=== PATIENT | male | born 1925 | race Caucasian/White ===

== ENCOUNTER 2016-11-14 05:57 | Inpatient (IN) | payer MEDICARE, OTHER ==
[~2016-11-14] VITALS: Ht 172.7 cm; Wt 74.4 kg
[2016-11-14] VITALS (7 sets, daily range): BP systolic 129–149; BP diastolic 65–76; PULSE 74–90; RESP 16–18; TEMP 98–98.4; O2SAT 92–99
[~2016-11-14 05:57] MED LIST: ACET-703 PO; ALLO300T2 PO; AMLO5TAB2 PO; ASPI-110 PO; CHOL1CAP34 PO; CIPR500T2 PO; HYDR-3583 PO; IBUP800T23 PO; IPRA17I INH; LISI-515 PO; LOTE0.5S EACH EYE; MOBI15TA PO; OMEP40CA2 PO
--- NOTE | 2016-11-14 06:47 | RADRPT ---
EXAM DATE/TIME: 11/14/2016 06:23 [facility] COMPARISON: CHEST PA & LAT, October 20, 2016, 12:37. INDICATIONS : Shortness of breath. MEDICAL HISTORY : Hypertension. SURGICAL HISTORY : PHYSICIAN/OPHTHALMOLOGIST shunt ENCOUNTER: Initial ACUITY: 1 day PAIN SCORE: 10 LOCATION: Bilateral chest FINDINGS: A single view of the chest demonstrates the lungs to be symmetrically aerated without evidence of mas s, infiltrate or effusion. Mild coarse opacity remains at the lung bases consistent with scarring. Th e cardiomediastinal contours are unremarkable. Osseous structures are intact. Shunt catheter tubing is projected over the right chest. There are mild atherosclerotic calcifications in the aorta. CONCLUSION: No acute disease. There is no evidence of acute pneumonia or pulmonary edema. Misale Camara MD on November 14, 2016 at 6:45 Board Certified Radiologist. This report was verified electronically.
--- NOTE | 2016-11-14 06:48 | RADRPT ---
EXAM DATE/TIME: 11/14/2016 06:24 [facility] COMPARISON: No previous studies available for comparison. INDICATIONS : Pelvic pain after fall. MEDICAL HISTORY : Hypertension. SURGICAL HISTORY : PUMP ERECTOR shunt ENCOUNTER: Initial ACUITY: 1 day PAIN SCORE: 10 LOCATION: Bilateral pelvis FINDINGS: A single frontal view of the pelvis demonstrates no evidence of fracture. The bony pelvic ring is in tact. Bony mineralization is normal. Mild degenerative changes are noted in both hips with sclerosis and slight spurring. The pubic rami are intact. Shunt catheter tubing is present in the pelvis. The soft tissues are intact. CONCLUSION: Negative trauma study with no acute fracture or malalignment. Misael Camara MD on November 14, 2016 at 6:46 Board Certified Radiologist. This report was verified electronically.
[2016-11-14 06:56] LABS: APTT (PATIENT) 29.5 SEC (24.3-30.1); PROTHROMBIN TIME - PATIENT 11.6 SEC (9.8-11.6)
[2016-11-14 07:00] LABS: AUTOMATED NEUTROPHIL # 16.5 TH/MM3 (1.8-7.7); BASOPHIL % 0.1 % (0.0-2.0); EOSINOPHIL % 0.1 % (0.0-4.0); HEMO FLAGS DIFF FINAL; LYMPH % 2.7 % (9.0-44.0); LYMPHOCYTE # 0.5 TH/MM3 (1.0-4.8); MEAN CELL VOLUME 94.8 FL (80.0-100.0); MEAN CORPUSCULAR HGB CONC 33.8 % (32.0-36.0); MONO % 9.7 % (0.0-8.0); NEUT % 87.4 % (16.0-70.0); PLATELET COUNT 191 TH/MM3 (150-450); RED BLOOD COUNT 4.64 MIL/MM3 (4.50-5.90); RED CELL DISTRIBUTION WIDTH 14.3 % (11.6-17.2); WHITE BLOOD COUNT 18.9 TH/MM3 (4.0-11.0)
--- NOTE | 2016-11-14 07:04 | PD ---
HPI Chief Complaint: Fall Time Seen by Provider: 06:10 Travel History International Travel<30 days: No Contact w/Intl Traveler<30days: No Traveled to known affect area: No History of Present Illness HPI The patient is 89 year old male who presents to the [facility] emergency department with a history of reportedly falling at some point in the evening today. The patient's accompanies him to this emergency department visit. She reports that he has a history of being unsteady on his feet and having intermittent confusion, slurred speech. He has recently been seen by his neurosurgeon, approximately 4 days ago related to these symptoms and concern about his TREATMENT SUPERVISOR shunt being tender. The patient's shunt was reportedly recently revised. 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 The patient is followed by Dr. Turpin. His reports that he has not been sleeping well for weeks. She reports that he has been on ciprofloxacin for the last 4 days and the pain around the shunt site has improved. She reports that she heard him yelling out this morning. As she was not sleeping well she went to another room to sleep. She therefore does not know exactly when he fell. She found him on the floor awake and alert. In spite of being alert, the patient did not seem to recognize her. However, on arrival to this facility the patient is awake and alert and recognizing his . The patient reports that he lost his balance. The patient was brought in by ambulance services in full C-spine immobilization on the backboard. The patient reports having right clavicle pain. The patient denies any recent fevers, cough, congestion, neck pain, chest pain, shortness of breath, abdominal pain, vomiting, diarrhea, urinary symptoms, one-sided weakness, numbness or tingling to his extremities, or facial droop. [facility] [place] Past Medical History Narrative Medical The patient's past medical history is significant for hearing loss, COPD, hyperlipidemia, hypertension, acid reflux, and gout. Cancer: No Cardiovascular Problems: No COPD: Yes Diabetes: No Endocrine: No Gastrointestinal Disorders: Yes (GERD) Genitourinary: No Hepatitis: No Hiatal Hernia: No Hypertension: Yes (TAKES MEDS) Immune Disorder: No Medical other: Yes (GOUT) Musculoskeletal: Yes (ARTHRITIS RIGHT KNEE AND NECK, LEFT SHOULDER PAIN) Neurologic: Yes (HYDROCEPHALUS) Psychiatric: No Reproductive: No Respiratory: Yes (EMPHYSEMA) Thyroid Disease: No Past Surgical History Narrative Surgical The patient's past surgical history is significant for a TREATMENT SUPERVISOR shunt placement, left rotator cuff repair. Abdominal Surgery: No AICD: No Body Medical Devices: RIGHT CORNIAL TRANSPLANT, RIGHT TREATMENT SUPERVISOR SHUNT Cardiac Surgery: No Ear Surgery: No Endocrine Surgery: No Eye Surgery: Yes (RIGHT CORNIAL TRANSPLANT) Genitourinary Surgery: No Gynecologic Surgery: No Joint Replacement: No Neurologic Surgery: Yes (TREATMENT SUPERVISOR SHUNT) Oral Surgery: Yes (TONSILLECTOMY A CHILD) Pacemaker: No Thoracic Surgery: No Other Surgery: Yes Social History Alcohol Use: No Tobacco Use: No Substance Use: No Allergies-Medications (Allergen,Severity, Reaction): Coded Allergies: No Known Allergies (Unverified , 11/10/16) Reported Meds & Prescriptions Reported Meds & Active Scripts Active Ibuprofen 800 Mg Tab 600 Mg PO Q8H PRN Hydrocodone-Acetaminophen 10-325 mg Tab 1 Tab PO Q8HR PRN Ciprofloxacin (Ciprofloxacin HCl) 500 Mg Tab 500 Mg PO Q12HR Reported Tylenol Extra Strength (Acetaminophen) 500 Mg Tab 500 Mg PO HS PRN Mobic (Meloxicam) 15 Mg Tab 15 Mg PO DAILY Vitamin D3 (Cholecalciferol) 50,000 Unit Cap Unknown Dose PO Q7D Atrovent HFA 12.9 GM Inh (Ipratropium Friendship) 17 Mcg/Act Aer 2 Puff INH DIRECTED PRN Lotemax Opth Drops (Loteprednol Etabonate) 0.5 % Soln 1 Drop EACH EYE QID Omeprazole 40 Mg Cap 40 Mg PO DAILY Lisinopril 20 Mg Tab 20 Mg PO DAILY Aspirin 81 (Aspirin) 81 Mg Tabdr 81 Mg PO DAILY Amlodipine (Amlodipine Besylate) 5 Mg Tab 5 Mg PO DAILY Allopurinol 300 Mg Tab 300 Mg PO DAILY Review of Systems Except as stated in HPI: all other systems reviewed are Neg General / Constitutional: No: Fever Eyes: No: Visual changes HENT: No: Headaches Cardiovascular: No: Chest Pain or Discomfort Respiratory: No: Shortness of Breath Gastrointestinal: No: Abdominal Pain Genitourinary: No: Dysuria Musculoskeletal: Positive: Pain (right clavicle) Skin: No Rash Neurologic: Positive: Coordination Problem, Change in Mentation, No: Weakness , Focal Abnormalities, Headache, Slurred Speech, Sensory Disturbance Psychiatric: No: Depression Endocrine: No: Polydipsia Hematologic/Lymphatic: No: Easy Bruising Physical Exam Narrative General: The patient is a well-developed well-nourished male in no acute distress. The patient's altered The patient is brought in on a back board in full c-spine immobilization by emergency services. Head and Neck exam: Head is normocephalic atraumatic. The patient has a TREATMENT SUPERVISOR shunt noted, no overlying erythema, edema, or crepitus. No drainage noted. No facial bone tenderness or increased facial bone mobility noted on palpation. Eyes: EOMI, pupils are equal round and reactive to light. Nose: Midline septum with pink mucous membranes Mouth: Dentition unremarkable. Moist mucus membranes. Posterior oropharynx is not erythematous. No tonsillar hypertrophy. Uvula midline. Airway patent. Neck: The patient is immobilized in a cervical collar. No tracheal deviation. The trachea appears midline. Cardiovascular: Regular rate and rhythm without murmurs, gallops, or rubs. No pulse deficit to the extremities. Lungs: Clear to auscultation bilaterally. No wheezes, rhonchi, or rales. The patient on examination of the right clavicle, has reported discomfort on palpation of the medial aspect at the border to the sternum. No erythema or ecchymosis noted. No crepitus, step off, or flail segment noted. No other chest wall tenderness on palpation. Abdomen: Soft, with reported discomfort on palpation in bilateral lower quadrants of the abdomen in the suprapubic area, worse in the left lower quadrant compared to the right. The patient reports that he's had a history of constipation recently. No tenderness on palpation of the upper quadrant of the abdomen. Negative Mcclain's sign. Normal bowel sounds are audible. No visible trauma. No evidence of ecchymosis or erythema. Extremities: No clubbing, cyanosis, or edema. 2+ pulses in all 4 extremities. No extremity tenderness or deformity noted on palpation or passive/ active range of motion. Back: The patient was log rolled off the backboard. No spinous process tenderness to palpation. No costovertebral angle tenderness to palpation. No erythema or ecchymosis. Neurologic Exam: Cranial nerves 2-12 were intact on exam. Strength is 5/5 in all 4 extremities. No sensory deficits noted. Skin Exam: No rash noted. Intact skin that is warm and dry. Data Data Last Documented VS Vital Signs Date Time Temp Pulse Resp B/P Pulse Ox O2 Delivery O2 Flow Rate FiO2 11/14/16 06:11 98.4 90 18 144/76 99 Room Air Orders Chest, Single Ap (11/14/16 06:22) Pelvis, Ap Only (Routine) (11/14/16 06:22) Ct Brain W/O Iv Contrast(Rout) (11/14/16 06:22) Ct Cerv Spine W/O Contrast (11/14/16 06:22) Ct Abd/Pel W Iv Contrast(Rout) (11/14/16 06:22) Electrocardiogram (11/14/16 06:22) Complete Blood Count With Diff (11/14/16 06:22) Comprehensive Metabolic Panel (11/14/16 06:22) Prothrombin Time / Inr (Pt) (11/14/16 06:22) Act Partial Throm Time (Ptt) (11/14/16 06:22) C-Reactive Protein (Crp) (11/14/16 06:22) Lipase (11/14/16 06:22) Urinalysis - C+S If Indicated (11/14/16 06:22) Cath For Specimen (11/14/16 06:22) Iv Access Insert/Monitor (11/14/16 06:22) Ecg Monitoring (11/14/16 06:22) Oximetry (11/14/16 06:22) Clavicle (11/14/16 ) Labs Laboratory Tests Test 11/14/16 06:30 White Blood Count 18.9 TH/MM3 Red Blood Count 4.64 MIL/MM3 Hemoglobin 14.9 GM/DL Hematocrit 44.0 % Mean Corpuscular Volume 94.8 FL Mean Corpuscular Hemoglobin 32.0 PG Mean Corpuscular Hemoglobin 33.8 % Concent Red Cell Distribution Width 14.3 % Platelet Count 191 TH/MM3 Mean Platelet Volume 8.0 FL Neutrophils (%) (Auto) 87.4 % Lymphocytes (%) (Auto) 2.7 % Monocytes (%) (Auto) 9.7 % Eosinophils (%) (Auto) 0.1 % Basophils (%) (Auto) 0.1 % Neutrophils # (Auto) 16.5 TH/MM3 Lymphocytes # (Auto) 0.5 TH/MM3 Monocytes # (Auto) 1.8 TH/MM3 Eosinophils # (Auto) 0.0 TH/MM3 Basophils # (Auto) 0.0 TH/MM3 CBC Comment DIFF FINAL Differential Comment Prothrombin Time 11.6 SEC Prothromb Time International 1.0 RATIO Ratio Activated Partial 29.5 SEC Thromboplast Time Sodium Level 134 MEQ/L Potassium Level 4.7 MEQ/L Chloride Level 103 MEQ/L Carbon Dioxide Level 23.7 MEQ/L Anion Gap 7 MEQ/L Blood Urea Nitrogen 20 MG/DL Creatinine 1.02 MG/DL Estimat Glomerular Filtration 69 ML/MIN Rate Random Glucose 139 MG/DL Calcium Level 8.6 MG/DL Total Bilirubin 1.3 MG/DL Aspartate Amino Transf 40 U/L (AST/SGOT) Alanine Aminotransferase 42 U/L (ALT/SGPT) Alkaline Phosphatase 121 U/L C-Reactive Protein 18.00 MG/DL Total Protein 7.1 GM/DL Albumin 2.9 GM/DL Lipase 64 U/L MDM Medical Decision Making Medical Screen Exam Complete: Yes Emergency Medical Condition: Yes Medical Record Reviewed: Yes Differential Diagnosis Intracranial abnormality, versus cervical spine trauma, versus intrathoracic trauma, versus intra-abdominal trauma, versus diverticulitis, versus right clavicle fracture, versus contusion, versus urinary tract infection, versus TREATMENT SUPERVISOR shunt malfunction. Narrative Course During the course of the patients emergency department visit, the patients history, examination, and differential diagnosis were reviewed with the patient. The patient had IV access obtained and blood work sent for analysis. The patient was placed on a monitor tech with oximetry and blood pressure monitoring. An EKG was done on arrival that shows a sinus rhythm heart rate of 87, no acute ST segment changes are noted. No ST segment elevation. A CT scan of the head, neck, abdomen and pelvis was ordered. Chest x-ray was ordered. Pelvic x-ray was ordered. Right clavicle x-ray was ordered. The patients laboratory studies were reviewed and remarkable for a PT and INR that were unremarkable, PTT unremarkable. Chest x-ray, pelvic x-ray showed no acute abnormality. The patient's case was checked out to the oncoming emergency physician to disposition based on the conclusion of his workup. Anticipate that the patient will be admitted to the hospital for continued evaluation and treatment for altered mentation that waxes and wanes in severity. Diagnosis Primary Impression: Fall Qualified Code: W19.XXXA - Fall, initial encounter Additional Impression: Altered mental status Qualified Code: R40.4 - Transient alteration of awareness Admitting Information Admitting Physician Requests: Admit Liat Marrero MD Nov 14, 2016 07:04
[2016-11-14 07:10] LABS: ALKALINE PHOSPHATASE 121 U/L (45-117); ALT (GPT) 42 U/L (12-78); ANION GAP 7 MEQ/L (5-15); AST (GOT) 40 U/L (15-37); BICARBONATE 23.7 MEQ/L (21.0-32.0); BLOOD UREA NITROGEN 20 MG/DL (7-18); CHLORIDE 103 MEQ/L (98-107); GLOMERULAR FILTRATION RATE 69 ML/MIN (>89); POTASSIUM 4.7 MEQ/L (3.5-5.1); SODIUM (NA) 134 MEQ/L (136-145); TOTAL BILIRUBIN ADULT 1.3 MG/DL (0.2-1.0)
[2016-11-14] MEDS ORDERED: IOHEXOL 350 MG/ML 10 ML VIAL (for RAD DIAG) IV ONE (07:53)
--- NOTE | 2016-11-14 08:00 | RADRPT ---
EXAM DATE/TIME: 11/14/2016 07:32 [facility] COMPARISON: No previous studies available for comparison. INDICATIONS : Patient fell, shunt replaced 3 weeks ago RADIATION DOSE: 60.46 CTDIvol (mGy) MEDICAL HISTORY : Hypertension. Chronic obstructive pulmonary disease. Hydrocephalus SURGICAL HISTORY : CYLINDER DIE MACHINE HELPER shunt ENCOUNTER: Initial ACUITY: 1 day PAIN SCALE: 3/10 LOCATION: cranial TECHNIQUE: Multiple contiguous axial images were obtained of the head. Using automated exposure control and adj ustment of the mA and/or kV according to patient size, radiation dose was kept as low as reasonably a chievable to obtain optimal diagnostic quality images. FINDINGS: No intracranial hemorrhage or hematoma. No mass, mass effect or midline shift. Chronic white matter l ow attenuation again noted. No evidence of an acute ischemic infarction. Patient is shunted. No ventr iculomegaly. CONCLUSION: No acute intracranial abnormality. New Manrique MD on November 14, 2016 at 7:57 Board Certified Radiologist. This report was verified electronically.
--- NOTE | 2016-11-14 08:08 | RADRPT ---
EXAM DATE/TIME: 11/14/2016 07:41 [facility] COMPARISON: No previous studies available for comparison. INDICATIONS : Patient fell IV CONTRAST: 76 cc Omnipaque 350 (iohexol) IV ORAL CONTRAST: No oral contrast ingested. RADIATION DOSE: 9.72 CTDIvol (mGy) MEDICAL HISTORY : Hypertension. Chronic obstructive pulmonary disease. SURGICAL HISTORY : Sustainability Engineer shunt ENCOUNTER: Initial ACUITY: 1 day PAIN SCALE: 0/10 LOCATION: abdomen TECHNIQUE: Volumetric scanning of the abdomen and pelvis was performed. Using automated exposure control and ad justment of the mA and/or kV according to patient size, radiation dose was kept as low as reasonably achievable to obtain optimal diagnostic quality images. FINDINGS: LOWER LUNGS: Fibrotic changes and mild consolidation seen of the visualized lung bases. LIVER: Homogeneous density without lesion. There is no dilation of the biliary tree. No calcified gallston es. SPLEEN: Normal size without lesion. PANCREAS: Within normal limits. KIDNEYS: Normal in size and shape. There is no mass, stone or hydronephrosis. ADRENAL GLANDS: Within normal limits. VASCULAR: There is no aortic aneurysm. BOWEL/MESENTERY: The stomach, small bowel, and colon demonstrate no acute abnormality. There is no free intraperitone al air or fluid. Distal portions of a ventriculoperitoneal shunt catheter are seen coiled in the pelv ic cavity. Small moderate hiatal hernia noted. ABDOMINAL WALL: Within normal limits. RETROPERITONEUM: There is no lymphadenopathy. BLADDER: No wall thickening or mass. REPRODUCTIVE: Within normal limits. INGUINAL: There is no lymphadenopathy or hernia. MUSCULOSKELETAL: No acute bony abnormality demonstrated. There are pagetoid changes of the right hemipelvis. CONCLUSION: 1. No visceral origin injury or other acute abnormality of the abdomen or pelvis. 2. Fibrotic changes and patchy consolidation of the visualized lung bases. 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 4. Small to moderate hiatal hernia. New Manrique MD on November 14, 2016 at 8:04 Board Certified Radiologist. This report was verified electronically.
--- NOTE | 2016-11-14 08:10 | RADRPT ---
EXAM DATE/TIME: 11/14/2016 07:50 [facility] COMPARISON: No previous studies available for comparison. INDICATIONS : Right clavicle infection. Minor pain. MEDICAL HISTORY : Hypertension. Chronic obstructive pulmonary disease. Hydrocephalus SURGICAL HISTORY : CUE SELECTOR shunt ENCOUNTER: Initial ACUITY: 1 day PAIN SCORE: 1/10 LOCATION: Right clavicle FINDINGS: Two view examination of the right clavicle demonstrates no evidence of fracture. The sternoclavicula r joints and acromioclavicular joints are maintained. Bony mineralization is normal. CONCLUSION: Intact right clavicle. New Manrique MD on November 14, 2016 at 8:08 Board Certified Radiologist. This report was verified electronically.
[2016-11-14 08:39] LABS: BLOOD, URINE SMALL (NEG); GLUCOSE,URINE NEG (NEG); KETONE, URINE 10 mg/dL (NEG); MUCUS URINE MOD /lpf (OCC); NITRITE,URINE NEG (NEG); PH, URINE 6.5 (5.0-8.5); URINE COLOR YELLOW (YELLW/STRAW)
[2016-11-14 08:42] LABS: COMMENT (UR) CULT NOT INDICATED; CULTURE IF INDICATED CULT NOT INDICATED
--- NOTE | 2016-11-14 09:57 | RADRPT ---
EXAM DATE/TIME: 11/14/2016 07:32 [facility] COMPARISON: No previous studies available for comparison. INDICATIONS : Patient fell RADIATION DOSE: 19.18 CTDIvol (mGy) MEDICAL HISTORY : Hypertension. Chronic obstructive pulmonary disease. SURGICAL HISTORY : shunt ENCOUNTER: Initial ACUITY: 1 day PAIN SCALE: 5/10 LOCATION: neck TECHNIQUE: Volumetric scanning of the cervical spine was performed. Multiplanar reconstructions in the sagittal, coronal and oblique axial planes were performed. Using automated exposure control and adjustment o f the mA and/or kV according to patient size, radiation dose was kept as low as reasonably achievable to obtain optimal diagnostic quality images. FINDINGS: VERTEBRAE: Normal vertebral body height. ALIGNMENT: No evidence of subluxation. Calcified plaque involving the carotid arteries bilaterally. C2-C3: The bony spinal canal is normal in size. No evidence of disc bulge or herniation. The neural forami na are bilaterally patent. C3-C4: A broad-based disc bulge eccentric to the left. Mild narrowing of the left lateral recess. Central ca nal and neural foramina are patent. C4-C5: The bony spinal canal is normal in size. No evidence of disc bulge or herniation. The neural forami na are bilaterally patent. C5-C6: Mild central bulge. Lateral recesses, central canal, and neural foramina are patent. C6-C7: The bony spinal canal is normal in size. No evidence of disc bulge or herniation. The neural forami na are bilaterally patent. C7-T1: The bony spinal canal is normal in size. No evidence of disc bulge or herniation. The neural forami na are bilaterally patent. CONCLUSION: 1. No acute abnormality. 2. Diffuse mild degenerative changes without central canal stenosis or neural foraminal narrowing. 3. Calcified plaque involving the carotid arteries. Edwardo Workman Jr., MD on November 14, 2016 at 9:45 Board Certified Radiologist. This report was verified electronically.
[2016-11-14] MEDS ORDERED: PIPERACIL-TAZO 4.5 GM PREMIX 100 ML IV STA (10:03)
[2016-11-14] MEDS ORDERED: VANCOMYCIN INJ 1,000 MG in SODIUM CHLOR 0.9% 250 ML INJ 250 ML IV STA (10:03)
--- NOTE | 2016-11-14 10:43 | PD ---
Physical Exam Date Seen by Provider: Nov 14, 2016 Time Seen by Provider: 07:00 Narrative Case is signed out to me at [address] Marrero, complicated patient with history of CSF shunt, more disoriented a recently, has been on Cipro for [address] Turpin. Please see Dr. Marrero's note for further information. Laboratory Tests Test 11/14/16 11/14/16 06:30 08:26 White Blood Count 18.9 TH/MM3 (4.0-11.0) Neutrophils (%) (Auto) 87.4 % (16.0-70.0) Lymphocytes (%) (Auto) 2.7 % (9.0-44.0) Monocytes (%) (Auto) 9.7 % (0.0-8.0) Neutrophils # (Auto) 16.5 TH/MM3 (1.8-7.7) Lymphocytes # (Auto) 0.5 TH/MM3 (1.0-4.8) Monocytes # (Auto) 1.8 TH/MM3 (0-0.9) Sodium Level 134 MEQ/L (136-145) Blood Urea Nitrogen 20 MG/DL (7-18) Estimat Glomerular Filtration 69 ML/MIN (>89) Rate Random Glucose 139 MG/DL (74-106) Total Bilirubin 1.3 MG/DL (0.2-1.0) Aspartate Amino Transf 40 U/L (15-37) (AST/SGOT) Alkaline Phosphatase 121 U/L (45-117) C-Reactive Protein 18.00 MG/DL (0.00-0.30) Albumin 2.9 GM/DL (3.4-5.0) Lipase 64 U/L (73-393) Urine Specific [place] GREATER THAN 1.050 (1.002-1.035) Urine Protein 30 mg/dL (NEG-TRACE) Urine Ketones 10 mg/dL (NEG) Urine Occult Blood SMALL (NEG) Urine RBC 7 /hpf (0-3) Urine Mucus MOD /lpf (OCC) Last 24 hours Impressions Pelvis X-Ray 11/14/16621 Signed Impressions: Service Date/Time: Monday, November 14, 2016 06:24 - CONCLUSION: Negative trauma study with no acute fracture or malalignment. Misael Camara MD Head CT 12/27/16 0622 Signed Impressions: Service Date/Time: Monday, November 14, 2016 07:32 - CONCLUSION: No acute intracranial abnormality. New Manrique MD Chest X-Ray 11/14/16621 Signed Impressions: Service Date/Time: Monday, November 14, 2016 06:23 - CONCLUSION: No acute disease. There is no evidence of acute pneumonia or pulmonary edema. Misael Camara MD Cervical Spine CT 11/14/16621 Signed Impressions: Service Date/Time: Monday, November 14, 2016 07:32 - CONCLUSION: 1. No acute abnormality. 2. Diffuse mild degenerative changes without central canal stenosis or neural foraminal narrowing. 3. Calcified plaque involving the carotid arteries. Edwardo Workman Jr., MD Abdomen/Pelvis CT 11/14/16621 Signed Impressions: Service Date/Time: Monday, November 14, 2016 07:41 - CONCLUSION: 1. No visceral origin injury or other acute abnormality of the abdomen or pelvis. 2. Fibrotic changes and patchy consolidation of the visualized lung bases. 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 4. Small to moderate hiatal hernia. New Manrique MD Clavicle X-Ray 11/14/16 0000 Signed Impressions: Service Date/Time: Monday, November 14, 2016 07:50 - CONCLUSION: Intact right clavicle. New Manrique MD CAT scans and x-rays did not reveal any signs of obvious acute issues. However , lab work is concerning for possible underlying sepsis. IV antibiotics were initiated after blood cultures are drawn. At this point, my plan would be to admit the patient for further treatment. The case was discussed with Dr. Lane for admission. Data Data Last Documented VS Vital Signs Date Time Temp Pulse Resp B/P Pulse Ox O2 Delivery O2 Flow Rate FiO2 11/14/16 07:22 88 18 129/65 96 Nasal Cannula 2 11/14/16 06:11 98.4 Orders Chest, Single Ap (11/14/16 06:22) Pelvis, Ap Only (Routine) (11/14/16 06:22) Ct Brain W/O Iv Contrast(Rout) (11/14/16 06:22) Ct Cerv Spine W/O Contrast (11/14/16 06:22) Ct Abd/Pel W Iv Contrast(Rout) (11/14/16 06:22) Electrocardiogram (11/14/16 06:22) Complete Blood Count With Diff (11/14/16 06:22) Comprehensive Metabolic Panel (11/14/16 06:22) Prothrombin Time / Inr (Pt) (11/14/16 06:22) Act Partial Throm Time (Ptt) (11/14/16 06:22) C-Reactive Protein (Crp) (11/14/16 06:22) Lipase (11/14/16 06:22) Urinalysis - C+S If Indicated (11/14/16 06:22) Cath For Specimen (11/14/16 06:22) Iv Access Insert/Monitor (11/14/16 06:22) Ecg Monitoring (11/14/16 06:22) Oximetry (11/14/16 06:22) Clavicle (11/14/16 ) Iohexol 350 Inj (Omnipaque 350 Inj) (11/14/16 07:53) Lactic Acid Sepsis Protocol (11/14/16 10:03) Blood Culture (11/14/16 10:03) Vancomycin Inj (Vancomycin Inj) (11/14/16 10:03) Piperacil-Tazo 4.5 Gm Premix (Zosyn 4.5 (11/14/16 10:03) Admit Order (Ed Use Only) (11/14/16 10:39) Labs Laboratory Tests Test 11/14/16 11/14/16 06:30 08:26 White Blood Count 18.9 TH/MM3 Red Blood Count 4.64 MIL/MM3 Hemoglobin 14.9 GM/DL Hematocrit 44.0 % Mean Corpuscular Volume 94.8 FL Mean Corpuscular Hemoglobin 32.0 PG Mean Corpuscular Hemoglobin 33.8 % Concent Red Cell Distribution Width 14.3 % Platelet Count 191 TH/MM3 Mean Platelet Volume 8.0 FL Neutrophils (%) (Auto) 87.4 % Lymphocytes (%) (Auto) 2.7 % Monocytes (%) (Auto) 9.7 % Eosinophils (%) (Auto) 0.1 % Basophils (%) (Auto) 0.1 % Neutrophils # (Auto) 16.5 TH/MM3 Lymphocytes # (Auto) 0.5 TH/MM3 Monocytes # (Auto) 1.8 TH/MM3 Eosinophils # (Auto) 0.0 TH/MM3 Basophils # (Auto) 0.0 TH/MM3 CBC Comment DIFF FINAL Differential Comment Prothrombin Time 11.6 SEC Prothromb Time International 1.0 RATIO Ratio Activated Partial 29.5 SEC Thromboplast Time Sodium Level 134 MEQ/L Potassium Level 4.7 MEQ/L Chloride Level 103 MEQ/L Carbon Dioxide Level 23.7 MEQ/L Anion Gap 7 MEQ/L Blood Urea Nitrogen 20 MG/DL Creatinine 1.02 MG/DL Estimat Glomerular Filtration 69 ML/MIN Rate Random Glucose 139 MG/DL Calcium Level 8.6 MG/DL Total Bilirubin 1.3 MG/DL Aspartate Amino Transf 40 U/L (AST/SGOT) Alanine Aminotransferase 42 U/L (ALT/SGPT) Alkaline Phosphatase 121 U/L C-Reactive Protein 18.00 MG/DL Total Protein 7.1 GM/DL Albumin 2.9 GM/DL Lipase 64 U/L Urine Color YELLOW Urine Turbidity CLEAR Urine pH 6.5 Urine Specific [place] GREATER THAN 1.050 Urine Protein 30 mg/dL Urine Glucose (UA) NEG mg/dL Urine Ketones 10 mg/dL Urine Occult Blood SMALL Urine Nitrite NEG Urine Bilirubin NEG Urine Urobilinogen LESS THAN 2.0 MG/DL Urine Leukocyte Esterase NEG Urine RBC 7 /hpf Urine WBC 5 /hpf Urine Mucus MOD /lpf Microscopic Urinalysis Comment CULT NOT INDICATED MDM Medical Record Reviewed: Yes Supervised Visit with CARLIE: No Sepsis Criteria SIRS Criteria (2 or more): Heart rate over 90, WBC > 10542, < 4000 or > 10% bands Diagnosis Primary Impression: Fall Qualified Code: W19.XXXA - Fall, initial encounter Additional Impressions: Altered mental status Qualified Code: R40.4 - Transient alteration of awareness SEPSIS, UNSPECIFIED ORGANISM Admitting Information Admitting Physician Requests: it Lenora Castellon MD Nov 14, 2016 10:43
[2016-11-14] MEDS ORDERED: VANCOMYCIN INJ 1,200 MG in SODIUM CHLOR 0.9% 250 ML INJ 250 ML IV SCH (12:00)
[2016-11-14] MEDS ORDERED: ACETAMINOPHEN 500 MG CPLT PO PRN (12:00)
[2016-11-14] MEDS: SODIUM CHLOR 0.9% 1000 ML INJ 1,000 ML IV SCH ×2 (12:25→23:11)
[2016-11-14] MEDS ORDERED: Vancomycin Consult Pharmacy XX SCH (12:30)
[2016-11-14] MEDS: LOTEPREDNOL OPTH EACH EYE SCH ×2 (13:00→21:00)
--- NOTE | 2016-11-14 15:08 | PD.RAD ---
Post Procedure Progress Note Pre Procedure Diagnosis: (1) Altered mental status Post Procedure Diagnosis: (1) Altered mental status Procedure Date: Nov 14, 2016 Supervising Radiologist: Edwardo Workman JR Proceduralist/Assist: Shu Cage, RT(R), Janet Desai RT(R) Anesthesia: Local Plan of Activity Patient to Unit: Nursing Unit Patient Condition: Good See PACS Report for procedural detail/treatment Spinal Procedure Lumbar Puncture L3-L4 Fluid Removal (CCs): 11 Fluid Description: Clear Puncture Time: 14:33 Jr. Ji,Edwardo Holland MD Nov 14, 2016 15:08
--- NOTE | 2016-11-14 15:29 | RADRPT ---
EXAM DATE/TIME: 11/14/2016 13:55 [place] COMPARISON: No previous studies available for comparison. INDICATIONS : Patient with altered mental status in need of lumbar puncture to rule out meningitis. MEDICAL HISTORY : COPD, HLD, HTN, GERD, Gout, Hydrocephalus, Emphysema SURGICAL HISTORY : MEDICAL DATA ENTRY CLERK shunt placement, Left rotator cuff repair ENCOUNTER: Initial ACUITY: 4 -6 days PAIN SCORE: 0/10 LUMBAR PUNCTURE TIME: 1433 hours FLUORO TIME: 0.8 minutes ACCESS LEVEL: L3-4 FLUID: 11 cc of clear CSF was collected and sent to the laboratory for analysis. PROCEDURE : 1. Fluoroscopic guided lumbar puncture. The risks, benefits and alternatives to the procedure were explained and verbal and written consent w as obtained. The site was prepped in sterile fashion. Full sterile technique was used, including ca p, mask, sterile gloves and gown and a large sterile sheet. Hand hygiene and 2% chlorhexidine and/or betadine/alcohol prep was utilized per protocol for cutaneous antisepsis. The skin and subcutaneous tissues were infiltrated with local anesthetic solution. With fluoroscopic guidance the lumbar thecal sac was punctured at the level above. The fluid describ ed above was removed without difficulty. The patient tolerated the procedure well and there were no complications. CONCLUSION: Uncomplicated fluoroscopically guided lumbar puncture. Edwardo Workman Jr., MD on November 14, 2016 at 15:27 Board Certified Radiologist. This report was verified electronically.
[2016-11-14 15:50] LABS: GROSS BLOOD TUBE #1 1+ (0); GROSS BLOOD TUBE #2 0 (0); GROSS BLOOD TUBE #3 0 (0); GROSS BLOOD TUBE #4 0 (0); SUPERNATE COLOR TUBE #1 CLEAR (CLEAR); SUPERNATE COLOR TUBE #2 CLEAR (CLEAR); SUPERNATE COLOR TUBE #3 CLEAR (CLEAR); SUPERNATE COLOR TUBE #4 CLEAR (CLEAR); VOLUME TUBE # 4 4.5 ML; WBC TUBE #4 27 /MM3 (0-10)
[2016-11-14 16:28] LABS: CSF LYMPHOCYTES 48 %; CSF MONOCYTES 31 %; CSF NEUTROPHILS 3 %
--- NOTE | 2016-11-14 16:48 | PD.ID.CON ---
History of Present Illness Service Infectious Disease Consult Requested By Dr. Vergara Reason for Consult Evaluation and management of sepsis, possible PRINTING BINDERY ASSISTANT shunt infection Primary Care Physician Vini Recio M.D. 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 He reports that on 10/25/2016 he had replacement of the shunt valve at [facility] by for PRINTING BINDERY ASSISTANT shunt malfunction. Patient 's who is present in the room and reports that since the valve was replaced patient has been unable to walk properly and has an unsteady gait with history of fall. He also has been dizzy she thinks he is not thinking right and often stares in space. She also thinks that he is more somnolent and not oriented at times hallucinates and sees bugs. Patient's also reports that due to these symptoms she was seen at Dr. Turpin's clinic 4 days prior to admission and due to concern for PRINTING BINDERY ASSISTANT shunt infection due to localized PRINTING BINDERY ASSISTANT shunt site tenderness he was started on ciprofloxacin which she has been compliant with. With this background patient presents to [facility] emergency department with a history of reportedly falling at some point prior to admission. There is no history of fever but of note patient is on antibiotics. Patient's reports that the pain and tenderness around the PRINTING BINDERY ASSISTANT shunt site on the right side as well as the neck pain has reduced some since starting ciprofloxacin. His reports that he hasn't been sleeping well for weeks and because of this reason she went to another room to sleep. She is not sure about what time he fell but when he'll doubt she found him on the floor awake and alert. She also reports that he was not able to recognize her and so she decided to bring him to the emergency department. The patient was brought in by ambulance services in full C-spine immobilization on the backboard. Blood cultures were done on admission. Patient underwent imaging as well as a lumbar puncture. Lumbar puncture notes reviewed clear fluid, fluid studies reviewed total protein elevated at 100, WBC at 27 but of note patient has been on antibiotics. Pertinent positives and negatives: No history of fevers, night sweats No history of any cardiopulmonary symptoms No history of any bowel bladder dysfunction, seizures, focalize neurological deficit symptoms ID has been consulted for evaluation of possible sepsis, possible PRINTING BINDERY ASSISTANT shunt site infection meningitis,ventriculitis. Review of Systems ROS Limitations: Altered Mental Status Past Family Social History Allergies: Coded Allergies: No Known Allergies (Unverified , 11/10/16) Past Medical History Hearing loss COPD, emphysema Hyperlipidemia Hypertension GERD Gout Arthritis Hydrocephalus History of falls Past Surgical History PRINTING BINDERY ASSISTANT shunt placement in [facility] in 2010 PRINTING BINDERY ASSISTANT shunt valve replacement at [facility] on October 25, 2016 Lumbar disc surgery unsure if he has any hardware Corneal transplant left eye Reported Medications Reported Meds & Active Scripts Active Ciprofloxacin (Ciprofloxacin HCl) 500 Mg Tab 500 Mg PO Q12HR Ibuprofen 800 Mg Tab 600 Mg PO Q8H PRN Hydrocodone-Acetaminophen 10-325 mg Tab 1 Tab PO Q8HR PRN Reported Tylenol Extra Strength (Acetaminophen) 500 Mg Tab 500 Mg PO HS PRN Mobic (Meloxicam) 15 Mg Tab 15 Mg PO DAILY Vitamin D3 (Cholecalciferol) 50,000 Unit Cap Unknown Dose PO Q7D Atrovent HFA 12.9 GM Inh (Ipratropium [place]) 17 Mcg/Act Aer 2 Puff INH DIRECTED PRN Lotemax Opth Drops (Loteprednol Etabonate) 0.5 % Soln 1 Drop EACH EYE QID Omeprazole 40 Mg Cap 40 Mg PO DAILY Lisinopril 20 Mg Tab 20 Mg PO DAILY Aspirin 81 (Aspirin) 81 Mg Tabdr 81 Mg PO DAILY Amlodipine (Amlodipine Besylate) 5 Mg Tab 5 Mg PO DAILY Allopurinol 300 Mg Tab 300 Mg PO DAILY Active Ordered Medications Current Medications Medications (Trade) Dose Ordered Sig/Kiel Route Start Time Stop Time Status Last Admin (Tylenol) 500 mg HS PRN PO 11/14/16 12:00 (Zyloprim) 300 mg DAILY PO 11/15/16 09:00 (Norvasc) 5 mg DAILY PO 11/15/16 09:00 (Prinivil) 20 mg DAILY PO 11/15/16 09:00 Patient Own Medication PT OWN MED: (Loteprednol Opth . QID EACH EYE 11/14/16 13:00 Sodium Chloride 1,000 ml @ 100 mls/hr Q10H IV 11/14/16 12:15 11/14/16 12:25 Pharmacy Profile Note ml @ 0 mls/hr UNSCH XX 11/14/16 12:30 (Vancomycin Inj/ NS 250 ml Inj) 262.5 ml @ 250 mls/hr Q24H IV 11/15/16 06:00 Miscellaneous Information SPECIFIC LAB TO BE DRAWN:VANCOMYCIN TROUGH DATE TO... ONCE ONCE XX 11/17/16 05:45 11/17/16 05:46 (Fortaz Inj/NS Inj) 100 ml @ 200 mls/hr Q8H IV 11/14/16 20:00 (Flagyl) 500 mg Q8HR PO 11/14/16 22:00 Family History non contributory to current ID problem. Social History lives at home with ex . Physical Exam Vital Signs Vital Signs Date Time Temp Pulse Resp B/P Pulse Ox O2 Delivery O2 Flow Rate FiO2 11/14/16 14:58 74 18 144/65 97 Nasal Cannula 3 11/14/16 13:30 76 16 133/66 96 Nasal Cannula 3 11/14/16 10:53 75 18 136/65 92 Nasal Cannula 2 11/14/16 07:22 88 18 129/65 96 Nasal Cannula 2 11/14/16 06:11 98.4 90 18 144/76 99 Room Air Physical Exam GENERAL: This is a well-nourished, well-developed patient, in no apparent distress. SKIN: Bruising noted on right wrist area. HEAD: surgical site PRINTING BINDERY ASSISTANT shunt site with no erythema, or discharge noted. EYES: Pupils equal round and reactive. Extraocular motions intact. No scleral icterus. No injection or drainage. ENT: Nose without bleeding, purulent drainage or septal hematoma. Throat without erythema, tonsillar hypertrophy or exudate. Uvula midline. Airway patent. NECK: Trachea midline. CARDIOVASCULAR: HS audible. RESPIRATORY: Clear to auscultation. Breath sounds equal bilaterally. No wheezes , rales, or rhonchi. GASTROINTESTINAL: Abdomen soft, non-tender, nondistended. MUSCULOSKELETAL: Extremities without clubbing, cyanosis, or edema. No joint tenderness, effusion, or edema noted. No calf tenderness. Negative Homans sign bilaterally. NEUROLOGICAL: Awake and alert. PRINTING BINDERY ASSISTANT shunt site with no obvious signs of infection , ? neck stiffness. Psych: cooperative IV line sites with no e/o infection. Laboratory Laboratory Tests Test 11/14/16 11/14/16 11/14/16 11/14/16 06:30 08:26 10:50 14:33 White Blood Count 18.9 Red Blood Count 4.64 Hemoglobin 14.9 Hematocrit 44.0 Mean Corpuscular Volume 94.8 Mean Corpuscular Hemoglobin 32.0 Mean Corpuscular Hemoglobin 33.8 Concent Red Cell Distribution Width 14.3 Platelet Count 191 Mean Platelet Volume 8.0 Neutrophils (%) (Auto) 87.4 Lymphocytes (%) (Auto) 2.7 Monocytes (%) (Auto) 9.7 Eosinophils (%) (Auto) 0.1 Basophils (%) (Auto) 0.1 Neutrophils # (Auto) 16.5 Lymphocytes # (Auto) 0.5 Monocytes # (Auto) 1.8 Eosinophils # (Auto) 0.0 Basophils # (Auto) 0.0 CBC Comment DIFF FINAL Differential Comment Prothrombin Time 11.6 Prothromb Time International 1.0 Ratio Activated Partial 29.5 Thromboplast Time Sodium Level 134 Potassium Level 4.7 Chloride Level 103 Carbon Dioxide Level 23.7 Anion Gap 7 Blood Urea Nitrogen 20 Creatinine 1.02 Estimat Glomerular Filtration 69 Rate Random Glucose 139 Calcium Level 8.6 Total Bilirubin 1.3 Aspartate Amino Transf 40 (AST/SGOT) Alanine Aminotransferase 42 (ALT/SGPT) Alkaline Phosphatase 121 C-Reactive Protein 18.00 Total Protein 7.1 Albumin 2.9 Lipase 64 Urine Color YELLOW Urine Turbidity CLEAR Urine pH 6.5 Urine Specific [place] GREATER THAN 1.050 Urine Protein 30 Urine Glucose (UA) NEG Urine Ketones 10 Urine Occult Blood SMALL Urine Nitrite NEG Urine Bilirubin NEG Urine Urobilinogen LESS THAN 2.0 Urine Leukocyte Esterase NEG Urine RBC 7 Urine WBC 5 Urine Mucus MOD Microscopic Urinalysis Comment CULT NOT INDICATED Lactic Acid Level 0.9 CSF Volume (Tube 1) 2.0 CSF Supernatant Color (tube 1) CLEAR CSF Gross Blood (Tube 1) 1+ CSF Volume (Tube 2) 2.0 CSF Supernatant Color (tube 2) CLEAR CSF Gross Blood (Tube 2) 0 CSF Volume (Tube 3) 2.0 CSF Supernatant Color (tube 3) CLEAR CSF Gross Blood (Tube 3) 0 CSF Volume (Tube 4) 4.5 CSF Supernatant Color (tube 4) CLEAR CSF Gross Blood (Tube 4) 0 CSF WBC (Tube 4) 27 CSF RBC (Tube 4) 190 CSF Neutrophils 3 CSF Lymphocytes 48 CSF Monocytes 31 CSF Histiocytes 18 CSF Other Cells Date/Time Procedure Status Source Growth 11/14/16 14:33 Gram Stain - Final Resulted Cerebral Spinal Fluid Lumbar Puncture 11/14/16 14:33 CSF Culture Resulted Cerebral Spinal Fluid Lumbar Puncture Pending 11/14/16 10:50 Aerobic Blood Culture Received Blood Peripheral Pending 11/14/16 10:50 Anaerobic Blood Culture Received Blood Peripheral Pending Result Diagram: 11/14/1662911/14/16629 Imaging Last Impressions Pelvis X-Ray 11/14/16621 Signed Impressions: Service Date/Time: Monday, November 14, 2016 06:24 - CONCLUSION: Negative trauma study with no acute fracture or malalignment. Misael Camara MD Head CT 11/14/16621 Signed Impressions: Service Date/Time: Monday, November 14, 2016 07:32 - CONCLUSION: No acute intracranial abnormality. New Manrique MD Chest X-Ray 11/14/16621 Signed Impressions: Service Date/Time: Monday, November 14, 2016 06:23 - CONCLUSION: No acute disease. There is no evidence of acute pneumonia or pulmonary edema. Misael Camara MD Cervical Spine CT 11/14/16621 Signed Impressions: Service Date/Time: Monday, November 14, 2016 07:32 - CONCLUSION: 1. No acute abnormality. 2. Diffuse mild degenerative changes without central canal stenosis or neural foraminal narrowing. 3. Calcified plaque involving the carotid arteries. Edwardo Workman Jr., MD Abdomen/Pelvis CT 11/14/16621 Signed Impressions: Service Date/Time: Monday, November 14, 2016 07:41 - CONCLUSION: 1. No visceral origin injury or other acute abnormality of the abdomen or pelvis. 2. Fibrotic changes and patchy consolidation of the visualized lung bases. 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 4. Small to moderate hiatal hernia. New Manrique MD Lumbar Puncture Fluoroscopy 11/14/16 0000 Signed Impressions: Service Date/Time: Monday, November 14, 2016 13:55 - CONCLUSION: Uncomplicated fluoroscopically guided lumbar puncture. Edwardo Workman Jr., MD Clavicle X-Ray 11/14/16 0000 Signed Impressions: Service Date/Time: Monday, November 14, 2016 07:50 - CONCLUSION: Intact right clavicle. New Manrique MD Assessment and Plan Assessment and Plan Sepsis present on admission (Elevated WBC, Meningitis likely related to PRINTING BINDERY ASSISTANT shunt , was on antibiotics prior to admission) Meningitis, ventriculitis (related to PRINTING BINDERY ASSISTANT shunt valve replacement possible). Acute metabolic encephalopathy: infection, NPH Elevated CRP. Recs DC Zosyn IV Start Ceftazidime (better MARINE REPORTER penetration and can transition to IV pump on DC) Start oral flagyl Continue Vanco IV (target trough 15-20 for meningitis) CSF for additional tests: AFB and Fungal stain and Culture as this could be device related. Follow cultures Follow clinically. D/w patient and . Will d.w or PA in . Terrie Bell MD Nov 14, 2016 16:48
[2016-11-14] MEDS ORDERED: PIPERACIL-TAZO 3.375 GM PREMIX 50 ML IV SCH (17:00)
[2016-11-14] MEDS ORDERED: RESP: ALBUTEROL 2.5 MG/IPRATROPIUM 0.5 MG NEB (PRN) NEB (20:30)
[2016-11-14] MEDS: cefTAZidime INJ 2,000 MG in SODIUM CHLORIDE 0.9% INJ 100 ML IV SCH (23:11)
[2016-11-14] MEDS: metroNIDAZOLE 500 MG TAB PO SCH (23:11)
[2016-11-15] VITALS (9 sets, daily range): BP systolic 131–162; BP diastolic 63–83; PULSE 70–98; RESP 18; TEMP 97.5–98.7; O2SAT 91–95
[2016-11-15] MEDS: ACETAMINOPHEN/HYDROcodone 325 MG/5 MG TAB PO PRN ×3 (03:42→20:39)
[2016-11-15] MEDS: cefTAZidime INJ 2,000 MG in SODIUM CHLORIDE 0.9% INJ 100 ML IV SCH ×3 (03:43→20:39)
[2016-11-15] MEDS: VANCOMYCIN INJ 1,250 MG in SODIUM CHLOR 0.9% 250 ML INJ 250 ML IV SCH (05:55)
[2016-11-15] MEDS: metroNIDAZOLE 500 MG TAB PO SCH ×3 (05:55→20:38)
--- NOTE | 2016-11-15 07:49 | EKG ---
Date Performed: 11/14/2016 Time Performed: 06:40:25 PTAGE: 89 years EKG: Sinus rhythm NORMAL ECG PREVIOUS TRACING : 10/20/2016 11.24 DOCTOR: Jose Ordonez Interpretating Date/Time 11/15/2016 07:44:46
--- NOTE | 2016-11-15 08:53 | MH ---
cc: RAUL RUIZ MD DATE OF ADMISSION 11/14/[address] Vini Recio. CHIEF COMPLAINT The patient came to the ER after having a fall at home. HISTORY OF PRESENT ILLNESS This is a very pleasant 89-year-old male with prior history of normal pressure hydrocephalus which was originally treated with JUNIOR MEDIA BUYER shunt some time to [facility]. Subsequently, he had a shunt revision in 2011 in [place] after which he needed some adjustment a few times. The patient moved to [place] sometime n April of this year along with his . He was having some difficulty with his shunt and was developing some gait problem and memory problem. He was seen by Dr. Singh of neurology who has referred him to Dr. Alberto Turpin, neurosurgeon. The patient had formal shuntogram and shunt series x-rays and found to have shunt malfunction. In early October, the patient underwent a revision of JUNIOR MEDIA BUYER shunt by Dr. Turpin. He had a follow-up visit at which time his mode were removed. The incision was healing well. He was noted to have mild swelling behind the right ear. There was concern of a possible infection. CT head was ordered. The patient was given ciprofloxacin. The patient was taking ciprofloxacin at home. However, he reports he has been getting increasingly confused and somewhat forgetful, losing his memory. He has some difficulty with his gait. Last night, he went to the bathroom. He was standing up urinating when he passed out. She does not remember what happened to him. When woke up he found himself on the floor. His heard the noise and went to the bathroom found him on the floor. The patient has some soreness in his back. He denies preceding chest pain, palpitations or dizziness. There was no history of seizures. Upon arrival to emergency room, the patient was noted to be afebrile. He was hemodynamically stable. CT head did not reveal any acute finding. labs showed evidence of leukocytosis with left shift. His UA was essentially unremarkable except for microscopic hematuria. Recommendation was given by the ER physician for the patient to be admitted to hospital. Blood culture was taken. The patient was started on broad-spectrum antibiotic and was admitted to the hospital under my service. PAST MEDICAL HISTORY 1. Hypertension 2. Hyperlipidemia. 3. Degenerative joint disease 4. Gastroesophageal reflux disease 5. History of gout 6. Mild COPD 7. Normal pressure hydrocephalus. PAST SURGICAL HISTORY 1. Significant for JUNIOR MEDIA BUYER shunt placement in 2007 and revision in 2011. 2. Recent revision of JUNIOR MEDIA BUYER shunt in October of 2016. 3. Right corneal transplant 4. Bilateral shoulder rotator cuff repair 5. Tonsillectomy. SOCIAL HISTORY The patient used to smoke in past. He has about 20 years of two pack per day smoking. Stopped smoking over 40 years ago. He drinks alcohol very rarely and occasionally. Denies any drug abuse. He is and lives with his . 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 MEDICATIONS home 1. Ibuprofen, 2. Lortab, 3. Ciprofloxacin prescribed recently 4. Mobic daily, 5. Vitamin D daily, 6. Atrovent MDI 2 puffs q.i.d. 7. Eye drops 8. Omeprazole 40 mg daily, 9. Lexapro 20 mg daily, 10. Aspirin 81 mg daily 11. Amlodipine 5 mg daily 12. Allopurinol 300 mg daily. ALLERGIES NO KNOWN DRUG ALLERGIES. FAMILY HISTORY Both of his parents are . Dad in late 80s. He had heart trouble. Mom of old age in her 80s. REVIEW OF SYSTEMS The patient reports soreness in his mid-back after the fall, poor memory, weakness. He denies headache, denies double vision. Denies loss of vision. Denies changes in hearing. He has some hearing loss but no recent change. Denies any buzzing in the ear. Denies sore throat, dysphagia, odynophagia, denies chest pain, dyspnea at rest, orthopnea, paroxysmal nocturnal dyspnea. Denies nausea or vomiting. Denies abdominal pain. He suffers from constipation. He denies melena or bright red blood per rectum. Denies dysuria, hematuria. He gets a few times a night to urinate. Otherwise review of systems is negative for 12 systems except what is mentioned above. PHYSICAL EXAMINATION GENERAL: Thinly built elderly male lying in bed not in any acute distress. Awake and alert. He is oriented to self and place, slight forgetful. Follows simple commands. VITAL SIGNS: Upon arrival blood pressure was 144/76, pulse 90, respiration 18, temperature 98.40, O2 saturation 99%. HEAD: Head examination normocephalic, atraumatic. The patient has a JUNIOR MEDIA BUYER shunt placed on the right side of the scalp with bulging. Site appears clean. No significant redness or drainage noted. Incision is healing. EYES: Extraocular movements intact, pupils are round and reactive. ENT: No throat congestion. No oral ulcers, no thrush. Ears clear. NECK: Supple, no JVD. No lymph node, no bruits. CARDIOVASCULAR: S1, S2 audible. Regular rhythm. No murmur or gallop. RESPIRATORY: Lungs are clear to auscultation. No crackles or rhonchi appreciated. ABDOMEN: Abdomen soft, protuberant, bulky, nontender. Positive bowel sounds. BACK: Some tenderness in the mid back area without point tenderness. No crepitation, no redness. EXTREMITIES: The patient has a discolored skin of his arevalo with some thinning of skin and loss of hair. No edema. Feet are warm to touch. Herson's sign is negative. NEUROLOGIC: Awake and responsive. He is oriented to self and place, slightly forgetful. Follows simple command. No left/right confusion. No slurring of speech. Slightly hard of hearing. Cranial nerve II-XII grossly intact except for some diminished hearing. Tongue is midline. No facial asymmetry. V1 to V3 intact. Sternocleidomastoid muscle intact. Motor examination - power is -5/5 both upper and lower extremities. DTR's +1 bilaterally. Plantar's downgoing. No cerebellar sign. The patient does not exhibit any acute meningeal sign, I.e., negative Kernig's sign. Gait not tested. LABORATORY DATA Sodium 134, potassium 4.7. chloride 83, bicarb 23.7, BUN of 20, creatinine 1.02, glucose 139, calcium 8.6. ALP 121, AST 40, ALT 42, total protein 7.1, albumin 2.9. His C-reactive protein 18. White count 18.9, hemoglobin 14.9, hematocrit of 34.0, platelet count 191 with MCV 94.8. PT 11.6 INR 1.0, PTT 25.5. Urine showed yellow clear urine, pH 6.5, specific gravity greater than 1.050, ketone 10+ occult blood small, RBCs seven. IMAGING STUDIES CT head was performed. The study showed chronic white matter low-attenuation, no intracranial hemorrhage or hematoma. No masses. No mass effect or midline shift. Shunt is in place. Chest x-ray did not reveal any acute finding. No evidence of infiltrate or effusion. The patient has some chronic scarring in his lungs. CT of the cervical spine shows diffuse mild degenerative changes without central canal stenosis or neural foraminal narrowing. Calcified plaques were seen involving the carotid arteries. No acute abnormality was seen. CT scan of the abdomen and pelvis was performed and this study was done due to fall. There is no evidence of disk injury or trauma; fibrotic changes were seen with patchy consolidation of visualized lung bases, Paget's disease of right hemipelvis. Small to moderate hiatal hernia. ASSESSMENT Progressive weakness, confusion, status post fall in this elderly man with history of JUNIOR MEDIA BUYER shunt status post recent revision. He has also leukocytosis with left shift. There was concern about possible meningitis or meningoencephalitis, possible shunt related infection. 1. History of normal pressure hydrocephalus status post JUNIOR MEDIA BUYER shunt status post recent revision. 2. Hypertension, 3. Hyperlipidemia, 4. History of COPD with scarring. 5. Clinically he does not appear to have signs of pneumonia. 6. Microscopic hematuria. 7. Osteoarthritis. PLAN The patient is admitted to hospital. We consulted interventional radiology to perform spinal tap. The spinal tape was done by IR. spinal fluid showed 27 WBCs and 190 RBCs. CSF glucose of 74 and CSF total protein is 100. The differential on the WBCs was 3% neutrophils, 48% lymphocytes, 31% monocytes, 18% histiocytes. The patient was started on empiric IV antibiotic. Infectious Disease service was consulted. Dr. Bell has evaluated the patient and she is adjusting the antibiotic. The patient is currently getting IV Ceftazidime along with IV vancomycin and IV Flagyl. Will have pharmacy consult to adjust his vancomycin and to dose vancomycin according to correct clearance. We will also consult neurosurgeon, Dr. Turpin, to evaluate the patient. Control blood pressure. We will give him IV fluid. Give him analgesic for pain control. Monitor CBC and electrolytes. Resume home medications. Put him on Pepcid for GI protection. We will use SCDs for DVT prophylaxis. The patient meets inpatient criteria due to his infection and concerns about meningitis. He needs IV antibiotic. Without appropriate treatment, he may develop sepsis, organ failure. even or for severe neurologic consequences. Expected length of stay is 4-5 days, possible discharge home when stable. MD AMBER Coffey/ /8:11 PM /8:47 AM MTDPascale
[2016-11-15] MEDS: amLODIPine BESYLATE 5 MG TAB PO SCH (08:59)
[2016-11-15] MEDS: LOTEPREDNOL OPTH EACH EYE SCH ×3 (09:00→20:39)
[2016-11-15] MEDS: ALLOPURINOL 300 MG TAB PO SCH (09:00)
[2016-11-15] MEDS: LISINOPRIL 20 MG TAB PO SCH (09:01)
[2016-11-15 10:33] LABS: HEMATOCRIT 39.8 % (39.0-51.0); MEAN CELL VOLUME 95.3 FL (80.0-100.0); MEAN CORPUSCULAR HEMOGLOBIN 32.1 PG (27.0-34.0); MEAN CORPUSCULAR HGB CONC 33.7 % (32.0-36.0); PLATELET COUNT 220 TH/MM3 (150-450); RED BLOOD COUNT 4.18 MIL/MM3 (4.50-5.90); RED CELL DISTRIBUTION WIDTH 14.1 % (11.6-17.2); REVIEW FLAG FINAL; WHITE BLOOD COUNT 16.6 TH/MM3 (4.0-11.0)
[2016-11-15 10:57] LABS: BICARBONATE 24.4 MEQ/L (21.0-32.0); POTASSIUM 3.6 MEQ/L (3.5-5.1)
[2016-11-15] MEDS ORDERED: VANCOMYCIN INJ 1,200 MG in SODIUM CHLOR 0.9% 250 ML INJ 250 ML IV SCH (12:00)
[2016-11-15 12:15] LABS: SUPERNATE COLOR TUBE #1 CLEAR (CLEAR); WBC TUBE #1 23 /MM3 (0-10)
[2016-11-15 12:19] LABS: CSF EOSINOPHILS 1 %; CSF LYMPHOCYTES 44 %; CSF MONOCYTES 22 %; CSF NEUTROPHILS 9 %
--- NOTE | 2016-11-15 13:43 | HHI.PR ---
Subjective History of Present Illness I am ok feels better no n/v No headache no abd pain no fever or chills appetite is ok back is sore is at bedside, per her, pt is getting progressively forgetful w gait difficulty in last few months he has difficulty remembering new info, tends to get more confused at night Vitals/Results Intake & Output 11/14/16 11/14/16 11/15/16 15:00 23:00 07:00 Intake Total 480 ml 1879 ml Output Total 350 ml 650 ml Balance 130 ml 1229 ml Intake Oral 480 ml 720 ml IV Total 1159 ml Output Urine Total 350 ml 650 ml # Voids 3 # Bowel Movements 1 0 Vital Signs Vital Signs Date Time Temp Pulse Resp B/P Pulse Ox O2 Delivery O2 Flow Rate FiO2 11/15/16 12:00 97.5 76 18 144/65 92 11/15/16 09:00 Room Air 11/15/16 08:38 75 11/15/16 08:00 97.9 70 18 162/72 93 11/15/16 04:00 98.5 90 18 147/69 95 11/15/16 00:40 98.7 76 18 143/65 95 11/14/16 20:39 98.0 82 16 148/68 95 11/14/16 20:00 Room Air 11/14/16 16:00 98.0 81 16 149/68 97 11/14/16 14:58 74 18 144/65 97 Nasal Cannula 3 CBC/BMP: 11/15/16 0923 11/15/16 0923 Lab Results Laboratory Tests Test 11/14/16 11/15/16 11/15/16 14:33 09:23 09:30 CSF Glucose 74 MG/DL 64 MG/DL CSF Total Protein 100.1 MG/DL 50.0 MG/DL CSF Volume (Tube 1) 2.0 ML 2.0 ML CSF Supernatant Color (tube 1) CLEAR CLEAR CSF Gross Blood (Tube 1) 1+ CSF Volume (Tube 2) 2.0 ML CSF Supernatant Color (tube 2) CLEAR CSF Gross Blood (Tube 2) 0 CSF Volume (Tube 3) 2.0 ML CSF Supernatant Color (tube 3) CLEAR CSF Gross Blood (Tube 3) 0 CSF Volume (Tube 4) 4.5 ML CSF Supernatant Color (tube 4) CLEAR CSF Gross Blood (Tube 4) 0 CSF WBC (Tube 4) 27 /MM3 CSF RBC (Tube 4) 190 /MM3 CSF Neutrophils 3 % 9 % CSF Lymphocytes 48 % 44 % CSF Monocytes 31 % 22 % CSF Histiocytes 18 % 4 % CSF Other Cells % 20 % White Blood Count 16.6 TH/MM3 Red Blood Count 4.18 MIL/MM3 Hemoglobin 13.4 GM/DL Hematocrit 39.8 % Mean Corpuscular Volume 95.3 FL Mean Corpuscular Hemoglobin 32.1 PG Mean Corpuscular Hemoglobin 33.7 % Concent Red Cell Distribution Width 14.1 % Platelet Count 220 TH/MM3 Mean Platelet Volume 8.1 FL Sodium Level 138 MEQ/L Potassium Level 3.6 MEQ/L Chloride Level 104 MEQ/L Carbon Dioxide Level 24.4 MEQ/L Anion Gap 10 MEQ/L Blood Urea Nitrogen 20 MG/DL Creatinine 0.94 MG/DL Estimat Glomerular Filtration 76 ML/MIN Rate Random Glucose 90 MG/DL Calcium Level 7.9 MG/DL CSF WBC (Tube 1) 23 /MM3 CSF RBC (Tube 1) 298 /MM3 CSF Eosinophils 1 % Microbiology Microbiology 11/14/16 Gram Stain - Final, Resulted 11/14/16 CSF Culture - Preliminary, Resulted NO GROWTH IN 24 HOURS. 11/15/16 Gram Stain - Final, Resulted 11/15/16 CSF Culture, Resulted Pending Physical Exam General General Appearance: No Acute Distress, Comfortable Eyes Eye Exam: Pupils Equal, Sclera White, Extraocular Movement Intact Ears & Nose Ears & Nose Exam: Nasal Mucosa Cobb Throat Throat Exam: Oral Mucosa Cobb & Moist Neck Neck Exam: Neck Supple, Trachea Midline Pulmonary Resp Exam: Clear Bilaterally, Breath Sounds Equal, No Distress Cardiology CV Exam: Regular, Normal Sinus Rhythm Gastrointestinal/Abdomen GI Exam: Soft, Non-Tender, Bowel Sounds Present Integumentary Skin Exam: Warm, Dry Extremeties Extremities Exam: No Edema, Pedal Pulses Palpable Neurologic Neuro Exam: Alert, Awake, Oriented Assessment/Plan Assessment/Plan Assessment . progressive confusion w leukocytosis ?? meningitis fungal vs viral . History of normal pressure hydrocephalus s/p STAMP COLLECTOR shunt s/p recent revision. . s/p fall . Hypertension, . Hyperlipidemia, . History of COPD with scarring. . Microscopic hematuria. . Osteoarthritis. PLAN Spinal fluid Gram stain negative, cultures pending Empiric broad-spectrum IV antibiotics, IV ceftazidime and vancomycin Pharmacy to dose Vanco Infectious disease input appreciated, CSF for fungal culture and AFB cultures are ordered Analgesics when necessary Dr. Turpin have evaluated the patient, and his assistant at surgery is taken fluid from shunt for evaluation. Blood pressure control\ Pepcid for GI protection subcutaneous heparin for DVT prophylaxis PT evaluation Discussed with patient's at bedside and answered all of her questions, she verbalizes understanding, Jose Lane MD Nov 15, 2016 13:43
--- NOTE | 2016-11-15 13:58 | HHI.NSPN ---
(Dania Carcamo) Note Status Status: Progress Note (Dania Carcamo) Interval History Interval History Mr. Motley is a 89 year old male who underwent a CROOK OPERATOR shunt valve replacement on 10/25/16. He was seen by me on 11/10/16. His surgical incision is healing well without evidence of infection. Mr. Motley had complained in the office of pain, swelling, and tenderness to touch behind his right ear that had gotten worse and Mastoiditis was suspected. A CT Brain was obtained that day without signs of intracranial mass lesions or mastoiditis. He was recommend however to start antibiotics for prophylaxis. Yesterday, he presented to [place] ED following a fall and confusion. He was also hallucinating and had some chills but no fevers. His reported that his post-auricular pain has improved over the weekend. Another CT Brain was taken which was stable. An LP was obtained as well. (Dania Carcamo) Labs, Micro, & Vital Signs Results Date Time Temp Pulse Resp B/P Pulse Ox O2 Delivery O2 Flow Rate FiO2 11/15/16 12:00 97.5 76 18 144/65 92 11/15/16 09:00 Room Air 11/15/16 08:38 75 11/15/16 08:00 97.9 70 18 162/72 93 11/15/16 04:00 98.5 90 18 147/69 95 11/15/16 00:40 98.7 76 18 143/65 95 11/14/16 20:39 98.0 82 16 148/68 95 11/14/16 20:00 Room Air 11/14/16 16:00 98.0 81 16 149/68 97 11/14/16 14:58 74 18 144/65 97 Nasal Cannula 3 11/15/16 07:00 Intake Total 2359 ml Output Total 1000 ml Balance 1359 ml Constitutional Vital Signs Date Time Temp Pulse Resp B/P Pulse Ox O2 Delivery O2 Flow Rate FiO2 11/15/16 12:00 97.5 76 18 144/65 92 11/15/16 09:00 Room Air 11/15/16 08:38 75 11/15/16 08:00 97.9 70 18 162/72 93 11/15/16 04:00 98.5 90 18 147/69 95 11/15/16 00:40 98.7 76 18 143/65 95 11/14/16 20:39 98.0 82 16 148/68 95 11/14/16 20:00 Room Air 11/14/16 16:00 98.0 81 16 149/68 97 11/14/16 14:58 74 18 144/65 97 Nasal Cannula 3 11/15/16 07:00 Intake Total 2359 ml Output Total 1000 ml Balance 1359 ml (Dania Carcamo) Review of Systems/Exam Exam Mr. Motley is awake. Converses well. Follows commands without difficulties. Right scalp incision is healing well without evidence of infection. Shunt bulb palpated with good bubble rebound. Right postauricular swelling and tenderness has improved. Cranial nerve examination demonstrates the pupils to be equal, round, and reactive to light. Extra-ocular movements are intact. Facial motor and sensory function are normal and symmetrical. Neck is soft and supple. Muscle strength is 5/5 in all muscle groups of both upper extremities including deltoid, biceps, triceps, brachioradialis, and pit crew support worker. In the lower extremities, strength is 5/5 in both iliopsoas, quadriceps, hamstrings, plantar flexion, dorsiflexion. Sensory examination is intact to light touch in both the upper and lower extremities, symmetrically. Cerebellar examination is intact to [id number] test (Dania Carcamo) Medications Current Medications Current Medications Medications (Trade) Dose Ordered Sig/Kiel Route PRN Reason Start Time Stop Time Status Last Admin Dose Admin Acetaminophen (Tylenol) 500 mg HS PRN PO PAIN 1-4 11/14/16 12:00 Allopurinol (Zyloprim) 300 mg DAILY PO 11/15/16 09:00 11/15/16 09:00 Amlodipine Besylate (Norvasc) 5 mg DAILY PO 11/15/16 09:00 11/15/16 08:59 Lisinopril (Prinivil) 20 mg DAILY PO 11/15/16 09:00 11/15/16 09:01 Patient Own Medication PT OWN MED: (Loteprednol Opth .. QID EACH EYE 12/27/16 13:00 11/15/16 09:00 Sodium Chloride 1,000 ml @ 100 mls/hr Q10H IV 11/14/16 12:15 11/14/16 23:11 Pharmacy Profile Note ml @ 0 mls/hr UNSCH XX 11/14/16 12:30 Vancomycin HCl/ Sodium Chloride (Vancomycin Inj/ NS 250 ml Inj) 262.5 ml @ 250 mls/hr Q24H IV 11/15/16 06:00 11/15/16 05:55 Miscellaneous Information SPECIFIC LAB TO BE DRAWN:VANCOMYCIN TROUGH DATE TO... ONCE ONCE XX 11/17/16 05:45 11/17/16 05:46 Ceftazidime/ Sodium Chloride (Fortaz Inj/NS Inj) 100 ml @ 200 mls/hr Q8H IV 11/14/16 20:00 11/15/16 12:44 Metronidazole (Flagyl) 500 mg Q8HR PO 11/14/16 22:00 11/15/16 12:44 Acetaminophen/ Hydrocodone Bitart ([place] 5-325 Mg) 1 tab Q4H PRN PO PAIN 5 TO 10 11/14/16 20:30 11/15/16 03:42 (Dania Carcamo) Medical Decision Making MDM Remarks 89 y/o AMS, confusion, s/p fall recent replacement of CROOK OPERATOR shunt valve on 10/25/16 (Dania Carcamo) Plan Plan Remarks r/o shunt infection using sterile technique a 25 gauge butterfly needle CSF was inserted to the shunt reservoir, about 5 cc of clear CSF was withdrawn and sent to lab for testing, pt tolerated procedure well f/u CSF cultures cont medical management Dr. Turpin dw pt and at bedside (Dania Carcamo) Attending Statement The exam, history, and the medical decision-making described in the above note were completed with the assistance of the mid-level provider. I reviewed and agree with the findings presented. I attest that I had a [id number] encounter with the patient on the same day, and personally performed and documented my assessment and findings in the medical record. (Alberto Turpin MD) Dania Carcamo Nov 15, 2016 13:58 Alberto Turpin MD Nov 15, 2016 22:12
[2016-11-15] MEDS: SODIUM CHLOR 0.9% 1000 ML INJ 1,000 ML IV SCH ×2 (18:15→20:40)
--- NOTE | 2016-11-15 18:15 | HHI.IDPN ---
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 He reports that on 10/25/2016 he had replacement of the shunt valve at [facility] by for RENAL DIALYSIS TECHNICIAN shunt malfunction. Patient 's who is present in the room and reports that since the valve was replaced patient has been unable to walk properly and has an unsteady gait with history of fall. He also has been dizzy she thinks he is not thinking right and often stares in space. She also thinks that he is more somnolent and not oriented at times hallucinates and sees bugs. Patient's also reports that due to these symptoms she was seen at Dr. Turpin's clinic 4 days prior to admission and due to concern for RENAL DIALYSIS TECHNICIAN shunt infection due to localized RENAL DIALYSIS TECHNICIAN shunt site tenderness he was started on ciprofloxacin which she has been compliant with meds. Overnight events reviewed. Patient reports reduced headaches and more mental clarity today. thinks mentally clearing up as well. No rash No diarrhea. No fevers. Antibiotics Ceftaz IV Vanco IV Flagyl oral. Lines Line sites with no e.o infection. Past Medical History reviewed. Allergies: Coded Allergies: No Known Allergies (Unverified , 11/10/16) Objective . Vital Signs Date Time Temp Pulse Resp B/P Pulse Ox O2 Delivery O2 Flow Rate FiO2 11/15/16 16:00 97.5 74 18 149/66 95 11/15/16 12:00 97.5 76 18 144/65 92 11/15/16 09:00 Room Air 11/15/16 08:38 75 11/15/16 08:00 97.9 70 18 162/72 93 11/15/16 04:00 98.5 90 18 147/69 95 11/15/16 00:40 98.7 76 18 143/65 95 11/14/16 20:39 98.0 82 16 148/68 95 11/14/16 20:00 Room Air 11/14/16 11/14/16 11/15/16 14:59 22:59 06:59 Intake Total 480 ml 1879 ml Output Total 350 ml 650 ml Balance 130 ml 1229 ml Intake Oral 480 ml 720 ml IV Total 1159 ml Output Urine Total 350 ml 650 ml # Voids 3 # Bowel Movements 1 0 . Laboratory Tests Test 11/14/16 11/15/16 06:30 09:23 White Blood Count 18.9 TH/MM3 16.6 TH/MM3 Red Blood Count 4.64 MIL/MM3 4.18 MIL/MM3 Hemoglobin 14.9 GM/DL 13.4 GM/DL Hematocrit 44.0 % 39.8 % Mean Corpuscular Volume 94.8 FL 95.3 FL Mean Corpuscular Hemoglobin 32.0 PG 32.1 PG Mean Corpuscular Hemoglobin 33.8 % 33.7 % Concent Red Cell Distribution Width 14.3 % 14.1 % Platelet Count 191 TH/MM3 220 TH/MM3 Mean Platelet Volume 8.0 FL 8.1 FL Neutrophils (%) (Auto) 87.4 % Lymphocytes (%) (Auto) 2.7 % Monocytes (%) (Auto) 9.7 % Eosinophils (%) (Auto) 0.1 % Basophils (%) (Auto) 0.1 % Neutrophils # (Auto) 16.5 TH/MM3 Lymphocytes # (Auto) 0.5 TH/MM3 Monocytes # (Auto) 1.8 TH/MM3 Eosinophils # (Auto) 0.0 TH/MM3 Basophils # (Auto) 0.0 TH/MM3 CBC Comment DIFF FINAL Differential Comment Laboratory Tests Test 11/14/16 11/14/16 11/15/16 06:30 10:50 09:23 Sodium Level 134 MEQ/L 138 MEQ/L Potassium Level 4.7 MEQ/L 3.6 MEQ/L Chloride Level 103 MEQ/L 104 MEQ/L Carbon Dioxide Level 23.7 MEQ/L 24.4 MEQ/L Anion Gap 7 MEQ/L 10 MEQ/L Blood Urea Nitrogen 20 MG/DL 20 MG/DL Creatinine 1.02 MG/DL 0.94 MG/DL Estimat Glomerular Filtration 69 ML/MIN 76 ML/MIN Rate Random Glucose 139 MG/DL 90 MG/DL Calcium Level 8.6 MG/DL 7.9 MG/DL Total Bilirubin 1.3 MG/DL Aspartate Amino Transf 40 U/L (AST/SGOT) Alanine Aminotransferase 42 U/L (ALT/SGPT) Alkaline Phosphatase 121 U/L C-Reactive Protein 18.00 MG/DL Total Protein 7.1 GM/DL Albumin 2.9 GM/DL Lipase 64 U/L Lactic Acid Level 0.9 mmol/L Microbiology Date/Time Procedure Status Source Growth 11/14/16 10:40 Aerobic Blood Culture - Preliminary Resulted Blood Peripheral NO GROWTH IN 1 DAY 11/14/16 10:40 Anaerobic Blood Culture - Preliminary Resulted Blood Peripheral NO GROWTH IN 1 DAY 11/14/16 10:50 Aerobic Blood Culture - Preliminary Resulted Blood Peripheral NO GROWTH IN 1 DAY 11/14/16 10:50 Anaerobic Blood Culture - Preliminary Resulted Blood Peripheral NO GROWTH IN 1 DAY 11/14/16 14:33 Gram Stain - Final Resulted Cerebral Spinal Fluid Lumbar Puncture 11/14/16 14:33 CSF Culture - Preliminary Resulted Cerebral Spinal Fluid Lumbar Puncture NO GROWTH IN 24 HOURS. 11/14/16 14:33 Acid Fast Stain Received Cerebral Spinal Fluid Lumbar Puncture Pending 11/14/16 14:33 Mycobacterial Culture Received Cerebral Spinal Fluid Lumbar Puncture Pending 11/14/16 14:33 Fungal Smear - Final Resulted Cerebral Spinal Fluid Lumbar Puncture NO FUNGAL ELEMENTS SEEN. 11/14/16 14:33 Fungal Culture Resulted Cerebral Spinal Fluid Lumbar Puncture Pending 11/15/16 09:30 Gram Stain - Final Resulted Cerebral Spinal Fluid Shunt Fluid 11/15/16 09:30 CSF Culture Resulted Cerebral Spinal Fluid Shunt Fluid Pending Imaging Last Impressions Pelvis X-Ray 11/14/16621 Signed Impressions: Service Date/Time: Monday, November 14, 2016 06:24 - CONCLUSION: Negative trauma study with no acute fracture or malalignment. Misael Camara MD Head CT 11/14/16621 Signed Impressions: Service Date/Time: Monday, November 14, 2016 07:32 - CONCLUSION: No acute intracranial abnormality. New Manrique MD Chest X-Ray 11/14/16621 Signed Impressions: Service Date/Time: Monday, November 14, 2016 06:23 - CONCLUSION: No acute disease. There is no evidence of acute pneumonia or pulmonary edema. Misael Camara MD Cervical Spine CT 11/14/16621 Signed Impressions: Service Date/Time: Monday, November 14, 2016 07:32 - CONCLUSION: 1. No acute abnormality. 2. Diffuse mild degenerative changes without central canal stenosis or neural foraminal narrowing. 3. Calcified plaque involving the carotid arteries. Edwardo Workman Jr., MD Abdomen/Pelvis CT 11/14/16621 Signed Impressions: Service Date/Time: Monday, November 14, 2016 07:41 - CONCLUSION: 1. No visceral origin injury or other acute abnormality of the abdomen or pelvis. 2. Fibrotic changes and patchy consolidation of the visualized lung bases. 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 4. Small to moderate hiatal hernia. New Manrique MD Lumbar Puncture Fluoroscopy 11/14/16 0000 Signed Impressions: Service Date/Time: Monday, November 14, 2016 13:55 - CONCLUSION: Uncomplicated fluoroscopically guided lumbar puncture. Edwardo Workman Jr., MD Clavicle X-Ray 11/14/16 0000 Signed Impressions: Service Date/Time: Monday, November 14, 2016 07:50 - CONCLUSION: Intact right clavicle. New Manrique MD Physical Exam GENERAL: This is a well-nourished, well-developed patient, in no apparent distress. SKIN: Bruising noted on right wrist area. HEAD: surgical site RENAL DIALYSIS TECHNICIAN shunt site with no erythema, or discharge noted. EYES: Pupils equal round and reactive. Extraocular motions intact. No scleral icterus. No injection or drainage. ENT: Nose without bleeding, purulent drainage or septal hematoma. Throat without erythema, tonsillar hypertrophy or exudate. Uvula midline. Airway patent. NECK: Trachea midline. CARDIOVASCULAR: HS audible. RESPIRATORY: Clear to auscultation. Breath sounds equal bilaterally. No wheezes , rales, or rhonchi. GASTROINTESTINAL: Abdomen soft, non-tender, nondistended. MUSCULOSKELETAL: Extremities without clubbing, cyanosis, or edema. No joint tenderness, effusion, or edema noted. No calf tenderness. Negative Homans sign bilaterally. NEUROLOGICAL: Awake and alert. RENAL DIALYSIS TECHNICIAN shunt site with no obvious signs of infection. Oriented x 3 today and more appropriate responses. Psych: cooperative IV line sites with no e/o infection. Assessment & Plan Remarks Sepsis present on admission (Elevated WBC, Meningitis likely related to RENAL DIALYSIS TECHNICIAN shunt , was on antibiotics prior to admission) Meningitis, ventriculitis (related to RENAL DIALYSIS TECHNICIAN shunt valve replacement possible). Acute metabolic encephalopathy: infection, NPH Elevated CRP. Recs Continue Ceftazidime Continue oral flagyl Continue Vanco IV (target trough 15-20 for meningitis) Follow cultures Follow clinically. D/w patient and Reviewed neurosx note: medical mmTerrie Sheffield MD Nov 15, 2016 18:15
[2016-11-15] MEDS: FAMOTIDINE 20 MG TAB PO SCH (20:38)
[2016-11-15] MEDS: HEPARIN SODIUM - SQ 10,000 UNITS/ML VIAL SQ SCH (20:39)
[2016-11-16] VITALS (9 sets, daily range): BP systolic 125–162; BP diastolic 67–80; PULSE 68–90; RESP 16–20; TEMP 97.9–99.2; O2SAT 90–96
[2016-11-16] MEDS: ACETAMINOPHEN/HYDROcodone 325 MG/5 MG TAB PO PRN ×4 (01:25→23:44)
[2016-11-16] MEDS: cefTAZidime INJ 2,000 MG in SODIUM CHLORIDE 0.9% INJ 100 ML IV SCH ×3 (03:58→20:00)
[2016-11-16] MEDS: VANCOMYCIN INJ 1,250 MG in SODIUM CHLOR 0.9% 250 ML INJ 250 ML IV SCH (05:36)
[2016-11-16] MEDS: metroNIDAZOLE 500 MG TAB PO SCH ×2 (05:36→13:31)
[2016-11-16] MEDS: LOTEPREDNOL OPTH EACH EYE SCH ×4 (07:55→21:12)
[2016-11-16] MEDS: HEPARIN SODIUM - SQ 10,000 UNITS/ML VIAL SQ SCH ×2 (07:56→21:12)
[2016-11-16] MEDS: FAMOTIDINE 20 MG TAB PO SCH ×2 (07:56→21:12)
[2016-11-16] MEDS: amLODIPine BESYLATE 5 MG TAB PO SCH (07:56)
[2016-11-16] MEDS: ALLOPURINOL 300 MG TAB PO SCH (07:56)
[2016-11-16] MEDS: LISINOPRIL 20 MG TAB PO SCH (07:56)
[2016-11-16 09:12] LABS: HEMATOCRIT 40.2 % (39.0-51.0); MEAN CELL VOLUME 94.9 FL (80.0-100.0); MEAN CORPUSCULAR HEMOGLOBIN 32.4 PG (27.0-34.0); MEAN CORPUSCULAR HGB CONC 34.1 % (32.0-36.0); PLATELET COUNT 243 TH/MM3 (150-450); RED BLOOD COUNT 4.23 MIL/MM3 (4.50-5.90); RED CELL DISTRIBUTION WIDTH 14.1 % (11.6-17.2); REVIEW FLAG FINAL
[2016-11-16] MEDS: SODIUM CHLOR 0.9% 1000 ML INJ 1,000 ML IV SCH (13:34)
--- NOTE | 2016-11-16 15:06 | HHI.IDPN ---
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 He reports that on 10/25/2016 he had replacement of the shunt valve at [facility] by for AVIATION SAFETY OFFICER shunt malfunction. Patient 's who is present in the room and reports that since the valve was replaced patient has been unable to walk properly and has an unsteady gait with history of fall. He also has been dizzy she thinks he is not thinking right and often stares in space. She also thinks that he is more somnolent and not oriented at times hallucinates and sees bugs. Patient's also reports that due to these symptoms she was seen at Dr. Turpin's clinic 4 days prior to admission and due to concern for AVIATION SAFETY OFFICER shunt infection due to localized AVIATION SAFETY OFFICER shunt site tenderness he was started on ciprofloxacin which she has been compliant with meds. Overnight events reviewed. Patient reports reduced headaches and more mental clarity today. thinks mentally clearing up as well. No rash No diarrhea. No fevers. Antibiotics Ceftaz IV Vanco IV Flagyl oral. Lines Line sites with no e.o infection. Past Medical History reviewed. Allergies: Coded Allergies: No Known Allergies (Unverified , 11/10/16) Objective . Vital Signs Date Time Temp Pulse Resp B/P Pulse Ox O2 Delivery O2 Flow Rate FiO2 11/16/16 12:08 98.5 69 18 152/71 91 11/16/16 10:00 Room Air 11/16/16 08:08 98.0 68 18 143/69 90 11/16/16 08:05 72 11/16/16 04:37 98.5 77 16 142/67 92 11/15/16 23:55 98.5 81 18 131/63 91 11/15/16 20:43 98.5 94 18 154/83 92 11/15/16 20:00 98 11/15/16 20:00 Room Air 11/15/16 17:42 20 11/15/16 16:00 97.5 74 18 149/66 95 11/15/16 11/15/16 11/16/16 14:59 22:59 06:59 Intake Total 960 ml 2037 ml 944 ml Output Total 275 ml Balance 960 ml 2037 ml 669 ml Intake Oral 960 ml 120 ml 120 ml IV Total 1917 ml 824 ml Output Urine Total 275 ml # Voids 4 100 # Bowel Movements 0 0 0 . Laboratory Tests Test 11/15/16 11/16/16 09:23 08:21 White Blood Count 16.6 TH/MM3 17.0 TH/MM3 Red Blood Count 4.18 MIL/MM3 4.23 MIL/MM3 Hemoglobin 13.4 GM/DL 13.7 GM/DL Hematocrit 39.8 % 40.2 % Mean Corpuscular Volume 95.3 FL 94.9 FL Mean Corpuscular Hemoglobin 32.1 PG 32.4 PG Mean Corpuscular Hemoglobin 33.7 % 34.1 % Concent Red Cell Distribution Width 14.1 % 14.1 % Platelet Count 220 TH/MM3 243 TH/MM3 Mean Platelet Volume 8.1 FL 8.2 FL Laboratory Tests Test 11/15/16 09:23 Sodium Level 138 MEQ/L Potassium Level 3.6 MEQ/L Chloride Level 104 MEQ/L Carbon Dioxide Level 24.4 MEQ/L Anion Gap 10 MEQ/L Blood Urea Nitrogen 20 MG/DL Creatinine 0.94 MG/DL Estimat Glomerular Filtration 76 ML/MIN Rate Random Glucose 90 MG/DL Calcium Level 7.9 MG/DL Microbiology Date/Time Procedure Status Source Growth 11/14/16 10:40 Aerobic Blood Culture - Preliminary Resulted Blood Peripheral NO GROWTH IN 2 DAYS 11/14/16 10:40 Anaerobic Blood Culture - Preliminary Resulted Blood Peripheral NO GROWTH IN 2 DAYS 11/14/16 10:50 Aerobic Blood Culture - Preliminary Resulted Blood Peripheral NO GROWTH IN 2 DAYS 11/14/16 10:50 Anaerobic Blood Culture - Preliminary Resulted Blood Peripheral NO GROWTH IN 2 DAYS 11/14/16 14:33 Gram Stain - Final Resulted Cerebral Spinal Fluid Lumbar Puncture 11/14/16 14:33 CSF Culture - Preliminary Resulted Cerebral Spinal Fluid Lumbar Puncture NO GROWTH IN 48 HOURS. 11/14/16 14:33 Acid Fast Stain - Final Resulted Cerebral Spinal Fluid Lumbar Puncture NO ACID FAST BACILLI SEEN 11/14/16 14:33 Mycobacterial Culture Resulted Cerebral Spinal Fluid Lumbar Puncture Pending 11/14/16 14:33 Fungal Smear - Final Resulted Cerebral Spinal Fluid Lumbar Puncture NO FUNGAL ELEMENTS SEEN. 11/14/16 14:33 Fungal Culture Resulted Cerebral Spinal Fluid Lumbar Puncture Pending 11/15/16 09:30 Gram Stain - Final Resulted Cerebral Spinal Fluid Shunt Fluid 11/15/16 09:30 CSF Culture - Preliminary Resulted S. Aureus [facility] Last Impressions Pelvis X-Ray 11/14/16621 Signed Impressions: Service Date/Time: Monday, November 14, 2016 06:24 - CONCLUSION: Negative trauma study with no acute fracture or malalignment. Misael Camara MD Head CT 11/14/16621 Signed Impressions: Service Date/Time: Monday, November 14, 2016 07:32 - CONCLUSION: No acute intracranial abnormality. New Manrique MD Chest X-Ray 11/14/16621 Signed Impressions: Service Date/Time: Monday, November 14, 2016 06:23 - CONCLUSION: No acute disease. There is no evidence of acute pneumonia or pulmonary edema. Misael Camara MD Cervical Spine CT 11/14/16621 Signed Impressions: Service Date/Time: Monday, November 14, 2016 07:32 - CONCLUSION: 1. No acute abnormality. 2. Diffuse mild degenerative changes without central canal stenosis or neural foraminal narrowing. 3. Calcified plaque involving the carotid arteries. Edwardo Workman Jr., MD Abdomen/Pelvis CT 11/14/16621 Signed Impressions: Service Date/Time: Monday, November 14, 2016 07:41 - CONCLUSION: 1. No visceral origin injury or other acute abnormality of the abdomen or pelvis. 2. Fibrotic changes and patchy consolidation of the visualized lung bases. 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 4. Small to moderate hiatal hernia. New Manrique MD Lumbar Puncture Fluoroscopy 11/14/16 0000 Signed Impressions: Service Date/Time: Monday, November 14, 2016 13:55 - CONCLUSION: Uncomplicated fluoroscopically guided lumbar puncture. Edwardo Workman Jr., MD Clavicle X-Ray 11/14/16 0000 Signed Impressions: Service Date/Time: Monday, November 14, 2016 07:50 - CONCLUSION: Intact right clavicle. New Manrique MD Physical Exam GENERAL: This is a well-nourished, well-developed patient, in no apparent distress. SKIN: Bruising noted on right wrist area. HEAD: surgical site AVIATION SAFETY OFFICER shunt site with no erythema, or discharge noted. EYES: Pupils equal round and reactive. Extraocular motions intact. No scleral icterus. No injection or drainage. ENT: Nose without bleeding, purulent drainage or septal hematoma. Throat without erythema, tonsillar hypertrophy or exudate. Uvula midline. Airway patent. NECK: Trachea midline. CARDIOVASCULAR: HS audible. RESPIRATORY: Clear to auscultation. Breath sounds equal bilaterally. No wheezes , rales, or rhonchi. GASTROINTESTINAL: Abdomen soft, non-tender, nondistended. MUSCULOSKELETAL: Extremities without clubbing, cyanosis, or edema. No joint tenderness, effusion, or edema noted. No calf tenderness. Negative Homans sign bilaterally. NEUROLOGICAL: Awake and alert. AVIATION SAFETY OFFICER shunt site with no obvious signs of infection. Oriented x 3 today and more appropriate responses. Psych: cooperative IV line sites with no e/o infection. Assessment & Plan Remarks Sepsis present on admission (Elevated WBC, Meningitis likely related to AVIATION SAFETY OFFICER shunt , was on antibiotics prior to admission) Meningitis, ventriculitis (related to AVIATION SAFETY OFFICER shunt valve replacement possible). MRSA ventriculitis/meningitis. Acute metabolic encephalopathy: infection, NPH Elevated CRP. Recs Continue Ceftazidime (once cultures finalized needs to be deescalated if no gram negative identified) DC oral flagyl Continue Vanco IV (target trough 15-20 for meningitis) Follow cultures Follow clinically. D/w patient and Reviewed neurosx note: medical mment d/w PA for neurosurgery: they plan on repeating CSF thru Ventric reservoir. In my opinion this is ventriculitis/meningitis as total protein in CSF is 100. I will be OOT from 11/17/16 to 12/06/2016. Other ID MDs covering for me. Terrie Bell MD Nov 16, 2016 15:06
--- NOTE | 2016-11-16 15:50 | HHI.PR ---
Subjective History of Present Illness I am ok feels better less tired , less confused slept ok last night no n/v No headache no abd pain no fever or chills appetite is ok back is ok offers no other c/o Vitals/Results Intake & Output 11/15/16 11/15/16 11/16/16 15:00 23:00 07:00 Intake Total 960 ml 2037 ml 944 ml Output Total 275 ml Balance 960 ml 2037 ml 669 ml Intake Oral 960 ml 120 ml 120 ml IV Total 1917 ml 824 ml Output Urine Total 275 ml # Voids 4 100 # Bowel Movements 0 0 0 Vital Signs Vital Signs Date Time Temp Pulse Resp B/P Pulse Ox O2 Delivery O2 Flow Rate FiO2 11/16/16 12:08 98.5 69 18 152/71 91 11/16/16 10:00 Room Air 11/16/16 08:08 98.0 68 18 143/69 90 11/16/16 08:05 72 11/16/16 04:37 98.5 77 16 142/67 92 11/15/16 23:55 98.5 81 18 131/63 91 11/15/16 20:43 98.5 94 18 154/83 92 11/15/16 20:00 98 11/15/16 20:00 Room Air 11/15/16 17:42 20 11/15/16 16:00 97.5 74 18 149/66 95 CBC/BMP: 11/16/16 0821 11/15/16 0923 Lab Results Laboratory Tests Test 11/16/16 08:21 White Blood Count 17.0 TH/MM3 Red Blood Count 4.23 MIL/MM3 Hemoglobin 13.7 GM/DL Hematocrit 40.2 % Mean Corpuscular Volume 94.9 FL Mean Corpuscular Hemoglobin 32.4 PG Mean Corpuscular Hemoglobin 34.1 % Concent Red Cell Distribution Width 14.1 % Platelet Count 243 TH/MM3 Mean Platelet Volume 8.2 FL Physical Exam General General Appearance: No Acute Distress, Comfortable Eyes Eye Exam: Pupils Equal, Sclera White, Extraocular Movement Intact Ears & Nose Ears & Nose Exam: Nasal Mucosa [place] Throat Throat Exam: Oral Mucosa [place] & Moist Neck Neck Exam: Neck Supple, Trachea Midline Pulmonary Resp Exam: Clear Bilaterally, Breath Sounds Equal, No Distress Cardiology CV Exam: Regular, Normal Sinus Rhythm Gastrointestinal/Abdomen GI Exam: Soft, Non-Tender, Bowel Sounds Present Integumentary Skin Exam: Warm, Dry Extremeties Extremities Exam: No Edema, Pedal Pulses Palpable Neurologic Neuro Exam: Alert, Awake, Oriented Assessment/Plan Assessment/Plan Assessment . progressive confusion w leukocytosis ?? meningitis fungal vs viral . History of normal pressure hydrocephalus s/p CIRCULAR KNIFE MACHINE CUTTER shunt s/p recent revision. . s/p fall . Hypertension, . Hyperlipidemia, . History of COPD with scarring. . Microscopic hematuria. . Osteoarthritis. PLAN Spinal fluid Gram stain negative, CSF cultures neg shunt fluid c/s +ve MRSA IV antibiotics, IV ceftazidime and vancomycin Pharmacy to dose Vanco CSF for fungal culture and AFB cultures are [p-] d/w Dr Bell , she rec IV abx for 2 wks m wants to wait for final culture before finalizing abx Analgesics when necessary Blood pressure control\ Pepcid for GI protection subcutaneous heparin for DVT prophylaxis PT evaluation d/w PT I also called & spoke w PT's over the phone d/w findings in detail , answered all of her questions she is interested in SNF placement consult SW for d/c planning will f/u Discussed with patient's at bedside and answered all of her questions, she verbalizes understanding, Jose Lane MD Nov 16, 2016 15:50
[2016-11-17] VITALS (7 sets, daily range): BP systolic 147–165; BP diastolic 65–86; PULSE 75–101; RESP 18–20; TEMP 97.5–99; O2SAT 92–95
[2016-11-17] MEDS: ACETAMINOPHEN/HYDROcodone 325 MG/5 MG TAB PO PRN ×2 (03:53→16:26)
[2016-11-17] MEDS: cefTAZidime INJ 2,000 MG in SODIUM CHLORIDE 0.9% INJ 100 ML IV SCH (03:54)
[2016-11-17] MEDS ORDERED: PHARMACY ORDERED LAB XX ONE (05:45)
[2016-11-17] MEDS: VANCOMYCIN INJ 1,250 MG in SODIUM CHLOR 0.9% 250 ML INJ 250 ML IV SCH (06:32)
[2016-11-17 06:39] LABS: HEMATOCRIT 40.5 % (39.0-51.0); MEAN CELL VOLUME 93.9 FL (80.0-100.0); MEAN CORPUSCULAR HEMOGLOBIN 32.5 PG (27.0-34.0); MEAN CORPUSCULAR HGB CONC 34.6 % (32.0-36.0); PLATELET COUNT 294 TH/MM3 (150-450); RED BLOOD COUNT 4.32 MIL/MM3 (4.50-5.90); RED CELL DISTRIBUTION WIDTH 14.2 % (11.6-17.2); REVIEW FLAG FINAL; WHITE BLOOD COUNT 14.4 TH/MM3 (4.0-11.0)
[2016-11-17 07:01] LABS: VANCOMYCIN TROUGH 9.6 MCG/ML (5.0-10.0)
[2016-11-17] MEDS: ALLOPURINOL 300 MG TAB PO SCH (07:38)
[2016-11-17] MEDS: HEPARIN SODIUM - SQ 10,000 UNITS/ML VIAL SQ SCH ×2 (07:38→22:14)
[2016-11-17] MEDS: amLODIPine BESYLATE 5 MG TAB PO SCH (07:38)
[2016-11-17] MEDS: LISINOPRIL 20 MG TAB PO SCH (07:38)
[2016-11-17] MEDS: FAMOTIDINE 20 MG TAB PO SCH (07:38)
[2016-11-17] MEDS: LOTEPREDNOL OPTH EACH EYE SCH ×4 (07:39→22:19)
--- NOTE | 2016-11-17 11:32 | HHI.NSPN ---
(Dania Carcamo) Note Status Status: Progress Note (Dania Carcamo) Interval History Interval History Mr. Motley is a 89 year old male who underwent a MANAGER REIMBURSEMENT shunt valve replacement on 10/25/16. He was seen by me on 11/10/16. His surgical incision is healing well without evidence of infection. Mr. Motley had complained in the office of pain, swelling, and tenderness to touch behind his right ear that had gotten worse and Mastoiditis was suspected. A CT Brain was obtained that day without signs of intracranial mass lesions or mastoiditis. He was recommend however to start antibiotics for prophylaxis. Yesterday, he presented to [facility] ED following a fall and confusion. He was also hallucinating and had some chills but no fevers. His reported that his post-auricular pain has improved over the weekend. Another CT Brain was taken which was stable. An LP was obtained as well. 11/17: shunt tap on 11/15 showing MRSA, his LP showed no growth. (Dania Carcamo) Labs, Micro, & Vital Signs Results Date Time Temp Pulse Resp B/P Pulse Ox O2 Delivery O2 Flow Rate FiO2 11/17/16 08:05 83 11/17/16 08:00 98.2 81 18 151/72 94 11/17/16 07:33 94 Nasal Cannula 1.00 11/17/16 04:28 99.0 75 20 147/69 95 11/16/16 23:25 99.2 86 18 147/69 92 11/16/16 23:25 Nasal Cannula 1.00 11/16/16 21:17 82 162/72 11/16/16 20:30 97.9 90 20 160/71 92 11/16/16 20:01 83 11/16/16 20:00 Room Air 11/16/16 16:08 98.3 69 20 125/80 96 11/16/16 12:08 98.5 69 18 152/71 91 11/17/16 07:00 Intake Total 1810 ml Output Total 1200 ml Balance 610 ml Constitutional Vital Signs Date Time Temp Pulse Resp B/P Pulse Ox O2 Delivery O2 Flow Rate FiO2 11/17/16 08:05 83 11/17/16 08:00 98.2 81 18 151/72 94 11/17/16 07:33 94 Nasal Cannula 1.00 11/17/16 04:28 99.0 75 20 147/69 95 11/16/16 23:25 99.2 86 18 147/69 92 11/16/16 23:25 Nasal Cannula 1.00 11/16/16 21:17 82 162/72 11/16/16 20:30 97.9 90 20 160/71 92 11/16/16 20:01 83 11/16/16 20:00 Room Air 11/16/16 16:08 98.3 69 20 125/80 96 11/16/16 12:08 98.5 69 18 152/71 91 11/17/16 07:00 Intake Total 1810 ml Output Total 1200 ml Balance 610 ml (Dania Carcamo) Review of Systems/Exam Exam Mr. Motley is awake and oriented to name and place. Converses well. Follows commands without difficulties. Right scalp incision is healing well without evidence of infection. Shunt bulb palpated with good bubble rebound. Right postauricular swelling and tenderness has improved. Cranial nerve examination demonstrates the pupils to be equal, round, and reactive to light. Extra-ocular movements are intact. Facial motor and sensory function are normal and symmetrical. Neck is soft and supple. Muscle strength is 5/5 in all muscle groups of both upper extremities including deltoid, biceps, triceps, brachioradialis, and hvac design engineer. In the lower extremities, strength is 5/5 in both iliopsoas, quadriceps, hamstrings, plantar flexion, dorsiflexion. Sensory examination is intact to light touch in both the upper and lower extremities, symmetrically. Cerebellar examination is intact to [id number] test (Dania Carcamo) Medications Current Medications Current Medications Medications (Trade) Dose Ordered Sig/Kiel Route PRN Reason Start Time Stop Time Status Last Admin Dose Admin Acetaminophen (Tylenol) 500 mg HS PRN PO PAIN 1-4 11/14/16 12:00 Allopurinol (Zyloprim) 300 mg DAILY PO 11/15/16 09:00 11/17/16 07:38 Amlodipine Besylate (Norvasc) 5 mg DAILY PO 11/15/16 09:00 11/17/16 07:38 Lisinopril (Prinivil) 20 mg DAILY PO 11/15/16 09:00 11/17/16 07:38 Patient Own Medication PT OWN MED: (Loteprednol Opth .. QID EACH EYE 11/14/16 13:00 11/17/16 07:39 Sodium Chloride 1,000 ml @ 100 mls/hr Q10H IV 11/14/16 12:15 11/16/16 13:34 Pharmacy Profile Note (Vancomycin Consult Pharmacy) ml @ 0 mls/hr UNSCH XX 11/14/16 12:30 Acetaminophen/ Hydrocodone Bitart (Bradley 5-325 Mg) 1 tab Q4H PRN PO PAIN 5 TO 10 11/14/16 20:30 11/17/16 03:53 Famotidine (Pepcid) 20 mg BID PO 11/15/16 21:00 11/17/16 07:38 Heparin Sodium (Porcine) (Heparin Inj) 5,000 units Q12HR SQ 11/15/16 21:00 11/17/16 07:38 Ondansetron HCl 4 mg 4 mg Q6HR PRN IV PUSH NAUSEA 11/16/16 21:00 Vancomycin HCl/ Sodium Chloride (Vancomycin Inj/ NS 250 ml Inj) 262.5 ml @ 250 mls/hr Q18H IV 11/18/16 00:00 Miscellaneous Information SPECIFIC LAB TO BE DRAWN:VANCOMYCIN TROUGH DATE TO... ONCE ONCE XX 11/20/16 05:45 11/20/16 05:46 Ceftazidime/ Sodium Chloride (Fortaz Inj/NS Inj) 100 ml @ 200 mls/hr Q8H IV 11/17/16 12:00 (Dania Carcamo) Medical Decision Making MDM Remarks 89 y/o AMS, confusion, s/p fall recent replacement of MANAGER REIMBURSEMENT shunt valve on 10/25/16 lumbar puncture no growth, shunt culture 11/15 shows MRSA, ?contamination (Dania Carcamo) Plan Plan Remarks repeat CSF cultures via shunt tap using sterile technique a 25 gauge butterfly needle was inserted to the shunt reservoir, about 5 cc of clear CSF was withdrawn and sent to lab for testing, pt tolerated procedure well cont antibiotic therapy, ID following (Dania Carcamo) Attending Statement The exam, history, and the medical decision-making described in the above note were completed with the assistance of the mid-level provider. I reviewed and agree with the findings presented. I attest that I had a [id number] encounter with the patient on the same day, and personally performed and documented my assessment and findings in the medical record. (Alberto Turpin MD) Dania Carcamo Nov 17, 2016 11:32 Alberto Turpin MD Nov 18, 2016 22:12
[2016-11-17] MEDS: SODIUM CHLOR 0.9% 1000 ML INJ 1,000 ML IV SCH (11:52)
[2016-11-17] MEDS ORDERED: cefTAZidime INJ 2,000 MG in SODIUM CHLORIDE 0.9% INJ 100 ML IV SCH (12:00)
[2016-11-17 12:36] LABS: GROSS BLOOD TUBE #1 0 (0); SUPERNATE COLOR TUBE #1 CLEAR (CLEAR); VOLUME TUBE # 1 4.9 ML; WBC TUBE #1 624 /MM3 (0-10)
[2016-11-17 12:37] LABS: CSF LYMPHOCYTES 2 %; CSF MONOCYTES 2 %; CSF NEUTROPHILS 96 %
--- NOTE | 2016-11-17 14:06 | HHI.IDPN ---
Subjective Subjective Remarks ID COVERAGE Chart reviewed. 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 He reports that on 10/25/2016 he had replacement of the shunt valve at [facility] by for DIRECTOR OF CASEWORK shunt malfunction. Patient 's who is present in the room and reports that since the valve was replaced patient has been unable to walk properly and has an unsteady gait with history of fall. He also has been dizzy she thinks he is not thinking right and often stares in space. She also thinks that he is more somnolent and not oriented at times hallucinates and sees bugs. Patient's also reports that due to these symptoms she was seen at Dr. Turpin's clinic 4 days prior to admission and due to concern for DIRECTOR OF CASEWORK shunt infection due to localized DIRECTOR OF CASEWORK shunt site tenderness he was started on ciprofloxacin which she has been compliant with meds. D/W RN Notes reviewed Temps occ 99 Occasional confusion Repeat tap done of DIRECTOR OF CASEWORK shunt - G/S (+) GPC DIRECTOR OF CASEWORK shunt fluid with MRSA LP C/S negative Antibiotics Ceftaz IV Vanco IV Lines Line sites with no e.o infection. Past Medical History reviewed. 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 Vital Signs Date Time Temp Pulse Resp B/P Pulse Ox O2 Delivery O2 Flow Rate FiO2 11/17/16 12:31 98.0 86 20 154/86 93 11/17/16 08:05 83 11/17/16 08:00 98.2 81 18 151/72 94 11/17/16 07:33 94 Nasal Cannula 1.00 11/17/16 04:28 99.0 75 20 147/69 95 11/16/16 23:25 99.2 86 18 147/69 92 11/16/16 23:25 Nasal Cannula 1.00 11/16/16 21:17 82 162/72 11/16/16 20:30 97.9 90 20 160/71 92 11/16/16 20:01 83 11/16/16 20:00 Room Air 11/16/16 16:08 98.3 69 20 125/80 96 11/16/16 11/16/16 11/17/16 15:00 23:00 07:00 Intake Total 1230 ml 480 ml 100 ml Output Total 300 ml 150 ml 750 ml Balance 930 ml 330 ml -650 ml Intake Oral 600 ml 480 ml 100 ml IV Total 630 ml Output Urine Total 300 ml 150 ml 750 ml # Bowel Movements 0 0 0 . Laboratory Tests Test 11/16/16 11/17/16 08:21 05:58 White Blood Count 17.0 TH/MM3 14.4 TH/MM3 Red Blood Count 4.23 MIL/MM3 4.32 MIL/MM3 Hemoglobin 13.7 GM/DL 14.0 GM/DL Hematocrit 40.2 % 40.5 % Mean Corpuscular Volume 94.9 FL 93.9 FL Mean Corpuscular Hemoglobin 32.4 PG 32.5 PG Mean Corpuscular Hemoglobin 34.1 % 34.6 % Concent Red Cell Distribution Width 14.1 % 14.2 % Platelet Count 243 TH/MM3 294 TH/MM3 Mean Platelet Volume 8.2 FL 7.4 FL Laboratory Tests Test 11/17/16 05:58 Creatinine 0.96 MG/DL Estimat Glomerular Filtration 74 ML/MIN Rate Microbiology Date/Time Procedure Status Source Growth 11/14/16 14:33 Gram Stain - Final Complete Cerebral Spinal Fluid Lumbar Puncture 11/14/16 14:33 CSF Culture - Final Complete Cerebral Spinal Fluid Lumbar Puncture NO GROWTH IN 72 HOURS 11/14/16 14:33 Acid Fast Stain - Final Resulted Cerebral Spinal Fluid Lumbar Puncture NO ACID FAST BACILLI SEEN 11/14/16 14:33 Mycobacterial Culture Resulted Cerebral Spinal Fluid Lumbar Puncture Pending 11/14/16 14:33 Fungal Smear - Final Resulted Cerebral Spinal Fluid Lumbar Puncture NO FUNGAL ELEMENTS SEEN. 11/14/16 14:33 Fungal Culture Resulted Cerebral Spinal Fluid Lumbar Puncture Pending 11/15/16 09:30 Gram Stain - Final Complete Cerebral Spinal Fluid Shunt Fluid 11/15/16 09:30 CSF Culture - Final Complete S. Aureus Mrsa 11/17/16 11:25 Gram Stain - Final Resulted Cerebral Spinal Fluid Shunt Fluid 11/17/16 11:25 CSF Culture Resulted Cerebral Spinal Fluid Shunt Fluid Pending 11/17/16 11:25 Fungal Smear Received Cerebral Spinal Fluid Shunt Fluid Pending 11/17/16 11:25 Fungal Culture Received Cerebral Spinal Fluid Shunt Fluid Pending Imaging Last Impressions Pelvis X-Ray 11/14/16 06 Signed Impressions: Service Date/Time: Monday, November 14, 2016 06:24 - CONCLUSION: Negative trauma study with no acute fracture or malalignment. Misael Camara MD Head CT 11/14/16621 Signed Impressions: Service Date/Time: Monday, November 14, 2016 07:32 - CONCLUSION: No acute intracranial abnormality. New Manrique MD Chest X-Ray 11/14/16621 Signed Impressions: Service Date/Time: Monday, November 14, 2016 06:23 - CONCLUSION: No acute disease. There is no evidence of acute pneumonia or pulmonary edema. Misael Camara MD Cervical Spine CT 11/14/16621 Signed Impressions: Service Date/Time: Monday, November 14, 2016 07:32 - CONCLUSION: 1. No acute abnormality. 2. Diffuse mild degenerative changes without central canal stenosis or neural foraminal narrowing. 3. Calcified plaque involving the carotid arteries. Edwardo Workman Jr., MD Abdomen/Pelvis CT 11/14/16621 Signed Impressions: Service Date/Time: Monday, November 14, 2016 07:41 - CONCLUSION: 1. No visceral origin injury or other acute abnormality of the abdomen or pelvis. 2. Fibrotic changes and patchy consolidation of the visualized lung bases. 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 4. Small to moderate hiatal hernia. New Manrique MD Lumbar Puncture Fluoroscopy 11/14/16 0000 Signed Impressions: Service Date/Time: Monday, November 14, 2016 13:55 - CONCLUSION: Uncomplicated fluoroscopically guided lumbar puncture. Edwardo Workman Jr., MD Clavicle X-Ray 11/14/16 0000 Signed Impressions: Service Date/Time: Monday, November 14, 2016 07:50 - CONCLUSION: Intact right clavicle. New Manrique MD Physical Exam GENERAL: Awake and alert, up in chair SKIN: No generalized rash HEAD: surgical site DIRECTOR OF CASEWORK shunt site with no erythema, or discharge noted. EYES: No scleral icterus. No injection or drainage. ENT: Nose without bleeding, purulent drainage or septal hematoma. Throat without erythema, tonsillar hypertrophy or exudate. Uvula midline. Airway patent. NECK: Trachea midline. Supple CARDIOVASCULAR: HS audible. RESPIRATORY: Clear to auscultation. Breath sounds equal bilaterally. No wheezes , rales, or rhonchi. GASTROINTESTINAL: Abdomen soft, non-tender, nondistended. MUSCULOSKELETAL: Extremities without clubbing, cyanosis, or edema. No joint tenderness, effusion, or edema noted. No calf tenderness. Negative Homans sign bilaterally. NEUROLOGICAL: Awake and alert. DIRECTOR OF CASEWORK shunt site with no obvious signs of infection. Psych: cooperative IV line sites with no e/o infection. Assessment & Plan Remarks Sepsis present on admission (Elevated WBC, Meningitis likely related to DIRECTOR OF CASEWORK shunt , was on antibiotics prior to admission) Meningitis, ventriculitis (related to DIRECTOR OF CASEWORK shunt valve replacement possible). MRSA ventriculitis/meningitis. Acute metabolic encephalopathy: infection, NPH Elevated CRP. Recs Stop Ceftazidime Continue Vanco IV (target trough 15-20 for meningitis) Add Rifampin Repeat tap (+) G/S - will need eval for removal shunt Follow C/S Monitor progress D/W Puja Pitts MD Nov 17, 2016 14:06
[2016-11-17] MEDS: ONDANSETRON HCL 4 MG/2 ML VIAL IV PUSH PRN (14:52)
[2016-11-17] MEDS: RIFAMPIN 150 MG CAP PO SCH ×2 (14:58→22:45)
--- NOTE | 2016-11-17 15:11 | HHI.PR ---
Subjective History of Present Illness I don't feel too good Complaints of nausea, vomited 2 times Also complains of headaches no abd pain no fever or chills appetite is ok back is ok offers no other c/o Vitals/Results Intake & Output 11/16/16 11/16/16 11/17/16 14:59 22:59 06:59 Intake Total 1230 ml 480 ml 100 ml Output Total 300 ml 150 ml 750 ml Balance 930 ml 330 ml -650 ml Intake Oral 600 ml 480 ml 100 ml IV Total 630 ml Output Urine Total 300 ml 150 ml 750 ml # Bowel Movements 0 0 0 Vital Signs Vital Signs Date Time Temp Pulse Resp B/P Pulse Ox O2 Delivery O2 Flow Rate FiO2 11/17/16 12:31 98.0 86 20 154/86 93 11/17/16 08:05 83 11/17/16 08:00 98.2 81 18 151/72 94 11/17/16 07:33 94 Nasal Cannula 1.00 11/17/16 04:28 99.0 75 20 147/69 95 11/16/16 23:25 99.2 86 18 147/69 92 11/16/16 23:25 Nasal Cannula 1.00 11/16/16 21:17 82 162/72 11/16/16 20:30 97.9 90 20 160/71 92 11/16/16 20:01 83 11/16/16 20:00 Room Air 11/16/16 16:08 98.3 69 20 125/80 96 CBC/BMP: 11/17/16 0558 11/17/16 0558 Lab Results Laboratory Tests Test 11/17/16 11/17/16 05:58 11:25 White Blood Count 14.4 TH/MM3 Red Blood Count 4.32 MIL/MM3 Hemoglobin 14.0 GM/DL Hematocrit 40.5 % Mean Corpuscular Volume 93.9 FL Mean Corpuscular Hemoglobin 32.5 PG Mean Corpuscular Hemoglobin 34.6 % Concent Red Cell Distribution Width 14.2 % Platelet Count 294 TH/MM3 Mean Platelet Volume 7.4 FL Creatinine 0.96 MG/DL Estimat Glomerular Filtration 74 ML/MIN Rate Vancomycin Level Trough 9.6 MCG/ML CSF Volume (Tube 1) 4.9 ML CSF Supernatant Color (tube 1) CLEAR CSF Gross Blood (Tube 1) 0 CSF WBC (Tube 1) 624 /MM3 CSF RBC (Tube 1) 31 /MM3 CSF Neutrophils 96 % CSF Lymphocytes 2 % CSF Monocytes 2 % CSF Glucose 72 MG/DL CSF Total Protein 57.5 MG/DL Microbiology Microbiology 11/17/16 Gram Stain - Final, Resulted 11/17/16 CSF Culture, Resulted Pending 11/17/16 Fungal Smear, Received Pending 11/17/16 Fungal Culture, Received Pending Physical Exam General General Appearance: Comfortable, Anxious Eyes Eye Exam: Pupils Equal, Sclera White, Extraocular Movement Intact Ears & Nose Ears & Nose Exam: Nasal Mucosa [place] Throat Throat Exam: Oral Mucosa [place] & Moist Neck Neck Exam: Neck Supple, Trachea Midline Pulmonary Resp Exam: Clear Bilaterally, Breath Sounds Equal, No Distress Cardiology CV Exam: Regular, Normal Sinus Rhythm Gastrointestinal/Abdomen GI Exam: Soft, Non-Tender, Bowel Sounds Present Integumentary Skin Exam: Warm, Dry Extremeties Extremities Exam: No Edema, Pedal Pulses Palpable Neurologic Neuro Exam: Alert, Awake, Oriented Assessment/Plan Assessment/Plan Assessment . progressive confusion w leukocytosis ?? meningitis fungal vs viral . History of normal pressure hydrocephalus s/p SUPERVISOR CONTACT AND SERVICE CLERKS shunt s/p recent revision. . s/p fall . Hypertension, . Hyperlipidemia, . History of COPD with scarring. . Microscopic hematuria. . Osteoarthritis. PLAN Spinal fluid Gram stain negative, CSF cultures neg shunt fluid c/s +ve MRSA IV antibiotics, IV vancomycin Pharmacy to dose Vanco Rifampin added by ID Dr. Sloan"s input appreciated CSF for fungal culture and AFB cultures are [p-] Start IV fluids D5 half NS with potassium DC Pepcid Start IV Protonix Repeat H&H , if evidence of GI bleeding will obtain GI consultation start Reglan IV morphine when necessary for pain Blood pressure control\\ subcutaneous heparin for DVT prophylaxis PT evaluation d/w PT Discussed with BRIDGETT Hernandes labs will follow Jose Lane MD Nov 17, 2016 15:11 Discussed with patient's at bedside and answered all of her questions, she verbalizes understanding, Jose Lane MD Nov 17, 2016 15:11
[2016-11-17 15:20] LABS: INDIRECT BILIRUBIN 0.3 MG/DL (0.0-0.8); TOTAL BILIRUBIN ADULT 0.5 MG/DL (0.2-1.0)
[2016-11-17] MEDS ORDERED: MORPHINE SULFATE 4 MG/ML INJ IV PUSH PRN (16:45)
[2016-11-17] MEDS: D5-1/2 NS + KCL 10 MEQ INJ 1,000 ML IV SCH (17:25)
[2016-11-17] MEDS: PANTOPRAZOLE SODIUM 40 MG VIAL IV PUSH SCH (17:27)
[2016-11-17] MEDS: METOCLOPRAMIDE HCL 10 MG/2 ML VIAL IV PUSH SCH (22:15)
[2016-11-17 23:02] LABS: HEMATOCRIT 37.4 % (39.0-51.0); REVIEW FLAG FINAL
[2016-11-18] VITALS (10 sets, daily range): BP systolic 135–163; BP diastolic 66–89; PULSE 74–97; RESP 18–26; TEMP 97.4–100.6; O2SAT 90–97
[2016-11-18] MEDS: VANCOMYCIN INJ 1,250 MG in SODIUM CHLOR 0.9% 250 ML INJ 250 ML IV SCH ×2 (01:00→18:26)
[2016-11-18] MEDS: D5-1/2 NS + KCL 10 MEQ INJ 1,000 ML IV SCH (02:57)
[2016-11-18] MEDS: METOCLOPRAMIDE HCL 10 MG/2 ML VIAL IV PUSH SCH ×3 (05:47→21:01)
[2016-11-18 06:37] LABS: HEMATOCRIT 38.2 % (39.0-51.0); MEAN CELL VOLUME 94.5 FL (80.0-100.0); MEAN CORPUSCULAR HEMOGLOBIN 32.2 PG (27.0-34.0); MEAN CORPUSCULAR HGB CONC 34.1 % (32.0-36.0); PLATELET COUNT 302 TH/MM3 (150-450); RED BLOOD COUNT 4.04 MIL/MM3 (4.50-5.90); RED CELL DISTRIBUTION WIDTH 13.9 % (11.6-17.2); REVIEW FLAG FINAL; WHITE BLOOD COUNT 16.8 TH/MM3 (4.0-11.0)
[2016-11-18 07:15] LABS: BICARBONATE 28.2 MEQ/L (21.0-32.0)
[2016-11-18] MEDS: ALLOPURINOL 300 MG TAB PO SCH (09:28)
[2016-11-18] MEDS: LISINOPRIL 20 MG TAB PO SCH (09:29)
[2016-11-18] MEDS: amLODIPine BESYLATE 5 MG TAB PO SCH (09:29)
[2016-11-18] MEDS: HEPARIN SODIUM - SQ 10,000 UNITS/ML VIAL SQ SCH ×2 (09:30→20:59)
[2016-11-18] MEDS: RIFAMPIN 150 MG CAP PO SCH ×2 (09:30→21:00)
[2016-11-18] MEDS: ACETAMINOPHEN/HYDROcodone 325 MG/5 MG TAB PO PRN ×2 (09:30→14:00)
[2016-11-18] MEDS: LOTEPREDNOL OPTH EACH EYE SCH ×4 (09:34→21:01)
[2016-11-18] MEDS: ONDANSETRON HCL 4 MG/2 ML VIAL IV PUSH PRN (10:45)
--- NOTE | 2016-11-18 11:29 | HHI.PR ---
Subjective History of Present Illness not feeling well inc weakness / running low grade temp remained nauseous , vomited few times also c/o R sided abd pain Poor appetite No CP no cough or sputum no diarrhea offers no other c/o & daughter are at bedside w multiple questions Vitals/Results Intake & Output 11/17/16 11/17/16 11/18/16 14:59 22:59 06:59 Intake Total 2073 ml 1512 ml 360 ml Output Total 525 ml 175 ml 500 ml Balance 1548 ml 1337 ml -140 ml Intake Oral 240 ml 240 ml 360 ml IV Total 1833 ml 1272 ml Output Urine Total 525 ml 175 ml 500 ml # Bowel Movements 0 Vital Signs Vital Signs Date Time Temp Pulse Resp B/P Pulse Ox O2 Delivery O2 Flow Rate FiO2 11/18/16 09:30 79 11/18/16 08:00 98.5 88 20 163/73 90 11/18/16 07:15 Nasal Cannula 1.00 11/18/16 04:55 87 11/18/16 04:00 99.0 97 20 136/89 92 11/18/16 04:00 99.0 77 20 136/81 92 11/18/16 00:00 99.6 80 20 153/68 92 11/17/16 22:45 Nasal Cannula 1.00 11/17/16 20:00 98.0 87 20 156/65 92 11/17/16 18:00 101 149/70 11/17/16 16:09 97.5 94 20 165/76 93 11/17/16 12:31 98.0 86 20 154/86 93 CBC/BMP: 11/18/16 0600 11/18/16 0605 Lab Results Laboratory Tests Test 11/17/16 11/18/16 11/18/16 22:16 06:00 06:05 Hemoglobin 12.8 GM/DL 13.0 GM/DL Hematocrit 37.4 % 38.2 % White Blood Count 16.8 TH/MM3 Red Blood Count 4.04 MIL/MM3 Mean Corpuscular Volume 94.5 FL Mean Corpuscular Hemoglobin 32.2 PG Mean Corpuscular Hemoglobin 34.1 % Concent Red Cell Distribution Width 13.9 % Platelet Count 302 TH/MM3 Mean Platelet Volume 7.7 FL Sodium Level 135 MEQ/L Potassium Level 4.0 MEQ/L Chloride Level 100 MEQ/L Carbon Dioxide Level 28.2 MEQ/L Anion Gap 7 MEQ/L Blood Urea Nitrogen 13 MG/DL Creatinine 0.91 MG/DL Estimat Glomerular Filtration 78 ML/MIN Rate Random Glucose 109 MG/DL Calcium Level 7.5 MG/DL Physical Exam General General Appearance: Comfortable, Anxious, Painful Eyes Eye Exam: Pupils Equal, Sclera White, Extraocular Movement Intact Ears & Nose Ears & Nose Exam: Nasal Mucosa [place] Throat Throat Exam: Oral Mucosa [place] & Moist Neck Neck Exam: Neck Supple, Trachea Midline Pulmonary Resp Exam: No Distress, Crackles, Decreased Bases Cardiology CV Exam: Regular, Normal Sinus Rhythm Gastrointestinal/Abdomen GI Exam: Soft, Bowel Sounds Present, Distended GI Remarks Right sided abd tenderness +ve hypoactive BS Integumentary Skin Exam: Warm, Dry Extremeties Extremities Exam: No Edema, Pedal Pulses Palpable Neurologic Neuro Exam: Alert, Awake, Oriented, Moving All Extremities Psychiatric Psych Exam: Appropriate Responses Assessment/Plan Assessment/Plan Assessment . progressive confusion w leukocytosis ,Meningitis , MRSA . History of normal pressure hydrocephalus s/p COMPUTER CONSOLE OPERATOR shunt s/p recent revision.SHUNT related infection . abd pain / distention , Peritonitis d/t infected COMPUTER CONSOLE OPERATOR shunt . Fever d/t to above . s/p fall . Hypertension, . Hyperlipidemia, . History of COPD with scarring. . Microscopic hematuria. . Osteoarthritis. PLAN shunt fluid c/s +ve MRSA repeat shunt fluid +ve MRSA , elevated WBC IV antibiotics, IV vancomycin/ rifampin NSx is recommending removal of shunt AXR abd to r/o ileus will obtain Gen surgery consult for peritonitis , may need surgical intervention obtain CXR blood c/s x2 Ua, c/s ID f/u IVF changed to NS insert bruno catheter IV Protonix Repeat H&H , cont IV Reglan/zofran prn IV morphine when necessary for pain Blood pressure control subcutaneous heparin for DVT prophylaxis PT evaluation d/w PT's & daughter at bedside in detail . explained them pt's condition answered all of their questions , they verbalized understanding Discussed with BRIDGETT Liu. labs will follow Jose Lane MD Nov 18, 2016 11:29
[2016-11-18] MEDS ORDERED: ePHEDrine/NS 50 MG/5 ML SYR IV ONE (12:00)
[2016-11-18] MEDS ORDERED: ACETAMINOPHEN 650 MG SUPP RECTAL ONE (12:00)
[2016-11-18] MEDS ORDERED: PHENYLEPH/NS 1000 MCG/10 ML SYR IV ONE (12:00)
[2016-11-18] MEDS: SODIUM CHLOR 0.9% 1000 ML INJ 1,000 ML IV SCH (12:00)
[2016-11-18] MEDS ORDERED: PROPOFOL 200 MG/20 ML AMP IV ONE (12:00)
[2016-11-18] MEDS ORDERED: ONDANSETRON HCL 4 MG/2 ML VIAL IV PUSH ONE (12:00)
[2016-11-18] MEDS ORDERED: METOPROLOL TARTRATE 25 MG TAB PO PRN (13:00)
[2016-11-18] MEDS ORDERED: INSULIN HUMAN REGULAR 1,000 UNITS/10 ML VIAL SQ PRN (13:00)
[2016-11-18] MEDS ORDERED: SODIUM CHLORID 0.9% 500 ML IV SCH (13:00)
[2016-11-18] MEDS ORDERED: LACTATED RINGER'S 1000 ML IV SCH (13:00)
[2016-11-18 13:06] LABS: BACTERIA, URINE FEW /hpf; BLOOD, URINE SMALL (NEG); GLUCOSE,URINE NEG (NEG); GRANULAR CAST, URINE 2 /lpf; HYALINE CAST, URINE 2 /lpf (RARE); KETONE, URINE NEG (NEG); MUCUS URINE FEW /lpf (OCC); NITRITE,URINE NEG (NEG); PH, URINE 5.5 (5.0-8.5); SQUAMOUS EPITHELIAL CELL URINE 1 /hpf (0-5); URINE COLOR DARK-YELLOW (YELLW/STRAW)
[2016-11-18 13:07] LABS: COMMENT (UR) CATH-CULTURE IND; CULTURE IF INDICATED CATH CULTURE IND
--- NOTE | 2016-11-18 13:31 | RADRPT ---
EXAM DATE/TIME: 11/18/2016 12:09 [facility] COMPARISON: CHEST SINGLE AP, November 14, 2016, 6:23. INDICATIONS : Fever. MEDICAL HISTORY : Hypertension. SURGICAL HISTORY : DOCTOR OF CHIROPRACTIC Shunt. ENCOUNTER: Initial ACUITY: 3 days PAIN SCORE: 0/10 LOCATION: Bilateral chest FINDINGS: There is consolidation within both lower lobes and mild elevation of the right hemidiaphragm. Degener ative changes of the spine are seen and cardiomegaly. Aortic calcification is noted. Shunt catheter t ubing overlies right chest. CONCLUSION: Lower lobe consolidation noted bilaterally. Caleb Murry MD on November 18, 2016 at 13:29 Board Certified Radiologist. This report was verified electronically.
--- NOTE | 2016-11-18 13:37 | RADRPT ---
EXAM DATE/TIME: 11/18/2016 12:13 [facility] COMPARISON: CT ABDOMEN & PELVIS W CONTRAST, November 14, 2016, 7:41. INDICATIONS : Vomiting and distention. MEDICAL HISTORY : Hypertension. SURGICAL HISTORY : SENIOR ASSISTANT MANAGER shunt. ENCOUNTER: Initial ACUITY: 3 days PAIN SCORE: 7/10 LOCATION: Bilateral abdomen. FINDINGS: There is diffuse dilatation of small bowel loops overlying the mid abdomen and upper abdomen. Shunt c atheter tubing overlies the right abdomen. A paucity of distal bowel gas. CONCLUSION: Abnormally dilated loops of small intestine are noted and a developing small bowel obstruction is not excluded. Caleb Murry MD on November 18, 2016 at 13:34 Board Certified Radiologist. This report was verified electronically.
[2016-11-18] MEDS ORDERED: THROMBIN (TOPICAL) 5,000 UNIT VIAL ONE (14:25)
[2016-11-18] MEDS ORDERED: GELFOAM SIZE 100 ONE (14:25)
[2016-11-18] MEDS ORDERED: LIDOCAINE 1%/EPINEPHrine 1:100,000 SOLN 20 ML VIAL ONE (14:26)
[2016-11-18 14:32] LABS: HEMATOCRIT 39.1 % (39.0-51.0); REVIEW FLAG FINAL
[2016-11-18] MEDS ORDERED: DO NOT ADM ANY ANTICOAGULANT DRUGS XX PRN (17:30)
[2016-11-18] MEDS: PANTOPRAZOLE SODIUM 40 MG VIAL IV PUSH SCH (18:26)
--- NOTE | 2016-11-18 19:04 | MP ---
cc: VAZQUEZ ARIAS MD DATE OF SURGERY: 11/18/2016. PREOPERATIVE DIAGNOSIS: Right frontal ventriculoperoneal shunt infection. POSTOPERATIVE DIAGNOSIS: Same. OPERATION: Removal of JAR CAPPER shunt, placement of external ventricular drain. SURGEON: Vazquez Arias MD. INDICATIONS FOR THE PROCEDURE: The patient is an 89-year-old gentleman with a history of ventriculoperitoneal shunt since 2007, revised on October [address] Turpin presented with fatigue, bloating and nausea for the past several days. He was found to have an increased white cell count and a shunt tap grew methicillin-resistant staph aureus. He was taken to the operating room for externalization of the shunt. DESCRIPTION OF THE PROCEDURE IN DETAIL: The patient was brought to the operating room and placed supine on the operating room table. Anesthesia was induced and the patient was intubated orally. His right frontal region as well as the abdomen were prepped with chlorhexidine and then ChloraPrep and allowed to dry. The skin was infiltrated at the valve area with 1% lidocaine with epinephrine. The previous incision was reopened. Pus was found behind the shunt valve. Culture was sent. The shunt was then removed and a new external ventricular drain was placed. CSF was sent for culture with the old catheter in place prior to placing the new clean catheter. The CSF was clear. The return was best at 7 cm. The patient's drain was tunneled under the skin and secured with a 3-0 nylon pursestring suture. The wound was closed with interrupted 3-0 Vicryl sutures and 3-0 nylon interrupted sutures. The wound was dressed sterilely with Telfa and Tegaderm. The patient was then awakened and returned back to the recovery room in stable condition. The estimated blood loss is less than 5 mL. Vazquez Arias MD YYG/JCC /4:12 PM /6:58 PM [facility]
--- NOTE | 2016-11-18 21:30 | MB ---
cc: PRATIK SAENZ M.D. DATE OF CONSULTATION 11/18/2016 REASON FOR CONSULTATION Peritonitis. HISTORY OF PRESENT ILLNESS The patient is an 89-year-old male who presented to the [place] emergency department with a report of falling on the evening of 11/14. The patient was quite unsteady on his feet and was having intermittent confusion and slurred speech. The patient was seen four days prior to the admission with concern about his SAND MILL OPERATOR FACING SAND shunt being infected. This was revised by his neurosurgeon. Apparently, the patient had this placed originally for normal pressure hydrocephalus in 2007. REVIEW OF SYSTEMS The patient denies any problems with fevers, cough, congestion, neck pain, chest pain, shortness of breath, abdominal pain, vomiting, diarrhea, urinary symptoms, one-sided weakness, numbness or tingling or facial droop. PAST MEDICAL HISTORY 1. Hearing loss, 2. COPD, 3. Hyperlipidemia, 4. Hypertension, 5. Acid reflux. 6. Gout. PAST SURGICAL HISTORY 1. Left rotator cuff repair 2. Right corneal transplant 3. SAND MILL OPERATOR FACING SAND shunt placed on the right side. 4. Tonsillectomy as a child. SOCIAL HISTORY The patient does not smoke, drink or use other substances. ALLERGIES He has no known allergies. MEDICATIONS 1. Vancomycin q.18 h 2. Pantoprazole 40 mg IV q.24 h. 3. Reglan 5 mg IV q.8 h. 4. Morphine 2 mg as needed. 5. Zofran 4 mg IV q.6 h as needed. 6. Heparin 5000 units subcu q.12 h. 7. Allopurinol 300 mg p.o. q. day. 8. Norvasc 5 mg p.o. daily 9. Lisinopril 20 mg p.o. daily. 10. Ipratropium nebulizer as needed for shortness of breath 11. [place] 5/325 1 tablet p.o. q.4 h p.r.n. pain The patient had undergone CT scan of the abdomen and pelvis on 11/14 which demonstrated no acute findings. The SAND MILL OPERATOR FACING SAND shunt was seen in the abdomen. There are patchy consolidation in the visualized lung bases. The patient had increasing confusion today and was complaining of headaches. WBCs were 16.8 and there was concern that the patient had peritonitis associated with his SAND MILL OPERATOR FACING SAND shunt infection. However, he was nontender. The patient had undergone CT scan of the abdomen prior to this visit with some diffuse dilation of small bowel loops overlying the mid and upper abdomen. There was a paucity of bowel gas seen. PHYSICAL EXAMINATION The patient was seen in the recovery room after his SAND MILL OPERATOR FACING SAND shunt was removed which was recommended by the neurosurgeon. VITAL SIGNS: BP 130/62, pulse 80, respirations 15, 95% saturation on 3 liters nasal cannula. HEENT: Sclerae anicteric. Pupils reactive. CHEST: Clear to auscultation with decreased breath sounds at both bases. CARDIAC: Regular rate and rhythm. ABDOMEN: Soft, distended and mildly tender on the right side. There is no left-sided abdominal tenderness. Bowel sounds are decreased but present. There are no hernias noted. NEUROLOGIC: The patient is hard of hearing but he does follow commands and is able to answer questions easily. He is able to move all four extremities and sensory motor exam is grossly intact. The patient does respond, although he is minimally confused. KUB shows dilated loops small bowel and question infiltrates at lung bases. ASSESSMENT Small bowel ileus with a shunt infection; possible pneumonia. SAND MILL OPERATOR FACING SAND shunt has been removed. PLAN: We will continue to follow the patient with you. Continue antibiotics. If he seems to be deteriorating, can have the patient undergo laparoscopy and have peritoneum irrigated; it is unlikely to be required, however. He more likely has an ileus secondary to his infection and SAND MILL OPERATOR FACING SAND shunt infection, as well as possible secondary pneumonia. We will follow him with you. MD FOREIGN Choudhury/ /8:14 PM /9:16 PM MTDPascale
[2016-11-18 22:20] LABS: MRSA PCR POSITIVE (NEGATIVE); STAPH AUREUS PCR POSITIVE (NEGATIVE)
[2016-11-19] VITALS (13 sets, daily range): BP systolic 152–174; BP diastolic 69–90; PULSE 69–89; RESP 19–24; TEMP 98.1–98.7; O2SAT 92–98
[2016-11-19 02:05] LABS: HEMATOCRIT 36.4 % (39.0-51.0); MEAN CELL VOLUME 93.9 FL (80.0-100.0); MEAN CORPUSCULAR HGB CONC 34.1 % (32.0-36.0); PLATELET COUNT 305 TH/MM3 (150-450); RED BLOOD COUNT 3.88 MIL/MM3 (4.50-5.90); RED CELL DISTRIBUTION WIDTH 13.8 % (11.6-17.2); REVIEW FLAG FINAL
[2016-11-19 02:36] LABS: BICARBONATE 24.1 MEQ/L (21.0-32.0); INDIRECT BILIRUBIN 0.7 MG/DL (0.0-0.8); POTASSIUM 3.3 MEQ/L (3.5-5.1); TOTAL BILIRUBIN ADULT 1.3 MG/DL (0.2-1.0)
[2016-11-19] MEDS: ONDANSETRON HCL 4 MG/2 ML VIAL IV PUSH PRN ×3 (02:37→21:40)
[2016-11-19 02:38] LABS: CALCIUM-PROTEIN CORRECTED 7.9 MG/DL (8.5-10.1)
[2016-11-19] MEDS: SODIUM CHLOR 0.9% 1000 ML INJ 1,000 ML IV SCH ×2 (03:00→08:00)
[2016-11-19] MEDS ORDERED: DIATRIZOATE MEGLUM/DIATRIZOATE SOD 9 ML CUP PO ONE (03:00)
--- NOTE | 2016-11-19 06:24 | RADRPT ---
EXAM DATE/TIME: 11/19/2016 05:27 [facility] COMPARISON: CT ABDOMEN & PELVIS W CONTRAST, November 14, 2016, 7:41. INDICATIONS : Recent removal of CASHIER PARKING LOT shunt with sepsis. Evaluate for free air/pathology. ORAL CONTRAST: Prescribed oral contrast ingested. RADIATION DOSE: 13.82 CTDIvol (mGy) MEDICAL HISTORY : Hypertension. Chronic obstructive pulmonary disease. Gastroesophageal reflux disease. SURGICAL HISTORY : None. ENCOUNTER: Subsequent ACUITY: 1 day PAIN SCALE: 3/10 LOCATION: abdomen TECHNIQUE: Volumetric scanning of the abdomen and pelvis was performed. Using automated exposure control and ad justment of the mA and/or kV according to patient size, radiation dose was kept as low as reasonably achievable to obtain optimal diagnostic quality images. FINDINGS: LOWER LUNGS: Dense consolidation in the bilateral lower lobes right greater left. Small bilateral pleural effusion s clearly increased since the 11/14 exam LIVER: Homogeneous density without lesion. There is no dilation of the biliary tree. Cholecystectomy clips. SPLEEN: Normal size without lesion. PANCREAS: Within normal limits. KIDNEYS: Normal in size and shape. There is no mass, stone, or hydronephrosis. ADRENAL GLANDS: Within normal limits. VASCULAR: There is no aortic aneurysm. BOWEL/MESENTERY: Numerous distended loops of small bowel throughout the abdomen. Contrast and air throughout the colon . No evidence of wall thickening or obstruction. Scattered free fluid including the paracolic gutters without drainable collection. ABDOMINAL WALL: Within normal limits. RETROPERITONEUM: There is no lymphadenopathy. BLADDER: No wall thickening or mass. REPRODUCTIVE: Within normal limits. INGUINAL: There is no lymphadenopathy or hernia. MUSCULOSKELETAL: Paget's disease right hemipelvis. CONCLUSION: Numerous distended loops of small bowel without evidence of obstructing lesion or significant wall thickening. Solid organs are unremarkable. Cholecystectomy clips. Persistent lower l obe infiltrates right greater left worse than on the 11/14/16 exam . Joseluis Vila MD on November 19, 2016 at 6:19 Board Certified Radiologist. This report was verified electronically.
[2016-11-19] MEDS: METOCLOPRAMIDE HCL 10 MG/2 ML VIAL IV PUSH SCH ×3 (06:53→21:13)
[2016-11-19] MEDS: RIFAMPIN 150 MG CAP PO SCH ×2 (08:18→21:13)
[2016-11-19] MEDS: amLODIPine BESYLATE 5 MG TAB PO SCH (08:18)
[2016-11-19] MEDS: LOTEPREDNOL OPTH EACH EYE SCH ×2 (08:18→08:22)
[2016-11-19] MEDS: LISINOPRIL 20 MG TAB PO SCH (08:19)
[2016-11-19] MEDS: HEPARIN SODIUM - SQ 10,000 UNITS/ML VIAL SQ SCH ×2 (08:19→21:13)
[2016-11-19] MEDS: ALLOPURINOL 300 MG TAB PO SCH (08:19)
--- NOTE | 2016-11-19 09:37 | HHI.NSPN ---
Subjective History Day 1 after externalization of VPS, CSF is clear and confusion has improved. Vitals . Vital Signs Date Time Temp Pulse Resp B/P Pulse Ox O2 Delivery O2 Flow Rate FiO2 11/19/16 06:00 88 11/19/16 04:00 98.7 72 20 157/78 95 11/19/16 04:00 72 11/19/16 02:00 74 11/19/16 00:00 98.7 74 19 152/72 92 11/19/16 00:00 74 11/18/16 22:00 78 11/18/16 20:26 94 Nasal Cannula 3.00 11/18/16 20:00 98.6 76 19 135/66 94 11/18/16 20:00 76 11/18/16 19:30 Nasal Cannula 3.00 11/18/16 19:00 Nasal Cannula 3.00 11/18/16 18:00 97.4 82 26 136/66 97 11/18/16 17:15 98.3 80 16 140/67 96 Nasal Cannula 3 11/18/16 17:00 84 15 137/68 96 Nasal Cannula 3 11/18/16 16:45 80 15 130/62 95 Nasal Cannula 3 11/18/16 16:30 82 16 141/63 95 Nasal Cannula 3 11/18/16 16:15 83 15 138/66 95 Nasal Cannula 3 11/18/16 16:08 98.3 89 15 133/65 95 Simple Mask 6 11/18/16 12:00 100.6 74 18 155/67 91 11/18/16 11/18/16 11/19/16 15:00 23:00 07:00 Intake Total 1747 ml 1273 ml Output Total 1290 ml 985 ml Balance 457 ml 288 ml Physical Exam Eyes Eyes: Pupils Equal Neuro Mental Status: Awake, Alert, Oriented x 3 Pupils: Reactive Bilaterally [place] Coma Scale Best Eye Openin - Spontaneous Best Verbal: 5 - Oriented Best Motor: 6 - Obeys Total Glascow Coma Scale (GCS): 15 Sensation: Intact Cardiac Cardiac: Regular Rate & Rhythm Gastrointestinal Gastrointestinal: Soft Musculoskeletal Musculoskeletal: Moves all extrem with 5/5 strength Extremities Upper Extremities Deltoid Bicep Tricep HI W. Ext Right Left Lower Extremeties Ilio Quad Plantar Dorsi EHL Right Left Extremities Edema: SCDs Objective Infectious Disease Cultures Microbiology Date/Time Procedure Status Source Growth 11/18/16 12:15 Urine Culture Received Urine Clean Catch Pending 11/18/16 14:10 Aerobic Blood Culture Received Blood Peripheral Pending 11/18/16 14:10 Anaerobic Blood Culture Received Blood Peripheral Pending 11/18/16 14:17 Aerobic Blood Culture Received Blood Peripheral Pending 11/18/16 14:17 Anaerobic Blood Culture Received Blood Peripheral Pending 11/18/16 15:20 Gram Stain - Final Resulted Wound Head 11/18/16 15:20 Wound Culture Resulted Wound Head Pending 11/18/16 15:23 Gram Stain - Final Resulted Cerebral Spinal Fluid Shunt Fluid 11/18/16 15:23 CSF Culture Resulted Cerebral Spinal Fluid Shunt Fluid Pending 11/18/16 15:23 Cancelled Cerebral Spinal Fluid Shunt Fluid Labs Laboratory Tests 11/18/16 14:10 11/19/16 01:39 Laboratory Tests Test 11/19/16 01:39 Sodium Level 140 MEQ/L Potassium Level 3.3 MEQ/L Chloride Level 107 MEQ/L Carbon Dioxide Level 24.1 MEQ/L Anion Gap 9 MEQ/L Blood Urea Nitrogen 14 MG/DL Creatinine 0.75 MG/DL Estimat Glomerular Filtration 98 ML/MIN Rate Random Glucose 86 MG/DL Calcium Level 7.0 MG/DL Protein Corrected Calcium 7.9 MG/DL Total Bilirubin 1.3 MG/DL Direct Bilirubin 0.6 MG/DL Indirect Bilirubin 0.7 MG/DL Aspartate Amino Transf 29 U/L (AST/SGOT) Alanine Aminotransferase 26 U/L (ALT/SGPT) Alkaline Phosphatase 84 U/L Total Protein 5.3 GM/DL Albumin 2.1 GM/DL Imaging Remarks Last Impressions Abdomen/Pelvis CT 11/19/16 0600 Signed Impressions: Service Date/Time: Saturday, November 19, 2016 05:27 - CONCLUSION: Numerous distended loops of small bowel without evidence of obstructing lesion or significant wall thickening. Solid organs are unremarkable. Cholecystectomy clips. Persistent lower lobe infiltrates right greater left worse than on the 11/14/16 exam . Joseluis Vila MD Chest X-Ray 11/18/16 0000 Signed Impressions: Service Date/Time: Friday, November 18, 2016 12:09 - CONCLUSION: Lower lobe consolidation noted bilaterally. Caleb Murry MD Abdomen X-Ray 11/18/16 0000 Signed Impressions: Service Date/Time: Friday, November 18, 2016 12:13 - CONCLUSION: Abnormally dilated loops of small intestine are noted and a developing small bowel obstruction is not excluded. Caleb Murry MD Pelvis X-Ray 11/14/16621 Signed Impressions: Service Date/Time: Monday, November 14, 2016 06:24 - CONCLUSION: Negative trauma study with no acute fracture or malalignment. Misael Camara MD Head CT 11/14/16621 Signed Impressions: Service Date/Time: Monday, November 14, 2016 07:32 - CONCLUSION: No acute intracranial abnormality. New Manrique MD Cervical Spine CT 11/14/16621 Signed Impressions: Service Date/Time: Monday, November 14, 2016 07:32 - CONCLUSION: 1. No acute abnormality. 2. Diffuse mild degenerative changes without central canal stenosis or neural foraminal narrowing. 3. Calcified plaque involving the carotid arteries. Edwardo Workman Jr., MD Lumbar Puncture Fluoroscopy 11/14/16 0000 Signed Impressions: Service Date/Time: Monday, November 14, 2016 13:55 - CONCLUSION: Uncomplicated fluoroscopically guided lumbar puncture. Edwardo Workman Jr., MD Clavicle X-Ray 11/14/16 0000 Signed Impressions: Service Date/Time: Monday, November 14, 2016 07:50 - CONCLUSION: Intact right clavicle. New Manrique MD Assessment & Plan Diagnosis: (1) Infection of ventriculoperitoneal shunt Plan: CSF from the shunt tap grew MRSA. Appropriate antibiotics from the ID service. ICPs are in the low 0-5 range and his mentation as well as nausea have improved Critical Care Time (minutes): 10 [place] Nov 19, 2016 09:37
[2016-11-19] MEDS: VANCOMYCIN INJ 1,250 MG in SODIUM CHLOR 0.9% 250 ML INJ 250 ML IV SCH (11:02)
--- NOTE | 2016-11-19 12:29 | HHI.PR ---
Subjective Subjective Notes no abdominal pain today Objective Vitals/I&O Vital Signs Date Time Temp Pulse Resp B/P Pulse Ox O2 Delivery O2 Flow Rate FiO2 11/19/16 10:00 89 11/19/16 08:00 98.1 24 163/90 96 11/19/16 07:00 Nasal Cannula 4.00 Labs Laboratory Tests Test 11/18/16 11/18/16 11/19/16 14:10 18:30 01:39 Hemoglobin 13.2 12.4 Hematocrit 39.1 36.4 Nasal Screen MRSA (PCR) POSITIVE Staphylococcus aureus POSITIVE (PCR)(LAB) White Blood Count 14.0 Red Blood Count 3.88 Mean Corpuscular Volume 93.9 Mean Corpuscular Hemoglobin 32.0 Mean Corpuscular Hemoglobin 34.1 Concent Red Cell Distribution Width 13.8 Platelet Count 305 Mean Platelet Volume 7.5 Sodium Level 140 Potassium Level 3.3 Chloride Level 107 Carbon Dioxide Level 24.1 Anion Gap 9 Blood Urea Nitrogen 14 Creatinine 0.75 Estimat Glomerular Filtration 98 Rate Random Glucose 86 Calcium Level 7.0 Protein Corrected Calcium 7.9 Total Bilirubin 1.3 Direct Bilirubin 0.6 Indirect Bilirubin 0.7 Aspartate Amino Transf 29 (AST/SGOT) Alanine Aminotransferase 26 (ALT/SGPT) Alkaline Phosphatase 84 Total Protein 5.3 Albumin 2.1 Date/Time Procedure Status Source Growth 11/18/16 15:23 Gram Stain - Final Resulted Cerebral Spinal Fluid Shunt Fluid 11/18/16 15:23 CSF Culture - Preliminary Resulted Cerebral Spinal Fluid Shunt Fluid NO GROWTH IN 24 HOURS. 11/18/16 15:23 Cancelled Cerebral Spinal Fluid Shunt Fluid 11/18/16 14:17 Aerobic Blood Culture - Preliminary Resulted Blood Peripheral NO GROWTH IN 1 DAY 11/18/16 14:17 Anaerobic Blood Culture - Preliminary Resulted Blood Peripheral NO GROWTH IN 1 DAY 11/18/16 12:15 Urine Culture - Preliminary Resulted Urine Clean Catch NO GROWTH IN 24 HOURS. 11/17/16 11:25 Fungal Smear - Final Resulted Cerebral Spinal Fluid Shunt Fluid NO FUNGAL ELEMENTS SEEN. 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 - abdominal exam benign, no acute surgical process on CT scan today, will sign off Stanley Conway MD Nov 19, 2016 12:29
--- NOTE | 2016-11-19 13:39 | EKG ---
Date Performed: 11/18/2016 Time Performed: 12:21:20 PTAGE: 89 years EKG: Sinus rhythm Since previous tracing, no significant change noted Normal ECG PREVIOUS TRACING : 11/14/2016 06.40.25 DOCTOR: Sendy Hardy Interpretating Date/Time 11/19/2016 13:35:56
[2016-11-19] MEDS: PANTOPRAZOLE SODIUM 40 MG VIAL IV PUSH SCH (16:25)
--- NOTE | 2016-11-19 19:09 | HHI.IDPN ---
Subjective Subjective Remarks ID COVERAGE Chart reviewed. is an 89 y/o CM with PMHx of NPH s/p BUILDING ENERGY CONSULTANT shunt placement in 2010 at [facility]. He reports that on 10/25/2016 he had replacement of the shunt valve at [facility] by for BUILDING ENERGY CONSULTANT shunt malfunction. Shunt fluid clx was positive for MRSA and shunt was removed and external drain was placed yday No fever Antibiotics rifampin Vanco IV Lines Line sites with no e.o infection. Past Medical History reviewed. 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 Vital Signs Date Time Temp Pulse Resp B/P Pulse Ox O2 Delivery O2 Flow Rate FiO2 11/19/16 18:00 89 11/19/16 16:00 78 11/19/16 16:00 98.2 78 20 174/79 95 11/19/16 14:00 80 11/19/16 12:00 98.3 79 20 156/69 94 11/19/16 12:00 79 11/19/16 10:00 89 11/19/16 08:00 74 11/19/16 08:00 98.1 74 24 163/90 96 11/19/16 07:00 Nasal Cannula 4.00 11/19/16 06:00 88 11/19/16 04:00 98.7 72 20 157/78 95 11/19/16 04:00 72 11/19/16 02:00 74 11/19/16 00:00 98.7 74 19 152/72 92 11/19/16 00:00 74 11/18/16 22:00 78 11/18/16 20:26 94 Nasal Cannula 3.00 11/18/16 20:00 98.6 76 19 135/66 94 11/18/16 20:00 76 11/18/16 19:30 Nasal Cannula 3.00 11/18/16 11/18/16 11/19/16 15:00 23:00 07:00 Intake Total 1747 ml 1273 ml Output Total 1290 ml 985 ml Balance 457 ml 288 ml Intake Oral 90 ml 480 ml IV Total 757 ml 793 ml Other 900 ml Output Urine Total 1275 ml 975 ml Drainage Total 5 ml 10 ml Estimated Blood Loss 10 ml # Bowel Movements 1 . Laboratory Tests Test 11/17/16 11/18/16 11/18/16 11/19/16 22:16 06:00 14:10 01:39 Hemoglobin 12.8 GM/DL 13.0 GM/DL 13.2 GM/DL 12.4 GM/DL Hematocrit 37.4 % 38.2 % 39.1 % 36.4 % White Blood Count 16.8 TH/MM3 14.0 TH/MM3 Red Blood Count 4.04 MIL/MM3 3.88 MIL/MM3 Mean Corpuscular Volume 94.5 FL 93.9 FL Mean Corpuscular Hemoglobin 32.2 PG 32.0 PG Mean Corpuscular Hemoglobin 34.1 % 34.1 % Concent Red Cell Distribution Width 13.9 % 13.8 % Platelet Count 302 TH/MM3 305 TH/MM3 Mean Platelet Volume 7.7 FL 7.5 FL Laboratory Tests Test 11/18/16 11/19/16 06:05 01:39 Sodium Level 135 MEQ/L 140 MEQ/L Potassium Level 4.0 MEQ/L 3.3 MEQ/L Chloride Level 100 MEQ/L 107 MEQ/L Carbon Dioxide Level 28.2 MEQ/L 24.1 MEQ/L Anion Gap 7 MEQ/L 9 MEQ/L Blood Urea Nitrogen 13 MG/DL 14 MG/DL Creatinine 0.91 MG/DL 0.75 MG/DL Estimat Glomerular Filtration 78 ML/MIN 98 ML/MIN Rate Random Glucose 109 MG/DL 86 MG/DL Calcium Level 7.5 MG/DL 7.0 MG/DL Protein Corrected Calcium 7.9 MG/DL Total Bilirubin 1.3 MG/DL Direct Bilirubin 0.6 MG/DL Indirect Bilirubin 0.7 MG/DL Aspartate Amino Transf 29 U/L (AST/SGOT) Alanine Aminotransferase 26 U/L (ALT/SGPT) Alkaline Phosphatase 84 U/L Total Protein 5.3 GM/DL Albumin 2.1 GM/DL Microbiology Date/Time Procedure Status Source Growth 11/17/16 11:25 Gram Stain - Final Resulted Cerebral Spinal Fluid Shunt Fluid 11/17/16 11:25 CSF Culture - Preliminary Resulted S. Aureus Mrsa 11/17/16 11:25 Fungal Smear - Final Resulted Cerebral Spinal Fluid Shunt Fluid NO FUNGAL ELEMENTS SEEN. 11/17/16 11:25 Fungal Culture Resulted Cerebral Spinal Fluid Shunt Fluid Pending 11/18/16 12:15 Urine Culture - Preliminary Resulted Urine Clean Catch NO GROWTH IN 24 HOURS. 11/18/16 14:10 Aerobic Blood Culture - Preliminary Resulted Blood Peripheral NO GROWTH IN 1 DAY 11/18/16 14:10 Anaerobic Blood Culture - Preliminary Resulted Blood Peripheral NO GROWTH IN 1 DAY 11/18/16 14:17 Aerobic Blood Culture - Preliminary Resulted Blood Peripheral NO GROWTH IN 1 DAY 11/18/16 14:17 Anaerobic Blood Culture - Preliminary Resulted Blood Peripheral NO GROWTH IN 1 DAY 11/18/16 15:20 Gram Stain - Final Resulted Wound Head 11/18/16 15:20 Wound Culture - Preliminary Resulted Gram Positive Cocci 11/18/16 15:23 Gram Stain - Final Resulted Cerebral Spinal Fluid Shunt Fluid 11/18/16 15:23 CSF Culture - Preliminary Resulted Cerebral Spinal Fluid Shunt Fluid NO GROWTH IN 24 HOURS. 11/18/16 15:23 Cancelled Cerebral Spinal Fluid Shunt Fluid Imaging Last Impressions Abdomen/Pelvis CT 11/19/16 0600 Signed Impressions: Service Date/Time: Saturday, November 19, 2016 05:27 - CONCLUSION: Numerous distended loops of small bowel without evidence of obstructing lesion or significant wall thickening. Solid organs are unremarkable. Cholecystectomy clips. Persistent lower lobe infiltrates right greater left worse than on the 11/14/16 exam . Joseluis Vila MD Chest X-Ray 11/18/16 0000 Signed Impressions: Service Date/Time: Friday, November 18, 2016 12:09 - CONCLUSION: Lower lobe consolidation noted bilaterally. Caleb Murry MD Abdomen X-Ray 11/18/16 0000 Signed Impressions: Service Date/Time: Friday, November 18, 2016 12:13 - CONCLUSION: Abnormally dilated loops of small intestine are noted and a developing small bowel obstruction is not excluded. Caleb Murry MD Pelvis X-Ray 11/14/16 0622 Signed Impressions: Service Date/Time: Monday, November 14, 2016 06:24 - CONCLUSION: Negative trauma study with no acute fracture or malalignment. Misael Camara MD Head CT 11/14/16 0622 Signed Impressions: Service Date/Time: Monday, November 14, 2016 07:32 - CONCLUSION: No acute intracranial abnormality. New Manrique MD Cervical Spine CT 11/14/16 0622 Signed Impressions: Service Date/Time: Monday, November 14, 2016 07:32 - CONCLUSION: 1. No acute abnormality. 2. Diffuse mild degenerative changes without central canal stenosis or neural foraminal narrowing. 3. Calcified plaque involving the carotid arteries. Edwardo Workman Jr., MD Lumbar Puncture Fluoroscopy 11/14/16 0000 Signed Impressions: Service Date/Time: Monday, November 14, 2016 13:55 - CONCLUSION: Uncomplicated fluoroscopically guided lumbar puncture. Edwardo Workman Jr., MD Clavicle X-Ray 11/14/16 0000 Signed Impressions: Service Date/Time: Monday, November 14, 2016 07:50 - CONCLUSION: Intact right clavicle. New Manrique MD Physical Exam GENERAL: Awake and alert, up in chair SKIN: No generalized rash HEAD: Ventric in place with clear CSF EYES: No scleral icterus. No injection or drainage. ENT: oral mucosae moist CARDIOVASCULAR: HS audible. No murmurs RESPIRATORY: Clear to auscultation. Breath sounds equal bilaterally. No wheezes , rales, or rhonchi. GASTROINTESTINAL: Abdomen soft, non-tender, nondistended. MUSCULOSKELETAL: Extremities without clubbing, cyanosis, or edema. No joint tenderness, effusion, or edema noted. No calf tenderness. Negative Homans sign bilaterally. NEUROLOGICAL: Awake and alert. Psych: cooperative IV line sites with no e/o infection. Assessment & Plan Remarks Sepsis present on admission BUILDING ENERGY CONSULTANT shunt related ventriculitis, MRSA - BUILDING ENERGY CONSULTANT shunt is removed Acute metabolic encephalopathy: infection, NPH Elevated CRP. Recs Continue Vanco IV (target trough 15-20 for meningitis) cont Rifampin monitor clinically D/W Shu Hinojosa MD Nov 19, 2016 19:09
--- NOTE | 2016-11-19 19:24 | HHI.PR ---
Subjective History of Present Illness FEELS MUCH BETTER NO MORE NAUSEA OR VOMITING abd pain IS BETTER appetite is improving moved bowel no more fever or chills No CP no cough or sputum no diarrhea offers no other c/o Vitals/Results Intake & Output 11/18/16 11/18/16 11/19/16 15:00 23:00 07:00 Intake Total 1747 ml 1273 ml Output Total 1290 ml 985 ml Balance 457 ml 288 ml Intake Oral 90 ml 480 ml IV Total 757 ml 793 ml Other 900 ml Output Urine Total 1275 ml 975 ml Drainage Total 5 ml 10 ml Estimated Blood Loss 10 ml # Bowel Movements 1 Vital Signs Vital Signs Date Time Temp Pulse Resp B/P Pulse Ox O2 Delivery O2 Flow Rate FiO2 11/19/16 18:00 89 11/19/16 16:00 78 11/19/16 16:00 98.2 78 20 174/79 95 11/19/16 14:00 80 11/19/16 12:00 98.3 79 20 156/69 94 11/19/16 12:00 79 11/19/16 10:00 89 11/19/16 08:00 74 11/19/16 08:00 98.1 74 24 163/90 96 11/19/16 07:00 Nasal Cannula 4.00 11/19/16 06:00 88 11/19/16 04:00 98.7 72 20 157/78 95 11/19/16 04:00 72 11/19/16 02:00 74 11/19/16 00:00 98.7 74 19 152/72 92 11/19/16 00:00 74 11/18/16 22:00 78 11/18/16 20:26 94 Nasal Cannula 3.00 11/18/16 20:00 98.6 76 19 135/66 94 11/18/16 20:00 76 11/18/16 19:30 Nasal Cannula 3.00 CBC/BMP: 11/19/16 0139 11/19/16 0139 Lab Results Laboratory Tests Test 11/19/16 01:39 White Blood Count 14.0 TH/MM3 Red Blood Count 3.88 MIL/MM3 Hemoglobin 12.4 GM/DL Hematocrit 36.4 % Mean Corpuscular Volume 93.9 FL Mean Corpuscular Hemoglobin 32.0 PG Mean Corpuscular Hemoglobin 34.1 % Concent Red Cell Distribution Width 13.8 % Platelet Count 305 TH/MM3 Mean Platelet Volume 7.5 FL Sodium Level 140 MEQ/L Potassium Level 3.3 MEQ/L Chloride Level 107 MEQ/L Carbon Dioxide Level 24.1 MEQ/L Anion Gap 9 MEQ/L Blood Urea Nitrogen 14 MG/DL Creatinine 0.75 MG/DL Estimat Glomerular Filtration 98 ML/MIN Rate Random Glucose 86 MG/DL Calcium Level 7.0 MG/DL Protein Corrected Calcium 7.9 MG/DL Total Bilirubin 1.3 MG/DL Direct Bilirubin 0.6 MG/DL Indirect Bilirubin 0.7 MG/DL Aspartate Amino Transf 29 U/L (AST/SGOT) Alanine Aminotransferase 26 U/L (ALT/SGPT) Alkaline Phosphatase 84 U/L Total Protein 5.3 GM/DL Albumin 2.1 GM/DL Physical Exam General General Appearance: No Acute Distress, Comfortable Eyes Eye Exam: Pupils Equal, Sclera White, Extraocular Movement Intact Ears & Nose Ears & Nose Exam: Nasal Mucosa Krupp Throat Throat Exam: Oral Mucosa Krupp & Moist Neck Neck Exam: Neck Supple, Trachea Midline Pulmonary Resp Exam: No Distress, Crackles, Decreased Bases Cardiology CV Exam: Regular, Normal Sinus Rhythm Gastrointestinal/Abdomen GI Exam: Soft, Bowel Sounds Present, Distended GI Remarks Right sided mild abd tenderness +ve BS Integumentary Skin Exam: Warm, Dry Extremeties Extremities Exam: No Edema, Pedal Pulses Palpable Neurologic Neuro Exam: Alert, Awake, Oriented, Speech Clear, Moving All Extremities Neuro Remarks R sided external drain in place Psychiatric Psych Exam: Appropriate Responses Assessment/Plan Assessment/Plan Assessment . progressive confusion w leukocytosis ,Meningitis , MRSA . 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 abd pain / distention , Peritonitis d/t infected RETAIL WIRELESS SALES REPRESENTATIVE shunt . Fever d/t to above . s/p fall . Hypertension, . Hyperlipidemia, . History of COPD with scarring. . Microscopic hematuria. . Osteoarthritis. PLAN shunt fluid c/s +ve MRSA repeat shunt fluid +ve MRSA , elevated WBC IV antibiotics, IV vancomycin/ rifampin s/p removal of RETAIL WIRELESS SALES REPRESENTATIVE shunt & placement of external drain AXR abd c/s Ileus Gen surgery input appreciated CT abd noted clinically much better CXR b/l l;ower lobe atelectasis vs infiltrate incentive spirometry blood c/s neg so far ID f/u IVF cont bruno catheter IV Protonix Repeat H&H , cont IV Reglan/zofran prn IV morphine when necessary for pain Blood pressure control subcutaneous heparin for DVT prophylaxis PT evaluation d/w pt Discussed with BRIDGETT Hernandes labs will follow Jose Lane MD Nov 19, 2016 19:24
[2016-11-19] MEDS: LOTEPREDNOL OPTH RIGHT EYE SCH (21:00)
[2016-11-19] MEDS: ACETAMINOPHEN/HYDROcodone 325 MG/5 MG TAB PO PRN (21:57)
[2016-11-20] VITALS (14 sets, daily range): BP systolic 125–178; BP diastolic 58–99; PULSE 65–99; RESP 16–33; TEMP 98–98.6; O2SAT 91–100
[2016-11-20 04:27] LABS: HEMATOCRIT 37.1 % (39.0-51.0); MEAN CELL VOLUME 93.1 FL (80.0-100.0); MEAN CORPUSCULAR HEMOGLOBIN 32.3 PG (27.0-34.0); MEAN CORPUSCULAR HGB CONC 34.7 % (32.0-36.0); PLATELET COUNT 345 TH/MM3 (150-450); RED BLOOD COUNT 3.99 MIL/MM3 (4.50-5.90); RED CELL DISTRIBUTION WIDTH 13.9 % (11.6-17.2); REVIEW FLAG FINAL
[2016-11-20 04:53] LABS: BICARBONATE 28.7 MEQ/L (21.0-32.0)
[2016-11-20 05:04] LABS: CALCIUM-PROTEIN CORRECTED 7.8 MG/DL (8.5-10.1)
[2016-11-20] MEDS ORDERED: PHARMACY ORDERED LAB XX ONE (05:45)
[2016-11-20] MEDS: METOCLOPRAMIDE HCL 10 MG/2 ML VIAL IV PUSH SCH ×3 (05:46→20:35)
[2016-11-20] MEDS: VANCOMYCIN INJ 1,250 MG in SODIUM CHLOR 0.9% 250 ML INJ 250 ML IV SCH ×2 (05:47→18:22)
--- NOTE | 2016-11-20 08:13 | HHI.NSPN ---
History Chief Complaint: no complaints Interval History 89-year-old male status post CODE CLERK shunt placement approximately 2010 in [place] for treatment of NPH. Recent shunt revision for malfunction 10/24/16 with subsequent development of headache and mental status changes with positive cultures for MRSA via shunt tap on 11/15/16. Now with ventriculostomy in place since 11/18/16. Exam Results Vital Signs Date Time Temp Pulse Resp B/P Pulse Ox O2 Delivery O2 Flow Rate FiO2 11/20/16 07:51 100 Nasal Cannula 2.00 11/20/16 06:00 78 11/20/16 04:00 98.4 21 171/72 Intake and Output 11/19/16 11/19/16 11/19/16 07:59 15:59 23:59 Intake Total 1273 ml 867 ml 250 ml Output Total 985 ml 1008 ml 1040 ml Balance 288 ml -141 ml -790 ml Physical Examination Mr. Motley is awake and oriented to name and place. Converses well. Follows commands without difficulties. Right scalp incision is healing well without evidence of infection. Ventriculostomy in place. Right postauricular swelling and tenderness has improved. Cranial nerve examination demonstrates the pupils to be equal, round, and reactive to light. Extra-ocular movements are intact. Facial motor and sensory function are normal and symmetrical. Neck is soft and supple. Muscle strength is 5/5 in all muscle groups of both upper extremities including deltoid, biceps, triceps, brachioradialis, and glove operator. In the lower extremities, strength is 5/5 in both iliopsoas, quadriceps, hamstrings, plantar flexion, dorsiflexion. Sensory examination is intact to light touch in both the upper and lower extremities, symmetrically. Cerebellar examination is intact to [id number] test Lab, Micro, Other Results Laboratory Tests Test 11/20/16 11/20/16 03:38 05:40 White Blood Count 14.0 TH/MM3 Red Blood Count 3.99 MIL/MM3 Hemoglobin 12.9 GM/DL Hematocrit 37.1 % Mean Corpuscular Volume 93.1 FL Mean Corpuscular Hemoglobin 32.3 PG Mean Corpuscular Hemoglobin 34.7 % Concent Red Cell Distribution Width 13.9 % Platelet Count 345 TH/MM3 Mean Platelet Volume 7.4 FL Sodium Level 136 MEQ/L Potassium Level 3.0 MEQ/L Chloride Level 99 MEQ/L Carbon Dioxide Level 28.7 MEQ/L Anion Gap 8 MEQ/L Blood Urea Nitrogen 13 MG/DL Creatinine 0.70 MG/DL Estimat Glomerular Filtration 106 ML/MIN Rate Random Glucose 78 MG/DL Calcium Level 6.9 MG/DL Protein Corrected Calcium 7.8 MG/DL Total Protein 5.4 GM/DL Vancomycin Level Trough 12.9 MCG/ML Medical Decision Making Impression and Plan Impression: 1. Stable neurologic function status post shunt removal and ventriculostomy placement for shunt infection. Plan: Findings discussed with the patient. He has had minimal output over the past few days, mostly between 5-15 cc per day except for 11/19/2016 when he had 40 cc out. He has no complaint of headache or other new symptoms. Ventriculostomy drain closed today. Will monitor neurologic function and follow -up CT. May be able to discontinue ventriculostomy with possible delayed placement of drain following treatment of CSF infection. Praneeth Nunez MD Nov 20, 2016 08:13
[2016-11-20] MEDS: amLODIPine BESYLATE 5 MG TAB PO SCH (08:37)
[2016-11-20] MEDS: HEPARIN SODIUM - SQ 10,000 UNITS/ML VIAL SQ SCH ×2 (08:37→20:35)
[2016-11-20] MEDS: ALLOPURINOL 300 MG TAB PO SCH (08:37)
[2016-11-20] MEDS: LISINOPRIL 20 MG TAB PO SCH (08:37)
[2016-11-20] MEDS: RIFAMPIN 150 MG CAP PO SCH ×2 (08:37→20:35)
--- NOTE | 2016-11-20 11:22 | HHI.PR ---
Subjective Subjective Notes Much more alert; states abdominal pain much less. Had large loose bowel movement, like diarrhea. Objective Vitals/I&O Vital Signs Date Time Temp Pulse Resp B/P Pulse Ox O2 Delivery O2 Flow Rate FiO2 11/20/16 10:00 84 11/20/16 08:00 98.0 25 163/72 100 11/20/16 07:51 Nasal Cannula 2.00 Labs Laboratory Tests Test 11/20/16 11/20/16 03:38 05:40 White Blood Count 14.0 Red Blood Count 3.99 Hemoglobin 12.9 Hematocrit 37.1 Mean Corpuscular Volume 93.1 Mean Corpuscular Hemoglobin 32.3 Mean Corpuscular Hemoglobin 34.7 Concent Red Cell Distribution Width 13.9 Platelet Count 345 Mean Platelet Volume 7.4 Sodium Level 136 Potassium Level 3.0 Chloride Level 99 Carbon Dioxide Level 28.7 Anion Gap 8 Blood Urea Nitrogen 13 Creatinine 0.70 Estimat Glomerular Filtration 106 Rate Random Glucose 78 Calcium Level 6.9 Protein Corrected Calcium 7.8 Total Protein 5.4 Vancomycin Level Trough 12.9 Date/Time Procedure Status Source Growth 11/18/16 15:23 Gram Stain - Final Complete Cerebral Spinal Fluid Shunt Fluid 11/18/16 15:23 CSF Culture - Final Complete S. Aureus Mrsa 11/18/16 15:23 Cancelled Cerebral Spinal Fluid Shunt Fluid 11/18/16 14:17 Aerobic Blood Culture - Preliminary Resulted Blood Peripheral NO GROWTH IN 2 DAYS 11/18/16 14:17 Anaerobic Blood Culture - Preliminary Resulted Blood Peripheral NO GROWTH IN 2 DAYS 11/18/16 12:15 Urine Culture - Preliminary Resulted Urine Clean Catch NO GROWTH IN 24 HOURS. 11/17/16 11:25 Fungal Smear - Final Resulted Cerebral Spinal Fluid Shunt Fluid NO FUNGAL ELEMENTS SEEN. 11/17/16 11:25 Fungal Culture Resulted Cerebral Spinal Fluid Shunt Fluid Pending Lungs: Clear, Other (Decreased BS at bases) Abdomen: Non-tender, Other (Distended, but less so than 48 hrs ago.) Extremities: No edema A/P Assessment and Plan S/P OUTSOLES CHANNEL OPENER shunt removal with sepsis; improved. Right sided abdominal pain nearly resolved; no peritoneal signs. Plan: Continue observation; OK for diet per neurosurgery. Will likely sign off tomorrow if he continues to improve. Misael Figueroa MD Nov 20, 2016 11:22
[2016-11-20] MEDS ORDERED: POTASSIUM CHLORIDE 20 MEQ CONTROLLED RELEASE TAB PO ONE ×2 (12:00→14:00)
--- NOTE | 2016-11-20 12:12 | HHI.IDPN ---
Subjective Subjective Remarks Notes reviewed Had removal of GAS TESTER shunt and has ventriculostomy in place No fever Up in chair Awake and alert Intraop CSF with MRSA is an 89 y/o CM with PMHx of NPH s/p GAS TESTER shunt placement in 2010 at [facility]. He reports that on 10/25/2016 he had replacement of the shunt valve at [facility] by for GAS TESTER shunt malfunction. Shunt fluid clx was positive for MRSA and shunt was removed and external drain was placed yday Antibiotics rifampin Vanco IV Lines Line sites with no e.o infection. Past Medical History reviewed. 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 Vital Signs Date Time Temp Pulse Resp B/P Pulse Ox O2 Delivery O2 Flow Rate FiO2 11/20/16 10:00 84 11/20/16 08:00 65 11/20/16 08:00 98.0 65 25 163/72 100 11/20/16 07:51 100 Nasal Cannula 2.00 11/20/16 07:00 100 Nasal Cannula 4.00 11/20/16 06:00 78 11/20/16 04:00 68 11/20/16 04:00 98.4 71 21 171/72 99 11/20/16 02:00 74 11/20/16 00:00 77 11/20/16 00:00 98.1 74 20 125/58 96 11/19/16 22:00 77 11/19/16 20:00 98.6 77 21 169/74 98 11/19/16 20:00 69 11/19/16 19:44 96 Nasal Cannula 2.00 11/19/16 19:00 98 Nasal Cannula 4.00 11/19/16 18:00 89 11/19/16 16:00 78 11/19/16 16:00 98.2 78 20 174/79 95 11/19/16 14:00 80 11/19/16 11/19/16 11/20/16 15:00 23:00 07:00 Intake Total 867 ml 250 ml Output Total 1008 ml 1040 ml 1615 ml Balance -141 ml -790 ml -1615 ml Intake Oral 480 ml 250 ml IV Total 387 ml Output Urine Total 1000 ml 1000 ml 1600 ml Drainage Total 8 ml 40 ml 15 ml # Bowel Movements 2 1 . Laboratory Tests Test 11/18/16 11/19/16 11/20/16 14:10 01:39 03:38 Hemoglobin 13.2 GM/DL 12.4 GM/DL 12.9 GM/DL Hematocrit 39.1 % 36.4 % 37.1 % White Blood Count 14.0 TH/MM3 14.0 TH/MM3 Red Blood Count 3.88 MIL/MM3 3.99 MIL/MM3 Mean Corpuscular Volume 93.9 FL 93.1 FL Mean Corpuscular Hemoglobin 32.0 PG 32.3 PG Mean Corpuscular Hemoglobin 34.1 % 34.7 % Concent Red Cell Distribution Width 13.8 % 13.9 % Platelet Count 305 TH/MM3 345 TH/MM3 Mean Platelet Volume 7.5 FL 7.4 FL Laboratory Tests Test 11/19/16 11/20/16 01:39 03:38 Sodium Level 140 MEQ/L 136 MEQ/L Potassium Level 3.3 MEQ/L 3.0 MEQ/L Chloride Level 107 MEQ/L 99 MEQ/L Carbon Dioxide Level 24.1 MEQ/L 28.7 MEQ/L Anion Gap 9 MEQ/L 8 MEQ/L Blood Urea Nitrogen 14 MG/DL 13 MG/DL Creatinine 0.75 MG/DL 0.70 MG/DL Estimat Glomerular Filtration 98 ML/MIN 106 ML/MIN Rate Random Glucose 86 MG/DL 78 MG/DL Calcium Level 7.0 MG/DL 6.9 MG/DL Protein Corrected Calcium 7.9 MG/DL 7.8 MG/DL Total Bilirubin 1.3 MG/DL Direct Bilirubin 0.6 MG/DL Indirect Bilirubin 0.7 MG/DL Aspartate Amino Transf 29 U/L (AST/SGOT) Alanine Aminotransferase 26 U/L (ALT/SGPT) Alkaline Phosphatase 84 U/L Total Protein 5.3 GM/DL 5.4 GM/DL Albumin 2.1 GM/DL Microbiology Date/Time Procedure Status Source Growth 11/18/16 12:15 Urine Culture - Final Complete Urine Clean Catch NO GROWTH IN 48 HOURS. 11/18/16 14:10 Aerobic Blood Culture - Preliminary Resulted Blood Peripheral NO GROWTH IN 2 DAYS 11/18/16 14:10 Anaerobic Blood Culture - Preliminary Resulted Blood Peripheral NO GROWTH IN 2 DAYS 11/18/16 14:17 Aerobic Blood Culture - Preliminary Resulted Blood Peripheral NO GROWTH IN 2 DAYS 11/18/16 14:17 Anaerobic Blood Culture - Preliminary Resulted Blood Peripheral NO GROWTH IN 2 DAYS 11/18/16 15:20 Gram Stain - Final Resulted Wound Head 11/18/16 15:20 Wound Culture - Preliminary Resulted S. Aureus Mrsa 11/18/16 15:23 Gram Stain - Final Complete Cerebral Spinal Fluid Shunt Fluid 11/18/16 15:23 CSF Culture - Final Complete S. Aureus Mrsa 11/18/16 15:23 Cancelled Cerebral Spinal Fluid Shunt Fluid Imaging Abdomen/Pelvis CT 11/19/16 0600 Signed Impressions: Service Date/Time: Saturday, November 19, 2016 05:27 - CONCLUSION: Numerous distended loops of small bowel without evidence of obstructing lesion or significant wall thickening. Solid organs are unremarkable. Cholecystectomy clips. Persistent lower lobe infiltrates right greater left worse than on the 11/14/16 exam . Joseluis Vila MD Chest X-Ray 11/18/16 0000 Signed Impressions: Service Date/Time: Friday, November 18, 2016 12:09 - CONCLUSION: Lower lobe consolidation noted bilaterally. Caleb Murry MD Abdomen X-Ray 11/18/16 0000 Signed Impressions: Service Date/Time: Friday, November 18, 2016 12:13 - CONCLUSION: Abnormally dilated loops of small intestine are noted and a developing small bowel obstruction is not excluded. Caleb Murry MD Pelvis X-Ray 11/14/16 0622 Signed Impressions: Service Date/Time: Monday, November 14, 2016 06:24 - CONCLUSION: Negative trauma study with no acute fracture or malalignment. Misael Camara MD Head CT 11/14/16 0622 Signed Impressions: Service Date/Time: Monday, November 14, 2016 07:32 - CONCLUSION: No acute intracranial abnormality. New Manrique MD Cervical Spine CT 11/14/16 0622 Signed Impressions: Service Date/Time: Monday, November 14, 2016 07:32 - CONCLUSION: 1. No acute abnormality. 2. Diffuse mild degenerative changes without central canal stenosis or neural foraminal narrowing. 3. Calcified plaque involving the carotid arteries. Edwardo Workman Jr., MD Lumbar Puncture Fluoroscopy 11/14/16 0000 Signed Impressions: Service Date/Time: Monday, November 14, 2016 13:55 - CONCLUSION: Uncomplicated fluoroscopically guided lumbar puncture. Edwardo Workman Jr., MD Clavicle X-Ray 11/14/16 0000 Signed Impressions: Service Date/Time: Monday, November 14, 2016 07:50 - CONCLUSION: Intact right clavicle. New Manrique MD Physical Exam GENERAL: Awake and alert, up in chair SKIN: No generalized rash HEAD: EVD in place with clear CSF EENT: [place] conjunctivae, no icterus, no injection. Moist oral mucosa CARDIOVASCULAR: HS audible. No murmurs RESPIRATORY: Clear to auscultation. Breath sounds equal bilaterally. No wheezes , rales, or rhonchi. GASTROINTESTINAL: Abdomen soft, non-tender, nondistended. MUSCULOSKELETAL: Extremities without clubbing, cyanosis, or edema. No joint tenderness, effusion, or edema noted. No calf tenderness. Negative Homans sign bilaterally. NEUROLOGICAL: Awake and alert. Psych: cooperative IV line sites with no e/o infection. Assessment & Plan Remarks Sepsis present on admission GAS TESTER shunt related ventriculitis, MRSA - GAS TESTER shunt is removed 11/18 Acute metabolic encephalopathy: infection, NPH Elevated CRP. Recs Continue Vanco IV (target trough 15-20 for meningitis) Continue Rifampin - follow LFT Monitor clinically Follow C/S Puja Sloan MD Nov 20, 2016 12:12
--- NOTE | 2016-11-20 16:44 | HHI.PR ---
Subjective History of Present Illness FEELS well NO MORE NAUSEA OR VOMITING abd pain is much better sat in chair today appetite is better moved bowel x 3 today no more fever or chills No CP no sob no cough or sputum offers no other c/o Vitals/Results Intake & Output 11/19/16 11/19/16 11/20/16 14:59 22:59 06:59 Intake Total 867 ml 250 ml Output Total 1008 ml 1040 ml 1615 ml Balance -141 ml -790 ml -1615 ml Intake Oral 480 ml 250 ml IV Total 387 ml Output Urine Total 1000 ml 1000 ml 1600 ml Drainage Total 8 ml 40 ml 15 ml # Bowel Movements 2 1 Vital Signs Vital Signs Date Time Temp Pulse Resp B/P Pulse Ox O2 Delivery O2 Flow Rate FiO2 11/20/16 12:00 98.3 99 33 178/82 94 11/20/16 12:00 99 11/20/16 10:00 84 11/20/16 08:00 65 11/20/16 08:00 98.0 65 25 163/72 100 11/20/16 07:51 100 Nasal Cannula 2.00 11/20/16 07:00 100 Nasal Cannula 4.00 11/20/16 06:00 78 11/20/16 04:00 68 11/20/16 04:00 98.4 71 21 171/72 99 11/20/16 02:00 74 11/20/16 00:00 77 11/20/16 00:00 98.1 74 20 125/58 96 11/19/16 22:00 77 11/19/16 20:00 98.6 77 21 169/74 98 11/19/16 20:00 69 11/19/16 19:44 96 Nasal Cannula 2.00 11/19/16 19:00 98 Nasal Cannula 4.00 11/19/16 18:00 89 CBC/BMP: 11/20/16 0338 11/20/16 0338 Lab Results Laboratory Tests Test 11/20/16 11/20/16 03:38 05:40 White Blood Count 14.0 TH/MM3 Red Blood Count 3.99 MIL/MM3 Hemoglobin 12.9 GM/DL Hematocrit 37.1 % Mean Corpuscular Volume 93.1 FL Mean Corpuscular Hemoglobin 32.3 PG Mean Corpuscular Hemoglobin 34.7 % Concent Red Cell Distribution Width 13.9 % Platelet Count 345 TH/MM3 Mean Platelet Volume 7.4 FL Sodium Level 136 MEQ/L Potassium Level 3.0 MEQ/L Chloride Level 99 MEQ/L Carbon Dioxide Level 28.7 MEQ/L Anion Gap 8 MEQ/L Blood Urea Nitrogen 13 MG/DL Creatinine 0.70 MG/DL Estimat Glomerular Filtration 106 ML/MIN Rate Random Glucose 78 MG/DL Calcium Level 6.9 MG/DL Protein Corrected Calcium 7.8 MG/DL Total Protein 5.4 GM/DL Vancomycin Level Trough 12.9 MCG/ML Physical Exam General General Appearance: No Acute Distress, Comfortable Appearance Remarks R sided scalp external drain in place Eyes Eye Exam: Pupils Equal, Sclera White, Extraocular Movement Intact Ears & Nose Ears & Nose Exam: Nasal Mucosa [place] Throat Throat Exam: Oral Mucosa [place] & Moist Neck Neck Exam: Neck Supple, Trachea Midline Pulmonary Resp Exam: Clear Bilaterally, Breath Sounds Equal, No Distress Cardiology CV Exam: Regular, Normal Sinus Rhythm Gastrointestinal/Abdomen GI Exam: Soft, Bowel Sounds Present, Distended GI Remarks Right sided mild abd tenderness +ve BS Integumentary Skin Exam: Warm, Dry Extremeties Extremities Exam: No Edema, Pedal Pulses Palpable Neurologic Neuro Exam: Alert, Awake, Oriented, Speech Clear, Moving All Extremities Neuro Remarks R sided external drain in place Psychiatric Psych Exam: Appropriate Responses Assessment/Plan Assessment/Plan Assessment . progressive confusion w leukocytosis ,Meningitis , MRSA . History of normal pressure hydrocephalus s/p MACARONI PRESS OPERATOR shunt s/p recent revision.SHUNT related infection . abd pain / distention , Peritonitis d/t infected MACARONI PRESS OPERATOR shunt . Fever d/t to above . s/p fall . Hypertension, . Hyperlipidemia, . History of COPD with scarring. . Microscopic hematuria. . Osteoarthritis. PLAN shunt fluid c/s +ve MRSA repeat shunt fluid +ve MRSA , elevated WBC IV antibiotics, IV vancomycin/ rifampin s/p removal of MACARONI PRESS OPERATOR shunt & placement of external drain AXR abd c/s Ileus Gen surgery input appreciated CT abd noted incentive spirometry blood c/s neg so far IVF d/c bruno catheter d/c IV Protonix , start po protonix Repeat H&H , cont IV Reglan/zofran prn IV morphine when necessary for pain Blood pressure control, inc norvasc 10 mg / prn vasotec subcutaneous heparin for DVT prophylaxis PT evaluation d/w pt A.m. labs Dr brice will follow in am Jose Lane MD Nov 20, 2016 16:[address] MD Nov 20, 2016 16:44
[2016-11-20] MEDS: PANTOPRAZOLE SODIUM 40 MG VIAL IV PUSH SCH (18:21)
[2016-11-20] MEDS: ONDANSETRON HCL 4 MG/2 ML VIAL IV PUSH PRN (20:35)
[2016-11-21] VITALS (14 sets, daily range): BP systolic 138–169; BP diastolic 69–90; PULSE 61–85; RESP 18–24; TEMP 96.3–98.6; O2SAT 94–98
[2016-11-21] MEDS: ENALAPRILAT 2.5 MG/2 ML VIAL IV PUSH PRN ×4 (04:05→21:37)
[2016-11-21] MEDS: VANCOMYCIN INJ 1,250 MG in SODIUM CHLOR 0.9% 250 ML INJ 250 ML IV SCH ×2 (04:05→17:46)
[2016-11-21] MEDS: METOCLOPRAMIDE HCL 10 MG/2 ML VIAL IV PUSH SCH ×3 (04:06→20:47)
[2016-11-21] MEDS: LOTEPREDNOL OPTH RIGHT EYE SCH ×2 (04:16→20:47)
[2016-11-21 05:26] LABS: BICARBONATE 28.5 MEQ/L (21.0-32.0); INDIRECT BILIRUBIN 0.5 MG/DL (0.0-0.8); POTASSIUM 3.7 MEQ/L (3.5-5.1); TOTAL BILIRUBIN ADULT 0.8 MG/DL (0.2-1.0)
[2016-11-21 05:28] LABS: CALCIUM-PROTEIN CORRECTED 8.1 MG/DL (8.5-10.1)
[2016-11-21] MEDS: HEPARIN SODIUM - SQ 10,000 UNITS/ML VIAL SQ SCH ×2 (09:37→20:47)
[2016-11-21] MEDS: RIFAMPIN 150 MG CAP PO SCH ×2 (09:37→21:03)
[2016-11-21] MEDS: LISINOPRIL 20 MG TAB PO SCH (09:38)
[2016-11-21] MEDS: PANTOPRAZOLE SOD 40 MG DELAYED RELEASE TAB PO SCH (09:38)
[2016-11-21] MEDS: ALLOPURINOL 300 MG TAB PO SCH (09:38)
--- NOTE | 2016-11-21 10:26 | HHI.NSPN ---
Note Status Status: Progress Note Interval History Interval History Mr. Motley is a 89 year old male who underwent a PROVIDER RELATIONS MANAGER shunt valve replacement on 10/25/16. He was seen by me on 11/10/16. His surgical incision is healing well without evidence of infection. Mr. Motley had complained in the office of pain, swelling, and tenderness to touch behind his right ear that had gotten worse and Mastoiditis was suspected. A CT Brain was obtained that day without signs of intracranial mass lesions or mastoiditis. He was recommend however to start antibiotics for prophylaxis. Yesterday, he presented to [place] ED following a fall and confusion. He was also hallucinating and had some chills but no fevers. His reported that his post-auricular pain has improved over the weekend. Another CT Brain was taken which was stable. An LP was obtained as well. 11/17: shunt tap on 11/15 showing MRSA, his LP showed no growth. 89-year-old male status post PROVIDER RELATIONS MANAGER shunt placement approximately 2010 in [place] for treatment of NPH. : Ventriculoperitoneal shunt removed with placement of ventriculostomy drain on 11/18/16 for shunt infection. He is on IV Vancomycin and Rifampin per ID. Ventriculostomy drain clamped yesterday. Labs, Micro, & Vital Signs Results Date Time Temp Pulse Resp B/P Pulse Ox O2 Delivery O2 Flow Rate FiO2 11/21/16 06:00 61 11/21/16 04:00 73 11/21/16 04:00 98.4 73 21 169/77 95 11/21/16 02:00 71 11/21/16 00:00 98.4 70 23 157/71 96 11/21/16 00:00 70 11/20/16 22:00 66 11/20/16 21:00 Nasal Cannula 11/20/16 20:00 98.6 80 28 144/68 91 11/20/16 20:00 80 11/20/16 19:27 97 11/20/16 19:00 91 Room Air 11/20/16 18:00 78 11/20/16 16:00 75 11/20/16 16:00 98.0 75 16 159/82 95 11/20/16 14:00 93 11/20/16 12:00 98.3 99 33 178/82 94 11/20/16 12:00 99 11/21/16 06:59 Intake Total 1598 ml Output Total 1300 ml Balance 298 ml Constitutional Vital Signs Date Time Temp Pulse Resp B/P Pulse Ox O2 Delivery O2 Flow Rate FiO2 11/21/16 06:00 61 11/21/16 04:00 73 11/21/16 04:00 98.4 73 21 169/77 95 11/21/16 02:00 71 11/21/16 00:00 98.4 70 23 157/71 96 11/21/16 00:00 70 11/20/16 22:00 66 11/20/16 21:00 Nasal Cannula 11/20/16 20:00 98.6 80 28 144/68 91 11/20/16 20:00 80 11/20/16 19:27 97 11/20/16 19:00 91 Room Air 11/20/16 18:00 78 11/20/16 16:00 75 11/20/16 16:00 98.0 75 16 159/82 95 11/20/16 14:00 93 11/20/16 12:00 98.3 99 33 178/82 94 11/20/16 12:00 99 11/21/16 06:59 Intake Total 1598 ml Output Total 1300 ml Balance 298 ml Review of Systems/Exam Exam Mr. Motley is awake and oriented to name, place, and time. Converses well. Follows commands without difficulties. Right ventriculostomy drain in place, clamped, CSF clear. Right postauricular swelling and tenderness has improved. Cranial nerve examination: pupils to be equal, round, and reactive to light. Extra-ocular movements are intact. Facial motor and sensory function are normal and symmetrical. Neck is soft and supple. No meningismus or nuchal rigidity. Muscle strength is 5/5 in all muscle groups of both upper and lower extremities Sensory examination is intact to light touch in both the upper and lower extremities, symmetrically. Cerebellar examination is intact to [id number] test Medications Current Medications Current Medications Medications (Trade) Dose Ordered Sig/Kiel Route PRN Reason Start Time Stop Time Status Last Admin Dose Admin Acetaminophen (Tylenol) 500 mg HS PRN PO PAIN 1-4 11/14/16 12:00 Allopurinol (Zyloprim) 300 mg DAILY PO 11/15/16 09:00 11/21/16 09:38 Lisinopril 20 mg 20 mg DAILY PO 11/15/16 09:00 11/21/16 09:38 Pharmacy Profile Note (Vancomycin Consult Pharmacy) ml @ 0 mls/hr UNSCH XX 11/14/16 12:30 Acetaminophen/ Hydrocodone Bitart ([place] 5-325 Mg) 1 tab Q4H PRN PO PAIN 5 TO 10 11/14/16 20:30 11/19/16 21:57 Heparin Sodium (Porcine) (Heparin Inj) 5,000 units Q12HR SQ 11/15/16 21:00 11/21/16 09:37 Ondansetron HCl (Zofran Inj) 4 mg Q6HR PRN IV PUSH NAUSEA 11/16/16 21:00 11/20/16 20:35 Rifampin (Rifampin) 300 mg Q12HR PO 11/17/16 14:15 11/21/16 09:37 Metoclopramide HCl (Reglan Inj) 5 mg Q8HR IV PUSH 11/17/16 22:00 11/21/16 04:06 Morphine Sulfate (Morphine Inj) 2 mg Q3H PRN IV PUSH pain 6 to 10 11/17/16 16:45 Patient Own Medication PT OWN MED: (Loteprednol Opth Dr... HS RIGHT EYE 11/19/16 21:00 11/21/16 04:16 Vancomycin HCl/ Sodium Chloride (Vancomycin Inj/ NS 250 ml Inj) 262.5 ml @ 250 mls/hr Q12H IV 11/20/16 18:00 11/21/16 04:05 Miscellaneous Information SPECIFIC LAB TO BE NICO... ONCE ONCE XX 11/21/16 17:45 11/21/16 17:46 Amlodipine Besylate (Norvasc) 10 mg DAILY PO 11/21/16 09:00 11/21/16 09:38 Enalaprilat (Vasotec Inj) 2.5 mg Q6H PRN IV PUSH SYS BP GREATER THAN 170 MMHG 11/20/16 17:00 11/21/16 09:38 Pantoprazole Sodium (Protonix) 40 mg DAILY PO 11/21/16 09:00 11/21/16 09:38 Medical Decision Making MDM Remarks 89 y/o presented with AMS, confusion, s/p fall recent replacement of PROVIDER RELATIONS MANAGER shunt valve on 10/25/16 for NPH shunt infection with MRSA from shunt tap, s/p removal of PROVIDER RELATIONS MANAGER shunt with placement of ventriculostomy drain 11/18/16 Plan Plan Remarks Ventriculostomy drain clamped, cont PT cont antibiotic treatment, IV Vanco and Rifampin, per ID cont neuro checks Dania Carcamo Nov 21, 2016 10:26
--- NOTE | 2016-11-21 12:48 | HHI.IDPN ---
Subjective Subjective Remarks Notes reviewed D/W RN Had removal of PROPERTY SPECIALIST shunt 11/18 and has ventric[address]ostomy in place EVD has been clamped since yesterday Denies MICHAEL No fever C/O diarrhea - has had 2 today Awake and alert Intraop CSF with MRSA is an 89 y/o CM with PMHx of NPH s/p PROPERTY SPECIALIST shunt placement in 2010 at [facility]. He reports that on 10/25/2016 he had replacement of the shunt valve at [facility] by for PROPERTY SPECIALIST shunt malfunction. Shunt fluid clx was positive for MRSA and shunt was removed and external drain was placed yday Antibiotics rifampin Vanco IV Lines Line sites with no e.o infection. Past Medical History reviewed. Allergies: Coded Allergies: *MDRO Multi-Drug Resistant Organism (Verified Adverse Reaction, Unknown, MRSA, 11/21/16) MRSA (CSF-11/15/16 & head wound-11/18/16) MRSA screen POSITIVE - 11/18/16 Objective . Vital Signs Date Time Temp Pulse Resp B/P Pulse Ox O2 Delivery O2 Flow Rate FiO2 11/21/16 10:00 73 11/21/16 08:00 98.6 85 22 166/71 94 11/21/16 08:00 72 11/21/16 07:00 95 Nasal Cannula 2.00 11/21/16 06:00 61 11/21/16 04:00 73 11/21/16 04:00 98.4 73 21 169/77 95 11/21/16 02:00 71 11/21/16 00:00 98.4 70 23 157/71 96 11/21/16 00:00 70 11/20/16 22:00 66 11/20/16 21:00 Nasal Cannula 11/20/16 20:00 98.6 80 28 144/68 91 11/20/16 20:00 80 11/20/16 19:27 97 11/20/16 19:00 91 Room Air 11/20/16 18:00 78 11/20/16 16:00 75 11/20/16 16:00 98.0 75 16 159/82 95 11/20/16 14:00 93 11/20/16 11/20/16 11/21/16 14:59 22:59 06:59 Intake Total 650 ml 783 ml 165 ml Output Total 450 ml 375 ml 475 ml Balance 200 ml 408 ml -310 ml Intake Oral 480 ml 480 ml 90 ml IV Total 170 ml 303 ml 75 ml Output Urine Total 450 ml 375 ml 475 ml Drainage Total 0 ml 0 ml 0 ml # Bowel Movements 3 0 0 . Laboratory Tests Test 11/20/16 03:38 White Blood Count 14.0 TH/MM3 Red Blood Count 3.99 MIL/MM3 Hemoglobin 12.9 GM/DL Hematocrit 37.1 % Mean Corpuscular Volume 93.1 FL Mean Corpuscular Hemoglobin 32.3 PG Mean Corpuscular Hemoglobin 34.7 % Concent Red Cell Distribution Width 13.9 % Platelet Count 345 TH/MM3 Mean Platelet Volume 7.4 FL Laboratory Tests Test 11/20/16 11/21/16 03:38 03:50 Sodium Level 136 MEQ/L 136 MEQ/L Potassium Level 3.0 MEQ/L 3.7 MEQ/L Chloride Level 99 MEQ/L 100 MEQ/L Carbon Dioxide Level 28.7 MEQ/L 28.5 MEQ/L Anion Gap 8 MEQ/L 8 MEQ/L Blood Urea Nitrogen 13 MG/DL 15 MG/DL Creatinine 0.70 MG/DL 0.76 MG/DL Estimat Glomerular Filtration 106 ML/MIN 97 ML/MIN Rate Random Glucose 78 MG/DL 89 MG/DL Calcium Level 6.9 MG/DL 7.1 MG/DL Protein Corrected Calcium 7.8 MG/DL 8.1 MG/DL Total Protein 5.4 GM/DL 5.3 GM/DL Total Bilirubin 0.8 MG/DL Direct Bilirubin 0.3 MG/DL Indirect Bilirubin 0.5 MG/DL Aspartate Amino Transf 27 U/L (AST/SGOT) Alanine Aminotransferase 23 U/L (ALT/SGPT) Alkaline Phosphatase 84 U/L Albumin 2.0 GM/DL Microbiology Date/Time Procedure Status Source Growth 11/18/16 14:10 Aerobic Blood Culture - Preliminary Resulted Blood Peripheral NO GROWTH IN 3 DAYS 11/18/16 14:10 Anaerobic Blood Culture - Preliminary Resulted Blood Peripheral NO GROWTH IN 3 DAYS 11/18/16 14:17 Aerobic Blood Culture - Preliminary Resulted Blood Peripheral NO GROWTH IN 3 DAYS 11/18/16 14:17 Anaerobic Blood Culture - Preliminary Resulted Blood Peripheral NO GROWTH IN 3 DAYS 11/18/16 15:20 Gram Stain - Final Complete Wound Head 11/18/16 15:20 Wound Culture - Final Complete S. Aureus Mrsa 11/18/16 15:23 Gram Stain - Final Complete Cerebral Spinal Fluid Shunt Fluid 11/18/16 15:23 CSF Culture - Final Complete S. Aureus Mrsa 11/18/16 15:23 Cancelled Cerebral Spinal Fluid Shunt Fluid Imaging Abdomen/Pelvis CT 11/19/16 0600 Signed Impressions: Service Date/Time: Saturday, November 19, 2016 05:27 - CONCLUSION: Numerous distended loops of small bowel without evidence of obstructing lesion or significant wall thickening. Solid organs are unremarkable. Cholecystectomy clips. Persistent lower lobe infiltrates right greater left worse than on the 11/14/16 exam . Joseluis Vila MD Chest X-Ray 11/18/16 0000 Signed Impressions: Service Date/Time: Friday, November 18, 2016 12:09 - CONCLUSION: Lower lobe consolidation noted bilaterally. Caleb Murry MD Abdomen X-Ray 11/18/16 0000 Signed Impressions: Service Date/Time: Friday, November 18, 2016 12:13 - CONCLUSION: Abnormally dilated loops of small intestine are noted and a developing small bowel obstruction is not excluded. Caleb Murry MD Pelvis X-Ray 11/14/16 0622 Signed Impressions: Service Date/Time: Monday, November 14, 2016 06:24 - CONCLUSION: Negative trauma study with no acute fracture or malalignment. Misael Camara MD Head CT 11/14/16 0622 Signed Impressions: Service Date/Time: Monday, November 14, 2016 07:32 - CONCLUSION: No acute intracranial abnormality. New Manrique MD Cervical Spine CT 11/14/16 0622 Signed Impressions: Service Date/Time: Monday, November 14, 2016 07:32 - CONCLUSION: 1. No acute abnormality. 2. Diffuse mild degenerative changes without central canal stenosis or neural foraminal narrowing. 3. Calcified plaque involving the carotid arteries. Edwardo Workman Jr., MD Lumbar Puncture Fluoroscopy 11/14/16 0000 Signed Impressions: Service Date/Time: Monday, November 14, 2016 13:55 - CONCLUSION: Uncomplicated fluoroscopically guided lumbar puncture. Edwardo Workman Jr., MD Clavicle X-Ray 11/14/16 0000 Signed Impressions: Service Date/Time: Monday, November 14, 2016 07:50 - CONCLUSION: Intact right clavicle. New Manrique MD Physical Exam GENERAL: Awake and alert, NAD SKIN: No generalized rash HEAD: EVD in place with clear CSF EENT: Seibert conjunctivae, no icterus, no injection. Moist oral mucosa CARDIOVASCULAR: HS audible. No murmurs RESPIRATORY: Clear to auscultation. Breath sounds equal bilaterally. No wheezes , rales, or rhonchi. GASTROINTESTINAL: Abdomen soft, nondistended. Has mild tenderness, no guarding MUSCULOSKELETAL: Extremities without clubbing, cyanosis, or edema. No joint tenderness, effusion, or edema noted. No calf tenderness. Negative Homans sign bilaterally. NEUROLOGICAL: Awake and alert. Psych: cooperative IV line sites with no e/o infection. Assessment & Plan Remarks Sepsis present on admission PROPERTY SPECIALIST shunt related ventriculitis, MRSA - PROPERTY SPECIALIST shunt is removed 11/18 Acute metabolic encephalopathy: infection, NPH Elevated CRP. Recs Continue Vanco IV (target trough 15-20 for meningitis) Continue Rifampin - follow LFT Monitor clinically Follow C/S Lactinex Monitor stool D/W RN Explained plan to patient Puja Sloan MD Nov 21, 2016 12:48
--- NOTE | 2016-11-21 13:54 | HHI.PR ---
Subjective Subjective Remarks awake, oriented x 3 pleasant asking about infection and when he may have ROSE GRADING SUPERVISOR shunt inserted no fever no cp no sob appetite fair Ext. ventricular drain in place, dressing D/I Review of Systems Constitutional Constitutional Remarks 12 point ROS completed, unreliable Vitals/Results Intake & Output 11/20/16 11/20/16 11/21/16 14:59 22:59 06:59 Intake Total 650 ml 783 ml 165 ml Output Total 450 ml 375 ml 475 ml Balance 200 ml 408 ml -310 ml Intake Oral 480 ml 480 ml 90 ml IV Total 170 ml 303 ml 75 ml Output Urine Total 450 ml 375 ml 475 ml Drainage Total 0 ml 0 ml 0 ml # Bowel Movements 3 0 0 Vital Signs Vital Signs Date Time Temp Pulse Resp B/P Pulse Ox O2 Delivery O2 Flow Rate FiO2 11/21/16 12:00 98.4 68 18 158/69 97 11/21/16 12:00 79 11/21/16 10:00 73 11/21/16 08:00 98.6 85 22 166/71 94 11/21/16 08:00 72 11/21/16 07:00 95 Nasal Cannula 2.00 11/21/16 06:00 61 11/21/16 04:00 73 11/21/16 04:00 98.4 73 21 169/77 95 11/21/16 02:00 71 11/21/16 00:00 98.4 70 23 157/71 96 11/21/16 00:00 70 11/20/16 22:00 66 11/20/16 21:00 Nasal Cannula 11/20/16 20:00 98.6 80 28 144/68 91 11/20/16 20:00 80 11/20/16 19:27 97 11/20/16 19:00 91 Room Air 11/20/16 18:00 78 11/20/16 16:00 75 11/20/16 16:00 98.0 75 16 159/82 95 11/20/16 14:00 93 CBC/BMP: 11/20/16 0338 11/21/16 0350 Lab Results Laboratory Tests Test 11/21/16 03:50 Sodium Level 136 MEQ/L Potassium Level 3.7 MEQ/L Chloride Level 100 MEQ/L Carbon Dioxide Level 28.5 MEQ/L Anion Gap 8 MEQ/L Blood Urea Nitrogen 15 MG/DL Creatinine 0.76 MG/DL Estimat Glomerular Filtration 97 ML/MIN Rate Random Glucose 89 MG/DL Calcium Level 7.1 MG/DL Protein Corrected Calcium 8.1 MG/DL Total Bilirubin 0.8 MG/DL Direct Bilirubin 0.3 MG/DL Indirect Bilirubin 0.5 MG/DL Aspartate Amino Transf 27 U/L (AST/SGOT) Alanine Aminotransferase 23 U/L (ALT/SGPT) Alkaline Phosphatase 84 U/L Total Protein 5.3 GM/DL Albumin 2.0 GM/DL Physical Exam General General Appearance: No Acute Distress, Comfortable Eyes Eye Exam: Pupils Equal, Pupils Reactive Ears & Nose Ears & Nose Exam: Nasal Mucosa [place] Throat Throat Exam: Oral Mucosa [place] & Moist Neck Neck Exam: Neck Supple, Trachea Midline Pulmonary Resp Exam: Clear Bilaterally, Breath Sounds Equal, No Distress Cardiology CV Exam: Regular, Normal Sinus Rhythm Gastrointestinal/Abdomen GI Exam: Soft, Non-Tender, Bowel Sounds Present, Non-Distended Musculoskeletal MS Exam: Joints Intact Integumentary Skin Exam: Warm, Dry Extremeties Extremities Exam: No Edema, Pedal Pulses Palpable Neurologic Neuro Exam: Alert, Awake, Oriented, Speech Clear, Moving All Extremities, No Focal Deficits Neuro Remarks ext. ventricular drain right scalp, dressing D/I Psychiatric Psych Exam: Appropriate Responses VTE Prophylaxis VTE Prophylaxis Device: SCDs PUD Prophylasis PUD Prophylaxis: Protonix Assessment/Plan Assessment/Plan Assessment . progressive confusion w leukocytosis ,Meningitis , MRSA . History of normal pressure hydrocephalus s/p ROSE GRADING SUPERVISOR shunt s/p recent revision.SHUNT related infection . abd pain / distention , Peritonitis d/t infected ROSE GRADING SUPERVISOR shunt . Fever d/t to above . s/p fall . Hypertension, . Hyperlipidemia, . History of COPD with scarring. . Microscopic hematuria. . Osteoarthritis. PLAN shunt fluid c/s +ve MRSA repeat shunt fluid +ve MRSA , elevated WBC IV antibiotics, IV vancomycin/ rifampin s/p removal of ROSE GRADING SUPERVISOR shunt & placement of external drain 11/18/16 AXR abd c/s Ileus -having BMs now Gen surgery input appreciated, signed off CT abd noted, LLL infiltrate, ileus incentive spirometry PPI for GI prophylaxis Subcutaneous heparin for DVT prophylaxis cont IV Reglan/zofran prn IV morphine when necessary for pain Blood pressure control, Norvasc/Lisinopril/PRN Vasotec PT evaluation Labs in am D/W RN D/W Dr. Larsen D/W pt This patient was seen by myself and Dr. Larsen, this note is written on his behalf. Kimberly Gerardo Nov 21, 2016 13:54
[2016-11-21] MEDS ORDERED: PHARMACY ORDERED LAB XX ONE (17:45)
[2016-11-21] MEDS: ACETAMINOPHEN/HYDROcodone 325 MG/5 MG TAB PO PRN (20:47)
[2016-11-21] MEDS: cloNIDine HCL 0.1 MG TAB PO PRN (23:44)
[2016-11-22] VITALS (12 sets, daily range): BP systolic 143–179; BP diastolic 65–119; PULSE 60–84; RESP 16–22; TEMP 97.5–98.3; O2SAT 92–95
[2016-11-22] MEDS: ENALAPRILAT 2.5 MG/2 ML VIAL IV PUSH PRN (03:34)
[2016-11-22 04:54] LABS: HEMATOCRIT 36.8 % (39.0-51.0); MEAN CELL VOLUME 94.4 FL (80.0-100.0); MEAN CORPUSCULAR HEMOGLOBIN 31.9 PG (27.0-34.0); MEAN CORPUSCULAR HGB CONC 33.8 % (32.0-36.0); PLATELET COUNT 366 TH/MM3 (150-450); RED CELL DISTRIBUTION WIDTH 14.1 % (11.6-17.2); REVIEW FLAG FINAL; WHITE BLOOD COUNT 11.4 TH/MM3 (4.0-11.0)
[2016-11-22] MEDS: METOCLOPRAMIDE HCL 10 MG/2 ML VIAL IV PUSH SCH ×3 (05:06→20:18)
[2016-11-22 05:14] LABS: POTASSIUM 3.6 MEQ/L (3.5-5.1)
--- NOTE | 2016-11-22 10:08 | HHI.NSPN ---
Note Status Status: Progress Note Interval History Interval History Mr. Motley is a 89 year old male who underwent a OFFICER LIEUTENANT shunt valve replacement on 10/25/16. He was seen by me on 11/10/16. His surgical incision is healing well without evidence of infection. Mr. Motley had complained in the office of pain, swelling, and tenderness to touch behind his right ear that had gotten worse and Mastoiditis was suspected. A CT Brain was obtained that day without signs of intracranial mass lesions or mastoiditis. He was recommend however to start antibiotics for prophylaxis. Yesterday, he presented to [place] ED following a fall and confusion. He was also hallucinating and had some chills but no fevers. His reported that his post-auricular pain has improved over the weekend. Another CT Brain was taken which was stable. An LP was obtained as well. 11/17: shunt tap on 11/15 showing MRSA, his LP showed no growth. 89-year-old male status post OFFICER LIEUTENANT shunt placement approximately 2010 in [place] for treatment of NPH. Recent : Ventriculoperitoneal shunt removed with placement of ventriculostomy drain on 11/18/16 for shunt infection. He is on IV Vancomycin and Rifampin per ID. Ventriculostomy drain clamped yesterday. 11/22/16: denies headaches, working with PT, slight dizziness upon sitting up on edge of bed, no nausea or vomiting. afebrile Labs, Micro, & Vital Signs Results Date Time Temp Pulse Resp B/P Pulse Ox O2 Delivery O2 Flow Rate FiO2 11/22/16 08:00 98.2 68 22 153/71 95 11/22/16 07:00 95 Nasal Cannula 2.00 11/22/16 06:00 62 11/22/16 04:00 98.3 70 21 147/92 93 11/22/16 04:00 70 11/22/16 02:00 61 11/22/16 00:00 65 11/22/16 00:00 98.3 65 21 143/65 94 11/21/16 22:00 69 11/21/16 20:00 70 11/21/16 20:00 98.1 70 24 162/74 96 11/21/16 19:56 96 Nasal Cannula 2.00 11/21/16 19:00 96 Nasal Cannula 2.00 11/21/16 18:00 74 11/21/16 16:00 69 11/21/16 16:00 98.6 66 21 166/72 98 11/21/16 14:00 74 11/21/16 12:00 98.4 68 18 158/69 97 11/21/16 12:00 79 11/22/16 07:00 Intake Total 2303 ml Output Total 2800 ml Balance -497 ml Constitutional Vital Signs Date Time Temp Pulse Resp B/P Pulse Ox O2 Delivery O2 Flow Rate FiO2 11/22/16 08:00 98.2 68 22 153/71 95 11/22/16 07:00 95 Nasal Cannula 2.00 11/22/16 06:00 62 11/22/16 04:00 98.3 70 21 147/92 93 11/22/16 04:00 70 11/22/16 02:00 61 11/22/16 00:00 65 11/22/16 00:00 98.3 65 21 143/65 94 11/21/16 22:00 69 11/21/16 20:00 70 11/21/16 20:00 98.1 70 24 162/74 96 11/21/16 19:56 96 Nasal Cannula 2.00 11/21/16 19:00 96 Nasal Cannula 2.00 11/21/16 18:00 74 11/21/16 16:00 69 11/21/16 16:00 98.6 66 21 166/72 98 11/21/16 14:00 74 11/21/16 12:00 98.4 68 18 158/69 97 11/21/16 12:00 79 11/22/16 07:00 Intake Total 2303 ml Output Total 2800 ml Balance -497 ml Review of Systems/Exam Exam Mr. Motley is awake and oriented to name, place, and time. Converses well. Follows commands without difficulties. Right ventriculostomy drain in place, drain site clean with dry dressing. Ventriculostomy drain reopened to 5 cm H20, CSF clear in bag. Cranial nerve examination: pupils to be equal, round, and reactive to light. Extra-ocular movements are intact. Facial motor and sensory function are normal and symmetrical. Neck is soft and supple. No meningismus or nuchal rigidity. Muscle strength is 5/5 in all muscle groups of both upper and lower extremities Sensory examination is intact to light touch in both the upper and lower extremities, symmetrically. Lungs: clear to auscultate b/l Medications Current Medications Current Medications Medications (Trade) Dose Ordered Sig/Kiel Route PRN Reason Start Time Stop Time Status Last Admin Dose Admin Acetaminophen (Tylenol) 500 mg HS PRN PO PAIN 1-4 11/14/16 12:00 Allopurinol (Zyloprim) 300 mg DAILY PO 11/15/16 09:00 11/21/16 09:38 Lisinopril 20 mg 20 mg DAILY PO 11/15/16 09:00 11/21/16 09:38 Pharmacy Profile Note (Vancomycin Consult Pharmacy) ml @ 0 mls/hr UNSCH XX 11/14/16 12:30 Acetaminophen/ Hydrocodone Bitart (Hardy 5-325 Mg) 1 tab Q4H PRN PO PAIN 5 TO 10 11/14/16 20:30 11/21/16 20:47 Heparin Sodium (Porcine) (Heparin Inj) 5,000 units Q12HR SQ 11/15/16 21:00 11/21/16 20:47 Ondansetron HCl (Zofran Inj) 4 mg Q6HR PRN IV PUSH NAUSEA 11/16/16 21:00 11/20/16 20:35 Rifampin (Rifampin) 300 mg Q12HR PO 11/17/16 14:15 11/21/16 21:03 Metoclopramide HCl (Reglan Inj) 5 mg Q8HR IV PUSH 11/17/16 22:00 11/22/16 05:06 Morphine Sulfate (Morphine Inj) 2 mg Q3H PRN IV PUSH pain 6 to 10 11/17/16 16:45 Patient Own Medication PT OWN MED: (Loteprednol Jeronimo Negron.. HS RIGHT EYE 11/19/16 21:00 11/21/16 20:47 Amlodipine Besylate (Norvasc) 10 mg DAILY PO 11/21/16 09:00 11/21/16 09:38 Enalaprilat (Vasotec Inj) 2.5 mg Q6H PRN IV PUSH SYS BP GREATER THAN 170 MMHG 11/20/16 17:00 11/22/16 03:34 Pantoprazole Sodium 40 mg 40 mg DAILY PO 11/21/16 09:00 11/21/16 09:38 Vancomycin HCl/ Sodium Chloride (Vancomycin Inj/ NS 250 ml Inj) 250 ml @ 250 mls/hr Q12H IV 11/22/16 09:00 Miscellaneous Information SPECIFIC LAB TO BE NICO... ONCE ONCE XX 11/23/16 20:45 11/23/16 20:46 Clonidine (Catapres) 0.1 mg Q8H PRN PO SYS BP GREATER THAN 180 MMHG 11/21/16 23:45 11/21/16 23:44 Medical Decision Making MDM Remarks 89 y/o presented with AMS, confusion, s/p fall recent replacement of OFFICER LIEUTENANT shunt valve on 10/25/16 for NPH shunt infection with MRSA from shunt tap, s/p removal of OFFICER LIEUTENANT shunt with placement of ventriculostomy drain 11/18/16 Plan Plan Remarks treatment plan per Dr. Lake who is covering for Dr. Turpin today reopen ventriculostomy drain to 5 cm H20 cont PT, encourage mobilization OOB cont antibiotic treatment, per ID cont neuro checks dw Dania Carcamo Nov 22, 2016 10:08
[2016-11-22] MEDS: LISINOPRIL 20 MG TAB PO SCH (10:27)
[2016-11-22] MEDS: ALLOPURINOL 300 MG TAB PO SCH (10:27)
[2016-11-22] MEDS: HEPARIN SODIUM - SQ 10,000 UNITS/ML VIAL SQ SCH ×2 (10:27→20:18)
[2016-11-22] MEDS: PANTOPRAZOLE SOD 40 MG DELAYED RELEASE TAB PO SCH (10:27)
[2016-11-22] MEDS: RIFAMPIN 150 MG CAP PO SCH ×2 (11:18→20:18)
[2016-11-22] MEDS: VANCOMYCIN 1,000 MG/NS 250 ML IV SCH ×4 (11:39→20:17)
--- NOTE | 2016-11-22 13:55 | HHI.PR ---
Subjective Subjective Remarks awakes to voice, oriented x 3 pleasant no fever no cp no sob Ext. ventricular drain in place, dressing D/I, unclamped today per neurosurgery BP elevated, given Clonidine overnight Review of Systems Constitutional Constitutional Remarks 12 point ROS completed, unreliable Vitals/Results Intake & Output 11/21/16 11/21/16 11/22/16 15:00 23:00 07:00 Intake Total 904 ml 766 ml 633 ml Output Total 950 ml 700 ml 1150 ml Balance -46 ml 66 ml -517 ml Intake Oral 840 ml 480 ml 480 ml IV Total 64 ml 286 ml 153 ml Output Urine Total 950 ml 700 ml 1150 ml Drainage Total 0 ml 0 ml 0 ml # Bowel Movements 3 1 0 Vital Signs Vital Signs Date Time Temp Pulse Resp B/P Pulse Ox O2 Delivery O2 Flow Rate FiO2 11/22/16 12:00 97.5 65 20 175/74 92 11/22/16 12:00 65 11/22/16 10:00 78 11/22/16 08:00 98.2 68 22 153/71 95 11/22/16 08:00 68 11/22/16 07:00 95 Nasal Cannula 2.00 11/22/16 06:00 62 11/22/16 04:00 98.3 70 21 147/92 93 11/22/16 04:00 70 11/22/16 02:00 61 11/22/16 00:00 65 11/22/16 00:00 98.3 65 21 143/65 94 11/21/16 22:00 69 11/21/16 20:00 70 11/21/16 20:00 98.1 70 24 162/74 96 11/21/16 19:56 96 Nasal Cannula 2.00 11/21/16 19:00 96 Nasal Cannula 2.00 11/21/16 19:00 96 Nasal Cannula 2.00 11/21/16 18:00 74 11/21/16 16:00 69 11/21/16 16:00 98.6 66 21 166/72 98 11/21/16 14:00 74 CBC/BMP: 11/22/16 0334 11/22/16 0334 Lab Results Laboratory Tests Test 11/21/16 11/22/16 18:00 03:34 Vancomycin Level Trough 21.6 MCG/ML White Blood Count 11.4 TH/MM3 Red Blood Count 3.90 MIL/MM3 Hemoglobin 12.4 GM/DL Hematocrit 36.8 % Mean Corpuscular Volume 94.4 FL Mean Corpuscular Hemoglobin 31.9 PG Mean Corpuscular Hemoglobin 33.8 % Concent Red Cell Distribution Width 14.1 % Platelet Count 366 TH/MM3 Mean Platelet Volume 7.6 FL Sodium Level 141 MEQ/L Potassium Level 3.6 MEQ/L Chloride Level 104 MEQ/L Carbon Dioxide Level 28.0 MEQ/L Anion Gap 9 MEQ/L Blood Urea Nitrogen 13 MG/DL Creatinine 0.80 MG/DL Estimat Glomerular Filtration 91 ML/MIN Rate Random Glucose 87 MG/DL Calcium Level 7.7 MG/DL Physical Exam General General Appearance: No Acute Distress, Comfortable Eyes Eye Exam: Pupils Equal, Pupils Reactive Ears & Nose Ears & Nose Exam: Nasal Mucosa [place] Throat Throat Exam: Oral Mucosa [place] & Moist Neck Neck Exam: Neck Supple, Trachea Midline Pulmonary Resp Exam: Clear Bilaterally, Breath Sounds Equal, No Distress Cardiology CV Exam: Regular, Normal Sinus Rhythm Gastrointestinal/Abdomen GI Exam: Soft, Non-Tender, Bowel Sounds Present, Non-Distended Musculoskeletal MS Exam: Joints Intact Integumentary Skin Exam: Warm, Dry Extremeties Extremities Exam: No Edema, Pedal Pulses Palpable Neurologic Neuro Exam: Alert, Awake, Oriented, Speech Clear, Moving All Extremities, No Focal Deficits Neuro Remarks ext. ventricular drain right scalp, dressing D/I Psychiatric Psych Exam: Appropriate Responses VTE Prophylaxis VTE Prophylaxis Device: SCDs PUD Prophylasis PUD Prophylaxis: Protonix Assessment/Plan Assessment/Plan Assessment . progressive confusion w leukocytosis ,Meningitis , MRSA . History of normal pressure hydrocephalus s/p SHUTTLE ROUTE VEHICLE OPERATOR shunt s/p recent revision.SHUNT related infection . abd pain / distention , Peritonitis d/t infected SHUTTLE ROUTE VEHICLE OPERATOR shunt . Fever d/t to above . s/p fall . Hypertension, . Hyperlipidemia, . History of COPD with scarring. . Microscopic hematuria. . Osteoarthritis. PLAN shunt fluid c/s +ve MRSA repeat shunt fluid +ve MRSA , elevated WBC IV antibiotics, IV vancomycin/ rifampin s/p removal of SHUTTLE ROUTE VEHICLE OPERATOR shunt & placement of external drain 11/18/16 drain unclamped per NSx today AXR abd c/s Ileus -having BMs now Gen surgery input appreciated, signed off CT abd noted, LLL infiltrate, ileus incentive spirometry PPI for GI prophylaxis Subcutaneous heparin for DVT prophylaxis cont IV Reglan/zofran prn IV morphine when necessary for pain BP poorly controlled, will dc Norvasc. Start Procardia XL 30 mg PO daily Continue Lisinopril, and PRN Vasotec and Clonidine PT evaluation Labs reviewed, stable continue with present tx D/W RN D/W Dr. Larsen D/W pt This patient was seen by myself and Dr. Larsen, this note is written on his behalf. Kimberly Gerardo Nov 22, 2016 13:55
--- NOTE | 2016-11-22 14:45 | HHI.IDPN ---
Subjective Subjective Remarks Notes reviewed Had removal of BILL DISTRIBUTOR shunt 11/18 and has ventric[address]ostomy in place C/O some dizziness EVD clamped yesterday, opened up again today Denies MICHAEL No fever 4 BM yesterday, none today yet Awake and alert Intraop CSF with MRSA is an 89 y/o CM with PMHx of NPH s/p BILL DISTRIBUTOR shunt placement in 2010 at [facility]. He reports that on 10/25/2016 he had replacement of the shunt valve at [facility] by for BILL DISTRIBUTOR shunt malfunction. Shunt fluid clx was positive for MRSA and shunt was removed and external drain was placed yday Antibiotics rifampin Vanco IV Lines Line sites with no e.o infection. Past Medical History reviewed. Allergies: Coded Allergies: *MDRO Multi-Drug Resistant Organism (Verified Adverse Reaction, Unknown, MRSA, 11/21/16) MRSA (CSF-11/15/16 & head wound-11/18/16) MRSA screen POSITIVE - 11/18/16 Objective . Vital Signs Date Time Temp Pulse Resp B/P Pulse Ox O2 Delivery O2 Flow Rate FiO2 11/22/16 14:00 70 11/22/16 12:00 97.5 65 20 175/74 92 11/22/16 12:00 65 11/22/16 10:00 78 11/22/16 08:00 98.2 68 22 153/71 95 11/22/16 08:00 68 11/22/16 07:00 95 Nasal Cannula 2.00 11/22/16 06:00 62 11/22/16 04:00 98.3 70 21 147/92 93 11/22/16 04:00 70 11/22/16 02:00 61 11/22/16 00:00 65 11/22/16 00:00 98.3 65 21 143/65 94 11/21/16 22:00 69 11/21/16 20:00 70 11/21/16 20:00 98.1 70 24 162/74 96 11/21/16 19:56 96 Nasal Cannula 2.00 11/21/16 19:00 96 Nasal Cannula 2.00 11/21/16 19:00 96 Nasal Cannula 2.00 11/21/16 18:00 74 11/21/16 16:00 69 11/21/16 16:00 98.6 66 21 166/72 98 11/21/16 11/21/16 11/22/16 15:00 23:00 07:00 Intake Total 904 ml 766 ml 633 ml Output Total 950 ml 700 ml 1150 ml Balance -46 ml 66 ml -517 ml Intake Oral 840 ml 480 ml 480 ml IV Total 64 ml 286 ml 153 ml Output Urine Total 950 ml 700 ml 1150 ml Drainage Total 0 ml 0 ml 0 ml # Bowel Movements 3 1 0 . Laboratory Tests Test 11/22/16 03:34 White Blood Count 11.4 TH/MM3 Red Blood Count 3.90 MIL/MM3 Hemoglobin 12.4 GM/DL Hematocrit 36.8 % Mean Corpuscular Volume 94.4 FL Mean Corpuscular Hemoglobin 31.9 PG Mean Corpuscular Hemoglobin 33.8 % Concent Red Cell Distribution Width 14.1 % Platelet Count 366 TH/MM3 Mean Platelet Volume 7.6 FL Laboratory Tests Test 11/21/16 11/22/16 03:50 03:34 Sodium Level 136 MEQ/L 141 MEQ/L Potassium Level 3.7 MEQ/L 3.6 MEQ/L Chloride Level 100 MEQ/L 104 MEQ/L Carbon Dioxide Level 28.5 MEQ/L 28.0 MEQ/L Anion Gap 8 MEQ/L 9 MEQ/L Blood Urea Nitrogen 15 MG/DL 13 MG/DL Creatinine 0.76 MG/DL 0.80 MG/DL Estimat Glomerular Filtration 97 ML/MIN 91 ML/MIN Rate Random Glucose 89 MG/DL 87 MG/DL Calcium Level 7.1 MG/DL 7.7 MG/DL Protein Corrected Calcium 8.1 MG/DL Total Bilirubin 0.8 MG/DL Direct Bilirubin 0.3 MG/DL Indirect Bilirubin 0.5 MG/DL Aspartate Amino Transf 27 U/L (AST/SGOT) Alanine Aminotransferase 23 U/L (ALT/SGPT) Alkaline Phosphatase 84 U/L Total Protein 5.3 GM/DL Albumin 2.0 GM/DL Imaging Abdomen/Pelvis CT 11/19/16 0600 Signed Impressions: Service Date/Time: Saturday, November 19, 2016 05:27 - CONCLUSION: Numerous distended loops of small bowel without evidence of obstructing lesion or significant wall thickening. Solid organs are unremarkable. Cholecystectomy clips. Persistent lower lobe infiltrates right greater left worse than on the 11/14/16 exam . Joseluis Vila MD Chest X-Ray 12/31/16 0000 Signed Impressions: Service Date/Time: Friday, November 18, 2016 12:09 - CONCLUSION: Lower lobe consolidation noted bilaterally. Caleb Murry MD Abdomen X-Ray 11/18/16 Signed Impressions: Service Date/Time: Friday, November 18, 2016 12:13 - CONCLUSION: Abnormally dilated loops of small intestine are noted and a developing small bowel obstruction is not excluded. Caleb Murry MD Pelvis X-Ray 11/14/16621 Signed Impressions: Service Date/Time: Monday, November 14, 2016 06:24 - CONCLUSION: Negative trauma study with no acute fracture or malalignment. Misael Camara MD Head CT 11/14/16621 Signed Impressions: Service Date/Time: Monday, November 14, 2016 07:32 - CONCLUSION: No acute intracranial abnormality. New Manrique MD Cervical Spine CT 11/14/16621 Signed Impressions: Service Date/Time: Monday, November 14, 2016 07:32 - CONCLUSION: 1. No acute abnormality. 2. Diffuse mild degenerative changes without central canal stenosis or neural foraminal narrowing. 3. Calcified plaque involving the carotid arteries. Edwardo Workman Jr., MD Lumbar Puncture Fluoroscopy 11/14/16 Signed Impressions: Service Date/Time: Monday, November 14, 2016 13:55 - CONCLUSION: Uncomplicated fluoroscopically guided lumbar puncture. Edwardo Workman Jr., MD Clavicle X-Ray 11/14/16 Signed Impressions: Service Date/Time: Monday, November 14, 2016 07:50 - CONCLUSION: Intact right clavicle. New Manrique MD Physical Exam GENERAL: Awake and alert, NAD SKIN: No generalized rash HEAD: EVD in place with clear CSF EENT: [place] conjunctivae, no icterus, no injection. Moist oral mucosa CARDIOVASCULAR: HS audible. No murmurs RESPIRATORY: Clear to auscultation. Breath sounds equal bilaterally. No wheezes , rales, or rhonchi. GASTROINTESTINAL: Abdomen soft, nondistended. Has mild tenderness, no guarding MUSCULOSKELETAL: Extremities without clubbing, cyanosis, or edema. No joint tenderness, effusion, or edema noted. No calf tenderness. Negative Homans sign bilaterally. NEUROLOGICAL: Awake and alert. Psych: cooperative IV line sites with no e/o infection. Assessment & Plan Remarks Sepsis present on admission BILL DISTRIBUTOR shunt related ventriculitis, MRSA - BILL DISTRIBUTOR shunt is removed 11/18 Acute metabolic encephalopathy: infection, NPH Elevated CRP. Recs Continue Vanco IV (target trough 15-20 for meningitis) Continue Rifampin - follow LFT Monitor clinically Follow C/S Continue Lactinex Monitor stool Puja Sloan MD Nov 22, 2016 14:45
[2016-11-22] MEDS: LOTEPREDNOL OPTH RIGHT EYE SCH (20:18)
[2016-11-23] VITALS (12 sets, daily range): BP systolic 146–190; BP diastolic 67–78; PULSE 62–112; RESP 16–30; TEMP 97.8–98.3; O2SAT 91–94
[2016-11-23] MEDS: METOCLOPRAMIDE HCL 10 MG/2 ML VIAL IV PUSH SCH ×3 (06:16→22:00)
[2016-11-23] MEDS ORDERED: NIFEdipine 30 MG SUSTAINED RELEASE TAB PO SCH (09:00)
[2016-11-23] MEDS: LISINOPRIL 20 MG TAB PO SCH (09:31)
[2016-11-23] MEDS: ALLOPURINOL 300 MG TAB PO SCH (09:31)
[2016-11-23] MEDS: PANTOPRAZOLE SOD 40 MG DELAYED RELEASE TAB PO SCH (09:31)
[2016-11-23] MEDS: RIFAMPIN 150 MG CAP PO SCH ×2 (09:31→20:44)
[2016-11-23] MEDS: VANCOMYCIN 1,000 MG/NS 250 ML IV SCH ×4 (09:31→20:43)
[2016-11-23] MEDS: HEPARIN SODIUM - SQ 10,000 UNITS/ML VIAL SQ SCH ×2 (09:31→20:44)
--- NOTE | 2016-11-23 09:46 | HHI.NSPN ---
Note Status Status: Progress Note Interval History Interval History Mr. Motley is a 89 year old male who underwent a WHEEL INSPECTOR shunt valve replacement on 10/25/16. He was seen by me on 11/10/16. His surgical incision is healing well without evidence of infection. Mr. Motley had complained in the office of pain, swelling, and tenderness to touch behind his right ear that had gotten worse and Mastoiditis was suspected. A CT Brain was obtained that day without signs of intracranial mass lesions or mastoiditis. He was recommend however to start antibiotics for prophylaxis. Yesterday, he presented to [place] ED following a fall and confusion. He was also hallucinating and had some chills but no fevers. His reported that his post-auricular pain has improved over the weekend. Another CT Brain was taken which was stable. An LP was obtained as well. 11/17: shunt tap on 11/15 showing MRSA, his LP showed no growth. 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 Recent : Ventriculoperitoneal shunt removed with placement of ventriculostomy drain on 11/18/16 for shunt infection. He is on IV Vancomycin and Rifampin per ID. Ventriculostomy drain clamped yesterday. 11/22/16: denies headaches, working with PT, slight dizziness upon sitting up on edge of bed, no nausea or vomiting. afebrile 11/23/16: eating breakfast, denies headaches, vomiting, fevers or chills. Labs, Micro, & Vital Signs Results Date Time Temp Pulse Resp B/P Pulse Ox O2 Delivery O2 Flow Rate FiO2 11/23/16 06:00 72 11/23/16 04:00 88 11/23/16 04:00 97.8 88 25 190/76 93 11/23/16 02:00 70 11/23/16 00:00 98.0 63 25 153/70 94 11/23/16 00:00 63 11/22/16 22:00 68 11/22/16 20:00 60 11/22/16 20:00 97.5 70 22 179/119 94 11/22/16 19:00 95 Nasal Cannula 2.00 11/22/16 18:00 72 11/22/16 16:00 97.7 84 16 152/68 92 11/22/16 16:00 84 11/22/16 14:00 70 11/22/16 12:00 97.5 65 20 175/74 92 11/22/16 12:00 65 11/22/16 10:00 78 11/23/16 06:59 Intake Total 1782 ml Output Total 3312 ml Balance -1530 ml Constitutional Vital Signs Date Time Temp Pulse Resp B/P Pulse Ox O2 Delivery O2 Flow Rate FiO2 11/23/16 06:00 72 11/23/16 04:00 88 11/23/16 04:00 97.8 88 25 190/76 93 11/23/16 02:00 70 11/23/16 00:00 98.0 63 25 153/70 94 11/23/16 00:00 63 11/22/16 22:00 68 11/22/16 20:00 60 11/22/16 20:00 97.5 70 22 179/119 94 11/22/16 19:00 95 Nasal Cannula 2.00 11/22/16 18:00 72 11/22/16 16:00 97.7 84 16 152/68 92 11/22/16 16:00 84 11/22/16 14:00 70 11/22/16 12:00 97.5 65 20 175/74 92 11/22/16 12:00 65 11/22/16 10:00 78 11/23/16 06:59 Intake Total 1782 ml Output Total 3312 ml Balance -1530 ml Review of Systems/Exam Exam Mr. Motley is awake and oriented to name, place, and time. Converses well. Follows commands without difficulties. Right ventriculostomy drain in place, drain site clean with dry dressing. Ventriculostomy drain reopened to 5 cm H20, CSF is clear in bag. Cranial nerve examination: pupils to be equal, round, and reactive to light. Extra-ocular movements are intact. Facial motor and sensory function are normal and symmetrical. Neck is soft and supple. No meningismus or nuchal rigidity. Muscle strength is 5/5 in all muscle groups of both upper and lower extremities Sensory examination is intact to light touch in both the upper and lower extremities, symmetrically. Lungs: clear to auscultate b/l Skin: no cyanosis or erythema Medications Current Medications Current Medications Medications (Trade) Dose Ordered Sig/Kiel Route PRN Reason Start Time Stop Time Status Last Admin Dose Admin Acetaminophen (Tylenol) 500 mg HS PRN PO PAIN 1-4 11/14/16 12:00 Allopurinol (Zyloprim) 300 mg DAILY PO 11/15/16 09:00 11/23/16 09:31 Lisinopril 20 mg 20 mg DAILY PO 11/15/16 09:00 11/23/16 09:31 Pharmacy Profile Note (Vancomycin Consult Pharmacy) ml @ 0 mls/hr UNSCH XX 11/14/16 12:30 Acetaminophen/ Hydrocodone Bitart ([place] 5-325 Mg) 1 tab Q4H PRN PO PAIN 5 TO 10 11/14/16 20:30 11/21/16 20:47 Heparin Sodium (Porcine) (Heparin Inj) 5,000 units Q12HR SQ 11/15/16 21:00 11/23/16 09:31 Ondansetron HCl (Zofran Inj) 4 mg Q6HR PRN IV PUSH NAUSEA 11/16/16 21:00 11/20/16 20:35 Rifampin (Rifampin) 300 mg Q12HR PO 11/17/16 14:15 11/23/16 09:31 Metoclopramide HCl (Reglan Inj) 5 mg Q8HR IV PUSH 11/17/16 22:00 11/23/16 06:16 Morphine Sulfate (Morphine Inj) 2 mg Q3H PRN IV PUSH pain 6 to 10 11/17/16 16:45 Patient Own Medication PT OWN MED: (Loteprednol Opth .. HS RIGHT EYE 11/19/16 21:00 11/22/16 20:18 Enalaprilat (Vasotec Inj) 2.5 mg Q6H PRN IV PUSH SYS BP GREATER THAN 170 MMHG 11/20/16 17:00 11/22/16 03:34 Pantoprazole Sodium 40 mg 40 mg DAILY PO 11/21/16 09:00 11/23/16 09:31 Vancomycin HCl/ Sodium Chloride (Vancomycin Inj/ NS 250 ml Inj) 250 ml @ 250 mls/hr Q12H IV 11/22/16 09:00 11/23/16 09:31 Miscellaneous Information SPECIFIC LAB TO BE ... ONCE ONCE XX 11/23/16 20:45 11/23/16 20:46 Clonidine (Catapres) 0.1 mg Q8H PRN PO SYS BP GREATER THAN 180 MMHG 11/21/16 23:45 11/21/16 23:44 Nifedipine (Procardia Xl) 30 mg DAILY PO 11/23/16 09:00 11/23/16 09:31 Medical Decision Making MDM Remarks 89 y/o presented with AMS, confusion, s/p fall recent replacement of WHEEL INSPECTOR shunt valve on 10/25/16 for NPH shunt infection with MRSA from shunt tap, s/p removal of WHEEL INSPECTOR shunt with placement of ventriculostomy drain 11/18/16 Plan Plan Remarks cont ventriculostomy draining at 5 cm H20 cont antibiotic treatment, per ID cont physical therapy cont neuro checks will need replacement of WHEEL INSPECTOR shunt 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
--- NOTE | 2016-11-23 13:52 | HHI.PR ---
Subjective Subjective Remarks sitting up in chair awakes to voice, oriented x 3 pleasant no fever no cp no sob Ext. ventricular drain in place, dressing D/I BP remains elevated despite PRN meds given Review of Systems Constitutional Constitutional Remarks 12 point ROS completed, unreliable Vitals/Results Intake & Output 11/22/16 11/22/16 11/23/16 14:59 22:59 06:59 Intake Total 777 ml 618 ml 387 ml Output Total 985 ml 1008 ml 1319 ml Balance -208 ml -390 ml -932 ml Intake Oral 320 ml 240 ml 240 ml IV Total 457 ml 378 ml 147 ml Output Urine Total 950 ml 1000 ml 1300 ml Drainage Total 35 ml 8 ml 19 ml # Bowel Movements 2 0 0 Vital Signs Vital Signs Date Time Temp Pulse Resp B/P Pulse Ox O2 Delivery O2 Flow Rate FiO2 11/23/16 06:00 72 11/23/16 04:00 88 11/23/16 04:00 97.8 88 25 190/76 93 11/23/16 02:00 70 11/23/16 00:00 98.0 63 25 153/70 94 11/23/16 00:00 63 11/22/16 22:00 68 11/22/16 20:00 60 11/22/16 20:00 97.5 70 22 179/119 94 11/22/16 19:00 95 Nasal Cannula 2.00 11/22/16 18:00 72 11/22/16 16:00 97.7 84 16 152/68 92 11/22/16 16:00 84 11/22/16 14:00 70 CBC/BMP: 11/22/16 0334 11/23/16 0402 Lab Results Laboratory Tests Test 11/23/16 04:02 Creatinine 0.68 MG/DL Estimat Glomerular Filtration 110 ML/MIN Rate Physical Exam General General Appearance: No Acute Distress, Comfortable Eyes Eye Exam: Pupils Equal, Pupils Reactive Ears & Nose Ears & Nose Exam: Nasal Mucosa [place] Throat Throat Exam: Oral Mucosa [place] & Moist Neck Neck Exam: Neck Supple, Trachea Midline Pulmonary Resp Exam: Clear Bilaterally, Breath Sounds Equal, No Distress Cardiology CV Exam: Regular, Normal Sinus Rhythm Gastrointestinal/Abdomen GI Exam: Soft, Non-Tender, Bowel Sounds Present, Non-Distended Musculoskeletal MS Exam: Joints Intact Integumentary Skin Exam: Warm, Dry Extremeties Extremities Exam: No Edema, Pedal Pulses Palpable Neurologic Neuro Exam: Alert, Awake, Oriented, Speech Clear, Moving All Extremities, No Focal Deficits Neuro Remarks ext. ventricular drain right scalp, dressing D/I Psychiatric Psych Exam: Appropriate Responses VTE Prophylaxis VTE Prophylaxis Device: SCDs PUD Prophylasis PUD Prophylaxis: Protonix Assessment/Plan Assessment/Plan Assessment . progressive confusion w leukocytosis ,Meningitis , MRSA . History of normal pressure hydrocephalus s/p MATERIAL MAN shunt s/p recent revision.SHUNT related infection . abd pain / distention , Peritonitis d/t infected MATERIAL MAN shunt . Fever d/t to above . s/p fall . Hypertension, . Hyperlipidemia, . History of COPD with scarring. . Microscopic hematuria. . Osteoarthritis. PLAN shunt fluid c/s +ve MRSA repeat shunt fluid +ve MRSA , elevated WBC IV antibiotics, IV vancomycin/ rifampin s/p removal of MATERIAL MAN shunt & placement of external drain 11/18/16 drain unclamped per NSx, continue will need MATERIAL MAN shunt when infection clears AXR abd c/s Ileus -having BMs now Gen surgery input appreciated, signed off CT abd noted, LLL infiltrate, ileus incentive spirometry PPI for GI prophylaxis Subcutaneous heparin for DVT prophylaxis cont IV Reglan/zofran prn IV morphine when necessary for pain BP poorly controlled, Increase Procardia XL 60 mg PO daily Continue Lisinopril, and PRN Vasotec and Clonidine Add Hydralazine PO PT evaluation continue with above D/W RN D/W Dr. Larsen D/W pt This patient was seen by myself and Dr. Larsen, this note is written on his behalf. Kimberly Gerardo Nov 23, 2016 13:52
[2016-11-23] MEDS: hydrALAZINE HCL 25 MG TAB PO SCH ×2 (16:02→20:43)
[2016-11-23] MEDS ORDERED: PHARMACY ORDERED LAB XX ONE (20:45)
[2016-11-23] MEDS: LOTEPREDNOL OPTH RIGHT EYE SCH (20:46)
[2016-11-24] VITALS (12 sets, daily range): BP systolic 134–158; BP diastolic 62–107; PULSE 64–90; RESP 16–30; TEMP 98.1–98.3; O2SAT 91–98
[2016-11-24] MEDS: METOCLOPRAMIDE HCL 10 MG/2 ML VIAL IV PUSH SCH ×3 (06:47→22:00)
[2016-11-24] MEDS: hydrALAZINE HCL 25 MG TAB PO SCH ×3 (06:47→22:00)
[2016-11-24] MEDS ORDERED: PHARMACY ORDERED LAB XX ONE (08:45)
[2016-11-24] MEDS: PANTOPRAZOLE SOD 40 MG DELAYED RELEASE TAB PO SCH (09:17)
[2016-11-24] MEDS: RIFAMPIN 150 MG CAP PO SCH ×2 (09:17→20:01)
[2016-11-24] MEDS: NIFEdipine 60 MG SUSTAINED RELEASE TAB PO SCH (09:18)
[2016-11-24] MEDS: LISINOPRIL 20 MG TAB PO SCH (09:18)
[2016-11-24] MEDS: HEPARIN SODIUM - SQ 10,000 UNITS/ML VIAL SQ SCH ×2 (09:18→20:01)
[2016-11-24] MEDS: ALLOPURINOL 300 MG TAB PO SCH (09:18)
--- NOTE | 2016-11-24 09:28 | HHI.IDPN ---
Subjective Subjective Remarks Notes reviewed D/W RN Tem[place] ok Had removal of QA SOFTWARE TEST ENGINEER shunt 11/18 and has ventriculostomy in place Denies MICHAEL No fever Intraop CSF with MRSA is an 89 y/o CM with PMHx of NPH s/p QA SOFTWARE TEST ENGINEER shunt placement in 2010 at [facility]. He reports that on 10/25/2016 he had replacement of the shunt valve at [facility] by for QA SOFTWARE TEST ENGINEER shunt malfunction. Shunt fluid clx was positive for MRSA and shunt was removed and external drain was placed yday Antibiotics rifampin Vanco IV Lines Line sites with no e.o infection. Past Medical History reviewed. Allergies: Coded Allergies: *MDRO Multi-Drug Resistant Organism (Verified Adverse Reaction, Unknown, MRSA, 11/21/16) MRSA (CSF-11/15/16 & head wound-11/18/16) MRSA screen POSITIVE - 11/18/16 Objective . Vital Signs Date Time Temp Pulse Resp B/P Pulse Ox O2 Delivery O2 Flow Rate FiO2 11/24/16 06:00 64 11/24/16 04:00 66 11/24/16 04:00 98.3 66 16 158/93 91 11/24/16 02:00 72 11/24/16 00:00 98.2 66 18 139/63 98 11/24/16 00:00 66 11/23/16 22:00 73 11/23/16 20:00 74 11/23/16 20:00 93 Nasal Cannula 2.00 11/23/16 20:00 98.3 74 16 184/74 93 11/23/16 18:00 77 11/23/16 16:00 70 11/23/16 16:00 98.2 62 30 179/71 91 11/23/16 14:00 80 11/23/16 12:00 98.2 99 16 146/67 94 11/23/16 12:00 98 11/23/16 10:00 100 11/23/16 11/23/16 11/24/16 15:00 23:00 07:00 Intake Total 1046 ml 640 ml 841 ml Output Total 312 ml 478 ml 1230 ml Balance 734 ml 162 ml -389 ml Intake Oral 660 ml 480 ml 480 ml IV Total 386 ml 160 ml 361 ml Output Urine Total 250 ml 450 ml 1200 ml Drainage Total 62 ml 28 ml 30 ml # Bowel Movements 3 1 0 . Laboratory Tests Test 11/23/16 04:02 Creatinine 0.68 MG/DL Estimat Glomerular Filtration 110 ML/MIN Rate Imaging Abdomen/Pelvis CT 11/19/16 0600 Signed Impressions: Service Date/Time: Saturday, November 19, 2016 05:27 - CONCLUSION: Numerous distended loops of small bowel without evidence of obstructing lesion or significant wall thickening. Solid organs are unremarkable. Cholecystectomy clips. Persistent lower lobe infiltrates right greater left worse than on the 11/14/16 exam . Joseluis Vila MD Chest X-Ray 11/18/16 0000 Signed Impressions: Service Date/Time: Friday, November 18, 2016 12:09 - CONCLUSION: Lower lobe consolidation noted bilaterally. Caleb Murry MD Abdomen X-Ray 11/18/16 0000 Signed Impressions: Service Date/Time: Friday, November 18, 2016 12:13 - CONCLUSION: Abnormally dilated loops of small intestine are noted and a developing small bowel obstruction is not excluded. Caleb Murry MD Pelvis X-Ray 11/14/1622 Signed Impressions: Service Date/Time: Monday, November 14, 2016 06:24 - CONCLUSION: Negative trauma study with no acute fracture or malalignment. Misael Camara MD Head CT 11/14/16 0622 Signed Impressions: Service Date/Time: Monday, November 14, 2016 07:32 - CONCLUSION: No acute intracranial abnormality. New Manrique MD Cervical Spine CT 11/14/1622 Signed Impressions: Service Date/Time: Monday, November 14, 2016 07:32 - CONCLUSION: 1. No acute abnormality. 2. Diffuse mild degenerative changes without central canal stenosis or neural foraminal narrowing. 3. Calcified plaque involving the carotid arteries. Edwardo Workman Jr., MD Lumbar Puncture Fluoroscopy 11/14/16 0000 Signed Impressions: Service Date/Time: Monday, November 14, 2016 13:55 - CONCLUSION: Uncomplicated fluoroscopically guided lumbar puncture. Edwardo Workman Jr., MD Clavicle X-Ray 11/14/16 0000 Signed Impressions: Service Date/Time: Monday, November 14, 2016 07:50 - CONCLUSION: Intact right clavicle. New Manrique MD Physical Exam GENERAL: Awake and alert, NAD SKIN: No generalized rash HEAD: EVD in place with clear CSF EENT: [place] conjunctivae, no icterus, no injection. Moist oral mucosa CARDIOVASCULAR: HS audible. No murmurs RESPIRATORY: Clear to auscultation. Breath sounds equal bilaterally. No wheezes , rales, or rhonchi. GASTROINTESTINAL: Abdomen soft, nondistended. Has mild tenderness, no guarding MUSCULOSKELETAL: Extremities without clubbing, cyanosis, or edema. No joint tenderness, effusion, or edema noted. No calf tenderness. Negative Homans sign bilaterally. NEUROLOGICAL: Awake and alert. Psych: cooperative IV line sites with no e/o infection. Assessment & Plan Remarks Sepsis present on admission QA SOFTWARE TEST ENGINEER shunt related ventriculitis, MRSA - QA SOFTWARE TEST ENGINEER shunt is removed 11/18 Acute metabolic encephalopathy: infection, NPH Elevated CRP. Recs Continue Vanco IV (target trough 15-20 for meningitis) Continue Rifampin - follow LFT Monitor clinically Repeat CSF analysis Follow C/S D/W RN Dr [place] covering this weekend and available if needed Puja Sloan MD Nov 24, 2016 09:28
--- NOTE | 2016-11-24 11:35 | HHI.PR ---
Subjective Subjective Remarks awake, [place], oriented x 3, forgetful no fever BP better no cp no sob no headache having hiccups at bsd Review of Systems Constitutional Constitutional Remarks 12 point ROS completed, unreliable Vitals/Results Intake & Output 11/23/16 11/23/16 11/24/16 15:00 23:00 07:00 Intake Total 1046 ml 640 ml 841 ml Output Total 312 ml 478 ml 1230 ml Balance 734 ml 162 ml -389 ml Intake Oral 660 ml 480 ml 480 ml IV Total 386 ml 160 ml 361 ml Output Urine Total 250 ml 450 ml 1200 ml Drainage Total 62 ml 28 ml 30 ml # Bowel Movements 3 1 0 Vital Signs Vital Signs Date Time Temp Pulse Resp B/P Pulse Ox O2 Delivery O2 Flow Rate FiO2 11/24/16 06:00 64 11/24/16 04:00 66 11/24/16 04:00 98.3 66 16 158/93 91 11/24/16 02:00 72 11/24/16 00:00 98.2 66 18 139/63 98 11/24/16 00:00 66 11/23/16 22:00 73 11/23/16 20:00 74 11/23/16 20:00 93 Nasal Cannula 2.00 11/23/16 20:00 98.3 74 16 184/74 93 11/23/16 18:00 77 11/23/16 16:00 70 11/23/16 16:00 98.2 62 30 179/71 91 11/23/16 14:00 80 11/23/16 12:00 98.2 99 16 146/67 94 11/23/16 12:00 98 CBC/BMP: 11/22/16 0334 11/23/16 0402 Lab Results Laboratory Tests Test 11/23/16 21:00 Vancomycin Level Trough 22.9 MCG/ML Physical Exam General General Appearance: No Acute Distress, Comfortable Eyes Eye Exam: Pupils Equal, Pupils Reactive Ears & Nose Ears & Nose Exam: Nasal Mucosa [place] Throat Throat Exam: Oral Mucosa [place] & Moist Neck Neck Exam: Neck Supple, Trachea Midline Pulmonary Resp Exam: Clear Bilaterally, Breath Sounds Equal, No Distress Cardiology CV Exam: Regular, Normal Sinus Rhythm Gastrointestinal/Abdomen GI Exam: Soft, Non-Tender, Bowel Sounds Present, Non-Distended Musculoskeletal MS Exam: Joints Intact Integumentary Skin Exam: Warm, Dry Extremeties Extremities Exam: No Edema, Pedal Pulses Palpable Neurologic Neuro Exam: Alert, Awake, Oriented, Speech Clear, Moving All Extremities, No Focal Deficits Neuro Remarks ext. ventricular drain right scalp, dressing D/I Psychiatric Psych Exam: Appropriate Responses VTE Prophylaxis VTE Prophylaxis Device: SCDs PUD Prophylasis PUD Prophylaxis: Protonix Assessment/Plan Assessment/Plan Assessment . progressive confusion w leukocytosis ,Meningitis , MRSA . History of normal pressure hydrocephalus s/p RN FLIGHT shunt s/p recent revision.SHUNT related infection . abd pain / distention , Peritonitis d/t infected RN FLIGHT shunt . Fever d/t to above . s/p fall . Hypertension, . Hyperlipidemia, . History of COPD with scarring. . Microscopic hematuria. . Osteoarthritis. PLAN shunt fluid c/s +ve MRSA repeat CSF today, results pending IV antibiotics, IV vancomycin/ rifampin s/p removal of RN FLIGHT shunt & placement of external drain 11/18/16 drain unclamped per NSx, continue will need RN FLIGHT shunt when infection clears AXR abd c/s Ileus -having BMs now Gen surgery input appreciated, signed off CT abd noted, LLL infiltrate, ileus incentive spirometry PPI for GI prophylaxis Subcutaneous heparin for DVT prophylaxis cont IV Reglan/zofran prn IV morphine when necessary for pain BP improving, continue with Procardia XL 60 mg PO daily Continue Lisinopril, and PRN Vasotec, Hydralazine PO and Clonidine PT evaluation Thorazine PRN hiccups continue to follow cultures D/W RN D/W Dr. Larsen D/W pt/ This patient was seen by myself and Dr. Larsen, this note is written on his behalf. Kimberly Gerardo Nov 24, 2016 11:35 Kimberly Gerardo Nov 24, 2016 11:35
[2016-11-24] MEDS ORDERED: chlorproMAZINE HCL 25 MG TAB PO PRN (11:45)
[2016-11-24 13:00] LABS: GROSS BLOOD TUBE #1 0 (0); SUPERNATE COLOR TUBE #1 CLEAR (CLEAR); WBC TUBE #1 16 /MM3 (0-10)
[2016-11-24 13:01] LABS: CSF LYMPHOCYTES 74 %; CSF MONOCYTES 17 %; CSF NEUTROPHILS 9 %
[2016-11-24 13:02] LABS: VOLUME TUBE # 1 8.5 ML
[2016-11-24] MEDS: VANCOMYCIN 1,000 MG/NS 250 ML IV SCH ×2 (17:24)
[2016-11-24] MEDS: LOTEPREDNOL OPTH RIGHT EYE SCH (20:01)
[2016-11-24] MEDS: ENALAPRILAT 2.5 MG/2 ML VIAL IV PUSH PRN (23:34)
--- NOTE | 2016-11-24 23:43 | HHI.NSPN ---
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 Recent shunt revision for malfunction 10/24/16 with subsequent development of headache and mental status changes with positive cultures for MRSA via shunt tap on 11/15/16. Now with ventriculostomy in place since 11/18/16. Exam Results Vital Signs Date Time Temp Pulse Resp B/P Pulse Ox O2 Delivery O2 Flow Rate FiO2 11/24/16 18:00 69 11/24/16 16:00 98.1 18 134/62 94 11/24/16 08:00 Nasal Cannula 2.00 Intake and Output 11/23/16 11/23/16 11/24/16 08:00 16:00 00:00 Intake Total 387 ml 1046 ml 640 ml Output Total 1319 ml 312 ml 478 ml Balance -932 ml 734 ml 162 ml Physical Examination Mr. Motley is awake and oriented to name, place, and time. Converses well. Follows commands without difficulties. Right ventriculostomy drain in place, drain site clean with dry dressing. Ventriculostomy drain reopened to 5 cm H20, CSF is clear slightly yellow in bag. Extraocular movements intact. Facial motor movement symmetric Neck is soft and supple. No meningismus or nuchal rigidity. Muscle strength is 5/5 in all muscle groups of both upper and lower extremities Sensory examination is intact to light touch in both the upper and lower extremities, symmetrically. Lungs: clear to auscultate b/l Skin: no cyanosis or erythema Lab, Micro, Other Results Laboratory Tests Test 11/24/16 11/24/16 11:36 15:00 CSF Volume (Tube 1) 8.5 ML CSF Supernatant Color (tube 1) CLEAR CSF Gross Blood (Tube 1) 0 CSF WBC (Tube 1) 16 /MM3 CSF RBC (Tube 1) 0 /MM3 CSF Neutrophils 9 % CSF Lymphocytes 74 % CSF Monocytes 17 % CSF Glucose 53 MG/DL CSF Total Protein 43.7 MG/DL Vancomycin Level Trough 17.7 MCG/ML Medical Decision Making Impression and Plan Impression: 1. Stable neurologic function status post shunt removal and ventriculostomy placement for shunt infection. Plan: Findings discussed with the patient. Stable neurologic function following treatment of ventriculoperitoneal shunt infection with antibiotics, ventriculostomy placement. Continue external ventricular drainage present. Anticipate replacement of EXECUTIVE COMMUNICATIONS MANAGER shunt next week per Praneeth Blair MD Nov 24, 2016 23:43 Praneeth Nunez MD Nov 24, 2016 23:43
[2016-11-25] VITALS (12 sets, daily range): BP systolic 144–166; BP diastolic 66–80; PULSE 68–84; RESP 18–24; TEMP 97.5–98.3; O2SAT 90–94
[2016-11-25] MEDS: hydrALAZINE HCL 25 MG TAB PO SCH ×3 (05:12→21:38)
[2016-11-25] MEDS: METOCLOPRAMIDE HCL 10 MG/2 ML VIAL IV PUSH SCH ×3 (05:15→21:38)
[2016-11-25] MEDS: RIFAMPIN 150 MG CAP PO SCH ×2 (09:15→20:21)
[2016-11-25] MEDS: PANTOPRAZOLE SOD 40 MG DELAYED RELEASE TAB PO SCH (09:15)
[2016-11-25] MEDS: ALLOPURINOL 300 MG TAB PO SCH (09:15)
[2016-11-25] MEDS: LISINOPRIL 20 MG TAB PO SCH (09:15)
[2016-11-25] MEDS: HEPARIN SODIUM - SQ 10,000 UNITS/ML VIAL SQ SCH ×2 (09:15→20:20)
[2016-11-25] MEDS: NIFEdipine 60 MG SUSTAINED RELEASE TAB PO SCH (09:15)
[2016-11-25] MEDS: VANCOMYCIN 1,000 MG/NS 250 ML IV SCH ×2 (11:09)
--- NOTE | 2016-11-25 14:32 | HHI.PR ---
Subjective Interval History awake, [place], oriented x 3, in an deion mood no fever BP better no cp no sob no headache having hiccups Vitals/Results Intake & Output 11/24/16 11/24/16 11/25/16 15:00 23:00 07:00 Intake Total 1409 ml 460 ml Output Total 897 ml 863 ml Balance 512 ml -403 ml Intake Oral 860 ml 300 ml IV Total 549 ml 160 ml Output Urine Total 750 ml 850 ml Drainage Total 147 ml 13 ml # Bowel Movements 0 0 Vital Signs Vital Signs Date Time Temp Pulse Resp B/P Pulse Ox O2 Delivery O2 Flow Rate FiO2 11/25/16 07:00 90 Room Air 11/25/16 06:00 68 11/25/16 04:00 80 11/25/16 04:00 98.2 80 24 166/74 93 11/25/16 02:00 68 11/25/16 00:05 96 Nasal Cannula 2.00 11/25/16 00:00 72 11/25/16 00:00 98.3 72 24 148/80 90 11/24/16 22:00 66 11/24/16 20:00 70 11/24/16 20:00 98.3 70 18 151/67 93 11/24/16 19:00 94 Room Air 11/24/16 18:00 69 11/24/16 16:00 68 11/24/16 16:00 98.1 68 18 134/62 94 CBC/BMP: 11/22/16 0334 11/25/16 0320 Lab Results Laboratory Tests Test 11/24/16 11/25/16 15:00 03:20 Vancomycin Level Trough 17.7 MCG/ML Creatinine 0.85 MG/DL Estimat Glomerular Filtration 85 ML/MIN Rate Physical Exam General General Appearance: No Acute Distress, Comfortable Eyes Eye Exam: Pupils Equal, Pupils Reactive Ears & Nose Ears & Nose Exam: Nasal Mucosa [place] Throat Throat Exam: Oral Mucosa [place] & Moist Neck Neck Exam: Neck Supple, Trachea Midline Pulmonary Resp Exam: Clear Bilaterally, Breath Sounds Equal, No Distress Cardiology CV Exam: Regular, Normal Sinus Rhythm Gastrointestinal/Abdomen GI Exam: Soft, Non-Tender, Bowel Sounds Present, Non-Distended Musculoskeletal MS Exam: Joints Intact Integumentary Skin Exam: Warm, Dry Extremeties Extremities Exam: No Edema, Pedal Pulses Palpable Neurologic Neuro Exam: Alert, Awake, Oriented, Speech Clear, Moving All Extremities, No Focal Deficits Psychiatric Psych Exam: Appropriate Responses VTE Prophylaxis VTE Prophylaxis Device: SCDs PUD Prophylasis PUD Prophylaxis: Protonix Assessment/Plan Assessment/Plan Assessment . progressive confusion, w leukocytosis ,Meningitis , MRSA . History of normal pressure hydrocephalus s/p SENIOR COMMUNICATIONS ENGINEER shunt s/p recent revision.SHUNT related infection . abd pain / distention , Peritonitis d/t infected SENIOR COMMUNICATIONS ENGINEER shunt . Fever d/t to above . s/p fall . Hypertension, . Hyperlipidemia, . History of COPD with scarring. . Microscopic hematuria. . Osteoarthritis. PLAN shunt fluid c/s +ve MRSA repeat CSF today, results pending labs reviewed improving wbc count stable h/h IV antibiotics, IV vancomycin/ rifampin s/p removal of SENIOR COMMUNICATIONS ENGINEER shunt & placement of external drain 11/18/16 drain unclamped per NSx, continue will need SENIOR COMMUNICATIONS ENGINEER shunt when infection clears AXR abd c/s Ileus -having BMs now Gen surgery input appreciated, signed off CT abd noted, LLL infiltrate, ileus incentive spirometry PPI for GI prophylaxis Subcutaneous heparin for DVT prophylaxis cont IV Reglan/zofran prn IV morphine when necessary for pain BP improving, continue with Procardia XL 60 mg PO daily Continue Lisinopril, and PRN Vasotec, Hydralazine PO and Clonidine PT evaluation Thorazine PRN hiccups continue to follow cultures D/W RN D/W Dr. Larsen D/W pt/ This patient was seen by myself and Dr. Larsen, this note is written on his behalf. Titus Larsen MD Nov 25, 2016 14:32
--- NOTE | 2016-11-25 17:30 | HHI.NSPN ---
History Chief Complaint: no complaints Interval History 89-year-old male status post DENTAL HYGIENE ADMINISTRATIVE ASSISTANT shunt placement approximately 2010 in [place] for treatment of NPH. Recent shunt revision for malfunction 10/24/16 with subsequent development of headache and mental status changes with positive cultures for MRSA via shunt tap on 11/15/16. Now with ventriculostomy in place since 11/18/16. ID following. Patient on vancomycin and rifampin Exam Results Vital Signs Date Time Temp Pulse Resp B/P Pulse Ox O2 Delivery O2 Flow Rate FiO2 11/25/16 14:00 80 11/25/16 12:00 97.5 20 165/70 94 11/25/16 07:00 Room Air 11/25/16 00:05 2.00 Intake and Output 11/24/16 11/24/16 11/25/16 08:00 16:00 00:00 Intake Total 841 ml 836 ml 573 ml Output Total 1230 ml 570 ml 327 ml Balance -389 ml 266 ml 246 ml Physical Examination Mr. Motley is awake and oriented to name, place, and time. Converses well. Follows commands without difficulties. Right ventriculostomy drain in place, drain site clean with dry dressing. Ventriculostomy drain reopened to 5 cm H20, CSF is clear Extraocular movements intact. Facial motor movement symmetric Neck is soft and supple. No meningismus or nuchal rigidity. Muscle strength is 5/5 in all muscle groups of both upper and lower extremities Sensory examination is intact to light touch in both the upper and lower extremities, symmetrically. Lungs: clear to auscultate b/l Skin: no cyanosis or erythema Lab, Micro, Other Results Microbiology Date/Time Procedure Status Source Growth 11/24/16 11:36 Gram Stain - Final Resulted Cerebral Spinal Fluid Shunt Fluid 11/24/16 11:36 CSF Culture - Preliminary Resulted Cerebral Spinal Fluid Shunt Fluid NO GROWTH IN 24 HOURS. Laboratory Tests Test 11/25/16 03:20 Creatinine 0.85 MG/DL Estimat Glomerular Filtration 85 ML/MIN Rate Medical Decision Making Impression and Plan Impression: 1. Stable neurologic function status post shunt removal and ventriculostomy placement for shunt infection. 2. 11/24/16 repeat CSF culture no growth to date. Plan: Findings discussed with the patient and his family in the room this morning. Continuing antibiotics per ID recommendations. Stable neurologic function following treatment of ventriculoperitoneal shunt infection with antibiotics, ventriculostomy placement. Continue external ventricular drainage present. Anticipate replacement of DENTAL HYGIENE ADMINISTRATIVE ASSISTANT shunt next week per Praneeth Blair MD Nov 25, 2016 17:30
[2016-11-25] MEDS: LOTEPREDNOL OPTH RIGHT EYE SCH (20:21)
[2016-11-26] VITALS (11 sets, daily range): BP systolic 129–172; BP diastolic 58–86; PULSE 68–88; RESP 18–22; TEMP 97.6–98.4; O2SAT 93–97
[2016-11-26] MEDS ORDERED: PHARMACY ORDERED LAB XX ONE (04:45)
[2016-11-26] MEDS: VANCOMYCIN 1,000 MG/NS 250 ML IV SCH ×4 (04:48→22:06)
[2016-11-26] MEDS: hydrALAZINE HCL 25 MG TAB PO SCH ×2 (05:09→21:01)
[2016-11-26] MEDS: METOCLOPRAMIDE HCL 10 MG/2 ML VIAL IV PUSH SCH ×2 (05:09→21:01)
[2016-11-26] MEDS: ALLOPURINOL 300 MG TAB PO SCH (08:16)
[2016-11-26] MEDS: LISINOPRIL 20 MG TAB PO SCH (08:16)
[2016-11-26] MEDS: RIFAMPIN 150 MG CAP PO SCH ×2 (08:16→20:32)
[2016-11-26] MEDS: PANTOPRAZOLE SOD 40 MG DELAYED RELEASE TAB PO SCH (08:16)
[2016-11-26] MEDS: NIFEdipine 60 MG SUSTAINED RELEASE TAB PO SCH (08:16)
[2016-11-26] MEDS: HEPARIN SODIUM - SQ 10,000 UNITS/ML VIAL SQ SCH ×2 (08:17→20:32)
--- NOTE | 2016-11-26 16:43 | HHI.PR ---
Subjective Interval History awake, [place], oriented x 3, in an deion mood no fever BP better no cp no sob no headache having hiccups at bedside Vitals/Results Intake & Output 11/25/16 11/25/16 11/26/16 15:00 23:00 07:00 Intake Total 814 ml 427 ml 630 ml Output Total 333 ml 419 ml 681 ml Balance 481 ml 8 ml -51 ml Intake Oral 480 ml 350 ml 300 ml IV Total 334 ml 77 ml 330 ml Output Urine Total 300 ml 400 ml 650 ml Drainage Total 33 ml 19 ml 31 ml # Bowel Movements 1 1 1 Vital Signs Vital Signs Date Time Temp Pulse Resp B/P Pulse Ox O2 Delivery O2 Flow Rate FiO2 11/26/16 14:00 88 11/26/16 12:00 68 11/26/16 12:00 98.0 69 22 138/64 97 11/26/16 08:00 75 11/26/16 08:00 97.6 72 22 152/68 96 11/26/16 07:00 Room Air 11/26/16 06:00 86 11/26/16 04:00 98.4 70 20 139/86 96 11/26/16 04:00 70 11/26/16 02:00 74 11/26/16 01:30 94 Nasal Cannula 2.00 11/26/16 00:00 74 11/26/16 00:00 98.2 74 18 129/58 93 11/25/16 22:00 72 11/25/16 20:00 98.2 74 20 162/72 94 11/25/16 20:00 74 11/25/16 19:00 95 Room Air 11/25/16 18:00 75 CBC/BMP: 11/22/16 0334 11/25/16 0320 Lab Results Laboratory Tests Test 11/26/16 04:36 Vancomycin Level Trough 16.4 MCG/ML Physical Exam General General Appearance: No Acute Distress, Comfortable Eyes Eye Exam: Pupils Equal, Pupils Reactive Ears & Nose Ears & Nose Exam: Nasal Mucosa [place] Throat Throat Exam: Oral Mucosa [place] & Moist Neck Neck Exam: Neck Supple, Trachea Midline Pulmonary Resp Exam: Clear Bilaterally, Breath Sounds Equal, No Distress Cardiology CV Exam: Regular, Normal Sinus Rhythm Gastrointestinal/Abdomen GI Exam: Soft, Non-Tender, Bowel Sounds Present, Non-Distended Musculoskeletal MS Exam: Joints Intact Integumentary Skin Exam: Warm, Dry Extremeties Extremities Exam: No Edema, Pedal Pulses Palpable Neurologic Neuro Exam: Alert, Awake, Oriented, Speech Clear, Moving All Extremities, No Focal Deficits Psychiatric Psych Exam: Appropriate Responses VTE Prophylaxis VTE Prophylaxis Device: SCDs PUD Prophylasis PUD Prophylaxis: Protonix Assessment/Plan Assessment/Plan Assessment . progressive confusion, w leukocytosis ,Meningitis , MRSA . History of normal pressure hydrocephalus s/p BIOSTATISTICS TEACHER shunt s/p recent revision.SHUNT related infection . abd pain / distention , Peritonitis d/t infected BIOSTATISTICS TEACHER shunt . Fever d/t to above . s/p fall . Hypertension, . Hyperlipidemia, . History of COPD with scarring. . Microscopic hematuria. . Osteoarthritis. PLAN shunt fluid c/s +ve MRSA following CSF culture stable h/h IV antibiotics s/p removal of BIOSTATISTICS TEACHER shunt & placement of external drain 11/18/16 drain unclamped per NSx, continue will need BIOSTATISTICS TEACHER shunt when infection clears AXR abd c/s Ileus -having BMs now Gen surgery input appreciated, signed off CT abd noted, LLL infiltrate, ileus incentive spirometry PPI for GI prophylaxis Subcutaneous heparin for DVT prophylaxis IV morphine when necessary for pain BP improving, continue with Procardia XL 60 mg PO daily Continue Lisinopril, and PRN Vasotec, Hydralazine PO and Clonidine PT evaluation Thorazine PRN hiccups continue to follow cultures D/W RN D/W pt/ Titus Larsen MD Nov 26, 2016 16:43
--- NOTE | 2016-11-26 16:51 | HHI.NSPN ---
History Chief Complaint: no complaints Interval History 89-year-old male status post VENDING MECHANIC shunt placement approximately 2010 in [place] for treatment of NPH. Recent shunt revision for malfunction 10/24/16 with subsequent development of headache and mental status changes with positive cultures for MRSA via shunt tap on 11/15/16. Now with ventriculostomy in place since 11/18/16. ID following. Patient on vancomycin and rifampin Exam Results Vital Signs Date Time Temp Pulse Resp B/P Pulse Ox O2 Delivery O2 Flow Rate FiO2 11/26/16 14:00 88 11/26/16 12:00 98.0 22 138/64 97 11/26/16 07:00 Room Air 11/26/16 01:30 2.00 Intake and Output 11/25/16 11/25/16 11/26/16 08:00 16:00 00:00 Intake Total 460 ml 814 ml 427 ml Output Total 863 ml 333 ml 419 ml Balance -403 ml 481 ml 8 ml Physical Examination Mr. Motley is awake and oriented to name, place, and time. Converses well. Follows commands without difficulties. Right ventriculostomy drain in place, drain site clean with dry dressing. Ventriculostomy drain reopened to 5 cm H20, CSF is clear Extraocular movements intact. Facial motor movement symmetric Neck is soft and supple. No meningismus or nuchal rigidity. Muscle strength is 5/5 in all muscle groups of both upper and lower extremities Sensory examination is intact to light touch in both the upper and lower extremities, symmetrically. Lungs: clear to auscultate b/l Skin: no cyanosis or erythema Medical Decision Making Impression and Plan Impression: 1. Stable neurologic function status post shunt removal and ventriculostomy placement for shunt infection. 2. 11/24/16 repeat CSF culture no growth to date. Plan: Findings discussed with the patient in the room this morning. Continuing antibiotics per ID recommendations. Stable neurologic function following treatment of ventriculoperitoneal shunt infection with antibiotics, ventriculostomy placement. Continue external ventricular drainage present. Anticipate replacement of VENDING MECHANIC shunt next week per Dr. Dyana Nunez,Praneeth Thomas MD Nov 26, 2016 16:50
[2016-11-26] MEDS: ENALAPRILAT 2.5 MG/2 ML VIAL IV PUSH PRN (20:32)
[2016-11-26] MEDS: LOTEPREDNOL OPTH RIGHT EYE SCH (20:33)
[2016-11-26] MEDS: cloNIDine HCL 0.1 MG TAB PO PRN (21:34)
[2016-11-27] VITALS (14 sets, daily range): BP systolic 135–155; BP diastolic 57–67; PULSE 64–98; RESP 20–23; TEMP 97.2–98.2; O2SAT 92–98
[2016-11-27 04:29] LABS: HEMATOCRIT 34.4 % (39.0-51.0); MEAN CELL VOLUME 95.8 FL (80.0-100.0); MEAN CORPUSCULAR HEMOGLOBIN 32.3 PG (27.0-34.0); MEAN CORPUSCULAR HGB CONC 33.8 % (32.0-36.0); PLATELET COUNT 390 TH/MM3 (150-450); RED BLOOD COUNT 3.59 MIL/MM3 (4.50-5.90); RED CELL DISTRIBUTION WIDTH 14.5 % (11.6-17.2); REVIEW FLAG FINAL; WHITE BLOOD COUNT 9.4 TH/MM3 (4.0-11.0)
[2016-11-27 04:59] LABS: BICARBONATE 28.5 MEQ/L (21.0-32.0); INDIRECT BILIRUBIN 0.2 MG/DL (0.0-0.8); POTASSIUM 3.4 MEQ/L (3.5-5.1); TOTAL BILIRUBIN ADULT 0.4 MG/DL (0.2-1.0)
[2016-11-27] MEDS: hydrALAZINE HCL 25 MG TAB PO SCH ×3 (05:10→21:48)
[2016-11-27] MEDS: METOCLOPRAMIDE HCL 10 MG/2 ML VIAL IV PUSH SCH ×3 (05:10→21:47)
--- NOTE | 2016-11-27 08:56 | HHI.NSPN ---
(Dania Carcamo) Note Status Status: Progress Note (Dania Carcamo) Interval History Interval History Mr. Motley is a 89 year old male who underwent a VEGETABLE LOADER MACHINE OPERATOR shunt valve replacement on 10/25/16. He was seen by me on 11/10/16. His surgical incision is healing well without evidence of infection. Mr. Motley had complained in the office of pain, swelling, and tenderness to touch behind his right ear that had gotten worse and Mastoiditis was suspected. A CT Brain was obtained that day without signs of intracranial mass lesions or mastoiditis. He was recommend however to start antibiotics for prophylaxis. Yesterday, he presented to [facility] ED following a fall and confusion. He was also hallucinating and had some chills but no fevers. His reported that his post-auricular pain has improved over the weekend. Another CT Brain was taken which was stable. An LP was obtained as well. 11/17: shunt tap on 11/15 showing MRSA, his LP showed no growth. 89-year-old male status post VEGETABLE LOADER MACHINE OPERATOR shunt placement approximately 2010 in [place] for treatment of NPH. 11/21/16: Ventriculoperitoneal shunt removed with placement of ventriculostomy drain on 11/18/16 for shunt infection. He is on IV Vancomycin and Rifampin per ID. Ventriculostomy drain clamped yesterday. 11/22/16: denies headaches, working with PT, slight dizziness upon sitting up on edge of bed, no nausea or vomiting. afebrile 11/23/16: eating breakfast, denies headaches, vomiting, fevers or chills. 11/27/16: CSF reculture 11/24/16 with no growth. doing well, denies any changes over the weekend, ventriculostomy drain open, CSF clear. (Dania Carcamo) Labs, Micro, & Vital Signs Results Date Time Temp Pulse Resp B/P Pulse Ox O2 Delivery O2 Flow Rate FiO2 11/27/16 06:00 74 11/27/16 04:00 98.2 64 20 135/63 92 11/27/16 04:00 64 11/27/16 02:00 64 11/27/16 00:00 98.2 70 23 140/60 94 11/27/16 00:00 70 11/26/16 22:00 68 11/26/16 20:00 98.2 74 18 172/72 96 11/26/16 20:00 74 11/26/16 19:00 95 Room Air 11/26/16 18:00 81 11/26/16 18:00 79 11/26/16 16:00 68 11/26/16 16:00 98.0 75 18 151/63 94 11/26/16 14:00 88 11/26/16 12:00 68 11/26/16 12:00 98.0 69 22 138/64 97 11/27/16 07:00 Intake Total 1393 ml Output Total 1170 ml Balance 223 ml Constitutional Vital Signs Date Time Temp Pulse Resp B/P Pulse Ox O2 Delivery O2 Flow Rate FiO2 11/27/16 06:00 74 11/27/16 04:00 98.2 64 20 135/63 92 11/27/16 04:00 64 11/27/16 02:00 64 11/27/16 00:00 98.2 70 23 140/60 94 11/27/16 00:00 70 11/26/16 22:00 68 11/26/16 20:00 98.2 74 18 172/72 96 11/26/16 20:00 74 11/26/16 19:00 95 Room Air 11/26/16 18:00 81 11/26/16 18:00 79 11/26/16 16:00 68 11/26/16 16:00 98.0 75 18 151/63 94 11/26/16 14:00 88 11/26/16 12:00 68 11/26/16 12:00 98.0 69 22 138/64 97 11/27/16 07:00 Intake Total 1393 ml Output Total 1170 ml Balance 223 ml (Dania Carcamo) Review of Systems/Exam Exam Mr. Motley is awake and oriented to name, place, and time. Converses well. Follows commands without difficulties. Right ventriculostomy drain in place, drain site clean with dry dressing. Ventriculostomy drain reopened to 5 cm H20, CSF is clear Extraocular movements intact. Facial motor movement symmetric Neck is soft and supple. No meningismus or nuchal rigidity. Muscle strength is 5/5 in all muscle groups of both upper and lower extremities Sensory examination is intact to light touch in both the upper and lower extremities, symmetrically. Lungs: clear to auscultate b/l Skin: no cyanosis or erythema (Dania Carcamo) Medications Current Medications Current Medications Medications (Trade) Dose Ordered Sig/Kiel Route PRN Reason Start Time Stop Time Status Last Admin Dose Admin Acetaminophen (Tylenol) 500 mg HS PRN PO PAIN 1-4 11/14/16 12:00 Allopurinol (Zyloprim) 300 mg DAILY PO 11/15/16 09:00 11/26/16 08:16 Lisinopril 20 mg 20 mg DAILY PO 11/15/16 09:00 11/26/16 08:16 Pharmacy Profile Note (Vancomycin Consult Pharmacy) ml @ 0 mls/hr UNSCH XX 11/14/16 12:30 Acetaminophen/ Hydrocodone Bitart ([place] 5-325 Mg) 1 tab Q4H PRN PO PAIN 5 TO 10 11/14/16 20:30 11/21/16 20:47 Heparin Sodium (Porcine) (Heparin Inj) 5,000 units Q12HR SQ 11/15/16 21:00 11/26/16 20:32 Ondansetron HCl (Zofran Inj) 4 mg Q6HR PRN IV PUSH NAUSEA 11/16/16 21:00 11/20/16 20:35 Rifampin (Rifampin) 300 mg Q12HR PO 11/17/16 14:15 11/26/16 20:32 Metoclopramide HCl (Reglan Inj) 5 mg Q8HR IV PUSH 11/17/16 22:00 11/27/16 05:10 Morphine Sulfate (Morphine Inj) 2 mg Q3H PRN IV PUSH pain 6 to 10 11/17/16 16:45 Patient Own Medication PT OWN MED: (Loteprednol Jeronimo Negron.. HS RIGHT EYE 11/19/16 21:00 11/26/16 20:33 Enalaprilat (Vasotec Inj) 2.5 mg Q6H PRN IV PUSH SYS BP GREATER THAN 170 MMHG 11/20/16 17:00 11/26/16 20:32 Pantoprazole Sodium (Protonix) 40 mg DAILY PO 11/21/16 09:00 11/26/16 08:16 Clonidine (Catapres) 0.1 mg Q8H PRN PO SYS BP GREATER THAN 180 MMHG 11/21/16 23:45 11/26/16 21:34 Nifedipine (Procardia Xl) 60 mg DAILY PO 11/24/16 09:00 11/26/16 08:16 Hydralazine HCl (Apresoline) 25 mg Q8HR PO 11/23/16 15:00 11/27/16 05:10 Chlorpromazine 25 mg 25 mg Q8H PRN PO HICCUPS 11/24/16 11:45 Vancomycin HCl/ Sodium Chloride (Vancomycin Inj/ NS 250 ml Inj) 250 ml @ 250 mls/hr Q18H IV 11/24/16 17:00 11/26/16 22:06 (Dania Carcamo) Medical Decision Making MDM Remarks 89 y/o presented with AMS, confusion, s/p fall recent replacement of VEGETABLE LOADER MACHINE OPERATOR shunt valve on 10/25/16 for NPH shunt infection with MRSA from shunt tap, s/p removal of VEGETABLE LOADER MACHINE OPERATOR shunt with placement of ventriculostomy drain 11/18/16 CSF reculture 11/24/16 with no growth (Dania Carcamo) Plan Plan Remarks cont antibiotic treatment cont neuro checks VEGETABLE LOADER MACHINE OPERATOR shunt once cleared by ID (Dania Carcamo) Attending Statement The exam, history, and the medical decision-making described in the above note were completed with the assistance of the mid-level provider. I reviewed and agree with the findings presented. I attest that I had a [id number] encounter with the patient on the same day, and personally performed and documented my assessment and findings in the medical record. (Alberto Turpin MD) Dania Carcamo Nov 27, 2016 08:56 Alberto Turpin MD Nov 28, 2016 17:37
[2016-11-27] MEDS: PANTOPRAZOLE SOD 40 MG DELAYED RELEASE TAB PO SCH (10:21)
[2016-11-27] MEDS: NIFEdipine 60 MG SUSTAINED RELEASE TAB PO SCH (10:21)
[2016-11-27] MEDS: ALLOPURINOL 300 MG TAB PO SCH (10:21)
[2016-11-27] MEDS: RIFAMPIN 150 MG CAP PO SCH ×2 (10:22→21:47)
[2016-11-27] MEDS: LISINOPRIL 20 MG TAB PO SCH (10:22)
[2016-11-27] MEDS: HEPARIN SODIUM - SQ 10,000 UNITS/ML VIAL SQ SCH ×2 (10:23→21:48)
--- NOTE | 2016-11-27 11:21 | HHI.PR ---
Subjective Subjective Remarks sitting up in chair, smiling, very pleasant oriented x 3, forgetful at bsd no fever no cp no sob Review of Systems Constitutional Constitutional Remarks 12 point ROS completed, unreliable Vitals/Results Intake & Output 11/26/16 11/26/16 11/27/16 15:00 23:00 07:00 Intake Total 360 ml 385 ml 648 ml Output Total 450 ml 264 ml 456 ml Balance -90 ml 121 ml 192 ml Intake Oral 360 ml 300 ml 300 ml IV Total 85 ml 348 ml Output Urine Total 450 ml 250 ml 425 ml Drainage Total 14 ml 31 ml # Bowel Movements 1 1 0 Vital Signs Vital Signs Date Time Temp Pulse Resp B/P Pulse Ox O2 Delivery O2 Flow Rate FiO2 11/27/16 06:00 74 11/27/16 04:00 98.2 64 20 135/63 92 11/27/16 04:00 64 11/27/16 02:00 64 11/27/16 00:00 98.2 70 23 140/60 94 11/27/16 00:00 70 11/26/16 22:00 68 11/26/16 20:00 98.2 74 18 172/72 96 11/26/16 20:00 74 11/26/16 19:00 95 Room Air 11/26/16 18:00 81 11/26/16 18:00 79 11/26/16 16:00 68 11/26/16 16:00 98.0 75 18 151/63 94 11/26/16 14:00 88 11/26/16 12:00 68 11/26/16 12:00 98.0 69 22 138/64 97 CBC/BMP: 11/27/16 0324 11/27/16 0324 Lab Results Laboratory Tests Test 11/27/16 03:24 White Blood Count 9.4 TH/MM3 Red Blood Count 3.59 MIL/MM3 Hemoglobin 11.6 GM/DL Hematocrit 34.4 % Mean Corpuscular Volume 95.8 FL Mean Corpuscular Hemoglobin 32.3 PG Mean Corpuscular Hemoglobin 33.8 % Concent Red Cell Distribution Width 14.5 % Platelet Count 390 TH/MM3 Mean Platelet Volume 7.6 FL Sodium Level 141 MEQ/L Potassium Level 3.4 MEQ/L Chloride Level 105 MEQ/L Carbon Dioxide Level 28.5 MEQ/L Anion Gap 8 MEQ/L Blood Urea Nitrogen 14 MG/DL Creatinine 0.88 MG/DL Estimat Glomerular Filtration 82 ML/MIN Rate Random Glucose 92 MG/DL Calcium Level 7.7 MG/DL Total Bilirubin 0.4 MG/DL Direct Bilirubin 0.2 MG/DL Indirect Bilirubin 0.2 MG/DL Aspartate Amino Transf 90 U/L (AST/SGOT) Alanine Aminotransferase 103 U/L (ALT/SGPT) Alkaline Phosphatase 78 U/L Total Protein 5.6 GM/DL Albumin 2.2 GM/DL Physical Exam General General Appearance: Well Developed, No Acute Distress, Comfortable Eyes Eye Exam: Pupils Equal, Pupils Reactive, Extraocular Movement Intact Ears & Nose Ears & Nose Exam: Nasal Mucosa [place] Throat Throat Exam: Oral Mucosa [place] & Moist Neck Neck Exam: Neck Supple, Trachea Midline Pulmonary Resp Exam: Clear Bilaterally, Breath Sounds Equal, No Distress Cardiology CV Exam: Regular, Normal Sinus Rhythm Gastrointestinal/Abdomen GI Exam: Soft, Non-Tender, Bowel Sounds Present, Non-Distended Musculoskeletal MS Exam: Joints Intact Integumentary Skin Exam: Warm, Dry Extremeties Extremities Exam: No Edema, Pedal Pulses Palpable Neurologic Neuro Exam: Alert, Awake, Oriented, Speech Clear, Moving All Extremities, No Focal Deficits Neuro Remarks ext. ventricular drain right scalp, dressing D/I Psychiatric Psych Exam: Appropriate Responses VTE Prophylaxis VTE Prophylaxis Device: SCDs PUD Prophylasis PUD Prophylaxis: Protonix Assessment/Plan Assessment/Plan Assessment . progressive confusion, w leukocytosis ,Meningitis , MRSA . History of normal pressure hydrocephalus s/p DRYER FEEDER shunt s/p recent revision.SHUNT related infection . abd pain / distention , Peritonitis d/t infected DRYER FEEDER shunt . Fever d/t to above . s/p fall . Hypertension, . Hyperlipidemia, . History of COPD with scarring. . Microscopic hematuria. . Osteoarthritis. PLAN shunt fluid c/s +ve MRSA following CSF culture last 11/24, negative IV antibiotics per ID s/p removal of DRYER FEEDER shunt & placement of external drain 11/18/16 drain unclamped per NSx, continue AXR abd c/s Ileus -having BMs now/Gen surgery input appreciated, signed off CT abd noted, LLL infiltrate, ileus incentive spirometry PPI for GI prophylaxis Subcutaneous heparin for DVT prophylaxis IV morphine when necessary for pain BP improving, continue with Procardia XL 60 mg PO daily Continue Lisinopril, and PRN Vasotec, Hydralazine PO and Clonidine PT evaluation waiting for ID's input if okay to proceed with shunt insertion this week, cultures from 11/24 negative Replace K mild elevation in LFTs Repeat labs in am CIR evaluation, hopefully to rehab after shunt is implanted D/W RN D/W pt/ D/W Dr. Larsen This patient was seen by myself and Dr. Larsen, this note is written on his behalf. Kimberly Gerardo Nov 27, 2016 11:21
[2016-11-27] MEDS ORDERED: POTASSIUM CL 40 MEQ/30 ML LIQ UDC PO ONE (11:30)
[2016-11-27] MEDS: VANCOMYCIN 1,000 MG/NS 250 ML IV SCH ×2 (17:26)
[2016-11-27] MEDS: LOTEPREDNOL OPTH RIGHT EYE SCH (21:00)
[2016-11-28] VITALS (14 sets, daily range): BP systolic 117–152; BP diastolic 61–81; PULSE 63–90; RESP 16–24; TEMP 97.7–98.4; O2SAT 92–96
[2016-11-28 05:00] LABS: ALKALINE PHOSPHATASE 85 U/L (45-117); ALT (GPT) 124 U/L (12-78); ANION GAP 9 MEQ/L (5-15); AST (GOT) 99 U/L (15-37); BICARBONATE 27.4 MEQ/L (21.0-32.0); BLOOD UREA NITROGEN 14 MG/DL (7-18); CHLORIDE 106 MEQ/L (98-107); GLOMERULAR FILTRATION RATE 86 ML/MIN (>89); POTASSIUM 3.7 MEQ/L (3.5-5.1); SODIUM (NA) 142 MEQ/L (136-145); TOTAL BILIRUBIN ADULT 0.5 MG/DL (0.2-1.0)
[2016-11-28] MEDS: hydrALAZINE HCL 25 MG TAB PO SCH ×3 (05:37→22:05)
[2016-11-28] MEDS: METOCLOPRAMIDE HCL 10 MG/2 ML VIAL IV PUSH SCH ×3 (05:37→21:53)
--- NOTE | 2016-11-28 08:59 | HHI.NSPN ---
(Dania Carcamo) Note Status Status: Progress Note (Dania Carcamo) Interval History Interval History Mr. Motley is a 89 year old male who underwent a FOAM FABRICATOR shunt valve replacement on 10/25/16. He was seen by me on 11/10/16. His surgical incision is healing well without evidence of infection. Mr. Motley had complained in the office of pain, swelling, and tenderness to touch behind his right ear that had gotten worse and Mastoiditis was suspected. A CT Brain was obtained that day without signs of intracranial mass lesions or mastoiditis. He was recommend however to start antibiotics for prophylaxis. Yesterday, he presented to [place] ED following a fall and confusion. He was also hallucinating and had some chills but no fevers. His reported that his post-auricular pain has improved over the weekend. Another CT Brain was taken which was stable. An LP was obtained as well. 11/17: shunt tap on 11/15 showing MRSA, his LP showed no growth. 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 11/21/16: Ventriculoperitoneal shunt removed with placement of ventriculostomy drain on 11/18/16 for shunt infection. He is on IV Vancomycin and Rifampin per ID. Ventriculostomy drain clamped yesterday. 11/22/16: denies headaches, working with PT, slight dizziness upon sitting up on edge of bed, no nausea or vomiting. afebrile 11/23/16: eating breakfast, denies headaches, vomiting, fevers or chills. 11/27/16: CSF reculture 11/24/16 with no growth. doing well, denies any changes over the weekend, ventriculostomy drain open, CSF clear. 11/28: denies headaches, awaiting clearance by ID for FOAM FABRICATOR shunt placement (Dania Carcamo) Labs, Micro, & Vital Signs Results Date Time Temp Pulse Resp B/P Pulse Ox O2 Delivery O2 Flow Rate FiO2 11/28/16 07:00 97 Nasal Cannula 2.00 11/28/16 06:00 68 1/10/17 04:00 98.0 71 20 140/73 96 11/28/16 04:00 71 11/28/16 02:00 67 11/28/16 00:00 63 11/28/16 00:00 97.8 63 22 139/63 96 11/27/16 22:00 68 11/27/16 20:00 97.7 66 21 151/66 98 11/27/16 20:00 66 11/27/16 19:45 98 Nasal Cannula 2.00 11/27/16 19:00 97 Nasal Cannula 2.00 11/27/16 18:00 84 11/27/16 17:34 97 Nasal Cannula 2.00 11/27/16 16:00 70 11/27/16 16:00 97.9 70 22 155/57 97 11/27/16 14:00 74 11/27/16 12:00 90 11/27/16 12:00 97.2 98 20 151/67 97 11/27/16 10:00 92 11/28/16 07:00 Intake Total 1653 ml Output Total 1121 ml Balance 532 ml Constitutional Vital Signs Date Time Temp Pulse Resp B/P Pulse Ox O2 Delivery O2 Flow Rate FiO2 11/28/16 07:00 97 Nasal Cannula 2.00 11/28/16 06:00 68 11/28/16 04:00 98.0 71 20 140/73 96 11/28/16 04:00 71 11/28/16 02:00 67 11/28/16 00:00 63 11/28/16 00:00 97.8 63 22 139/63 96 11/27/16 22:00 68 11/27/16 20:00 97.7 66 21 151/66 98 11/27/16 20:00 66 11/27/16 19:45 98 Nasal Cannula 2.00 11/27/16 19:00 97 Nasal Cannula 2.00 11/27/16 18:00 84 11/27/16 17:34 97 Nasal Cannula 2.00 11/27/16 16:00 70 11/27/16 16:00 97.9 70 22 155/57 97 11/27/16 14:00 74 11/27/16 12:00 90 11/27/16 12:00 97.2 98 20 151/67 97 11/27/16 10:00 92 11/28/16 07:00 Intake Total 1653 ml Output Total 1121 ml Balance 532 ml (Dania Carcamo) Review of Systems/Exam Exam Mr. Motley is awake and oriented to name, place, and time. Converses well. Follows commands without difficulties. Right ventriculostomy drain in place, drain site clean with dry dressing. Ventriculostomy drain reopened to 5 cm H20, CSF is clear Extraocular movements intact. Facial motor movement symmetric Neck is soft and supple. No meningismus or nuchal rigidity. Muscle strength is 5/5 in all muscle groups of both upper and lower extremities Sensory examination is intact to light touch in both the upper and lower extremities, symmetrically. Lungs: clear to auscultate b/l Skin: no cyanosis or erythema (Dania Carcamo) Medications Current Medications Current Medications Medications (Trade) Dose Ordered Sig/[place]iel Route PRN Reason Start Time Stop Time Status Last Admin Dose Admin Acetaminophen (Tylenol) 500 mg HS PRN PO PAIN 1-4 11/14/16 12:00 Allopurinol (Zyloprim) 300 mg DAILY PO 11/15/16 09:00 11/27/16 10:21 Lisinopril 20 mg 20 mg DAILY PO 11/15/16 09:00 11/27/16 10:22 Pharmacy Profile Note (Vancomycin Consult Pharmacy) ml @ 0 mls/hr UNSCH XX 11/14/16 12:30 Acetaminophen/ Hydrocodone Bitart ([place] 5-325 Mg) 1 tab Q4H PRN PO PAIN 5 TO 10 11/14/16 20:30 11/21/16 20:47 Heparin Sodium (Porcine) (Heparin Inj) 5,000 units Q12HR SQ 11/15/16 21:00 11/27/16 21:48 Ondansetron HCl (Zofran Inj) 4 mg Q6HR PRN IV PUSH NAUSEA 11/16/16 21:00 11/20/16 20:35 Rifampin (Rifampin) 300 mg Q12HR PO 11/17/16 14:15 11/27/16 21:47 Metoclopramide HCl (Reglan Inj) 5 mg Q8HR IV PUSH 11/17/16 22:00 11/28/16 05:37 Morphine Sulfate (Morphine Inj) 2 mg Q3H PRN IV PUSH pain 6 to 10 11/17/16 16:45 Patient Own Medication PT OWN MED: (Loteprednol Opth DrSylvie.. HS RIGHT EYE 11/19/16 21:00 11/26/16 20:33 Enalaprilat (Vasotec Inj) 2.5 mg Q6H PRN IV PUSH SYS BP GREATER THAN 170 MMHG 11/20/16 17:00 11/26/16 20:32 Pantoprazole Sodium (Protonix) 40 mg DAILY PO 11/21/16 09:00 11/27/16 10:21 Clonidine (Catapres) 0.1 mg Q8H PRN PO SYS BP GREATER THAN 180 MMHG 11/21/16 23:45 11/26/16 21:34 Nifedipine (Procardia Xl) 60 mg DAILY PO 11/24/16 09:00 11/27/16 10:21 Hydralazine HCl (Apresoline) 25 mg Q8HR PO 11/23/16 15:00 11/28/16 05:37 Chlorpromazine 25 mg 25 mg Q8H PRN PO HICCUPS 11/24/16 11:45 Vancomycin HCl/ Sodium Chloride (Vancomycin Inj/ NS 250 ml Inj) 250 ml @ 250 mls/hr Q18H IV 11/24/16 17:00 11/27/16 17:26 (Dania Carcamo) Medical Decision Making MDM Remarks 89 y/o presented with AMS, confusion, s/p fall recent replacement of FOAM FABRICATOR shunt valve on 10/25/16 for NPH shunt infection with MRSA from shunt tap, s/p removal of FOAM FABRICATOR shunt with placement of ventriculostomy drain 11/18/16 CSF reculture 11/24/16 with no growth (Dania Carcamo) Plan Plan Remarks cont current care cont ventriculostomy draining until placement of permanent shunt awaiting clearance by ID for placement of FOAM FABRICATOR shunt addendum: kathy Price in [facility], recommends repeat CSF today, if continues to be neg by Sunday he is cleared for FOAM FABRICATOR shunt Sunday. using sterile technique, CSF obtained via aspiration from ventriculostomy drain , pt tolerated procedure well, CSF labs ordered (Dania Carcamo) Attending Statement The exam, history, and the medical decision-making described in the above note were completed with the assistance of the mid-level provider. I reviewed and agree with the findings presented. I attest that I had a [id number] encounter with the patient on the same day, and personally performed and documented my assessment and findings in the medical record. (Alberto Turpin MD) Dania Carcamo Nov 28, 2016 08:59 Alberto Turpin MD Dec 03, 2016 20:59
[2016-11-28] MEDS: LISINOPRIL 20 MG TAB PO SCH (09:29)
[2016-11-28] MEDS: PANTOPRAZOLE SOD 40 MG DELAYED RELEASE TAB PO SCH (09:29)
[2016-11-28] MEDS: RIFAMPIN 150 MG CAP PO SCH (09:29)
[2016-11-28] MEDS: ALLOPURINOL 300 MG TAB PO SCH (09:29)
[2016-11-28] MEDS: NIFEdipine 60 MG SUSTAINED RELEASE TAB PO SCH (09:29)
[2016-11-28] MEDS: HEPARIN SODIUM - SQ 10,000 UNITS/ML VIAL SQ SCH ×2 (09:30→21:54)
[2016-11-28] MEDS: VANCOMYCIN 1,000 MG/NS 250 ML IV SCH ×2 (09:30)
--- NOTE | 2016-11-28 11:23 | HHI.PR ---
Subjective Subjective Remarks awake, oriented x 2-3, forgetful no focal deficits no fever no other complaints at bsd ext. ventricular drain in place Review of Systems Constitutional Constitutional Remarks 12 point ROS completed, unreliable Vitals/Results Intake & Output 11/27/16 11/27/16 11/28/16 15:00 23:00 07:00 Intake Total 560 ml 678 ml 415 ml Output Total 357 ml 253 ml 511 ml Balance 203 ml 425 ml -96 ml Intake Oral 440 ml 370 ml 250 ml IV Total 120 ml 308 ml 165 ml Output Urine Total 350 ml 250 ml 500 ml Drainage Total 7 ml 3 ml 11 ml # Bowel Movements 2 Vital Signs Vital Signs Date Time Temp Pulse Resp B/P Pulse Ox O2 Delivery O2 Flow Rate FiO2 11/28/16 10:00 73 11/28/16 08:00 75 11/28/16 08:00 98.4 75 16 144/67 96 11/28/16 07:00 97 Nasal Cannula 2.00 11/28/16 06:00 68 11/28/16 04:00 98.0 71 20 140/73 96 11/28/16 04:00 71 11/28/16 02:00 67 11/28/16 00:00 63 11/28/16 00:00 97.8 63 22 139/63 96 11/27/16 22:00 68 11/27/16 20:00 97.7 66 21 151/66 98 11/27/16 20:00 66 11/27/16 19:45 98 Nasal Cannula 2.00 11/27/16 19:00 97 Nasal Cannula 2.00 11/27/16 18:00 84 11/27/16 17:34 97 Nasal Cannula 2.00 11/27/16 16:00 70 11/27/16 16:00 97.9 70 22 155/57 97 11/27/16 14:00 74 11/27/16 12:00 90 11/27/16 12:00 97.2 98 20 151/67 97 CBC/BMP: 11/27/16 0324 11/28/16 0340 Lab Results Laboratory Tests Test 11/28/16 03:40 Sodium Level 142 MEQ/L Potassium Level 3.7 MEQ/L Chloride Level 106 MEQ/L Carbon Dioxide Level 27.4 MEQ/L Anion Gap 9 MEQ/L Blood Urea Nitrogen 14 MG/DL Creatinine 0.84 MG/DL Estimat Glomerular Filtration 86 ML/MIN Rate Random Glucose 84 MG/DL Calcium Level 7.9 MG/DL Total Bilirubin 0.5 MG/DL Aspartate Amino Transf 99 U/L (AST/SGOT) Alanine Aminotransferase 124 U/L (ALT/SGPT) Alkaline Phosphatase 85 U/L Total Protein 5.9 GM/DL Albumin 2.3 GM/DL Physical Exam General General Appearance: Well Developed, No Acute Distress, Comfortable Eyes Eye Exam: Pupils Equal, Pupils Reactive, Extraocular Movement Intact Ears & Nose Ears & Nose Exam: Nasal Mucosa [place] Throat Throat Exam: Oral Mucosa [place] & Moist Neck Neck Exam: Neck Supple, Trachea Midline Pulmonary Resp Exam: Clear Bilaterally, Breath Sounds Equal, No Distress Cardiology CV Exam: Regular, Normal Sinus Rhythm Gastrointestinal/Abdomen GI Exam: Soft, Non-Tender, Bowel Sounds Present, Non-Distended Musculoskeletal MS Exam: Joints Intact Integumentary Skin Exam: Warm, Dry Extremeties Extremities Exam: No Edema, Pedal Pulses Palpable Neurologic Neuro Exam: Alert, Awake, Oriented, Speech Clear, Moving All Extremities, No Focal Deficits Neuro Remarks ext. ventricular drain right scalp, dressing D/I Psychiatric Psych Exam: Appropriate Responses VTE Prophylaxis VTE Prophylaxis Device: SCDs PUD Prophylasis PUD Prophylaxis: Protonix Assessment/Plan Assessment/Plan Assessment . progressive confusion, w leukocytosis ,Meningitis , MRSA . History of normal pressure hydrocephalus s/p STAFF NUCLEAR WEAPONS OFFICER shunt s/p recent revision.SHUNT related infection . abd pain / distention , Peritonitis d/t infected STAFF [employer]UCLE[employer] WEAPONS OFFICER shunt . Fever d/t to above . s/p fall . Hypertension, . Hyperlipidemia, . History of COPD with scarring. . Microscopic hematuria. . Osteoarthritis. . Elevated LFTs ? medication on Rifampin PLAN shunt fluid c/s +ve MRSA following CSF culture last 11/24, negative IV antibiotics per ID s/p removal of STAFF NUC[employer] OFFICER shunt & placement of external drain 11/18/16 drain unclamped per NSx, continue D/W ID, LFTs going up, will stop Rifampin. Will clear for surgery. Was found with ileus, had , CT abd noted, LLL infiltrate, ileus AXR abd , surgery evaluated, signed off, now having BMs Uncontrolled BP, now improving BP improving, continue with Procardia XL 60 mg PO daily Continue Lisinopril, and PRN Vasotec, Hydralazine PO and Clonidine Incentive spirometry PPI for GI prophylaxis Subcutaneous heparin for DVT prophylaxis IV morphine when necessary for pain Continue with PT Replace K Repeat BMP, LFTs in am Poss. for surgery tomorrow or Sun, and CIR by Sunday D/W RN D/W pt/ D/W Dr. Larsen D/W Dr. Sloan This patient was seen by myself and Dr. Larsen, this note is written on his behalf. Kimberly Gerardo Nov 28, 2016 11:23
--- NOTE | 2016-11-28 15:47 | HHI.IDPN ---
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 He reports that on 10/25/2016 he had replacement of the shunt valve at [facility] by for RECORDS SECTION SUPERVISOR shunt malfunction. Shunt fluid clx was positive for MRSA and shunt was removed and external drain was placed yday Antibiotics rifampin Vanco IV Lines Line sites with no e.o infection. Past Medical History reviewed. Allergies: Coded Allergies: *MDRO Multi-Drug Resistant Organism (Verified Adverse Reaction, Unknown, MRSA, 11/21/16) MRSA (CSF-11/15/16 & head wound-11/18/16) MRSA screen POSITIVE - 11/18/16 Objective . Vital Signs Date Time Temp Pulse Resp B/P Pulse Ox O2 Delivery O2 Flow Rate FiO2 11/28/16 12:00 97.7 74 16 152/68 96 11/28/16 12:00 74 11/28/16 10:00 73 11/28/16 08:00 75 11/28/16 08:00 98.4 75 16 144/67 96 11/28/16 07:00 97 Nasal Cannula 2.00 11/28/16 06:00 68 11/28/16 04:00 98.0 71 20 140/73 96 11/28/16 04:00 71 11/28/16 02:00 67 11/28/16 00:00 63 11/28/16 00:00 97.8 63 22 139/63 96 11/27/16 22:00 68 11/27/16 20:00 97.7 66 21 151/66 98 11/27/16 20:00 66 11/27/16 19:45 98 Nasal Cannula 2.00 11/27/16 19:00 97 Nasal Cannula 2.00 11/27/16 18:00 84 11/27/16 17:34 97 Nasal Cannula 2.00 11/27/16 16:00 70 11/27/16 16:00 97.9 70 22 155/57 97 11/27/16 11/27/16 11/28/16 15:00 23:00 07:00 Intake Total 560 ml 678 ml 415 ml Output Total 357 ml 253 ml 511 ml Balance 203 ml 425 ml -96 ml Intake Oral 440 ml 370 ml 250 ml IV Total 120 ml 308 ml 165 ml Output Urine Total 350 ml 250 ml 500 ml Drainage Total 7 ml 3 ml 11 ml # Bowel Movements 2 . Laboratory Tests Test 11/27/16 03:24 White Blood Count 9.4 TH/MM3 Red Blood Count 3.59 MIL/MM3 Hemoglobin 11.6 GM/DL Hematocrit 34.4 % Mean Corpuscular Volume 95.8 FL Mean Corpuscular Hemoglobin 32.3 PG Mean Corpuscular Hemoglobin 33.8 % Concent Red Cell Distribution Width 14.5 % Platelet Count 390 TH/MM3 Mean Platelet Volume 7.6 FL Laboratory Tests Test 11/27/16 11/28/16 03:24 03:40 Sodium Level 141 MEQ/L 142 MEQ/L Potassium Level 3.4 MEQ/L 3.7 MEQ/L Chloride Level 105 MEQ/L 106 MEQ/L Carbon Dioxide Level 28.5 MEQ/L 27.4 MEQ/L Anion Gap 8 MEQ/L 9 MEQ/L Blood Urea Nitrogen 14 MG/DL 14 MG/DL Creatinine 0.88 MG/DL 0.84 MG/DL Estimat Glomerular Filtration 82 ML/MIN 86 ML/MIN Rate Random Glucose 92 MG/DL 84 MG/DL Calcium Level 7.7 MG/DL 7.9 MG/DL Total Bilirubin 0.4 MG/DL 0.5 MG/DL Direct Bilirubin 0.2 MG/DL Indirect Bilirubin 0.2 MG/DL Aspartate Amino Transf 90 U/L 99 U/L (AST/SGOT) Alanine Aminotransferase 103 U/L 124 U/L (ALT/SGPT) Alkaline Phosphatase 78 U/L 85 U/L Total Protein 5.6 GM/DL 5.9 GM/DL Albumin 2.2 GM/DL 2.3 GM/DL Imaging Abdomen/Pelvis CT 11/19/16 0600 Signed Impressions: Service Date/Time: Saturday, November 19, 2016 05:27 - CONCLUSION: Numerous distended loops of small bowel without evidence of obstructing lesion or significant wall thickening. Solid organs are unremarkable. Cholecystectomy clips. Persistent lower lobe infiltrates right greater left worse than on the 11/14/16 exam . Joseluis Vila MD Chest X-Ray 11/18/16 Signed Impressions: Service Date/Time: Friday, November 18, 2016 12:09 - CONCLUSION: Lower lobe consolidation noted bilaterally. Caleb Murry MD Abdomen X-Ray 11/18/16 Signed Impressions: Service Date/Time: Friday, November 18, 2016 12:13 - CONCLUSION: Abnormally dilated loops of small intestine are noted and a developing small bowel obstruction is not excluded. Caleb Murry MD Pelvis X-Ray 11/14/16621 Signed Impressions: Service Date/Time: Monday, November 14, 2016 06:24 - CONCLUSION: Negative trauma study with no acute fracture or malalignment. Misael Camara MD Head CT 11/14/16621 Signed Impressions: Service Date/Time: Monday, November 14, 2016 07:32 - CONCLUSION: No acute intracranial abnormality. New Manrique MD Cervical Spine CT 11/14/16621 Signed Impressions: Service Date/Time: Monday, November 14, 2016 07:32 - CONCLUSION: 1. No acute abnormality. 2. Diffuse mild degenerative changes without central canal stenosis or neural foraminal narrowing. 3. Calcified plaque involving the carotid arteries. Edwardo Workman Jr., MD Lumbar Puncture Fluoroscopy 11/14/16 Signed Impressions: Service Date/Time: Monday, November 14, 2016 13:55 - CONCLUSION: Uncomplicated fluoroscopically guided lumbar puncture. Edwardo Workman Jr., MD Clavicle X-Ray 11/14/16 Signed Impressions: Service Date/Time: Monday, November 14, 2016 07:50 - CONCLUSION: Intact right clavicle. New Manrique MD Physical Exam GENERAL: Awake and alert, NAD SKIN: No generalized rash HEAD: EVD in place with clear CSF EENT: [place] conjunctivae, no icterus, no injection. Moist oral mucosa CARDIOVASCULAR: HS audible. No murmurs RESPIRATORY: Clear to auscultation. Breath sounds equal bilaterally. No wheezes , rales, or rhonchi. GASTROINTESTINAL: Abdomen soft, nondistended. Has mild tenderness, no guarding MUSCULOSKELETAL: Extremities without clubbing, cyanosis, or edema. No calf tenderness. NEUROLOGICAL: Awake and alert. Psych: cooperative IV line sites with no e/o infection. Assessment & Plan Remarks Sepsis present on admission RECORDS SECTION SUPERVISOR shunt related ventriculitis, MRSA - RECORDS SECTION SUPERVISOR shunt is removed 11/18 Acute metabolic encephalopathy: infection, NPH Elevated CRP. Recs Continue Vanco IV (target trough 15-20 for meningitis) Stop Rifampin Repeat CSf C/S - if negative ok to proceed with RECORDS SECTION SUPERVISOR shunt placement There is still risk, but right now if CSF C/S negative, we can proceed with procedure Monitor clinically Follow C/S Explained plan to patient D/W Puja Webb MD Nov 28, 2016 15:47
[2016-11-28 18:07] LABS: GROSS BLOOD TUBE #1 0 (0); SUPERNATE COLOR TUBE #1 CLEAR (CLEAR)
[2016-11-28 18:08] LABS: CSF LYMPHOCYTES 30 %; CSF NEUTROPHILS 70 %; WBC TUBE #1 10 /MM3 (0-10)
[2016-11-28] MEDS: LOTEPREDNOL OPTH RIGHT EYE SCH (21:00)
[2016-11-28] MEDS: ACETAMINOPHEN/HYDROcodone 325 MG/5 MG TAB PO PRN (22:48)
[2016-11-29] VITALS (14 sets, daily range): BP systolic 124–161; BP diastolic 57–70; PULSE 60–84; RESP 16–29; TEMP 97.8–98.2; O2SAT 95–97
[2016-11-29 04:51] LABS: INDIRECT BILIRUBIN 0.2 MG/DL (0.0-0.8); TOTAL BILIRUBIN ADULT 0.3 MG/DL (0.2-1.0)
[2016-11-29] MEDS: METOCLOPRAMIDE HCL 10 MG/2 ML VIAL IV PUSH SCH ×3 (05:35→21:10)
[2016-11-29] MEDS: VANCOMYCIN 1,000 MG/NS 250 ML IV SCH ×4 (05:35→23:44)
[2016-11-29] MEDS: hydrALAZINE HCL 25 MG TAB PO SCH ×3 (06:00→21:10)
[2016-11-29 06:22] LABS: HEMATOCRIT 33.6 % (39.0-51.0); MEAN CELL VOLUME 95.6 FL (80.0-100.0); MEAN CORPUSCULAR HEMOGLOBIN 32.5 PG (27.0-34.0); PLATELET COUNT 353 TH/MM3 (150-450); RED BLOOD COUNT 3.51 MIL/MM3 (4.50-5.90); RED CELL DISTRIBUTION WIDTH 14.6 % (11.6-17.2); REVIEW FLAG FINAL; WHITE BLOOD COUNT 7.9 TH/MM3 (4.0-11.0)
[2016-11-29 06:38] LABS: PROTHROMBIN TIME - PATIENT 11.1 SEC (9.8-11.6)
[2016-11-29 06:53] LABS: BICARBONATE 27.2 MEQ/L (21.0-32.0); POTASSIUM 3.7 MEQ/L (3.5-5.1)
[2016-11-29] MEDS: NIFEdipine 60 MG SUSTAINED RELEASE TAB PO SCH (09:36)
[2016-11-29] MEDS: PANTOPRAZOLE SOD 40 MG DELAYED RELEASE TAB PO SCH (09:36)
[2016-11-29] MEDS: ALLOPURINOL 300 MG TAB PO SCH (09:36)
[2016-11-29] MEDS: HEPARIN SODIUM - SQ 10,000 UNITS/ML VIAL SQ SCH ×2 (09:36→21:10)
[2016-11-29] MEDS: LISINOPRIL 20 MG TAB PO SCH (09:39)
--- NOTE | 2016-11-29 10:16 | HHI.NSPN ---
(Dania Carcamo) Note Status Status: Progress Note (Dania Carcamo) Interval History Interval History Mr. Motley is a 89 year old male who underwent a AUTOMATION AND CONTROL ENGINEER shunt valve replacement on 10/25/16. He was seen by me on 11/10/16. His surgical incision is healing well without evidence of infection. Mr. Motley had complained in the office of pain, swelling, and tenderness to touch behind his right ear that had gotten worse and Mastoiditis was suspected. A CT Brain was obtained that day without signs of intracranial mass lesions or mastoiditis. He was recommend however to start antibiotics for prophylaxis. Yesterday, he presented to [place] ED following a fall and confusion. He was also hallucinating and had some chills but no fevers. His reported that his post-auricular pain has improved over the weekend. Another CT Brain was taken which was stable. An LP was obtained as well. 11/17: shunt tap on 11/15 showing MRSA, his LP showed no growth. 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 11/21/16: Ventriculoperitoneal shunt removed with placement of ventriculostomy drain on 11/18/16 for shunt infection. He is on IV Vancomycin and Rifampin per ID. Ventriculostomy drain clamped yesterday. 11/22/16: denies headaches, working with PT, slight dizziness upon sitting up on edge of bed, no nausea or vomiting. afebrile 11/23/16: eating breakfast, denies headaches, vomiting, fevers or chills. 11/27/16: CSF reculture 11/24/16 with no growth. doing well, denies any changes over the weekend, ventriculostomy drain open, CSF clear. 11/28: denies headaches, awaiting clearance by ID for AUTOMATION AND CONTROL ENGINEER shunt placement 11/29: repeat CSF so far no organisms, final cultures pending. no changes overnight. (Dania Carcamo) Labs, Micro, & Vital Signs Results Date Time Temp Pulse Resp B/P Pulse Ox O2 Delivery O2 Flow Rate FiO2 11/29/16 07:54 95 Nasal Cannula 2.00 11/29/16 06:00 75 11/29/16 04:00 98.0 63 16 157/70 97 11/29/16 04:00 63 11/29/16 02:00 75 11/29/16 00:00 71 11/29/16 00:00 98.1 71 16 124/57 96 11/28/16 22:00 90 11/28/16 20:00 98.0 90 24 127/61 92 11/28/16 20:00 90 11/28/16 19:40 94 11/28/16 19:00 91 Nasal Cannula 2.00 11/28/16 18:38 96 Nasal Cannula 2.00 11/28/16 18:00 65 11/28/16 16:00 98.2 75 24 117/81 96 11/28/16 16:00 75 11/28/16 14:00 77 11/28/16 12:00 97.7 74 16 152/68 96 11/28/16 12:00 74 11/29/16 07:00 Intake Total 1815 ml Output Total 1239 ml Balance 576 ml Constitutional Vital Signs Date Time Temp Pulse Resp B/P Pulse Ox O2 Delivery O2 Flow Rate FiO2 11/29/16 07:54 95 Nasal Cannula 2.00 11/29/16 06:00 75 11/29/16 04:00 98.0 63 16 157/70 97 11/29/16 04:00 63 11/29/16 02:00 75 11/29/16 00:00 71 11/29/16 00:00 98.1 71 16 124/57 96 11/28/16 22:00 90 11/28/16 20:00 98.0 90 24 127/61 92 11/28/16 20:00 90 11/28/16 19:40 94 11/28/16 19:00 91 Nasal Cannula 2.00 11/28/16 18:38 96 Nasal Cannula 2.00 11/28/16 18:00 65 11/28/16 16:00 98.2 75 24 117/81 96 11/28/16 16:00 75 11/28/16 14:00 77 11/28/16 12:00 97.7 74 16 152/68 96 11/28/16 12:00 74 11/29/16 07:00 Intake Total 1815 ml Output Total 1239 ml Balance 576 ml (Dania Carcamo) Review of Systems/Exam Exam Mr. Motley is awake and oriented to name, place, and time. Converses well. Follows commands without difficulties. Right ventriculostomy drain in place, drain site clean with dry dressing. CN: pupils equal, Extraocular movements intact. Facial motor movement symmetric. Tongue midline. Neck is soft and supple. No meningismus or nuchal rigidity. Muscle strength is 5/5 in all muscle groups of both upper and lower extremities Skin: no cyanosis or erythema (Dania Carcamo) Medications Current Medications Current Medications Medications (Trade) Dose Ordered Sig/Kiel Route PRN Reason Start Time Stop Time Status Last Admin Dose Admin Acetaminophen (Tylenol) 500 mg HS PRN PO PAIN 1-4 11/14/16 12:00 Allopurinol (Zyloprim) 300 mg DAILY PO 11/15/16 09:00 11/29/16 09:36 Lisinopril 20 mg 20 mg DAILY PO 11/15/16 09:00 11/29/16 09:39 Pharmacy Profile Note (Vancomycin Consult Pharmacy) ml @ 0 mls/hr UNSCH XX 11/14/16 12:30 Acetaminophen/ Hydrocodone Bitart ([place] 5-325 Mg) 1 tab Q4H PRN PO PAIN 5 TO 10 11/14/16 20:30 11/28/16 22:48 Heparin Sodium (Porcine) (Heparin Inj) 5,000 units Q12HR SQ 11/15/16 21:00 11/29/16 09:36 Ondansetron HCl (Zofran Inj) 4 mg Q6HR PRN IV PUSH NAUSEA 11/16/16 21:00 11/20/16 20:35 Metoclopramide HCl (Reglan Inj) 5 mg Q8HR IV PUSH 11/17/16 22:00 11/29/16 05:35 Morphine Sulfate (Morphine Inj) 2 mg Q3H PRN IV PUSH pain 6 to 10 11/17/16 16:45 Patient Own Medication PT OWN MED: (Loteprednol Jeronimo Negron.. HS RIGHT EYE 11/19/16 21:00 11/26/16 20:33 Enalaprilat (Vasotec Inj) 2.5 mg Q6H PRN IV PUSH SYS BP GREATER THAN 170 MMHG 11/20/16 17:00 11/26/16 20:32 Pantoprazole Sodium (Protonix) 40 mg DAILY PO 11/21/16 09:00 11/29/16 09:36 Clonidine (Catapres) 0.1 mg Q8H PRN PO SYS BP GREATER THAN 180 MMHG 11/21/16 23:45 11/26/16 21:34 Nifedipine (Procardia Xl) 60 mg DAILY PO 11/24/16 09:00 11/29/16 09:36 Hydralazine HCl (Apresoline) 25 mg Q8HR PO 11/23/16 15:00 11/28/16 22:05 Chlorpromazine 25 mg 25 mg Q8H PRN PO HICCUPS 11/24/16 11:45 Vancomycin HCl/ Sodium Chloride (Vancomycin Inj/ NS 250 ml Inj) 250 ml @ 250 mls/hr Q18H IV 11/24/16 17:00 11/29/16 05:35 (Dania Carcamo) Medical Decision Making MDM Remarks 89 y/o presented with AMS, confusion, s/p fall recent replacement of AUTOMATION AND CONTROL ENGINEER shunt valve on 10/25/16 for NPH shunt infection with MRSA from shunt tap, s/p removal of AUTOMATION AND CONTROL ENGINEER shunt with placement of ventriculostomy drain 11/18/16 CSF reculture 11/24/16 with no growth, reculture of CSF 11/29/16 so far no organisms (Dania Carcamo) Plan Plan Remarks f/u final CSF cultures, if neg plan for AUTOMATION AND CONTROL ENGINEER shunt this sunday cont current care dw patient and in room (Dania Carcamo) Attending Statement The exam, history, and the medical decision-making described in the above note were completed with the assistance of the mid-level provider. I reviewed and agree with the findings presented. I attest that I had a [id number] encounter with the patient on the same day, and personally performed and documented my assessment and findings in the medical record. (Alberto Turpin MD) Dania Carcamo Nov 29, 2016 10:15 Alberto Turpin MD Dec 03, 2016 21:03
--- NOTE | 2016-11-29 12:56 | HHI.PR ---
Subjective Subjective Remarks awake, oriented x 2-3, forgetful no focal deficits no fever no other complaints at bsd ext. ventricular drain in place asking about RAILROAD INSPECTOR shunt, anxious to have procedure done Review of Systems Constitutional Constitutional Remarks 12 point ROS completed, unreliable Vitals/Results Intake & Output 11/28/16 11/28/16 11/29/16 15:00 23:00 07:00 Intake Total 1078 ml 385 ml 352 ml Output Total 510 ml 458 ml 271 ml Balance 568 ml -73 ml 81 ml Intake Oral 720 ml 250 ml 200 ml IV Total 358 ml 135 ml 152 ml Output Urine Total 500 ml 450 ml 250 ml Drainage Total 10 ml 8 ml 21 ml # Bowel Movements 1 Vital Signs Vital Signs Date Time Temp Pulse Resp B/P Pulse Ox O2 Delivery O2 Flow Rate FiO2 11/29/16 12:00 97.8 75 29 143/65 96 11/29/16 12:00 75 11/29/16 10:00 84 11/29/16 08:00 62 11/29/16 08:00 98.2 62 29 161/69 96 11/29/16 07:54 95 Nasal Cannula 2.00 11/29/16 07:00 94 Nasal Cannula 2.00 11/29/16 06:00 75 11/29/16 04:00 98.0 63 16 157/70 97 11/29/16 04:00 63 11/29/16 02:00 75 11/29/16 00:00 71 11/29/16 00:00 98.1 71 16 124/57 96 11/28/16 22:00 90 11/28/16 20:00 98.0 90 24 127/61 92 11/28/16 20:00 90 11/28/16 19:40 94 11/28/16 19:00 91 Nasal Cannula 2.00 11/28/16 18:38 96 Nasal Cannula 2.00 11/28/16 18:00 65 11/28/16 16:00 98.2 75 24 117/81 96 11/28/16 16:00 75 11/28/16 14:00 77 CBC/BMP: 11/29/16 0557 11/29/16 0557 Lab Results Laboratory Tests Test 11/28/16 11/29/16 11/29/16 15:30 03:26 05:57 CSF Volume (Tube 1) 5.0 ML CSF Supernatant Color (tube 1) CLEAR CSF Gross Blood (Tube 1) 0 CSF WBC (Tube 1) 10 /MM3 CSF RBC (Tube 1) 7 /MM3 CSF Neutrophils 70 % CSF Lymphocytes 30 % CSF Glucose 66 MG/DL CSF Total Protein 41.8 MG/DL Creatinine 0.91 MG/DL 0.87 MG/DL Estimat Glomerular Filtration 78 ML/MIN 83 ML/MIN Rate Total Bilirubin 0.3 MG/DL Direct Bilirubin 0.1 MG/DL Indirect Bilirubin 0.2 MG/DL Aspartate Amino Transf 97 U/L (AST/SGOT) Alanine Aminotransferase 129 U/L (ALT/SGPT) Alkaline Phosphatase 82 U/L Total Protein 5.8 GM/DL Albumin 2.3 GM/DL White Blood Count 7.9 TH/MM3 Red Blood Count 3.51 MIL/MM3 Hemoglobin 11.4 GM/DL Hematocrit 33.6 % Mean Corpuscular Volume 95.6 FL Mean Corpuscular Hemoglobin 32.5 PG Mean Corpuscular Hemoglobin 34.0 % Concent Red Cell Distribution Width 14.6 % Platelet Count 353 TH/MM3 Mean Platelet Volume 7.1 FL Prothrombin Time 11.1 SEC Prothromb Time International 1.0 RATIO Ratio Sodium Level 142 MEQ/L Potassium Level 3.7 MEQ/L Chloride Level 107 MEQ/L Carbon Dioxide Level 27.2 MEQ/L Anion Gap 8 MEQ/L Blood Urea Nitrogen 13 MG/DL Random Glucose 94 MG/DL Calcium Level 8.1 MG/DL Blood Type A POSITIVE Antibody Screen NEGATIVE Blood Bank Comment Microbiology Microbiology 11/28/16 Gram Stain - Final, Resulted 11/28/16 CSF Culture - Preliminary, Resulted NO GROWTH IN 24 HOURS. Physical Exam General General Appearance: Well Developed, No Acute Distress, Comfortable Eyes Eye Exam: Pupils Equal, Pupils Reactive, Extraocular Movement Intact Ears & Nose Ears & Nose Exam: Nasal Mucosa [place] Throat Throat Exam: Oral Mucosa [place] & Moist Neck Neck Exam: Neck Supple, Trachea Midline Pulmonary Resp Exam: Clear Bilaterally, Breath Sounds Equal, No Distress Cardiology CV Exam: Regular, Normal Sinus Rhythm Gastrointestinal/Abdomen GI Exam: Soft, Non-Tender, Bowel Sounds Present, Non-Distended Musculoskeletal MS Exam: Joints Intact Integumentary Skin Exam: Warm, Dry Extremeties Extremities Exam: No Edema, Pedal Pulses Palpable Neurologic Neuro Exam: Alert, Awake, Oriented, Speech Clear, Moving All Extremities, No Focal Deficits Neuro Remarks ext. ventricular drain right scalp, dressing D/I Psychiatric Psych Exam: Appropriate Responses VTE Prophylaxis VTE Prophylaxis Device: SCDs PUD Prophylasis PUD Prophylaxis: Protonix Assessment/Plan Assessment/Plan Assessment . progressive confusion, w leukocytosis ,Meningitis , MRSA . 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 abd pain / distention , Peritonitis d/t infected RAILROAD INSPECTOR shunt . Fever d/t to above . s/p fall . Hypertension, . Hyperlipidemia, . History of COPD with scarring. . Microscopic hematuria. . Osteoarthritis. . Elevated LFTs ? medication on Rifampin PLAN shunt fluid c/s +ve MRSA IV antibiotics per ID s/p removal of RAILROAD INSPECTOR shunt & placement of external drain 11/18/16 drain unclamped per NSx, continue D/W ID, LFTs going up, Rifampin stopped. CSF culture last 11/24, negative Repeat CSF cultures 11/28 negative per ID, if last culture remains negative, ok to proceed with RAILROAD INSPECTOR shunt RAILROAD INSPECTOR shunt tentatively scheduled for Sunday12/01/2016 Was found with ileus, had , CT abd noted, LLL infiltrate, ileus AXR abd , surgery evaluated, signed off, now having BMs Stable Uncontrolled BP, now improving BP improving, continue with Procardia XL 60 mg PO daily Continue Lisinopril, and PRN Vasotec, Hydralazine PO and Clonidine Incentive spirometry PPI for GI prophylaxis Subcutaneous heparin for DVT prophylaxis IV morphine when necessary for pain Continue with PT LFTs elevated, no change, will repeat 2 days For RAILROAD INSPECTOR shunt sunday if cultures remain negative leave in ICU for now, has external drain D/W RN D/W pt/ D/W Dr. Larsen This patient was seen by myself and Dr. Larsen, this note is written on his behalf. Kimberly Gerardo Nov 29, 2016 12:56
[2016-11-29] MEDS: LOTEPREDNOL OPTH RIGHT EYE SCH (21:00)
[2016-11-30] VITALS (14 sets, daily range): BP systolic 142–168; BP diastolic 65–75; PULSE 60–84; RESP 14–31; TEMP 97.4–98.1; O2SAT 95–98
[2016-11-30] MEDS: METOCLOPRAMIDE HCL 10 MG/2 ML VIAL IV PUSH SCH ×3 (05:10→21:16)
[2016-11-30] MEDS: hydrALAZINE HCL 25 MG TAB PO SCH ×3 (05:10→21:16)
[2016-11-30] MEDS: NIFEdipine 60 MG SUSTAINED RELEASE TAB PO SCH (08:33)
[2016-11-30] MEDS: LISINOPRIL 20 MG TAB PO SCH (08:33)
[2016-11-30] MEDS: PANTOPRAZOLE SOD 40 MG DELAYED RELEASE TAB PO SCH (08:33)
[2016-11-30] MEDS: ALLOPURINOL 300 MG TAB PO SCH (08:33)
[2016-11-30] MEDS: HEPARIN SODIUM - SQ 10,000 UNITS/ML VIAL SQ SCH (08:34)
--- NOTE | 2016-11-30 11:38 | HHI.PR ---
Subjective Subjective Remarks awake, oriented x 2-3, forgetful no focal deficits no fever no other complaints at bsd ext. ventricular drain in place c/o nausea, appetite fair, ate better yesterday Review of Systems Constitutional Constitutional Remarks 12 point ROS completed, unreliable Vitals/Results Intake & Output 11/29/16 11/29/16 11/30/16 15:00 23:00 07:00 Intake Total 821 ml 549 ml 657 ml Output Total 325 ml 200 ml 865 ml Balance 496 ml 349 ml -208 ml Intake Oral 450 ml 400 ml 250 ml IV Total 371 ml 149 ml 407 ml Output Urine Total 275 ml 200 ml 850 ml Drainage Total 50 ml 0 ml 15 ml # Bowel Movements 1 1 Vital Signs Vital Signs Date Time Temp Pulse Resp B/P Pulse Ox O2 Delivery O2 Flow Rate FiO2 11/30/16 09:14 96 Nasal Cannula 2.00 11/30/16 07:00 96 Nasal Cannula 2.00 11/30/16 06:00 68 11/30/16 04:00 98.1 66 23 150/65 96 11/30/16 04:00 66 11/30/16 02:00 76 11/30/16 00:00 76 11/30/16 00:00 98.0 76 14 148/66 96 11/29/16 22:00 70 11/29/16 20:44 96 Nasal Cannula 2.00 11/29/16 20:00 72 11/29/16 20:00 98.0 72 22 148/67 97 11/29/16 19:00 97 Nasal Cannula 2.00 11/29/16 18:00 66 11/29/16 16:00 60 11/29/16 16:00 98.2 60 26 144/67 97 11/29/16 14:00 74 11/29/16 12:00 97.8 75 29 143/65 96 11/29/16 12:00 75 CBC/BMP: 11/29/16 0557 11/29/16 0557 Physical Exam General General Appearance: Well Developed, No Acute Distress, Comfortable Eyes Eye Exam: Pupils Equal, Pupils Reactive, Extraocular Movement Intact Ears & Nose Ears & Nose Exam: Nasal Mucosa [place] Throat Throat Exam: Oral Mucosa [place] & Moist Neck Neck Exam: Neck Supple, Trachea Midline Pulmonary Resp Exam: Clear Bilaterally, Breath Sounds Equal, No Distress Cardiology CV Exam: Regular, Normal Sinus Rhythm Gastrointestinal/Abdomen GI Exam: Soft, Non-Tender, Bowel Sounds Present, Non-Distended Musculoskeletal MS Exam: Joints Intact Integumentary Skin Exam: Warm, Dry Extremeties Extremities Exam: No Edema, Pedal Pulses Palpable Neurologic Neuro Exam: Alert, Awake, Oriented, Speech Clear, Moving All Extremities, No Focal Deficits Neuro Remarks ext. ventricular drain right scalp, dressing D/I Psychiatric Psych Exam: Appropriate Responses VTE Prophylaxis VTE Prophylaxis Device: SCDs PUD Prophylasis PUD Prophylaxis: Protonix Assessment/Plan Assessment/Plan Assessment . progressive confusion, w leukocytosis ,Meningitis , MRSA . History of normal pressure hydrocephalus s/p INVESTIGATOR INTERNAL REVENUE shunt s/p recent revision.SHUNT related infection . abd pain / distention , Peritonitis d/t infected INVESTIGATOR INTERNAL REVENUE shunt . Fever d/t to above . s/p fall . Hypertension, . Hyperlipidemia, . History of COPD with scarring. . Microscopic hematuria. . Osteoarthritis. . Elevated LFTs ? medication on Rifampin PLAN shunt fluid c/s +ve MRSA IV antibiotics per ID s/p removal of INVESTIGATOR [employer] REVENUE shunt & placement of external drain 11/18/16 drain unclamped per NSx, continue D/W ID, LFTs going up, Rifampin stopped. CSF culture last 11/24, negative Repeat CSF cultures 11/28 negative per ID, if last culture remains negative, ok to proceed with INVESTIGATOR [employer] REVENUE shunt INVESTIGATOR [employer]NAL REVENUE shunt tentatively scheduled for Sunday12/01/2016 Was found with ileus, had , CT abd noted, LLL infiltrate, ileus AXR abd , surgery evaluated, signed off, now having BMs Stable Uncontrolled BP, now improving BP improving, continue with Procardia XL 60 mg PO daily Continue Lisinopril, and PRN Vasotec, Hydralazine PO and Clonidine Incentive spirometry PPI for GI prophylaxis Subcutaneous heparin for DVT prophylaxis IV morphine when necessary for pain Continue with PT LFTs in am For INVESTIGATOR [employer] REVEN[employer] shunt sunday if cultures remain negative-negative so far leave in ICU for now, has external drain D/W RN D/W pt/ D/W Dr. Larsen This patient was seen by myself and Dr. Larsen, this note is written on his behalf. Kimberly Gerardo Nov 30, 2016 11:38
[2016-11-30] MEDS: ONDANSETRON HCL 4 MG/2 ML VIAL IV PUSH PRN (11:59)
[2016-11-30] MEDS ORDERED: ceFAZolin 2 GM PREMIX 50 ML IV ONE (12:00)
[2016-11-30] MEDS ORDERED: VANCOMYCIN INJ 1,000 MG in SODIUM CHLOR 0.9% 250 ML INJ 250 ML IV ONE (12:00)
[2016-11-30] MEDS: SODIUM CHLOR 0.9% 1000 ML INJ 1,000 ML IV SCH ×2 (12:00→21:17)
--- NOTE | 2016-11-30 12:01 | HHI.NSPN ---
(Dania Carcamo) Note Status Status: Progress Note (Dania Carcamo) Interval History Interval History Mr. Motley is a 89 year old male who underwent a AMBULANCE ATTENDANT shunt valve replacement on 10/25/16. He was seen by me on 11/10/16. His surgical incision is healing well without evidence of infection. Mr. Motley had complained in the office of pain, swelling, and tenderness to touch behind his right ear that had gotten worse and Mastoiditis was suspected. A CT Brain was obtained that day without signs of intracranial mass lesions or mastoiditis. He was recommend however to start antibiotics for prophylaxis. Yesterday, he presented to [facility] ED following a fall and confusion. He was also hallucinating and had some chills but no fevers. His reported that his post-auricular pain has improved over the weekend. Another CT Brain was taken which was stable. An LP was obtained as well. 11/17: shunt tap on 11/15 showing MRSA, his LP showed no growth. 89-year-old male status post AMBULANCE ATTENDANT shunt placement approximately 2010 in [place] for treatment of NPH. 11/21/16: Ventriculoperitoneal shunt removed with placement of ventriculostomy drain on 11/18/16 for shunt infection. He is on IV Vancomycin and Rifampin per ID. Ventriculostomy drain clamped yesterday. 11/22/16: denies headaches, working with PT, slight dizziness upon sitting up on edge of bed, no nausea or vomiting. afebrile 11/23/16: eating breakfast, denies headaches, vomiting, fevers or chills. 11/27/16: CSF reculture 11/24/16 with no growth. doing well, denies any changes over the weekend, ventriculostomy drain open, CSF clear. 11/28: denies headaches, awaiting clearance by ID for AMBULANCE ATTENDANT shunt placement 11/29: repeat CSF so far no organisms, final cultures pending. no changes overnight. 11/30: so far culture neg past 24 hours, afebrile. AMBULANCE ATTENDANT shunt planned for tomorrow (Dania Carcamo) Labs, Micro, & Vital Signs Results Date Time Temp Pulse Resp B/P Pulse Ox O2 Delivery O2 Flow Rate FiO2 11/30/16 10:00 74 11/30/16 09:14 96 Nasal Cannula 2.00 11/30/16 08:00 66 11/30/16 08:00 98.0 66 22 142/68 96 11/30/16 07:00 96 Nasal Cannula 2.00 11/30/16 06:00 68 11/30/16 04:00 98.1 66 23 150/65 96 11/30/16 04:00 66 11/30/16 02:00 76 11/30/16 00:00 76 11/30/16 00:00 98.0 76 14 148/66 96 11/29/16 22:00 70 11/29/16 20:44 96 Nasal Cannula 2.00 11/29/16 20:00 72 11/29/16 20:00 98.0 72 22 148/67 97 11/29/16 19:00 97 Nasal Cannula 2.00 11/29/16 18:00 66 11/29/16 16:00 60 11/29/16 16:00 98.2 60 26 144/67 97 11/29/16 14:00 74 11/29/16 12:00 97.8 75 29 143/65 96 11/29/16 12:00 75 11/30/16 07:00 Intake Total 2027 ml Output Total 1390 ml Balance 637 ml Constitutional Vital Signs Date Time Temp Pulse Resp B/P Pulse Ox O2 Delivery O2 Flow Rate FiO2 11/30/16 10:00 74 11/30/16 09:14 96 Nasal Cannula 2.00 11/30/16 08:00 66 11/30/16 08:00 98.0 66 22 142/68 96 11/30/16 07:00 96 Nasal Cannula 2.00 11/30/16 06:00 68 11/30/16 04:00 98.1 66 23 150/65 96 11/30/16 04:00 66 11/30/16 02:00 76 11/30/16 00:00 76 11/30/16 00:00 98.0 76 14 148/66 96 11/29/16 22:00 70 11/29/16 20:44 96 Nasal Cannula 2.00 11/29/16 20:00 72 11/29/16 20:00 98.0 72 22 148/67 97 11/29/16 19:00 97 Nasal Cannula 2.00 11/29/16 18:00 66 11/29/16 16:00 60 11/29/16 16:00 98.2 60 26 144/67 97 11/29/16 14:00 74 11/29/16 12:00 97.8 75 29 143/65 96 11/29/16 12:00 75 11/30/16 07:00 Intake Total 2027 ml Output Total 1390 ml Balance 637 ml (Dania Carcamo) Review of Systems/Exam Exam Mr. Motley is awake and oriented to name, place, and time. Converses well. Follows commands without difficulties. Right ventriculostomy drain in place, drain site clean with dry dressing. CN: pupils equal, Extraocular movements intact. Facial motor movement symmetric. Tongue midline. Neck is soft and supple. No meningismus or nuchal rigidity. Muscle strength is 5/5 in all muscle groups of both upper and lower extremities Skin: no cyanosis or erythema (Dania Carcamo) Medications Current Medications Current Medications Medications (Trade) Dose Ordered Sig/Kiel Route PRN Reason Start Time Stop Time Status Last Admin Dose Admin Acetaminophen (Tylenol) 500 mg HS PRN PO PAIN 1-4 11/14/16 12:00 Allopurinol (Zyloprim) 300 mg DAILY PO 11/15/16 09:00 11/30/16 08:33 Lisinopril 20 mg 20 mg DAILY PO 11/15/16 09:00 11/30/16 08:33 Pharmacy Profile Note (Vancomycin Consult Pharmacy) ml @ 0 mls/hr UNSCH XX 11/14/16 12:30 Acetaminophen/ Hydrocodone Bitart ([place] 5-325 Mg) 1 tab Q4H PRN PO PAIN 5 TO 10 11/14/16 20:30 11/28/16 22:48 Heparin Sodium (Porcine) (Heparin Inj) 5,000 units Q12HR SQ 11/15/16 21:00 11/30/16 08:34 Ondansetron HCl (Zofran Inj) 4 mg Q6HR PRN IV PUSH NAUSEA 11/16/16 21:00 11/20/16 20:35 Metoclopramide HCl (Reglan Inj) 5 mg Q8HR IV PUSH 11/17/16 22:00 11/30/16 05:10 Morphine Sulfate (Morphine Inj) 2 mg Q3H PRN IV PUSH pain 6 to 10 11/17/16 16:45 Patient Own Medication PT OWN MED: (Loteprednol Opth .. HS RIGHT EYE 11/19/16 21:00 11/26/16 20:33 Enalaprilat (Vasotec Inj) 2.5 mg Q6H PRN IV PUSH SYS BP GREATER THAN 170 MMHG 11/20/16 17:00 11/26/16 20:32 Pantoprazole Sodium (Protonix) 40 mg DAILY PO 11/21/16 09:00 11/30/16 08:33 Clonidine (Catapres) 0.1 mg Q8H PRN PO SYS BP GREATER THAN 180 MMHG 11/21/16 23:45 11/26/16 21:34 Nifedipine (Procardia Xl) 60 mg DAILY PO 11/24/16 09:00 11/30/16 08:33 Hydralazine HCl (Apresoline) 25 mg Q8HR PO 11/23/16 15:00 11/30/16 05:10 Chlorpromazine 25 mg 25 mg Q8H PRN PO HICCUPS 11/24/16 11:45 Vancomycin HCl/ Sodium Chloride (Vancomycin Inj/ NS 250 ml Inj) 250 ml @ 250 mls/hr Q18H IV 11/24/16 17:00 11/29/16 23:44 (Dania Carcamo) Medical Decision Making MDM Remarks 89 y/o presented with AMS, confusion, s/p fall recent replacement of AMBULANCE ATTENDANT shunt valve on 10/25/16 for NPH shunt infection with MRSA from shunt tap, s/p removal of AMBULANCE ATTENDANT shunt with placement of ventriculostomy drain 11/18/16 CSF reculture 11/24/16 with no growth, reculture of CSF 11/29/16 so far cultures negative (Dania Carcamo) Plan Plan Remarks f/u final CSF cultures, if neg plan for AMBULANCE ATTENDANT shunt tomorrow NPO midnight (Dania Carcamo) Attending Statement The exam, history, and the medical decision-making described in the above note were completed with the assistance of the mid-level provider. I reviewed and agree with the findings presented. I attest that I had a [id number] encounter with the patient on the same day, and personally performed and documented my assessment and findings in the medical record. (Alberto Turpin MD) Dania Carcamo Nov 30, 2016 12:01 Alberto Turpin MD Dec 03, 2016 18:27
--- NOTE | 2016-11-30 16:00 | HHI.IDPN ---
Subjective Subjective Remarks Notes reviewed Temps ok Denies MICHAEL No fever Repeat CSF only 10 WBC, C/S negative 48 hours CSF C/S 11/24 negative Intraop CSF with MRSA Had removal of EMT P shunt 11/18 and has ventriculostomy in place is an 89 y/o CM with PMHx of NPH s/p EMT P shunt placement in 2010 at [facility]. He reports that on 10/25/2016 he had replacement of the shunt valve at [facility] by for EMT P shunt malfunction. Shunt fluid clx was positive for MRSA and shunt was removed and external drain was placed yday Antibiotics Vanco IV Lines Line sites with no e.o infection. Past Medical History reviewed. Allergies: Coded Allergies: *MDRO Multi-Drug Resistant Organism (Verified Adverse Reaction, Unknown, MRSA, 11/21/16) MRSA (CSF-11/15/16 & head wound-11/18/16) MRSA screen POSITIVE - 11/18/16 Objective . Vital Signs Date Time Temp Pulse Resp B/P Pulse Ox O2 Delivery O2 Flow Rate FiO2 11/30/16 12:00 84 11/30/16 12:00 97.7 84 31 161/73 96 11/30/16 10:00 74 11/30/16 09:14 96 Nasal Cannula 2.00 11/30/16 08:00 66 11/30/16 08:00 98.0 66 22 142/68 96 11/30/16 07:00 96 Nasal Cannula 2.00 11/30/16 06:00 68 11/30/16 04:00 98.1 66 23 150/65 96 11/30/16 04:00 66 11/30/16 02:00 76 11/30/16 00:00 76 11/30/16 00:00 98.0 76 14 148/66 96 11/29/16 22:00 70 11/29/16 20:44 96 Nasal Cannula 2.00 11/29/16 20:00 72 11/29/16 20:00 98.0 72 22 148/67 97 11/29/16 19:00 97 Nasal Cannula 2.00 11/29/16 18:00 66 11/29/16 16:00 60 11/29/16 16:00 98.2 60 26 144/67 97 11/29/16 11/29/16 11/30/16 15:00 23:00 07:00 Intake Total 821 ml 549 ml 657 ml Output Total 325 ml 200 ml 865 ml Balance 496 ml 349 ml -208 ml Intake Oral 450 ml 400 ml 250 ml IV Total 371 ml 149 ml 407 ml Output Urine Total 275 ml 200 ml 850 ml Drainage Total 50 ml 0 ml 15 ml # Bowel Movements 1 1 . Laboratory Tests Test 11/29/16 05:57 White Blood Count 7.9 TH/MM3 Red Blood Count 3.51 MIL/MM3 Hemoglobin 11.4 GM/DL Hematocrit 33.6 % Mean Corpuscular Volume 95.6 FL Mean Corpuscular Hemoglobin 32.5 PG Mean Corpuscular Hemoglobin 34.0 % Concent Red Cell Distribution Width 14.6 % Platelet Count 353 TH/MM3 Mean Platelet Volume 7.1 FL Laboratory Tests Test 11/29/16 11/29/16 03:26 05:57 Creatinine 0.91 MG/DL 0.87 MG/DL Estimat Glomerular Filtration 78 ML/MIN 83 ML/MIN Rate Total Bilirubin 0.3 MG/DL Direct Bilirubin 0.1 MG/DL Indirect Bilirubin 0.2 MG/DL Aspartate Amino Transf 97 U/L (AST/SGOT) Alanine Aminotransferase 129 U/L (ALT/SGPT) Alkaline Phosphatase 82 U/L Total Protein 5.8 GM/DL Albumin 2.3 GM/DL Sodium Level 142 MEQ/L Potassium Level 3.7 MEQ/L Chloride Level 107 MEQ/L Carbon Dioxide Level 27.2 MEQ/L Anion Gap 8 MEQ/L Blood Urea Nitrogen 13 MG/DL Random Glucose 94 MG/DL Calcium Level 8.1 MG/DL Microbiology Date/Time Procedure Status Source Growth 11/28/16 15:30 Gram Stain - Final Resulted Cerebral Spinal Fluid Shunt Fluid 11/28/16 15:30 CSF Culture - Preliminary Resulted Cerebral Spinal Fluid Shunt Fluid NO GROWTH IN 48 HOURS. Imaging Abdomen/Pelvis CT 11/19/16 0600 Signed Impressions: Service Date/Time: Saturday, November 19, 2016 05:27 - CONCLUSION: Numerous distended loops of small bowel without evidence of obstructing lesion or significant wall thickening. Solid organs are unremarkable. Cholecystectomy clips. Persistent lower lobe infiltrates right greater left worse than on the 11/14/16 exam . Joseluis Vila MD Chest X-Ray 11/18/16 0000 Signed Impressions: Service Date/Time: Friday, November 18, 2016 12:09 - CONCLUSION: Lower lobe consolidation noted bilaterally. Caleb Murry MD Abdomen X-Ray 11/18/16 0000 Signed Impressions: Service Date/Time: Friday, November 18, 2016 12:13 - CONCLUSION: Abnormally dilated loops of small intestine are noted and a developing small bowel obstruction is not excluded. Caleb Murry MD Pelvis X-Ray 11/14/16621 Signed Impressions: Service Date/Time: Monday, November 14, 2016 06:24 - CONCLUSION: Negative trauma study with no acute fracture or malalignment. Misael Camara MD Head CT 11/14/16621 Signed Impressions: Service Date/Time: Monday, November 14, 2016 07:32 - CONCLUSION: No acute intracranial abnormality. New Manrique MD Cervical Spine CT 11/14/16621 Signed Impressions: Service Date/Time: Monday, November 14, 2016 07:32 - CONCLUSION: 1. No acute abnormality. 2. Diffuse mild degenerative changes without central canal stenosis or neural foraminal narrowing. 3. Calcified plaque involving the carotid arteries. Edwardo Workman Jr., MD Lumbar Puncture Fluoroscopy 11/14/16 0000 Signed Impressions: Service Date/Time: Monday, November 14, 2016 13:55 - CONCLUSION: Uncomplicated fluoroscopically guided lumbar puncture. Edwardo Workman Jr., MD Clavicle X-Ray 11/14/16 0000 Signed Impressions: Service Date/Time: Monday, November 14, 2016 07:50 - CONCLUSION: Intact right clavicle. New Manrique MD Physical Exam GENERAL: Awake and alert, NAD SKIN: No generalized rash HEAD: EVD in place with clear CSF EENT: [place] conjunctivae, no icterus, no injection. Moist oral mucosa CARDIOVASCULAR: HS audible. No murmurs RESPIRATORY: Clear to auscultation. Breath sounds equal bilaterally. No wheezes , rales, or rhonchi. GASTROINTESTINAL: Abdomen soft, nondistended. Has mild tenderness, no guarding MUSCULOSKELETAL: Extremities without clubbing, cyanosis, or edema. No calf tenderness. NEUROLOGICAL: Awake and alert. Psych: cooperative IV line sites with no e/o infection. Assessment & Plan Remarks Sepsis present on admission EMT P shunt related ventriculitis, MRSA - EMT P shunt is removed 11/18 Acute metabolic encephalopathy: infection, NPH Elevated CRP. Recs Continue Vanco IV (target trough 15-20 for meningitis) OK with planned OR tomorrow There is still risk, but right now if CSF C/S negative, we can proceed with procedure Monitor clinically Puja Sloan MD Nov 30, 2016 16:00
[2016-11-30] MEDS: VANCOMYCIN 1,000 MG/NS 250 ML IV SCH ×2 (16:20)
[2016-11-30] MEDS: ENALAPRILAT 2.5 MG/2 ML VIAL IV PUSH PRN (16:20)
[2016-11-30] MEDS: CHLORHEXIDINE GLUCONATE 4% SOLN 120 ML BTL TOP SCH (21:17)
[2016-11-30] MEDS: LOTEPREDNOL OPTH RIGHT EYE SCH (21:18)
[2016-12-01] VITALS (11 sets, daily range): BP systolic 135–156; BP diastolic 65–70; PULSE 60–90; RESP 17–21; TEMP 97.6–98; O2SAT 94–98
[2016-12-01 04:48] LABS: INDIRECT BILIRUBIN 0.2 MG/DL (0.0-0.8); TOTAL BILIRUBIN ADULT 0.3 MG/DL (0.2-1.0)
[2016-12-01] MEDS: hydrALAZINE HCL 25 MG TAB PO SCH ×3 (05:39→21:05)
[2016-12-01] MEDS: METOCLOPRAMIDE HCL 10 MG/2 ML VIAL IV PUSH SCH ×3 (05:39→21:05)
--- NOTE | 2016-12-01 08:22 | HHI.PR ---
Subjective Subjective Remarks awake, oriented x 2-3, forgetful no focal deficits no fever no other complaints at bsd ext. 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 for ROCK CUTTER shunt placement today smiling, looking forward to surgery and going to rehab soon Review of Systems Constitutional Constitutional Remarks 12 point ROS completed, unreliable Vitals/Results Intake & Output 11/30/16 11/30/16 12/01/16 15:00 23:00 07:00 Intake Total 1044 ml 579 ml 684 ml Output Total 510 ml 507 ml 381 ml Balance 534 ml 72 ml 303 ml Intake Oral 840 ml 250 ml IV Total 204 ml 329 ml 684 ml Output Urine Total 510 ml 500 ml 375 ml Drainage Total 0 ml 7 ml 6 ml # Bowel Movements 1 1 Vital Signs Vital Signs Date Time Temp Pulse Resp B/P Pulse Ox O2 Delivery O2 Flow Rate FiO2 12/01/16 06:00 70 12/01/16 04:00 61 12/01/16 04:00 98.0 61 21 156/70 98 12/01/16 02:00 73 12/01/16 00:00 63 12/01/16 00:00 97.9 60 17 145/68 97 11/30/16 22:00 68 11/30/16 20:30 95 Nasal Cannula 2.00 11/30/16 20:00 80 11/30/16 20:00 98.0 80 26 145/67 97 11/30/16 19:00 96 Nasal Cannula 2.00 11/30/16 18:00 75 11/30/16 16:00 97.4 60 28 168/75 98 11/30/16 16:00 60 11/30/16 14:00 82 11/30/16 12:00 84 11/30/16 12:00 97.7 84 31 161/73 96 11/30/16 10:00 74 11/30/16 09:14 96 Nasal Cannula 2.00 CBC/BMP: 11/29/16 0557 12/01/16 0330 Lab Results Laboratory Tests Test 12/01/16 03:30 Creatinine 0.83 MG/DL Estimat Glomerular Filtration 87 ML/MIN Rate Total Bilirubin 0.3 MG/DL Direct Bilirubin 0.1 MG/DL Indirect Bilirubin 0.2 MG/DL Aspartate Amino Transf 69 U/L (AST/SGOT) Alanine Aminotransferase 105 U/L (ALT/SGPT) Alkaline Phosphatase 81 U/L Total Protein 5.9 GM/DL Albumin 2.4 GM/DL Physical Exam General General Appearance: Well Developed, No Acute Distress, Comfortable Eyes Eye Exam: Pupils Equal, Pupils Reactive, Extraocular Movement Intact Ears & Nose Ears & Nose Exam: Nasal Mucosa [place] Throat Throat Exam: Oral Mucosa [place] & Moist Neck Neck Exam: Neck Supple, Trachea Midline Pulmonary Resp Exam: Clear Bilaterally, Breath Sounds Equal, No Distress Cardiology CV Exam: Regular, Normal Sinus Rhythm Gastrointestinal/Abdomen GI Exam: Soft, Non-Tender, Bowel Sounds Present, Non-Distended Musculoskeletal MS Exam: Joints Intact Integumentary Skin Exam: Warm, Dry Extremeties Extremities Exam: No Edema, Pedal Pulses Palpable Neurologic Neuro Exam: Alert, Awake, Oriented, Speech Clear, Moving All Extremities, No Focal Deficits Neuro Remarks ext. ventricular drain right scalp, dressing D/I Psychiatric Psych Exam: Appropriate Responses VTE Prophylaxis VTE Prophylaxis Device: SCDs PUD Prophylasis PUD Prophylaxis: Protonix Assessment/Plan Assessment/Plan Assessment . progressive confusion, w leukocytosis ,Meningitis , MRSA . 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 abd pain / distention , Peritonitis d/t infected ROCK CUTTER shunt . Fever d/t to above . s/p fall . Hypertension, . Hyperlipidemia, . History of COPD with scarring. . Microscopic hematuria. . Osteoarthritis. . Elevated LFTs ? medication on Rifampin PLAN shunt fluid c/s +ve MRSA IV antibiotics per ID s/p removal of ROCK CUTTER shunt & placement of external drain 11/18/16 drain unclamped per NSx, continue D/W ID, LFTs going up, Rifampin stopped. CSF culture last 11/24, negative Repeat CSF cultures 11/28 negative per ID, if last culture remains negative, ok to proceed with ROCK CUTTER shunt cultures negative ROCK CUTTER shunt today Was found with ileus, had , CT abd noted, LLL infiltrate, ileus AXR abd , surgery evaluated, signed off, now having BMs Stable Uncontrolled BP, now improving BP improving, continue with Procardia XL 60 mg PO daily Continue Lisinopril, and PRN Vasotec, Hydralazine PO and Clonidine Incentive spirometry PPI for GI prophylaxis Subcutaneous heparin for DVT prophylaxis IV morphine when necessary for pain Continue with PT LFTs trending down For ROCK CUTTER shunt today Hopefully to [facility] Sunday D/W RN D/W pt/ D/W Dr. Larsen This patient was seen by myself and Dr. Larsen, this note is written on his behalf. Kimberly Gerardo Dec 01, 2016 08:22
[2016-12-01] MEDS: ALLOPURINOL 300 MG TAB PO SCH (10:19)
[2016-12-01] MEDS: PANTOPRAZOLE SOD 40 MG DELAYED RELEASE TAB PO SCH (10:19)
[2016-12-01] MEDS: LISINOPRIL 20 MG TAB PO SCH (10:19)
[2016-12-01] MEDS: NIFEdipine 60 MG SUSTAINED RELEASE TAB PO SCH (10:19)
[2016-12-01] MEDS: SODIUM CHLOR 0.9% 1000 ML INJ 1,000 ML IV SCH (10:20)
[2016-12-01] MEDS ORDERED: PHENYLEPH/NS 1000 MCG/10 ML SYR IV ONE (12:00)
[2016-12-01] MEDS ORDERED: ONDANSETRON HCL 4 MG/2 ML VIAL IV PUSH ONE (12:00)
[2016-12-01] MEDS ORDERED: PROPOFOL 200 MG/20 ML AMP IV ONE (12:00)
[2016-12-01] MEDS: VANCOMYCIN 1,000 MG/NS 250 ML IV SCH ×2 (12:10)
--- NOTE | 2016-12-01 13:08 | HHI.IDPN ---
Subjective Subjective Remarks Notes reviewed Temps ok Ambulating in hallway Waiting for surgery - placement of new YOGA TEACHER shunt Denies MICHAEL No fever LFT better Repeat CSF only 10 WBC, C/S negative CSF C/S 11/24 negative Intraop CSF with MRSA Had removal of YOGA TEACHER shunt 11/18 and has ventriculostomy in place is an 89 y/o CM with PMHx of NPH s/p YOGA TEACHER shunt placement in 2010 at [facility]. He reports that on 10/25/2016 he had replacement of the shunt valve at [facility] by for YOGA TEACHER shunt malfunction. Shunt fluid clx was positive for MRSA and shunt was removed and external drain was placed yday Antibiotics Vanco IV Lines Line sites with no e.o infection. Past Medical History reviewed. Allergies: Coded Allergies: *MDRO Multi-Drug Resistant Organism (Verified Adverse Reaction, Unknown, MRSA, 11/21/16) MRSA (CSF-11/15/16 & head wound-11/18/16) MRSA screen POSITIVE - 11/18/16 Objective . Vital Signs Date Time Temp Pulse Resp B/P Pulse Ox O2 Delivery O2 Flow Rate FiO2 12/01/16 10:00 84 12/01/16 08:00 97.9 72 21 146/67 97 12/01/16 08:00 72 12/01/16 07:00 97 Nasal Cannula 2.00 Humidified 12/01/16 06:00 70 12/01/16 04:00 61 12/01/16 04:00 98.0 61 21 156/70 98 12/01/16 02:00 73 12/01/16 00:00 63 12/01/16 00:00 97.9 60 17 145/68 97 11/30/16 22:00 68 11/30/16 20:30 95 Nasal Cannula 2.00 11/30/16 20:00 80 11/30/16 20:00 98.0 80 26 145/67 97 11/30/16 19:00 96 Nasal Cannula 2.00 11/30/16 18:00 75 11/30/16 16:00 97.4 60 28 168/75 98 11/30/16 16:00 60 11/30/16 14:00 82 11/30/16 11/30/16 12/01/16 15:00 23:00 07:00 Intake Total 1044 ml 579 ml 684 ml Output Total 510 ml 507 ml 381 ml Balance 534 ml 72 ml 303 ml Intake Oral 840 ml 250 ml IV Total 204 ml 329 ml 684 ml Output Urine Total 510 ml 500 ml 375 ml Drainage Total 0 ml 7 ml 6 ml # Bowel Movements 1 1 . Laboratory Tests Test 12/01/16 03:30 Creatinine 0.83 MG/DL Estimat Glomerular Filtration 87 ML/MIN Rate Total Bilirubin 0.3 MG/DL Direct Bilirubin 0.1 MG/DL Indirect Bilirubin 0.2 MG/DL Aspartate Amino Transf 69 U/L (AST/SGOT) Alanine Aminotransferase 105 U/L (ALT/SGPT) Alkaline Phosphatase 81 U/L Total Protein 5.9 GM/DL Albumin 2.4 GM/DL Microbiology Date/Time Procedure Status Source Growth 11/28/16 15:30 Gram Stain - Final Complete Cerebral Spinal Fluid Shunt Fluid 11/28/16 15:30 CSF Culture - Final Complete Cerebral Spinal Fluid Shunt Fluid NO GROWTH IN 72 HOURS Imaging Abdomen/Pelvis CT 11/19/16 0600 Signed Impressions: Service Date/Time: Saturday, November 19, 2016 05:27 - CONCLUSION: Numerous distended loops of small bowel without evidence of obstructing lesion or significant wall thickening. Solid organs are unremarkable. Cholecystectomy clips. Persistent lower lobe infiltrates right greater left worse than on the 11/14/16 exam . Joseluis Vila MD Chest X-Ray 11/18/16 0000 Signed Impressions: Service Date/Time: Friday, November 18, 2016 12:09 - CONCLUSION: Lower lobe consolidation noted bilaterally. Caleb Murry MD Abdomen X-Ray 11/18/16 0000 Signed Impressions: Service Date/Time: Friday, November 18, 2016 12:13 - CONCLUSION: Abnormally dilated loops of small intestine are noted and a developing small bowel obstruction is not excluded. Caleb Murry MD Pelvis X-Ray 11/14/16 0622 Signed Impressions: Service Date/Time: Monday, November 14, 2016 06:24 - CONCLUSION: Negative trauma study with no acute fracture or malalignment. Misael Camara MD Head CT 11/14/16 0622 Signed Impressions: Service Date/Time: Monday, November 14, 2016 07:32 - CONCLUSION: No acute intracranial abnormality. New Manrique MD Cervical Spine CT 11/14/16 0622 Signed Impressions: Service Date/Time: Monday, November 14, 2016 07:32 - CONCLUSION: 1. No acute abnormality. 2. Diffuse mild degenerative changes without central canal stenosis or neural foraminal narrowing. 3. Calcified plaque involving the carotid arteries. Edwardo Workman Jr., MD Lumbar Puncture Fluoroscopy 11/14/16 0000 Signed Impressions: Service Date/Time: Monday, November 14, 2016 13:55 - CONCLUSION: Uncomplicated fluoroscopically guided lumbar puncture. Edwardo Workman Jr., MD Clavicle X-Ray 11/14/16 0000 Signed Impressions: Service Date/Time: Monday, November 14, 2016 07:50 - CONCLUSION: Intact right clavicle. New Manrique MD Physical Exam GENERAL: Awake and alert, NAD SKIN: No generalized rash HEAD: EVD in place EENT: [place] conjunctivae, no icterus, no injection. Moist oral mucosa CARDIOVASCULAR: HS audible. No murmurs RESPIRATORY: Clear to auscultation. Breath sounds equal bilaterally. No wheezes , rales, or rhonchi. GASTROINTESTINAL: Abdomen soft, nondistended. Has mild tenderness, no guarding MUSCULOSKELETAL: Extremities without clubbing, cyanosis, or edema. No calf tenderness. NEUROLOGICAL: Awake and alert. Psych: cooperative IV line sites with no e/o infection. Assessment & Plan Remarks Sepsis present on admission YOGA TEACHER shunt related ventriculitis, MRSA - YOGA TEACHER shunt is removed 11/18 Acute metabolic encephalopathy: infection, NPH Elevated CRP. Recs Continue Vanco IV (target trough 15-20 for meningitis) OR for today There is still risk, but right now if CSF C/S negative, we can proceed with procedure Monitor clinically I will check patient again on Sunday Dr Shin covering this weekend if with any new urgent ID issue or question D/W Puja Pitts MD Dec 01, 2016 13:08
[2016-12-01] MEDS: LIDOCAINE 1%/EPINEPHrine 1:100,000 SOLN 20 ML VIAL ONE ×2 (13:40→15:56)
[2016-12-01] MEDS: GELFOAM SIZE 100 ONE ×2 (13:40→15:56)
[2016-12-01] MEDS ORDERED: SODIUM CHLOR 0.9% 250 ML INJ 250 ML ONE (13:40)
[2016-12-01] MEDS ORDERED: VANCOMYCIN HCL 1000 MG VIAL ONE (13:40)
[2016-12-01] MEDS ORDERED: ceFAZolin 2 GM PREMIX 50 ML ONE (13:40)
[2016-12-01] MEDS: GENTAMICIN SULFATE 80 MG/2 ML VIAL ONE ×2 (13:40→15:56)
[2016-12-01] MEDS ORDERED: BACITRACIN TOP OINT 15 GM TUBE ONE (13:41)
[2016-12-01] MEDS ORDERED: SUGAMMADEX SODIUM 200 MG/2 ML VIAL IV PUSH ONE ×2 (14:18)
[2016-12-01] MEDS ORDERED: DO NOT ADM ANY ANTICOAGULANT DRUGS XX PRN (16:59)
[2016-12-01] MEDS: NS + KCL 20 MEQ INJ 1,000 ML IV SCH (17:15)
[2016-12-01] MEDS ORDERED: *morphine SULFATE 8 MG/ML PERIprocedure ONLY ONE (17:22)
[2016-12-01] MEDS ORDERED: ACETAMINOPHEN 325 MG TAB PO PRN (17:30)
[2016-12-01] MEDS ORDERED: MORPHINE SULFATE 4 MG/ML INJ IV PUSH PRN ×2 (17:30)
[2016-12-01] MEDS ORDERED: SODIUM CHLORIDE 0.9% FLUSH 5 ML FLUSH IVF PRN (17:30)
[2016-12-01 19:49] LABS: SUPERNATE COLOR TUBE #1 CLEAR (CLEAR); WBC TUBE #1 7 /MM3 (0-10)
[2016-12-01 19:50] LABS: CSF LYMPHOCYTES 98 %; CSF NEUTROPHILS 1 %
[2016-12-01] MEDS: ceFAZolin 2 GM PREMIX 50 ML IV SCH (20:42)
[2016-12-01] MEDS: CHLORHEXIDINE GLUCONATE 4% SOLN 120 ML BTL TOP SCH (20:42)
[2016-12-01] MEDS: SODIUM CHLORIDE 0.9% FLUSH 5 ML FLUSH IVF SCH (20:43)
[2016-12-01] MEDS: LOTEPREDNOL OPTH RIGHT EYE SCH (20:43)
[2016-12-01] MEDS: ACETAMINOPHEN/HYDROcodone 325 MG/10 MG TAB PO PRN (22:09)
[2016-12-02] VITALS (14 sets, daily range): BP systolic 130–155; BP diastolic 55–71; PULSE 72–96; RESP 18–28; TEMP 98–98.5; O2SAT 91–98
[2016-12-02] MEDS ORDERED: LIDOCAINE HCL 2% 100 MG/5 ML SYRINGE ONE (04:13)
[2016-12-02] MEDS ORDERED: EPINEPHrine HCL (1:10,000) 1 MG/10 ML SYRINGE ONE (04:13)
[2016-12-02] MEDS ORDERED: ATROPINE SULFATE 1 MG/10 ML SYRINGE ONE (04:13)
[2016-12-02] MEDS: NS + KCL 20 MEQ INJ 1,000 ML IV SCH ×2 (04:50→13:48)
[2016-12-02] MEDS: VANCOMYCIN 1,000 MG/NS 250 ML IV SCH ×2 (04:51)
[2016-12-02] MEDS: ceFAZolin 2 GM PREMIX 50 ML IV SCH ×2 (04:51→11:28)
--- NOTE | 2016-12-02 05:04 | RADRPT ---
EXAM DATE/TIME: 12/02/2016 04:34 [facility] COMPARISON: CT BRAIN W/O CONTRAST, November 14, 2016, 7:32. INDICATIONS : Follow up shunt revision. RADIATION DOSE: 40.93 CTDIvol (mGy) MEDICAL HISTORY : Hypertension. Chronic obstructive pulmonary disease. Hydrocephalus SURGICAL HISTORY : PATTERNMAKER GRADER shunt ENCOUNTER: Subsequent ACUITY: 3 weeks PAIN SCALE: 6/10 LOCATION: cranial TECHNIQUE: Multiple contiguous axial images were obtained of the head. Using automated exposure control and adj ustment of the mA and/or kV according to patient size, radiation dose was kept as low as reasonably a chievable to obtain optimal diagnostic quality images. FINDINGS: There is no evidence of acute cortical infarction, acute hemorrhage, mass effect or midline shift. Th e right-sided ventriculostomy has been removed and a left-sided shunt is in place. Ventricles are unc hanged in size. Small pneumocephalus is present. Posterior fossa structures are unremarkable. CONCLUSION: 1. Postsurgical changes as above. No evidence of acute intracranial pathology. No masses are identifi ed. Max Saldivar MD on December 02, 2016 at 4:59 Board Certified Radiologist. This report was verified electronically.
[2016-12-02] MEDS: METOCLOPRAMIDE HCL 10 MG/2 ML VIAL IV PUSH SCH ×3 (05:11→22:14)
[2016-12-02] MEDS: hydrALAZINE HCL 25 MG TAB PO SCH ×3 (05:11→22:14)
--- NOTE | 2016-12-02 07:43 | HHI.NSPN ---
History Chief Complaint: no complaints, s/p AUDIO VIDEO TECHNICIAN shunt revision POD 1. Interval History Mr. Motley is a 89 year old male who underwent a AUDIO VIDEO TECHNICIAN shunt valve replacement on 10/25/16. He was seen by me on 11/10/16. His surgical incision is healing well without evidence of infection. Mr. Motley had complained in the office of pain, swelling, and tenderness to touch behind his right ear that had gotten worse and Mastoiditis was suspected. A CT Brain was obtained that day without signs of intracranial mass lesions or mastoiditis. He was recommend however to start antibiotics for prophylaxis. Yesterday, he presented to [facility] following a fall and confusion. He was also hallucinating and had some chills but no fevers. His reported that his post-auricular pain has improved over the weekend. Another CT Brain was taken which was stable. An LP was obtained as well. 11/17: shunt tap on 11/15 showing MRSA, his LP showed no growth. 89-year-old male status post AUDIO VIDEO TECHNICIAN shunt placement approximately 2010 in [place] for treatment of NPH. 11/21/16: Ventriculoperitoneal shunt removed with placement of ventriculostomy drain on 11/18/16 for shunt infection. He is on IV Vancomycin and Rifampin per ID. Ventriculostomy drain clamped yesterday. 11/22/16: denies headaches, working with PT, slight dizziness upon sitting up on edge of bed, no nausea or vomiting. afebrile 11/23/16: eating breakfast, denies headaches, vomiting, fevers or chills. 11/27/16: CSF reculture 11/24/16 with no growth. doing well, denies any changes over the weekend, ventriculostomy drain open, CSF clear. 11/28: denies headaches, awaiting clearance by ID for AUDIO VIDEO TECHNICIAN shunt placement 11/29: repeat CSF so far no organisms, final cultures pending. no changes overnight. 11/30: so far culture neg past 24 hours, afebrile. AUDIO VIDEO TECHNICIAN shunt planned for tomorrow 12/02: Pt underwent replacement of AUDIO VIDEO TECHNICIAN shunt. He denies any headaches, nausea, vomiting, muscle weakness. Review of Systems General: Negative for: fever, chills, insomnia Respiratory: Negative for: shortness of breath, cough, sputum Cardiovascular: Negative for: chest pain Gastrointestinal: Negative for: nausea, vomitting, diarrhea, constipation Exam Results Vital Signs Date Time Temp Pulse Resp B/P Pulse Ox O2 Delivery O2 Flow Rate FiO2 12/02/16 07:00 96 Nasal Cannula 2.00 Humidified 12/02/16 06:00 77 12/02/16 04:00 98.0 28 155/70 12/01/16 21:20 21 Intake and Output 12/01/16 12/01/16 12/02/16 08:00 16:00 00:00 Intake Total 684 ml 602 ml 1556 ml Output Total 381 ml 411 ml 1650 ml Balance 303 ml 191 ml -94 ml Physical Examination Resp: CTA bilaterally Heart: NSR no murmurs Abd: Soft positive bs Skin: Incision clean and dry. Lisbeth in place. Muscle: Pt Moves all 4 extremities well. Neuro: Pt awake and alert. Follows commands well. Pupils 3mm bilaterally reactive bilaterally. Speech clear and appropriate. Lab, Micro, Other Results Laboratory Tests Test 12/01/16 17:22 CSF Volume (Tube 1) 3.0 ML CSF Supernatant Color (tube 1) CLEAR CSF WBC (Tube 1) 7 /MM3 CSF RBC (Tube 1) 663 /MM3 CSF Neutrophils 1 % CSF Lymphocytes 98 % CSF Histiocytes 1 % CSF Glucose 44 MG/DL Laboratory Tests Test 12/01/16 03:30 Creatinine 0.83 MG/DL Estimat Glomerular Filtration 87 ML/MIN Rate Total Bilirubin 0.3 MG/DL Direct Bilirubin 0.1 MG/DL Indirect Bilirubin 0.2 MG/DL Aspartate Amino Transf 69 U/L (AST/SGOT) Alanine Aminotransferase 105 U/L (ALT/SGPT) Alkaline Phosphatase 81 U/L Total Protein 5.9 GM/DL Albumin 2.4 GM/DL Microbiology Date/Time Procedure Status Source Growth 12/01/16 17:22 Gram Stain - Final Resulted Cerebral Spinal Fluid Shunt Fluid 12/01/16 17:22 CSF Culture Resulted Cerebral Spinal Fluid Shunt Fluid Pending 12/01/16 12/01/16 12/02/16 15:00 23:00 07:00 Intake Total 602 ml 1556 ml 836 ml Output Total 411 ml 1650 ml 500 ml Balance 191 ml -94 ml 336 ml Intake Oral 240 ml 0 ml IV Total 602 ml 516 ml 836 ml Other 800 ml Output Urine Total 400 ml 1625 ml 500 ml Drainage Total 11 ml Estimated Blood Loss 25 ml # Bowel Movements 1 0 0 Medical Decision Making Impression and Plan A: 89 y/o presented with AMS, confusion, s/p fall recent replacement of AUDIO VIDEO TECHNICIAN shunt valve on 10/25/16 for NPH shunt infection with MRSA from shunt tap, s/p removal of AUDIO VIDEO TECHNICIAN shunt with placement of ventriculostomy drain 11/18/16 CSF reculture 11/24/16 with no growth, reculture of CSF 11/29/16 so far cultures negative s/p AUDIO VIDEO TECHNICIAN shunt replacement on 12/01/16 P: Continue to monitor neuro exam Continue with abx per ID Continue to get oob. Mc Alvarez Dec 02, 2016 07:43
[2016-12-02] MEDS: SODIUM CHLORIDE 0.9% FLUSH 5 ML FLUSH IVF SCH ×2 (08:34→20:31)
[2016-12-02] MEDS: PANTOPRAZOLE SODIUM 40 MG VIAL IVP SCH (08:34)
[2016-12-02] MEDS: LISINOPRIL 20 MG TAB PO SCH (08:34)
[2016-12-02] MEDS: NIFEdipine 60 MG SUSTAINED RELEASE TAB PO SCH (08:34)
[2016-12-02] MEDS: ALLOPURINOL 300 MG TAB PO SCH (08:34)
--- NOTE | 2016-12-02 11:24 | PD.OP ---
Operative Report Date of Surgery: Dec 01, 2016 Preoperative Diagnosis: Normal pressure hydrocephalus Postoperative Diagnosis: Normal pressure hydrocephalus Procedure: Placement of ACTIVITIES CONCIERGE shunt Removal of ventriculostomy Anesthesia: general Surgeon: Alberto Turpin Quill Reamer(s): Balbir Live Operation and Findings: INTRAOPERATIVE FINDINGS:~ Clear cerebrospinal fluid with an opening pressure of 140 mm of water. INDICATIONS FOR PROCEDURE:Mr Tyson is a 89 year old jose guadalupe with history of meningiomas who presented with symptoms of NPH. He had chronic communicating hydrocephalus, his condition was getting progressively worse. he underwent evaluation with placement of a lumbar drain and cerebrospinal fluid drainage with very significant improvement in his symptoms. The ventriculoperitoneal shunt was indicated The [id number] details of the procedure, its indications, alternatives, risks , and potential complications of the surgery were fully discussed with the patient and . They fully understood. All their questions were answered. No guarantees were given. They voiced requesting the surgery and signed informed consent.They were offered the alternative of continuing nonsurgical treatment. DETAILS OF THE SURGICAL PROCEDURE:~ After the induction of general anesthesia, endotracheal intubation was performed. A Montesinos catheter, bilateral ALFONSO hose and sequential compression devices were placed and kept throughout the procedure. The patient was positioned supine on a 30-80 table with the head over a gel doughnut. All pressure points were carefully padded with eggcrate mattress. The right frontotemporal parietal area was shaved prepped and draped in the usual sterile fashion, as well as the neck, chest and abdomen. A small incision was made in the patient's left upper quadrant with a #10 blade and the dissection was carried out through the subcutaneous tissue and Christiano's fascia. The rectus sheath was carefully opened with Metzenbaum scissors and the rectus muscles were split along its fibers. The posterior rectus sheath was elevated and carefully opened. The peritoneum was elevated with mosquitoes and opened in the standard fashion. The peritoneal cavity was visualized and exposed. A pursestring suture was placed around the peritoneal opening. Using a tunneler a subcutaneous tunnel was created connecting the abdominal incision with the planned head incision. A small incision was made in the left frontal area and a self-retaining retractor was placed in the incision. An entry point for the catheter was selected 90 mm posterior to the supraorbital rim and 25 mm lateral to the midline. A Midas Dewayne was used to create the jan hole. The dura was coagulated with the bipolar in a cruciform fashion. A peritoneal catheter was placed in the subcutaneous tunnel previously created and a pocket was created underneath the galea for placement of the valve. A [employer] programmable valve has calibrated at a pressure of 120 mmHg and flushed according to the cap maker's instructions. The valve was secured to the proximal end of the peritoneal catheter using a 2-0 silk. Then, a ventricular catheter was advanced into the ventricular system. A good flow of cerebrospinal fluid was obtained.~ The catheter was connected to the valve and the connection secured with a 2-0 silk. Cerebrospinal fluid was noted to drip through the distal end of the peritoneal catheter. The peritoneal catheter was placed in the peritoneal cavity under direct visualization. The pursestring suture was carefully adjusted with special care not to strangulate the catheter. The rectus sheath was closed using interrupted 2-0 Vicryl suture. The Christiano's fascia was approximated with 3-0 Vicryl, and the subcutaneous with 3-0 Vicryl. The skin was closed with running subcuticular 4-0 Vicryl in the abdomen. The skin incision was closed using interrupted 3-0 Vicryl for the galea and mode to the skin. At the end of the procedure, the sponge, needle and instrument counts were all correct. The estimated blood was less than 30 cc. No blood transfusion was given. No intraoperative complications occurred. The patient received preoperative prophylactic antibiotics. The patient was then extubated and transferred to the recovery room in stable condition. Alberto Turpin MD Dec 02, 2016 11:24
[2016-12-02] MEDS: ACETAMINOPHEN/HYDROcodone 325 MG/10 MG TAB PO PRN ×2 (11:28→17:48)
--- NOTE | 2016-12-02 11:52 | HHI.PR ---
Subjective Interval History awake, oriented x 3, forgetful no focal deficits no fever no other complaints at bsd ext. 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 for VP PROJECT shunt placement today smiling, looking forward to surgery and going to rehab soon Review of Systems Constitutional Constitutional Remarks 12 point ROS completed, unreliable Vitals/Results Intake & Output 12/01/16 12/01/16 12/02/16 15:00 23:00 07:00 Intake Total 602 ml 1556 ml 836 ml Output Total 411 ml 1650 ml 500 ml Balance 191 ml -94 ml 336 ml Intake Oral 240 ml 0 ml IV Total 602 ml 516 ml 836 ml Other 800 ml Output Urine Total 400 ml 1625 ml 500 ml Drainage Total 11 ml Estimated Blood Loss 25 ml # Bowel Movements 1 0 0 Vital Signs Vital Signs Date Time Temp Pulse Resp B/P Pulse Ox O2 Delivery O2 Flow Rate FiO2 12/02/16 08:00 98.2 80 18 134/55 93 12/02/16 08:00 73 12/02/16 07:51 96 21 12/02/16 07:00 96 Nasal Cannula 2.00 Humidified 12/02/16 06:00 77 12/02/16 04:00 98.0 84 28 155/70 93 12/02/16 04:00 84 12/02/16 02:00 87 12/02/16 00:00 98.1 87 25 130/59 95 12/02/16 00:00 87 12/01/16 22:00 90 12/01/16 21:20 94 21 12/01/16 20:00 85 12/01/16 20:00 97.6 84 21 135/65 98 12/01/16 19:00 98 Nasal Cannula 2.00 Humidified 12/01/16 18:00 98 Nasal Cannula 2.00 Humidified 12/01/16 18:00 84 12/01/16 17:45 97.6 88 14 165/85 96 Room Air 12/01/16 17:30 81 14 165/84 98 Nasal Cannula 2 12/01/16 17:15 75 14 174/80 97 Nasal Cannula 2 12/01/16 17:00 97.7 75 14 172/78 97 Nasal Cannula 2 12/01/16 12:00 97.6 66 17 141/65 94 12/01/16 12:00 66 CBC/BMP: 11/29/16 0557 12/01/16 0330 Lab Results Laboratory Tests Test 12/01/16 17:22 CSF Volume (Tube 1) 3.0 ML CSF Supernatant Color (tube 1) CLEAR CSF WBC (Tube 1) 7 /MM3 CSF RBC (Tube 1) 663 /MM3 CSF Neutrophils 1 % CSF Lymphocytes 98 % CSF Histiocytes 1 % CSF Glucose 44 MG/DL Microbiology Microbiology 12/01/16 Gram Stain - Final, Resulted 12/01/16 CSF Culture - Preliminary, Resulted NO GROWTH IN 24 HOURS. Physical Exam General General Appearance: Well Developed, No Acute Distress, Comfortable Eyes Eye Exam: Pupils Equal, Pupils Reactive, Extraocular Movement Intact Ears & Nose Ears & Nose Exam: Nasal Mucosa [place] Throat Throat Exam: Oral Mucosa [place] & Moist Neck Neck Exam: Neck Supple, Trachea Midline Pulmonary Resp Exam: Clear Bilaterally, Breath Sounds Equal, No Distress Cardiology CV Exam: Regular, Normal Sinus Rhythm Gastrointestinal/Abdomen GI Exam: Soft, Non-Tender, Bowel Sounds Present, Non-Distended Musculoskeletal MS Exam: Joints Intact Integumentary Skin Exam: Warm, Dry Extremeties Extremities Exam: No Edema, Pedal Pulses Palpable Neurologic Neuro Exam: Alert, Awake, Oriented, Speech Clear, Moving All Extremities, No Focal Deficits Psychiatric Psych Exam: Appropriate Responses VTE Prophylaxis VTE Prophylaxis Device: SCDs PUD Prophylasis PUD Prophylaxis: Protonix Assessment/Plan Assessment/Plan . progressive confusion, w leukocytosis ,Meningitis , MRSA . Sepsis on admission . 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 abd pain / distention , Peritonitis d/t infected VP PROJECT shunt . Fever d/t to above . s/p fall . Hypertension, . Hyperlipidemia, . History of COPD with scarring. . Microscopic hematuria. . Osteoarthritis. . Elevated LFTs ? medication on Rifampin PLAN shunt fluid c/s +ve MRSA IV antibiotics per ID s/p removal of VP PROJECT shunt & placement of external drain 11/18/16 status post new shunt placement December 01 CSF culture last 11/24, negative Repeat CSF cultures 11/28 negative per ID ok to proceed with VP PROJECT shunt cultures negative Status post VP PROJECT shunt Bashir 30 Was found with ileus, had , CT abd noted, LLL infiltrate, ileus AXR abd , surgery evaluated, signed off, now having BMs Stable Uncontrolled BP, now improving BP improving, continue with Procardia XL 60 mg PO daily Continue Lisinopril, and PRN Vasotec, Hydralazine PO and Clonidine Incentive spirometry PPI for GI prophylaxis Subcutaneous heparin for DVT prophylaxis IV morphine when necessary for pain Continue with PT LFTs trending down For VP PROJECT shunt today Hopefully to CIR Sunday D/W pt Titus Larsen MD Dec 02, 2016 11:52 Titus Larsen MD Dec 02, 2016 11:52
[2016-12-02] MEDS: LOTEPREDNOL OPTH RIGHT EYE SCH (20:32)
[2016-12-03] VITALS (12 sets, daily range): BP systolic 145–182; BP diastolic 67–81; PULSE 76–97; RESP 16–24; TEMP 97.5–98.6; O2SAT 93–95
[2016-12-03] MEDS: NS + KCL 20 MEQ INJ 1,000 ML IV SCH ×2 (00:01→09:05)
[2016-12-03] MEDS: VANCOMYCIN 1,000 MG/NS 250 ML IV SCH ×4 (00:08→17:01)
[2016-12-03] MEDS: ENALAPRILAT 2.5 MG/2 ML VIAL IV PUSH PRN (02:00)
[2016-12-03] MEDS: METOCLOPRAMIDE HCL 10 MG/2 ML VIAL IV PUSH SCH ×3 (05:57→20:10)
[2016-12-03] MEDS: hydrALAZINE HCL 25 MG TAB PO SCH ×3 (05:57→20:10)
[2016-12-03] MEDS: ACETAMINOPHEN/HYDROcodone 325 MG/10 MG TAB PO PRN (05:57)
--- NOTE | 2016-12-03 06:40 | HHI.NSPN ---
(Mc Alvarez) History Chief Complaint: no complaints, s/p [employer] shunt revision POD 1. (Mc Alvarez) Interval History Mr. Motley is a 89 year old male who underwent a [employer] shunt valve replacement on 10/25/16. He was seen by me on 11/10/16. His surgical incision is healing well without evidence of infection. Mr. Motley had complained in the office of pain, swelling, and tenderness to touch behind his right ear that had gotten worse and Mastoiditis was suspected. A CT Brain was obtained that day without signs of intracranial mass lesions or mastoiditis. He was recommend however to start antibiotics for prophylaxis. Yesterday, he presented to [place] ED following a fall and confusion. He was also hallucinating and had some chills but no fevers. His reported that his post-auricular pain has improved over the weekend. Another CT Brain was taken which was stable. An LP was obtained as well. 11/17: shunt tap on 11/15 showing MRSA, his LP showed no growth. 89-year-old male status post [employer]GETABLE [employer] WORKER shunt placement approximately 2010 in [place] for treatment of NPH. 11/21/16: Ventriculoperitoneal shunt removed with placement of ventriculostomy drain on 11/18/16 for shunt infection. He is on IV Vancomycin and Rifampin per ID. Ventriculostomy drain clamped yesterday. 11/22/16: denies headaches, working with PT, slight dizziness upon sitting up on edge of bed, no nausea or vomiting. afebrile 11/23/16: eating breakfast, denies headaches, vomiting, fevers or chills. 11/27/16: CSF reculture 11/24/16 with no growth. doing well, denies any changes over the weekend, ventriculostomy drain open, CSF clear. 11/28: denies headaches, awaiting clearance by ID for [employer]ER shunt placement 11/29: repeat CSF so far no organisms, final cultures pending. no changes overnight. 11/30: so far culture neg past 24 hours, afebrile. [employer] shunt planned for tomorrow 12/02: Pt underwent replacement of FR[employer]ABLE [employer] WORKER shunt. He denies any headaches, nausea, vomiting, muscle weakness. 12/03: Pt awake and alert. Occasional headache improved with pain medication. No nausea or vomiting. No paresthesias. (Mc Alvarez) Review of Systems General: Negative for: fever, chills, insomnia Respiratory: Negative for: shortness of breath, cough, sputum Cardiovascular: Negative for: chest pain Gastrointestinal: Negative for: nausea, vomitting, diarrhea, constipation ( Mc Alvarez) Exam Results Vital Signs Date Time Temp Pulse Resp B/P Pulse Ox O2 Delivery O2 Flow Rate FiO2 12/03/16 06:00 87 12/03/16 04:00 98.4 16 163/73 93 12/02/16 19:05 Nasal Cannula 2.00 12/02/16 07:51 21 Intake and Output 12/02/16 12/02/16 12/03/16 08:00 16:00 00:00 Intake Total 836 ml 1317 ml 773 ml Output Total 500 ml 550 ml 925 ml Balance 336 ml 767 ml -152 ml (Mc Alvarez) Physical Examination Resp: CTA bilaterally Heart: NSR no murmurs Abd: Soft positive bs Skin: Incision clean and dry. Lisbeth in place. Muscle: Pt Moves all 4 extremities well. Neuro: Pt awake and alert. Follows commands well. Pupils 3mm bilaterally reactive bilaterally. Speech clear and appropriate. (Mc Alvarez) Lab, Micro, Other Results Last Impressions Head CT 12/02/16 0000 Signed Impressions: Service Date/Time: Friday, December 02, 2016 04:34 - CONCLUSION: 1. Postsurgical changes as above. No evidence of acute intracranial pathology. No masses are identified. Max Saldivar MD Abdomen/Pelvis CT 11/19/16 0600 Signed Impressions: Service Date/Time: Saturday, November 19, 2016 05:27 - CONCLUSION: Numerous distended loops of small bowel without evidence of obstructing lesion or significant wall thickening. Solid organs are unremarkable. Cholecystectomy clips. Persistent lower lobe infiltrates right greater left worse than on the 11/14/16 exam . Joseluis Vila MD Chest X-Ray 11/18/16 0000 Signed Impressions: Service Date/Time: Friday, November 18, 2016 12:09 - CONCLUSION: Lower lobe consolidation noted bilaterally. Caleb Murry MD Abdomen X-Ray 11/18/16 0000 Signed Impressions: Service Date/Time: Friday, November 18, 2016 12:13 - CONCLUSION: Abnormally dilated loops of small intestine are noted and a developing small bowel obstruction is not excluded. Caleb Murry MD Pelvis X-Ray 11/14/16621 Signed Impressions: Service Date/Time: Monday, November 14, 2016 06:24 - CONCLUSION: Negative trauma study with no acute fracture or malalignment. Misael Camara MD Cervical Spine CT 11/14/16621 Signed Impressions: Service Date/Time: Monday, November 14, 2016 07:32 - CONCLUSION: 1. No acute abnormality. 2. Diffuse mild degenerative changes without central canal stenosis or neural foraminal narrowing. 3. Calcified plaque involving the carotid arteries. Edwardo Workman Jr., MD Lumbar Puncture Fluoroscopy 11/14/16 0000 Signed Impressions: Service Date/Time: Monday, November 14, 2016 13:55 - CONCLUSION: Uncomplicated fluoroscopically guided lumbar puncture. Edwardo Workman Jr., MD Clavicle X-Ray 11/14/16 0000 Signed Impressions: Service Date/Time: Monday, November 14, 2016 07:50 - CONCLUSION: Intact right clavicle. New Manrique MD Laboratory Tests Test 12/03/16 03:10 Creatinine 0.67 MG/DL Estimat Glomerular Filtration 112 ML/MIN Rate 12/02/16 12/02/16 12/03/16 15:00 23:00 07:00 Intake Total 1317 ml 773 ml 976 ml Output Total 550 ml 925 ml 1000 ml Balance 767 ml -152 ml -24 ml Intake Oral 480 ml IV Total 837 ml 773 ml 976 ml Output Urine Total 550 ml 925 ml 1000 ml # Bowel Movements 0 0 0 (Mc Alvarez) Medical Decision Making Impression and Plan A: 89 y/o presented with AMS, confusion, s/p fall recent replacement of [employer]ER shunt valve on 10/25/16 for NPH shunt infection with MRSA from shunt tap, s/p removal of [employer]ER shunt with placement of ventriculostomy drain 11/18/16 CSF reculture 11/24/16 with no growth, reculture of CSF 11/29/16 so far cultures negative s/p [employer] shunt replacement on 12/01/16 P: Continue to monitor neuro exam Continue with abx per ID Continue to get oob. Rehab placement when okay with other physicians. (Mc Alvarez) Attending Statement The exam, history, and the medical decision-making described in the above note were completed with the assistance of the mid-level provider. I reviewed and agree with the findings presented. I attest that I had a [id number] encounter with the patient on the same day, and personally performed and documented my assessment and findings in the medical record. DC IV fluids and Montesinos and advance to regular diet. Stable for rehabilitation placement from neurosurgical standpoint. (Derrick Snyder MD) Mc Alvarez Dec 03, 2016 06:40 Derrick Snyder MD Dec 03, 2016 09:25
[2016-12-03] MEDS: SODIUM CHLORIDE 0.9% FLUSH 5 ML FLUSH IVF SCH ×2 (09:05→20:10)
[2016-12-03] MEDS: ALLOPURINOL 300 MG TAB PO SCH (09:06)
[2016-12-03] MEDS: PANTOPRAZOLE SODIUM 40 MG VIAL IVP SCH (09:06)
[2016-12-03] MEDS: LISINOPRIL 20 MG TAB PO SCH (09:06)
[2016-12-03] MEDS: NIFEdipine 60 MG SUSTAINED RELEASE TAB PO SCH (09:06)
--- NOTE | 2016-12-03 11:39 | HHI.PR ---
Subjective Interval History awake, oriented x 3, forgetful no focal deficits no fever some mild ach sometime left head near sx area ext. 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 for BRAILLE TEACHER shunt placement today smiling, looking forward to surgery and going to rehab soon Vitals/Results Intake & Output 12/02/16 12/02/16 12/03/16 15:00 23:00 07:00 Intake Total 1317 ml 773 ml 976 ml Output Total 550 ml 925 ml 1000 ml Balance 767 ml -152 ml -24 ml Intake Oral 480 ml IV Total 837 ml 773 ml 976 ml Output Urine Total 550 ml 925 ml 1000 ml # Bowel Movements 0 0 0 Vital Signs Vital Signs Date Time Temp Pulse Resp B/P Pulse Ox O2 Delivery O2 Flow Rate FiO2 12/03/16 10:00 84 12/03/16 08:00 92 12/03/16 08:00 98.1 92 22 156/70 94 12/03/16 07:00 93 Room Air 12/03/16 06:00 87 12/03/16 04:00 98.4 80 16 163/73 93 12/03/16 04:00 80 12/03/16 02:00 85 12/03/16 00:00 98.6 85 20 163/72 93 12/03/16 00:00 85 12/02/16 22:00 79 12/02/16 20:00 98.3 88 26 148/71 91 12/02/16 20:00 96 12/02/16 19:05 98 Nasal Cannula 2.00 12/02/16 19:00 92 Room Air 12/02/16 18:00 92 12/02/16 16:00 98.5 78 23 144/66 92 12/02/16 16:00 78 12/02/16 14:00 72 12/02/16 12:00 98.2 72 20 149/69 92 12/02/16 12:00 72 CBC/BMP: 11/29/16 0557 12/03/16 0310 Lab Results Laboratory Tests Test 12/03/16 03:10 Creatinine 0.67 MG/DL Estimat Glomerular Filtration 112 ML/MIN Rate Physical Exam General General Appearance: Well Developed, No Acute Distress, Comfortable Eyes Eye Exam: Pupils Equal, Pupils Reactive, Extraocular Movement Intact Ears & Nose Ears & Nose Exam: Nasal Mucosa [place] Throat Throat Exam: Oral Mucosa [place] & Moist Neck Neck Exam: Neck Supple, Trachea Midline Pulmonary Resp Exam: Clear Bilaterally, Breath Sounds Equal, No Distress Cardiology CV Exam: Regular, Normal Sinus Rhythm Gastrointestinal/Abdomen GI Exam: Soft, Non-Tender, Bowel Sounds Present, Non-Distended Musculoskeletal MS Exam: Joints Intact Integumentary Skin Exam: Warm, Dry Extremeties Extremities Exam: No Edema, Pedal Pulses Palpable Neurologic Neuro Exam: Alert, Awake, Oriented, Speech Clear, Moving All Extremities, No Focal Deficits Psychiatric Psych Exam: Appropriate Responses VTE Prophylaxis VTE Prophylaxis Device: SCDs PUD Prophylasis PUD Prophylaxis: Protonix Assessment/Plan Assessment/Plan . progressive confusion, w leukocytosis ,Meningitis , MRSA . Sepsis on admission . 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 abd pain / distention , Peritonitis d/t infected BRAILLE TEACHER shunt . Fever d/t to above . s/p fall . Hypertension, . Hyperlipidemia, . History of COPD with scarring. . Microscopic hematuria. . Osteoarthritis. . Elevated LFTs ? medication on Rifampin PLAN shunt fluid c/s +ve MRSA IV antibiotics per ID s/p removal of BRAILLE TEACHER shunt & placement of external drain 11/18/16 status post new shunt placement December 01 CSF culture last 11/24, negative Repeat CSF cultures 11/28 negative per ID ok to proceed with BRAILLE TEACHER shunt cultures negative Status post BRAILLE TEACHER shunt awaiting for ID for final abx recommendations Was found with ileus, had , CT abd noted, LLL infiltrate, ileus AXR abd , surgery evaluated, signed off, now having BMs Stable Uncontrolled BP, now improving BP improving, continue with Procardia XL 60 mg PO daily Continue Lisinopril, and PRN Vasotec, Hydralazine PO and Clonidine Incentive spirometry PPI for GI prophylaxis Subcutaneous heparin for DVT prophylaxis IV morphine when necessary for pain Continue with PT LFTs trending down For BRAILLE TEACHER shunt today Hopefully to [facility] Sunday D/W pt Titus Larsen MD Dec 03, 2016 11:39
[2016-12-03] MEDS: cloNIDine HCL 0.1 MG TAB PO PRN (12:34)
[2016-12-03] MEDS ORDERED: PHARMACY ORDERED LAB XX ONE (16:45)
[2016-12-03] MEDS: LOTEPREDNOL OPTH RIGHT EYE SCH (20:11)
[2016-12-04] VITALS (8 sets, daily range): BP systolic 140–179; BP diastolic 65–81; PULSE 72–94; RESP 16–24; TEMP 97.8–98.6; O2SAT 93–95
[2016-12-04] MEDS: ACETAMINOPHEN/HYDROcodone 325 MG/10 MG TAB PO PRN ×3 (00:17→13:51)
[2016-12-04] MEDS: hydrALAZINE HCL 25 MG TAB PO SCH ×2 (05:54→13:49)
[2016-12-04] MEDS: METOCLOPRAMIDE HCL 10 MG/2 ML VIAL IV PUSH SCH ×2 (05:54→13:49)
[2016-12-04] MEDS: NIFEdipine 60 MG SUSTAINED RELEASE TAB PO SCH (08:02)
[2016-12-04] MEDS: PANTOPRAZOLE SODIUM 40 MG VIAL IVP SCH (08:02)
[2016-12-04] MEDS: ALLOPURINOL 300 MG TAB PO SCH (08:02)
[2016-12-04] MEDS: SODIUM CHLORIDE 0.9% FLUSH 5 ML FLUSH IVF SCH (08:03)
[2016-12-04] MEDS: LISINOPRIL 20 MG TAB PO SCH (08:07)
--- NOTE | 2016-12-04 10:32 | HHI.NSPN ---
(Dania Carcamo) Note Status Status: Progress Note (Dania Carcamo) Interval History Interval History Mr. 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 He was seen by me on 11/10/16. His surgical incision is healing well without evidence of infection. Mr. Motley had complained in the office of pain, swelling, and tenderness to touch behind his right ear that had gotten worse and Mastoiditis was suspected. A CT Brain was obtained that day without signs of intracranial mass lesions or mastoiditis. He was recommend however to start antibiotics for prophylaxis. Yesterday, he presented to [place] ED following a fall and confusion. He was also hallucinating and had some chills but no fevers. His reported that his post-auricular pain has improved over the weekend. Another CT Brain was taken which was stable. An LP was obtained as well. 11/17: shunt tap on 11/15 showing MRSA, his LP showed no growth. 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 11/21/16: Ventriculoperitoneal shunt removed with placement of ventriculostomy drain on 11/18/16 for shunt infection. He is on IV Vancomycin and Rifampin per ID. Ventriculostomy drain clamped yesterday. 11/22/16: denies headaches, working with PT, slight dizziness upon sitting up on edge of bed, no nausea or vomiting. afebrile 11/23/16: eating breakfast, denies headaches, vomiting, fevers or chills. 11/27/16: CSF reculture 11/24/16 with no growth. doing well, denies any changes over the weekend, ventriculostomy drain open, CSF clear. 11/28: denies headaches, awaiting clearance by ID for PEOPLESOFT ANALYST shunt placement 11/29: repeat CSF so far no organisms, final cultures pending. no changes overnight. 11/30: so far culture neg past 24 hours, afebrile. PEOPLESOFT ANALYST shunt planned for tomorrow 12/04: done well over the weekend, [facility]. denies headaches , nausea, vomiting. (Dania Carcamo) Labs, Micro, & Vital Signs Results Date Time Temp Pulse Resp B/P Pulse Ox O2 Delivery O2 Flow Rate FiO2 12/04/16 08:00 97.8 74 20 140/65 93 12/04/16 07:00 93 Room Air 12/04/16 06:00 72 12/04/16 04:00 98.2 75 16 145/65 93 12/04/16 04:00 75 12/04/16 02:00 81 12/04/16 00:00 98.6 94 24 152/67 94 12/04/16 00:00 76 12/03/16 22:00 76 12/03/16 20:00 96 12/03/16 20:00 98.1 97 24 178/74 93 12/03/16 19:00 93 Room Air 12/03/16 18:00 90 12/03/16 16:00 98.6 82 20 145/67 93 12/03/16 16:00 82 12/03/16 14:00 94 12/03/16 12:00 97.5 84 20 182/81 95 12/03/16 12:00 84 12/04/16 07:00 Intake Total 1522 ml Output Total 1850 ml Balance -328 ml Constitutional Vital Signs Date Time Temp Pulse Resp B/P Pulse Ox O2 Delivery O2 Flow Rate FiO2 12/04/16 08:00 97.8 74 20 140/65 93 12/04/16 07:00 93 Room Air 12/04/16 06:00 72 12/04/16 04:00 98.2 75 16 145/65 93 12/04/16 04:00 75 12/04/16 02:00 81 12/04/16 00:00 98.6 94 24 152/67 94 12/04/16 00:00 76 12/03/16 22:00 76 12/03/16 20:00 96 12/03/16 20:00 98.1 97 24 178/74 93 12/03/16 19:00 93 Room Air 12/03/16 18:00 90 12/03/16 16:00 98.6 82 20 145/67 93 12/03/16 16:00 82 12/03/16 14:00 94 12/03/16 12:00 97.5 84 20 182/81 95 12/03/16 12:00 84 12/04/16 07:00 Intake Total 1522 ml Output Total 1850 ml Balance -328 ml (Dania Carcamo) Review of Systems/Exam Exam Alert and oriented x 3. Speech is appropriate. Left PEOPLESOFT ANALYST shunt palpated, wound clean with dressing in place. CN: Pupils equal, facial motor symmetric. Tongue midline Neck: soft, supple Motor: moves all four extremities with good strength Sensory: intact to light touch x 4 (Dania Carcamo) Medications Current Medications Current Medications Medications (Trade) Dose Ordered Sig/Kiel Route PRN Reason Start Time Stop Time Status Last Admin Dose Admin Allopurinol (Zyloprim) 300 mg DAILY PO 11/15/16 09:00 12/04/16 08:02 Lisinopril 20 mg 20 mg DAILY PO 11/15/16 09:00 12/04/16 08:07 Pharmacy Profile Note (Vancomycin Consult Pharmacy) ml @ 0 mls/hr UNSCH XX 11/14/16 12:30 Heparin Sodium (Porcine) (Heparin Inj) 5,000 units Q12HR SQ 11/15/16 21:00 Hold 11/30/16 08:34 Ondansetron HCl (Zofran Inj) 4 mg Q6HR PRN IV PUSH NAUSEA 11/16/16 21:00 11/30/16 11:59 Metoclopramide HCl (Reglan Inj) 5 mg Q8HR IV PUSH 11/17/16 22:00 12/04/16 05:54 Patient Own Medication PT OWN MED: (Loteprednol Opth .. HS RIGHT EYE 11/19/16 21:00 12/03/16 20:11 Enalaprilat (Vasotec Inj) 2.5 mg Q6H PRN IV PUSH SYS BP GREATER THAN 170 MMHG 11/20/16 17:00 12/03/16 02:00 Clonidine (Catapres) 0.1 mg Q8H PRN PO SYS BP GREATER THAN 180 MMHG 11/21/16 23:45 12/03/16 12:34 Nifedipine (Procardia Xl) 60 mg DAILY PO 11/24/16 09:00 12/04/16 08:02 Hydralazine HCl (Apresoline) 25 mg Q8HR PO 11/23/16 15:00 12/04/16 05:54 Chlorpromazine 25 mg 25 mg Q8H PRN PO HICCUPS 11/24/16 11:45 Vancomycin HCl/ Sodium Chloride (Vancomycin Inj/ NS 250 ml Inj) 250 ml @ 250 mls/hr Q18H IV 11/24/16 17:00 12/03/16 17:01 IV Flush (NS Flush) 2 ml UNSCH PRN IVF FLUSH AFTER USING IV ACCESS 12/01/16 17:30 IV Flush (NS Flush) 2 ml BID IVF 12/01/16 21:00 12/04/16 08:03 Pantoprazole Sodium (Protonix Inj) 40 mg DAILY IVP 12/02/16 09:00 12/04/16 08:02 Acetaminophen/ Hydrocodone Bitart (Ajo 10-325 Mg) 1 tab Q4H PRN PO PAIN SCALE 1 TO 5 12/01/16 17:30 12/04/16 00:17 Acetaminophen/ Hydrocodone Bitart (Ajo 10-325 Mg) 2 tab Q4H PRN PO PAIN SCALE 6 TO 10 12/01/16 17:30 12/04/16 08:02 Morphine Sulfate (Morphine Inj) 2 mg Q2H PRN IV PUSH PAIN SCALE 1 TO 6 12/01/16 17:30 Morphine Sulfate (Morphine Inj) 4 mg Q2H PRN IV PUSH PAIN SCALE 7 TO 10 12/01/16 17:30 Acetaminophen (Tylenol) 650 mg Q4H PRN PO TEMPERATURE > 101.5 F 12/01/16 17:30 (Dania Carcamo) Medical Decision Making MDM Remarks 89 y/o presented with AMS, confusion, s/p fall recent replacement of PEOPLESOFT ANALYST shunt valve on 10/25/16 for NPH shunt infection with MRSA from shunt tap, s/p removal of PEOPLESOFT ANALYST shunt with placement of ventriculostomy drain 11/18/16 CSF reculture 11/24/16 with no growth, reculture of CSF 11/29/16 negative s/p placement of ventriculoperitoneal shunt 12/01/16 (Dania Carcamo) Plan Plan Remarks doing well, neuro stable mode/sutures dc 12/15/16 clear to [facility] (Dania Carcamo) Attending Statement The exam, history, and the medical decision-making described in the above note were completed with the assistance of the mid-level provider. I reviewed and agree with the findings presented. I attest that I had a [id number] encounter with the patient on the same day, and personally performed and documented my assessment and findings in the medical record. (Alberto Turpin MD) Dania Carcamo Dec 04, 2016 10:32 Alberto Turpin MD Dec 06, 2016 17:08
[2016-12-04] MEDS ORDERED: IPRASOL NEB (11:21)
[2016-12-04] MEDS ORDERED: HYDR-3583 PO (11:21)
[2016-12-04] MEDS ORDERED: NIFE15TA PO (11:21)
[2016-12-04] MEDS ORDERED: HYDR25TA35 PO (11:21)
[2016-12-04] MEDS ORDERED: CLON.1 PO (11:21)
--- NOTE | 2016-12-04 11:21 | HHI.DCPOC ---
Discharge Care Plan Diagnosis: (1) Malfunction of ventriculoperitoneal shunt (2) Normal pressure hydrocephalus (3) A41.9 (4) Altered mental status (5) Fall (6) Infection of ventriculoperitoneal shunt (7) S/P ventriculoperitoneal shunt Your Health Problems Are: Anxiety Difficulty with ADL Goals to Promote Your Health * To prevent worsening of your condition and complications * To maintain your health at the optimal level Directions to Meet Your Goals Take your medications as prescribed Follow your dietary instruction Follow activity as directed Keep your appointments as scheduled Take your immunizations and boosters as scheduled If your symptoms worsen call your PCP, if no PCP go to Urgent Care Center or Emergency Room Smoking is Dangerous to Your Health. Avoid second hand smoke Call the 24-hour hour crisis hotline for domestic abuse at Kimberly Gerardo [facility] Dec 04, 2016 11:21
--- NOTE | 2016-12-04 11:22 | HHI.PR ---
Subjective Subjective Remarks s/p VETERANS' COORDINATOR shunt replacement on 12/01/16 awake, oriented x 2-3, forgetful no focal deficits no fever poor appetite very weak anxious to go to rehab [facility] Review of Systems Constitutional Constitutional Remarks 12 point ROS completed, unreliable Vitals/Results Intake & Output 12/03/16 12/03/16 12/04/16 15:00 23:00 07:00 Intake Total 1026 ml 416 ml 80 ml Output Total 950 ml 400 ml 500 ml Balance 76 ml 16 ml -420 ml Intake Oral 600 ml 120 ml 80 ml IV Total 426 ml 296 ml Output Urine Total 950 ml 400 ml 500 ml # Bowel Movements 0 0 0 Vital Signs Vital Signs Date Time Temp Pulse Resp B/P Pulse Ox O2 Delivery O2 Flow Rate FiO2 12/04/16 08:00 76 12/04/16 08:00 97.8 74 20 140/65 93 12/04/16 07:00 93 Room Air 12/04/16 06:00 72 12/04/16 04:00 98.2 75 16 145/65 93 12/04/16 04:00 75 12/04/16 02:00 81 12/04/16 00:00 98.6 94 24 152/67 94 12/04/16 00:00 76 12/03/16 22:00 76 12/03/16 20:00 96 12/03/16 20:00 98.1 97 24 178/74 93 12/03/16 19:00 93 Room Air 12/03/16 18:00 90 12/03/16 16:00 98.6 82 20 145/67 93 12/03/16 16:00 82 12/03/16 14:00 94 12/03/16 12:00 97.5 84 20 182/81 95 12/03/16 12:00 84 CBC/BMP: 12/03/16 0310 Lab Results Laboratory Tests Test 12/03/16 16:45 Vancomycin Level Trough 13.9 MCG/ML Physical Exam General General Appearance: Well Developed, No Acute Distress, Comfortable Eyes Eye Exam: Pupils Equal, Pupils Reactive, Extraocular Movement Intact Ears & Nose Ears & Nose Exam: Nasal Mucosa Deering Throat Throat Exam: Oral Mucosa Deering & Moist Neck Neck Exam: Neck Supple, Trachea Midline Pulmonary Resp Exam: Clear Bilaterally, Breath Sounds Equal, No Distress Cardiology CV Exam: Regular, Normal Sinus Rhythm Gastrointestinal/Abdomen GI Exam: Soft, Non-Tender, Bowel Sounds Present, Non-Distended Musculoskeletal MS Exam: Joints Intact Integumentary Skin Exam: Warm, Dry Extremeties Extremities Exam: No Edema, Pedal Pulses Palpable Neurologic Neuro Exam: Alert, Awake, Oriented, Speech Clear, Moving All Extremities, No Focal Deficits Neuro Remarks mode right scapl dressing left scalp D/I Psychiatric Psych Exam: Appropriate Responses VTE Prophylaxis VTE Prophylaxis Device: SCDs PUD Prophylasis PUD Prophylaxis: Protonix Assessment/Plan Assessment/Plan . progressive confusion, w leukocytosis ,Meningitis , MRSA . Sepsis on admission . 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 abd pain / distention , Peritonitis d/t infected VETERANS' COORDINATOR shunt . Fever d/t to above . s/p fall . Hypertension, . Hyperlipidemia, . History of COPD with scarring. . Microscopic hematuria. . Osteoarthritis. . Elevated LFTs ? medication on Rifampin PLAN shunt fluid c/s +ve MRSA IV antibiotics per ID s/p removal of VETERANS' COORDINATOR shunt & placement of external drain 11/18/16 status post new shunt placement December 01 CSF culture last 11/24, negative Repeat CSF cultures 11/28 negative cultures negative Status post VETERANS' COORDINATOR shunt per ID, continue abx x 4 weeks from time of VETERANS' COORDINATOR insertion PICC line today Was found with ileus, had , CT abd noted, LLL infiltrate, ileus AXR abd , surgery evaluated, signed off, now having BMs Stable Uncontrolled BP, now improving BP improving, continue with Procardia XL 60 mg PO daily Continue Lisinopril, and PRN Vasotec, Hydralazine PO and Clonidine Incentive spirometry PPI for GI prophylaxis Subcutaneous heparin for DVT prophylaxis IV morphine when necessary for pain Continue with PT s/p VETERANS' COORDINATOR shunt replacement on 12/01/16 post op care doing well ok to go to [facility] per neurosurgery PICC line today D/W Dr. Sloan, continue Vanco x 4 weeks from time of VETERANS' COORDINATOR shunt insertion D/W pt/ D/W Dr. Sloan D/W Dr. Larsen D/W RN This patient was seen by myself and Dr. Larsen, this note is written on his behalf. Kimberly Gerardo Dec 04, 2016 11:22
[2016-12-04] MEDS: VANCOMYCIN 1,000 MG/NS 250 ML IV SCH ×2 (11:57)
--- NOTE | 2016-12-04 12:33 | HHI.DS ---
Discharge Summary Admission Date Nov 14, 2016 at 10:41 Discharge Date: Dec 04, 2016 Admitting Diagnosis sepsis/altered mental status (1) Normal pressure hydrocephalus (2) Altered mental status (3) Infection of ventriculoperitoneal shunt (4) S/P ventriculoperitoneal shunt (5) Elevated liver enzymes (6) MRSA infection (7) Hypertension, uncontrolled Procedures LP 11/14/2017 Removal of shunt and placement of external drain s/p GILL BOX TENDER shunt replacement on 12/01/16 CBC/BMP: 12/03/16 0310 Significant Findings Laboratory Tests Test 12/01/16 12/03/16 17:22 16:45 CSF RBC (Tube 1) 663 /MM3 (NONE) Vancomycin Level Trough 13.9 MCG/ML (5.0-10.0) Imaging Last Impressions Head CT 12/02/16 0000 Signed Impressions: Service Date/Time: Friday, December 02, 2016 04:34 - CONCLUSION: 1. Postsurgical changes as above. No evidence of acute intracranial pathology. No masses are identified. Max Saldivar MD Abdomen/Pelvis CT 11/19/16 0600 Signed Impressions: Service Date/Time: Saturday, November 19, 2016 05:27 - CONCLUSION: Numerous distended loops of small bowel without evidence of obstructing lesion or significant wall thickening. Solid organs are unremarkable. Cholecystectomy clips. Persistent lower lobe infiltrates right greater left worse than on the 11/14/16 exam . Joseluis Vila MD Chest X-Ray 11/18/16 0000 Signed Impressions: Service Date/Time: Friday, November 18, 2016 12:09 - CONCLUSION: Lower lobe consolidation noted bilaterally. Caleb Murry MD Abdomen X-Ray 11/18/16 0000 Signed Impressions: Service Date/Time: Friday, November 18, 2016 12:13 - CONCLUSION: Abnormally dilated loops of small intestine are noted and a developing small bowel obstruction is not excluded. Caleb Murry MD Pelvis X-Ray 11/14/16 0622 Signed Impressions: Service Date/Time: Monday, November 14, 2016 06:24 - CONCLUSION: Negative trauma study with no acute fracture or malalignment. Misael Camara MD Cervical Spine CT 11/14/16 0622 Signed Impressions: Service Date/Time: Monday, November 14, 2016 07:32 - CONCLUSION: 1. No acute abnormality. 2. Diffuse mild degenerative changes without central canal stenosis or neural foraminal narrowing. 3. Calcified plaque involving the carotid arteries. Edwardo Workman Jr., MD Lumbar Puncture Fluoroscopy 11/14/16 0000 Signed Impressions: Service Date/Time: Monday, November 14, 2016 13:55 - CONCLUSION: Uncomplicated fluoroscopically guided lumbar puncture. Edwardo Workman Jr., MD Clavicle X-Ray 11/14/16 0000 Signed Impressions: Service Date/Time: Monday, November 14, 2016 07:50 - CONCLUSION: Intact right clavicle. New Manrique MD Hospital Course This is a very pleasant 89-year-old male with prior history of normal pressure hydrocephalus which was originally treated with GILL BOX TENDER shunt some time in 2007. Subsequently, he had a shunt revision in 2011 in [place] after which he needed some adjustment a few times. The patient moved to [place] sometime in April of this year along with his . He was having some difficulty with his shunt and was developing some gait problem and memory problem. He was seen by Dr. Singh of neurology who referred him to Dr. Alberto Turpin, neurosurgeon. The patient had formal shuntogram and shunt series x-rays and found to have shunt malfunction. In early October, the patient underwent a revision of GILL BOX TENDER shunt by Dr. Turpin. He had a follow-up visit at which time his mode were removed. The incision was healing well. He was noted to have mild swelling behind the right ear. There was concern of a possible infection. CT head was ordered. The patient was given ciprofloxacin. The patient was taking ciprofloxacin at home. However, he reported he had been getting increasingly confused and somewhat forgetful, losing his memory. He had some difficulty with his gait. Prior to admissin, he went to the bathroom. He was standing up urinating when he passed out. He did not remember what happened to him. When he woke up he found himself on the floor. His heard the noise and went to the bathroom found him on the floor. The patient had some soreness in his back. He denied preceding chest pain, palpitations or dizziness. There was no history of seizures. Upon arrival to emergency room, the patient was noted to be febrile. He was hemodynamically stable. CT head did not reveal any acute finding. labs showed evidence of leukocytosis with left shift. His UA was essentially unremarkable except for microscopic hematuria. Recommendation was given by the ER physician for the patient to be admitted to hospital. Blood culture were taken. The patient was started on broad-spectrum antibiotic and was admitted to the hospital for: 1. Progressive weakness, confusion, status post fall in this elderly man with history of GILL BOX TENDER shunt status post recent revision. He has also leukocytosis with left shift. There was concern about possible meningitis or meningoencephalitis, possible shunt related infection-found with MRSA infection in GILL BOX TENDER shunt. 2. History of normal pressure hydrocephalus status post GILL BOX TENDER shunt status post recent revision. 2. Hypertension, 3. Hyperlipidemia, 4. History of COPD with scarring. 5. Microscopic hematuria. 6. Osteoarthritis. 7. Elevated LFTs ? medication on Rifampin During the course of the hospitalization, the following took place; Patient admitted to the intensive care unit, neuro checks were ordered Interventional radiology was consulted for spinal tap, patient underwent LP Spinal fluid showed 27 WBCs and 190 RBCs. CSF glucose of 74 and CSF total protein is 100. The differential on the WBCs was 3% neutrophils, 48% lymphocytes, 31% monocytes, 18% histiocytes. Patient continued on empiric antibiotics, infectious disease was consulted. Neurosurgeon, Dr. Turpin, consulted as well. Blood pressure medications were resumed Patient put on Pepcid for GI protection and SCDs for DVT prophylaxis Shunt fluid c/s +ve MRSA, IV antibiotics per ID Pt. needed removal of shunt. s/p removal of GILL BOX TENDER shunt & placement of external drain 11/18/16 External drain managed per neurosurgery, was unclamped per NSx orders. Neuro checks were followed, pt. forgetful but easily reoriented. CSF cultures were followed until they were cleared to proceed with GILL BOX TENDER shunt placement. After CSF cultures x 2 sets cleared, ID gave approval for GILL BOX TENDER insertion. Underwent GILL BOX TENDER insertion 12/01/2016. Tolerated procedure well per ID, pt to continue abx x 4 weeks from time of GILL BOX TENDER insertion PICC line was ordered. During hospitalization, was found with ileus. Had CT abd noted, LLL infiltrate, ileus AXR abd followed, improved General surgery evaluated, signed off, pt. had BMs Stable Uncontrolled BP initially, was continued on home meds. BP meds adjusted. Started on Procardia XL 60 mg PO daily Continued Lisinopril, and PRN Vasotec, Hydralazine PO and Clonidine BP improved. LFTs elevated, likely due to Rifampin. Rifampin stopped LFTs monitored, trended down. Was ordered Incentive spirometry PPI for GI prophylaxis Subcutaneous heparin for DVT prophylaxis IV morphine when necessary for pain PT worked with pt's mobility. CM consulted for dc planning, CIR accepted. Pt. cleared for discharge to [facility] Pt. stable, no fever, forgetful but otherwise mentation improved. PICC placed, pt. to continue Vanco x 4 weeks from time of GILL BOX TENDER shunt insertion Pt. discharged to [facility] in stable condition. Pt Condition on Discharge: Fair Discharge Disposition: Rehab Inpatient Discharge Instructions DIET: Follow Instructions for: As Tolerated, No Restrictions Activities you can perform: Weight Bearing as Millie Follow up Referrals: Neurosurgery with Alberto Turpin MD PCP Follow-up New Medications: Clonidine (Catapres) 0.1 Mg Tab 0.1 MG PO Q8H PRN SYS BP GREATER THAN 180 MMHG #30 TAB Hydralazine (Hydralazine) 25 Mg Tab 25 MG PO Q8HR Blood Pressure Management #90 TAB Hydrocodone-Acetaminophen (Hydrocodone-Acetaminophen) 10-325 mg Tab 2 TAB PO Q4H PRN PAIN SCALE 6 TO 10 #30 TAB Ipratropium-Albuterol Neb (Duoneb) 0.5-2.5 Mg/3 Ml Neb 1 AMPULE NEB Q6HR NEB PRN SHORTNESS OF BREATH #30 ML Nifedipine ER 24 HR (Nifedical XL) 60 Mg Tab 60 MG PO DAILY Blood Pressure Management #60 TAB Continued Medications: Allopurinol (Allopurinol) 300 Mg Tab 300 MG PO DAILY Gout #30 Ref 0 TAB Amlodipine (Amlodipine) 5 Mg Tab 5 MG PO DAILY Blood Pressure Management #30 Ref 0 TAB Lisinopril (Lisinopril) 20 Mg Tab 20 MG PO DAILY #30 Ref 0 TAB Loteprednol Opth Drops (Lotemax Opth Drops) 0.5 % Soln 1 DROP EACH EYE QID Inflammation #1 Ref 0 BOTTLE Omeprazole (Omeprazole) 40 Mg Cap 40 MG PO DAILY #30 Ref 0 CAP Discontinued Medications: Acetaminophen (Tylenol Extra Strength) 500 Mg Tab 500 MG PO HS PRN PAIN Ref [address] (Aspirin 81) 81 Mg Tabdr 81 MG PO DAILY Ref 0 TAB Cholecalciferol (Vitamin D3) 50,000 Unit Cap Unknown Dose PO Q7D Nutritional Supplement #1 Ref 0 BOTTLE Ciprofloxacin (Ciprofloxacin) 500 Mg Tab 500 MG PO Q12HR Infection #28 Ref 0 TAB Hydrocodone-Acetaminophen (Hydrocodone-Acetaminophen) 10-325 mg Tab 1 TAB PO Q8HR PRN PAIN SCALE 1 TO 10 #60 Ref 0 TAB Ibuprofen (Ibuprofen) 800 Mg Tab 600 MG PO Q8H PRN PAIN SCALE 6 TO 10 #42 Ref 0 TAB Ipratropium HFA 12.9 GM Inh (Atrovent HFA 12.9 GM Inh) 17 Mcg/Act Aer 2 PUFF INH DIRECTED PRN SHORTNESS OF BREATH #1 Ref 0 INHALER Meloxicam (Mobic) 15 Mg Tab 15 MG PO DAILY Arthritis pain Ref 0 TAB Kimberly Gerardo Dec 04, 2016 12:33
[2016-12-04] MEDS: ENALAPRILAT 2.5 MG/2 ML VIAL IV PUSH PRN (12:44)
--- NOTE | 2016-12-04 13:50 | HHI.IDPN ---
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. He reports that on 10/25/2016 he had replacement of the shunt valve at [facility] by for ADVERTISING COORDINATOR shunt malfunction. Shunt fluid clx was positive for MRSA and shunt was removed and external drain was placed yday Antibiotics Vanco IV Lines Line sites with no e.o infection. Past Medical History reviewed. Allergies: Coded Allergies: *MDRO Multi-Drug Resistant Organism (Verified Adverse Reaction, Unknown, MRSA, 11/21/16) MRSA (CSF-11/15/16 & head wound-11/18/16) MRSA screen POSITIVE - 11/18/16 Objective . Vital Signs Date Time Temp Pulse Resp B/P Pulse Ox O2 Delivery O2 Flow Rate FiO2 12/04/16 12:00 97.9 84 21 179/81 95 12/04/16 12:00 84 12/04/16 10:00 81 12/04/16 09:02 28 12/04/16 08:00 76 12/04/16 08:00 97.8 74 20 140/65 93 12/04/16 07:00 93 Room Air 12/04/16 06:00 72 12/04/16 04:00 98.2 75 16 145/65 93 12/04/16 04:00 75 12/04/16 02:00 81 12/04/16 00:00 98.6 94 24 152/67 94 12/04/16 00:00 76 12/03/16 22:00 76 12/03/16 20:00 96 12/03/16 20:00 98.1 97 24 178/74 93 12/03/16 19:00 93 Room Air 12/03/16 18:00 90 12/03/16 16:00 98.6 82 20 145/67 93 12/03/16 16:00 82 12/03/16 14:00 94 12/03/16 12/03/16 12/04/16 15:00 23:00 07:00 Intake Total 1026 ml 416 ml 80 ml Output Total 950 ml 400 ml 500 ml Balance 76 ml 16 ml -420 ml Intake Oral 600 ml 120 ml 80 ml IV Total 426 ml 296 ml Output Urine Total 950 ml 400 ml 500 ml # Bowel Movements 0 0 0 . Laboratory Tests Test 12/03/16 03:10 Creatinine 0.67 MG/DL Estimat Glomerular Filtration 112 ML/MIN Rate Microbiology Date/Time Procedure Status Source Growth 12/01/16 17:22 Gram Stain - Final Complete Cerebral Spinal Fluid Shunt Fluid 12/01/16 17:22 CSF Culture - Final Complete Cerebral Spinal Fluid Shunt Fluid NO GROWTH IN 72 HRS.--AEROBICALLY OR ... Imaging Abdomen/Pelvis CT 11/19/16 0600 Signed Impressions: Service Date/Time: Saturday, November 19, 2016 05:27 - CONCLUSION: Numerous distended loops of small bowel without evidence of obstructing lesion or significant wall thickening. Solid organs are unremarkable. Cholecystectomy clips. Persistent lower lobe infiltrates right greater left worse than on the 11/14/16 exam . Joseluis Vila MD Chest X-Ray 11/18/16 0000 Signed Impressions: Service Date/Time: Friday, November 18, 2016 12:09 - CONCLUSION: Lower lobe consolidation noted bilaterally. Caleb Murry MD Abdomen X-Ray 11/18/16 0000 Signed Impressions: Service Date/Time: Friday, November 18, 2016 12:13 - CONCLUSION: Abnormally dilated loops of small intestine are noted and a developing small bowel obstruction is not excluded. Caleb Murry MD Pelvis X-Ray 11/14/16 0622 Signed Impressions: Service Date/Time: Monday, November 14, 2016 06:24 - CONCLUSION: Negative trauma study with no acute fracture or malalignment. Misael Camara MD Head CT 11/14/16 0622 Signed Impressions: Service Date/Time: Monday, November 14, 2016 07:32 - CONCLUSION: No acute intracranial abnormality. New Manrique MD Cervical Spine CT 11/14/16 0622 Signed Impressions: Service Date/Time: Monday, November 14, 2016 07:32 - CONCLUSION: 1. No acute abnormality. 2. Diffuse mild degenerative changes without central canal stenosis or neural foraminal narrowing. 3. Calcified plaque involving the carotid arteries. Edwardo Workman Jr., MD Lumbar Puncture Fluoroscopy 11/14/16 0000 Signed Impressions: Service Date/Time: Monday, November 14, 2016 13:55 - CONCLUSION: Uncomplicated fluoroscopically guided lumbar puncture. Edwardo Workman Jr., MD Clavicle X-Ray 11/14/16 0000 Signed Impressions: Service Date/Time: Monday, November 14, 2016 07:50 - CONCLUSION: Intact right clavicle. New Manrique MD Physical Exam GENERAL: Awake and alert, NAD SKIN: No generalized rash HEAD: Incision ok EENT: [place] conjunctivae, no icterus, no injection. Moist oral mucosa CARDIOVASCULAR: HS audible. No murmurs RESPIRATORY: Clear to auscultation. GASTROINTESTINAL: Abdomen soft, nondistended.Not tender MUSCULOSKELETAL: Extremities without clubbing, cyanosis, or edema. No calf tenderness. NEUROLOGICAL: Awake and alert. Psych: cooperative IV line sites with no e/o infection. Assessment & Plan Remarks Sepsis present on admission ADVERTISING COORDINATOR shunt related ventriculitis, MRSA - ADVERTISING COORDINATOR shunt is removed 11/18 - S/P new ADVERTISING COORDINATOR shunt 12/01 Acute metabolic encephalopathy: infection, NPH Elevated CRP. Recs Continue Vanco IV (target trough 15-20 for meningitis) Plan give Abx until Dec 28 (4 weeks from ADVERTISING COORDINATOR shunt placement) Labs weekly while on Vnco - CBC, creat and LFT To go to [facility] PICC D/W A Puja Gee MD Dec 04, 2016 13:50
--- NOTE | 2016-12-04 14:16 | RADRPT ---
EXAM DATE/TIME: 12/04/2016 13:19 Caution: Report not yet finalized and possibly incomplete! [facility] COMPARISON: CHEST SINGLE AP, November 18, 2016, 12:09. INDICATIONS : <<PICC line placement>> MEDICAL HISTORY : Hypertension. SURGICAL HISTORY : TELECOMMUNICATION OPERATOR shunt ENCOUNTER: Subsequent ACUITY: 1 week PAIN SCORE: 0/10 LOCATION: Bilateral chest FINDINGS: PICC line is in good position. Shunt tube is seen coursing in the left chest. The right lung is agnes ar. Minimal parenchymal changes are present on left. Heart and pulmonary vascularity are normal. CONCLUSION: 1. PICC line in good position. 2. Slight increase in parenchymal opacity in the left base. Jean-Paul Eastman MD FACR on December 04, 2016 at 13:57
[2016-12-08] MEDS ORDERED: PHARMACY ORDERED LAB XX ONE (04:45)
[2016-12-18] MEDS ORDERED: LOTE0.5S EACH EYE (11:33)
[2016-12-18] MEDS ORDERED: WHEEMIS3 (14:24)
[2016-12-18] MEDS ORDERED: GETGO ROLLING W1 MI1 (14:24)
[2016-12-21] MEDS ORDERED: ALLO300T2 PO (08:46)
[2016-12-21] MEDS ORDERED: ZYVO600T PO (08:46)
[2016-12-21] MEDS ORDERED: ARIC5TAB PO (08:46)
[2016-12-21] MEDS ORDERED: NIFE15TA PO (08:46)
[2016-12-21] MEDS ORDERED: LISI-515 PO (08:46)
[2016-12-21] MEDS ORDERED: OMEP40CA2 PO (08:46)
[2016-12-21] MEDS ORDERED: HYDR25TA35 PO (08:46)
[2016-12-21] MEDS ORDERED: POTA20TA5 PO (08:46)
[2017-04-12] MEDS ORDERED: MIRTA15 PO (13:53)
== END 2016-12-04 14:39 | DRG 25 ==
LOC: NEPC 05:57 → NEDA 10:41 → N04B 16:50 → N03B 11-18 16:38 → N03A 11-18 17:55
PROVIDERS: ADMIT Specialist; ATTEND Specialist
PROC: 009U3ZX Drainage of Spinal Canal, Percutaneous Approach, Diagnostic (ICD-10-PCS; 2016-11-14)
PROC: 00P63JZ Removal of Synthetic Substitute from Cerebral Ventricle, Percutaneous Approach (ICD-10-PCS; 2016-11-18)
PROC: 009600Z Drainage of Cerebral Ventricle with Drainage Device, Open Approach (ICD-10-PCS; principal; 2016-11-18 14:51)
PROC: 00160J6 Bypass Cerebral Ventricle to Peritoneal Cavity with Synthetic Substitute, Open Approach (ICD-10-PCS; 2016-12-01)
DX: T85.730A Infection and inflammatory reaction due to ventricular intracranial (communicating) shunt, initial encounter (principal); A41.9 Sepsis, unspecified organism; G93.41 Metabolic encephalopathy; G03.9 Meningitis, unspecified; G91.2 (Idiopathic) normal pressure hydrocephalus; J44.9 Chronic obstructive pulmonary disease, unspecified; K56.7 Ileus, unspecified; R47.81 Slurred speech; H91.90 Unspecified hearing loss, unspecified ear; E78.5 Hyperlipidemia, unspecified; I10 Essential (primary) hypertension; K21.9 Gastro-esophageal reflux disease without esophagitis; M10.9 Gout, unspecified; M17.11 Unilateral primary osteoarthritis, right knee; M19.012 Primary osteoarthritis, left shoulder; M47.9 Spondylosis, unspecified; Y83.1 Surgical operation with implant of artificial internal device as the cause of abnormal reaction of the patient, or of later complication, without mention of misadventure at the time of the procedure; W19.XXXA Unspecified fall, initial encounter; Y92.009 Unspecified place in unspecified non-institutional (private) residence as the place of occurrence of the external cause; R31.29 Other microscopic hematuria; Z87.891 Personal history of nicotine dependence; K44.9 Diaphragmatic hernia without obstruction or gangrene; Z91.81 History of falling; B95.62 Methicillin resistant Staphylococcus aureus infection as the cause of diseases classified elsewhere; R06.6 Hiccough
CPT/HCPCS: 36569; 62270; 70450; 71010; 72125; 72170; 73000; 74000; 74176; 74177; 76937; 77003; 80048; 80053; 80076; 80202; 81001; 82565; 82945; 83605; 83690; 84155; 84157; 85014; 85018; 85025; 85027; 85610; 85730; 86140; 86403; 86850; 86900; 86901; 87015; 87040; 87070; 87086; 87102; 87116; 87147; 87186; 87205; 87206; 87640; 87641; 89051; 93005; 94150; C9113; J0171; J0461; J0690; J0713; J1580; J1644; J2270; J2370; J2405; J2543; J2765; J3010; J3370; J3480; J7030; J7050; Q9963; Q9967